=== PATIENT | female | born 1980 | race Caucasian/White ===

== ENCOUNTER 2023-08-05 11:40 | Emergency (ER) | payer OTHER, SELFPAY ==
[2023-08-05 11:42] VITALS: BP 119/87; PULSE 77; TEMP 36.6; O2SAT 97; BMI 35.6
[2023-08-05 11:55] VITALS: O2SAT 97
--- NOTE | 2023-08-05 12:00 | ED_ITS ---
HPI HPI - General Adult General Chief complaint: Headache Stated complaint: HEADACHE Time Seen by Provider: 08/05/23 11:56 Source: patient Mode of arrival: walk-in History of Present Illness HPI narrative: hx of migraine , the patient presented to us with an episode of nausea as well as headache that started this morning. She mentioned that it is similar to her typical migraine episode but she did not have Imitrex as it is The patient denies any other complaints She also mentioned having with the nausea ,photosensitivity Related Data Allergies Allergy/AdvReac Type Severity Reaction Status Date / Time amoxicillin Allergy Severe Verified 08/05/23 11:50 cefuroxime [From Ceftin] Allergy Severe Verified 08/05/23 11:50 clindamycin Allergy Severe Verified 08/05/23 11:50 latex Allergy Severe Verified 08/05/23 11:50 Penicillins Allergy Severe Verified 08/05/23 11:50 Sulfa (Sulfonamide Allergy Severe Verified 08/05/23 11:50 Antibiotics) Opioid HPI Opioid Management Most Recent Opioid Data: Last Pain Scale 10 08/05/23 12:18 Last MAR Pain Assessment 08/05/23 12:18 Review of Systems ROS Status of ROS 10 or more systems reviewed and unremark able except as noted in history and below Exam Narrative Exam Narrative: Nurses notes and vital signs reviewed and patient is not hypoxic. General: Well-appearing and in no apparent distress. Skin: Warm, dry, no pallor noted. No rash. Head: Normocephalic, atraumatic. Neck: Supple, non-tender. Eye: Pupils are equal, round and EOMI. No scleral icterus. Ears, Nose, Mouth, and Throat: TM are clear, no nasal mucosal hypertrophy. Oral mucosa is moist, no posterior oropharynx erythema, uvula is mid-line Cardiovascular: Regular Rate and Rhythm without murmur, gallop or rub. Respiratory: No accessory muscle use or respiratory distress. Lungs are clear to auscultation, no wheezing, rales or rhonchi Chest Wall: no tenderness Back: No midline thoracic or lumbar vertebral tenderness. No CVA tenderness Musculoskeletal: normal ROM, no calf or popliteal tenderness, no lower extremity edema/swelling GI: Abdomen is soft, non-distended. Normal bowel sounds. No masses appreciated. No tenderness to palpation. No rebound, guarding, or rigidity noted. Neurological: A&O x4. No cranial nerve dysfunction observed. No truncal ataxia. Moves all extremities. Sensation intact. Psychiatric: Cooperative and interactive. Normal mood and affect. Constitutional Vital Signs, click to edit/add: Last Vital Signs Temp 97.9 F 08/05/23 11:42 Pulse 77 08/05/23 11:42 Resp 18 08/05/23 11:42 BP 119/87 08/05/23 11:42 Pulse Ox 97 08/05/23 11:55 O2 Del Method Room Air 08/05/23 11:55 Course Vital Signs Vital signs: Vital Signs Temperature 97.9 F 08/05/23 11:42 Pulse Rate 77 08/05/23 11:42 Respiratory Rate 18 08/05/23 11:42 Blood Pressure 119/87 08/05/23 11:42 Pulse Oximetry 97 08/05/23 11:42 Oxygen Delivery Method Room Air 08/05/23 11:42 Temperature 97.9 F 08/05/23 11:42 Pulse Rate 77 08/05/23 11:42 Respiratory Rate 18 08/05/23 11:42 Blood Pressure 119/87 08/05/23 11:42 Pulse Oximetry 97 08/05/23 11:55 Oxygen Delivery Method Room Air 08/05/23 11:55 Medical Decision Making MDM Narrative Medical decision making narrative: The patient provide in the ER with Compazine and triptan After a while she was feeling much better She was discharged to follow-up with her primary care doctor within the week for further evaluation management Discharge Plan Discharge Stand Alone Forms: Portal Instructions Chief Complaint: Headache Clinical Impression: Migraine Patient Disposition: Home, Self-Care Time of Disposition Decision: 13:25 Condition: Good Mode of Transportation: Private Vehicle Print Language: Indonesian Instructions: Migraine Headache (ED) Referrals: Grace Miramontes MD [Primary Care Provider] - 1 week
[2023-08-05] MEDS: SUMATRIPTAN SUCCINATE 6 MG/0.5 ML VIAL SUBQ (12:13)
[2023-08-05] MEDS: KETOROLAC TROMETHAMINE 30 MG/ML VIAL 15 MG IVP (12:18)
[2023-08-05] MEDS: PROCHLORPERAZINE 10 MG/2 ML VIAL 5 MG IV (12:18)
[2023-08-05 13:32] VITALS: BP 113/81; PULSE 76; O2SAT 98
== END 2023-08-05 13:46 | disposition home or self-care (01) ==
PROVIDERS: Emergency Provider Emergency Medicine; PCP Family Medicine
DX: G43.909 Migraine, unspecified, not intractable, without status migrainosus (principal)
CPT/HCPCS: 96372; 96374; 96375; 99284

== ENCOUNTER 2023-09-11 11:07 | Emergency (ER) | payer OTHER, SELFPAY ==
[2023-09-11] VITALS (12 sets, daily range): BP systolic 125–133; BP diastolic 82–84; PULSE 69–81; TEMP 36.5; O2SAT 96–99; BMI 35.8
--- NOTE | 2023-09-11 11:24 | XR_ITS ---
The [address] [address] Patient Name: IRINA GALAN MRN: [id number] date: 1980 Sex: F Assigned Patient Location: ED.MAIN Current Patient Location: ER Accession/Order Number: [id number] Exam Date: 09/11/2023 11:40 Report Date: 09/11/2023 11:57 At the request of: DRE TARIQ Procedure: XR chest 1V EXAMINATION: XR chest 1V HISTORY: palpitations COMPARISON: No relevant comparison available. TECHNIQUE: ap port FINDINGS: LUNGS: No significant pulmonary parenchymal abnormalities. VASCULATURE: No increased pulmonary vasculature. PLEURA: No pneumothorax, effusion, or pleural thickening. CARDIAC: No cardiomegaly or cardiac silhouette abnormality. MEDIASTINUM: No visible mass or adenopathy. BONES: No fracture or visible bone lesion. OTHER: Negative. XR/XR chest 1V IMPRESSION: No acute cardiopulmonary process Electronically authenticated by: MANE SIMS Date: 09/11/2023 11:57
--- NOTE | 2023-09-11 11:24 | ECG_ITS ---
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
[2023-09-11 11:40] LABS: Basophils Percent Auto 0.4 % (0.2-2.0); Eosinophils Absolute Auto 0.1 10^3/uL (0.0-0.7); Eosinophils Percent Auto 1.2 % (0.9-7.0); Hematocrit 42.4 % (36.0-48.0); Hemoglobin 13.5 g/dL (12.0-16.0); Immature Granulocytes Abs Auto 0.01 10^3/uL (0.00-0.03); Immature Granulocytes Pct Auto 0.1 % (0.0-0.5); Lymphocytes Absolute Auto 1.9 10^3/uL (1.2-3.8); Lymphocytes Percent Auto 22.6 % (20.5-60.0); Mean Corpuscular HGB Conc 31.8 g/dL (29.9-35.2); Mean Corpuscular Hemoglobin 29.7 pg (26.7-34.0); Mean Corpuscular Volume 93.4 fL (81.0-99.0); Mean Platelet Volume 9.6 fL (9.5-13.5); Monocytes Absolute Auto 0.5 10^3/uL (0.3-0.8); Monocytes Percent Auto 6.4 % (1.7-12.0); Neutrophils Absolute Auto 5.9 10^3/uL (1.4-6.5); Neutrophils Percent Auto 69.3 % (43.0-75.0); Platelet Count 244 10^3/uL (150-450); Red Blood Count 4.54 10^6/uL (4.20-5.40); Red Cell Distribution Width 12.6 % (11.0-15.0); White Blood Count 8.4 10^3/uL (4.0-11.0)
--- NOTE | 2023-09-11 11:44 | ED.ARRPALP1 ---
HPI - Arrhythmia/Palpitations General Chief Complaint: Arrhythmia/Palpitations Stated Complaint: FAST HEART RATE/ SHORTNESS OF BREATH Time Seen by Provider: 09/11/23 11:11 Source: patient Mode of arrival: walk-in Limitations: no limitations History of Present Illness HPI narrative: Patient presents to ED complaining of arrhythmia and palpitations. She said over the weekend she was just sitting there at a cookout and she started to have Heart palpitations. She said it lasted about 10 or 15 seconds and then subsided. She said during the episode she felt short of breath and then she had diarrhea shortly afterwards. She said this then happened again today while she was working. She was just sitting at her computer and felt the heart palpitations come on. She felt short of breath again and near syncopal. Again it only lasted about 10 or 15 seconds. She denies severe chest pain. She denies calf pain or swelling. She denies alcohol consumption. She denies history of thyroid issues. She has had a Holter monitor in the past but it has been years because she did have heart palpitations in the past and at that time they were unable to find any specific diagnosis or reason. Related Data Home Medications ?Medication ?Instructions ?Recorded ?Confirmed alprazolam 1 mg tablet 1 mg PO BEDTIME 09/11/23 09/11/23 estradiol 1 mg tablet 1 mg PO DAILY 09/11/23 09/11/23 hyoscyamine sulfate 0.125 mg tablet 0.125 mg PO QID PRN dyspepsia 09/11/23 09/11/23 metoclopramide HCl 5 mg tablet 5 mg PO Q6H PRN nausea and vomiting 09/11/23 09/11/23 pantoprazole 40 mg tablet,delayed 40 mg PO DAILY 09/11/23 09/11/23 release Allergies Allergy/AdvReac Type Severity Reaction Status Date / Time amoxicillin Allergy Severe Hives Verified 09/11/23 11:11 cefuroxime [From Ceftin] Allergy Severe Hives Verified 09/11/23 11:11 clindamycin Allergy Severe Hives Verified 09/11/23 11:11 latex Allergy Severe Hives Verified 09/11/23 11:11 Penicillins Allergy Severe Hives Verified 09/11/23 11:11 Sulfa (Sulfonamide Allergy Severe Hives Verified 09/11/23 11:11 Antibiotics) Review of Systems ROS Status of ROS 10 or more systems reviewed and unremarkable except as noted in history and below Exam Narrative Exam Narrative: Time Seen: [] Vital Signs: [Per nurse's notes.] General: [Alert] Skin: [Warm, dry, no rash.] Head: [Normocephalic, atraumatic.] Neck: [Supple, trachea midline.] Eye: [Pupils are equal, round and reactive to light, extraocular movements are intact, normal conjunctiva.] Ears, nose, mouth and throat: oral mucosa moist. Cardiovascular: [Regular rate and rhythm, no murmur.] Respiratory: [Lungs are clear to auscultation, respirations are non-labored, breath sounds are equal.] Chest wall: [No tenderness, no deformity.] Gastrointestinal: [Soft, nontender, non distended, normal bowel sounds.] MSK: 5 out of 5 muscle strength x 4 extremities no calf pain or edema Lymphatics: [No lymphadenopathy.] Psychiatric: [Cooperative, appropriate mood & affect.] Neurological: [Alert and oriented to person, place, time, and situation, no focal neurological deficit observed.] Constitutional Vital Signs, click to edit/add: Last Vital Signs Temp 97.7 F 09/11/23 11:13 Pulse 78 09/11/23 11:13 Resp 18 09/11/23 11:13 BP 133/82 09/11/23 11:13 Pulse Ox 99 09/11/23 11:13 O2 Del Method Room Air 09/11/23 11:13 Course Vital Signs Vital signs: Vital Signs Temperature 97.7 F 09/11/23 11:13 Pulse Rate 78 09/11/23 11:13 Respiratory Rate 18 09/11/23 11:13 Blood Pressure 133/82 09/11/23 11:13 Pulse Oximetry 99 09/11/23 11:13 Oxygen Delivery Method Room Air 09/11/23 11:13 Temperature 97.7 F 09/11/23 11:13 Pulse Rate 78 09/11/23 11:13 Respiratory Rate 18 09/11/23 11:13 Blood Pressure 133/82 09/11/23 11:13 Pulse Oximetry 99 09/11/23 11:13 Oxygen Delivery Method Room Air 09/11/23 11:13 MDM - Arrhythmia/Palpitations MDM Narrative Medical decision making narrative: Patient's labs are negative for acute including electrolytes and thyroid panel. Troponin negative. Unsure exactly why the patient is getting heart palpitations. Please follow-up with cardiology who she has seen in the past and may need another Holter monitor because it has been a few years. Of course return to emergency room if worsening chest pain palpitations shortness of breath or any other concerns. Differential Diagnosis Differential diagnosis: Likely palpitations, anxiety, sinus tachycardia, artial fibrillation, artial flutter and supraventricular tachycardia Medical Records Attestation: I reviewed the patient's medical records. Lab Data Attestation: I reviewed the patient's lab results. Labs: Lab Results 09/11/23 Range/Units 11:33 WBC 8.4 (4.0-11.0) 10^3/uL RBC 4.54 (4.20-5.40) 10^6/uL Hgb 13.5 (12.0-16.0) g/dL Hct 42.4 (36.0-48.0) % MCV 93.4 (81.0-99.0) fL MCH 29.7 (26.7-34.0) pg MCHC 31.8 (29.9-35.2) g/dL RDW 12.6 (11.0-15.0) % Plt Count 244 (150-450) 10^3/uL MPV 9.6 (9.5-13.5) fL Neut % (Auto) 69.3 (43.0-75.0) % Lymph % (Auto) 22.6 (20.5-60.0) % [place] % (Auto) 6.4 (1.7-12.0) % Eos % (Auto) 1.2 (0.9-7.0) % Baso % (Auto) 0.4 (0.2-2.0) % Neut # (Auto) 5.9 (1.4-6.5) 10^3/uL Lymph # (Auto) 1.9 (1.2-3.8) 10^3/uL [place] # (Auto) 0.5 (0.3-0.8) 10^3/uL Eos # (Auto) 0.1 (0.0-0.7) 10^3/uL Baso # (Auto) 0.0 (0.0-0.1) 10^3/uL Abs Immat Gran (auto) 0.01 (0.00-0.03) 10^3/uL Imm/Tot Granulo (auto) 0.1 (0.0-0.5) % Sodium 139 (136-145) mmol/L Potassium 4.0 (3.5-5.1) mmol/L Chloride 106 (98-107) mmol/L Carbon Dioxide 27.7 (21.0-32.0) mmol/L Anion Gap 9.3 BUN 18.0 (7.0-18.0) mg/dL Creatinine 1.01 (0.55-1.02) mg/dL Est GFR ( Amer) >60 (>=60) Est GFR (Non-Af Amer) 60 (>=60) BUN/Creatinine Ratio 17.8 Glucose 89 (74-106) mg/dL Calcium 8.6 (8.5-10.1) mg/dL Total Bilirubin 0.4 (0.2-1.0) mg/dL AST 22 (15-37) U/L ALT 31 (14-59) U/L Alkaline Phosphatase 85 (46-116) U/L Troponin I High Sens <4.0 L (4.0-51.3) pg/mL Total Protein 7.4 (6.4-8.2) g/dL Albumin 3.0 L (3.4-5.0) g/dL Globulin 4.4 g/dL Albumin/Globulin Ratio 0.7 TSH & Free T4 Interp 2.310 (0.358-3.740) uIU/mL Imaging Data Chest x-ray: Radiologist's impression: ITS Impressions Chest X-Ray 09/11/23 11:24 IMPRESSION: No acute cardiopulmonary process Electronically authenticated by: MANE SIMS Date: 09/11/2023 11:57 ECG Data Attestation: I personally reviewed and interpreted this ECG as follows: Interpretation: EKG INTERPRETATION Time: []1114 Rate: []67 Rhythm: _ []Normal sinus rhythm ST segments: _ []No acute ST elevation or depression T waves: _ [] Ectopy: _ [] P wave/FL interval: _ [] QRS interval: _ [] QT interval: _ [] Comparison: _ [] Comparison EKG date: [] Performed by: [self] Core Measures AMI core measures followed: Yes Discharge Plan Discharge Stand Alone Forms: Portal Instructions Chief Complaint: Arrhythmia/Palpitations Clinical Impression: Palpitations Patient Disposition: Home, Self-Care Time of Disposition Decision: 12:33 Mode of Transportation: Private Vehicle Prescriptions / Home Meds: No Action alprazolam 1 mg tablet 1 mg PO BEDTIME estradiol 1 mg tablet 1 mg PO DAILY pantoprazole 40 mg tablet,delayed release (DR/EC) 40 mg PO DAILY hyoscyamine sulfate 0.125 mg tablet 0.125 mg PO QID PRN (Reason: dyspepsia) metoclopramide HCl 5 mg tablet 5 mg PO Q6H PRN (Reason: nausea and vomiting) Print Language: Montserratian Instructions: Heart Palpitations (ED) Referrals: EDIS SAWANT [Physician] - 1 week Grace Miramontes MD [Primary Care Provider] - 1 week
[2023-09-11 12:04] LABS: Alanine Aminotransferase 31 U/L (14-59); Albumin Globulin Ratio 0.7; Alkaline Phosphatase 85 U/L (46-116); Anion Gap 9.3; Aspartate Amino Transferase 22 U/L (15-37); BUN Creatinine Ratio 17.8; Bilirubin Total 0.4 mg/dL (0.2-1.0); Calcium 8.6 mg/dL (8.5-10.1); Carbon Dioxide 27.7 mmol/L (21.0-32.0); Chloride 106 mmol/L (98-107); Estimated GFR (African America >60 (>=60); Estimated GFR (Non-African Ame 60 (>=60); Globulin 4.4 g/dL; Glucose 89 mg/dL (74-106); Sodium 139 mmol/L (136-145); Total Protein 7.4 g/dL (6.4-8.2); Troponin I High Sensitivity <4.0 pg/mL (4.0-51.3)
== END 2023-09-11 12:57 | disposition home or self-care (01) ==
PROVIDERS: Emergency Provider Emergency Medicine; PCP Family Medicine
DX: R00.2 Palpitations (principal)
CPT/HCPCS: 36415; 71045; 80053; 84443; 84484; 85025; 93005; 99285

== ENCOUNTER 2024-01-30 16:57 | Emergency (ER) | payer OTHER, SELFPAY ==
[2024-01-30 17:06] VITALS: BP 117/82; PULSE 78; TEMP 36.6; O2SAT 97; BMI 36.3
--- OUTSIDE RECORDS SUMMARY | 2024-01-30 17:11 | XMS_ITS | CCD ---
Author Organization [facility] Care Team Providers Care Shorts Sifter Name Role Phone PHYSICIAN, DEFAULT Unavailable Unavailable PHYSICIAN, DEFAULT Unavailable Unavailable TIMMY, DILCIA Unavailable Unavailable EDIS SAWANT Unavailable Unavailable TIMMY, DILCIA Unavailable Unavailable Dilcia Warner MD Primary Care Provider [phone] DILCIA WARNER Primary Care Unavailable WHITNEY QUAN Referring Unavailpro e Dilcia Warner Unavailable ARELI Sams, DR ALBINA Everett Consulting Unavaila ashutosh SINGLETON ., DR ALBINA Everett Attending Unavaila ashutosh SINGLETON ., DR ALBINA Everett Admitting Unavaila ble TIMMY, DR DILCIA Everett Primary Care Unavailable ELLIOTT, DR AMINA Hawkins Consulting Unavailable WARNER, DR DILCIA Everett Attending Unavailable WARNER, DR DILCIA Everett Admitting Unavailable WEST, DR MANE Thomas Consulting Unavailable WARNER, DR DILCIA Everett Primary Care Unavailable WARNER, DR DILCIA Everett Consulting Unavailable WARNER, DR DILCIA Everett Attending Unavailable WARNER, DR DILCIA Everett Admitting Unavailable WARNER, DR DILCIA Everett Primary Care Unavailable WEST, DR MANE Thomas Consulting Unavailable WARNER, DR DILCIA Everett Consulting Unavailable WARNER, DR DILCIA Everett Attending Unavailable WARNER, DR DILCIA Everett Admitting Unavailable WARNER, DR DILCIA Everett Primary Care Unavailable ELLIOTT, DR AMINA Hawkins Consulting Unavailable WARNER, DR DILCIA Everett Consulting Unavailable WARNER, DR DILCIA Everett Consulting Unavailable WARNER, DR DILCIA Everett Attending Unavailable WARNER, DR DILCIA Everett Admitting Unavailable WARNER, DR DILCIA Everett Primary Care Unavailable WARNER, DR DILCIA Everett Primary Care Unavailable ZAHEER, DR ELAN Huntley Consulting Unavailabl e ZAHEER, DR ELAN Huntley Attending Unavailabl e ZAHEER, DR ELAN Huntley Admitting Unavailabl e ELLIOTT, DR AMINA Hawkins Consulting Unavailable WARNER, DR DILCIA Everett Primary Care Unavailable NOE GONZALES Consulting Unavailable NOE GONZALES Attending Unavailable NOE GONZALES Admitting Unavailable RENARD ANDRADE Consulting Unavailable WARNER, DR DILCIA E Primary Care Unavailable GARDENIA ., LISBET Attending Unavailable GARDENIA ., LISBET Admitting Unavailable DR AMINA GALLAGHER Consulting Unavailable DR HERNAN LEUNG Consulting Unavailable ARGELIA .DR MORRIS Consulting Unavailable MONICA DIA Consulting Unavailable SISTER, RADHA Consulting Unavailable GARDENIA ., LISBET Consulting Unavailable TREMAINE STEEN Consulting Unavailable WARNER, DILCIA E Referring Unavailable WARNER, DILCIA E Primary Care Unavailable TRABOULJAMARII, MOURHAF Attending Unavailable WARNER, DILCIA E Primary Care Unavailable TRABOULSSI, MOURHAF Referring Unavailable WARNER, DILCIA E Primary Care Unavailable TRABOULSSI, MOURHAF Referring Unavailable WARNER, DILCIA E Primary Care Unavailable Allergies Allergy Classification Reported Allergen(s) Allergy Type Date of Onset Reaction(s) Facility (11 sources) amoxicillin; Translations: [AMOXICILLIN] Drug Allergy 06-05-19 14 Rash [facility] Repository (2 sources) cefuroxime Drug Allergy 10-07-19 13 [facility] Repository (12 sources) Latex; Translations: [LATEX] Drug allergy (disorder) 10-07-19 13 Rash [facility] Repository (13 sources) Penicillins; Translations: [PENICILLINS] Drug allergy (disorder) 10-07-19 13 Rash [facility] Repository (12 sources) Sulfonamides (Antibiotic); Translations: [SULFA (SULFONAMIDE ANTIBIOTICS)] Drug allergy (disorder) 10-07-19 13 Rash [facility] Repository (17 sources) Amoxicillin Drug Allergy 03-20-19 18 rash [facility] (1 source) Cephalosporins (Antibiotic) Propensity to adverse reactions to drug 03-20-19 18 [employer] Work Phone: (1 source) Estrogens Drug Allergy 08-04-19 22 Other (See Comments) [employer] Phone: (17 sources) Latex Propensity to adverse reactions to drug 03-20-19 18 Unknown [employer] Phone: (1 source) Sulfonamides (Antibiotic) Propensity to adverse reactions to drug 03-20-19 18 [employer] Phone: (1 source) Clindamycin/Lin[employer] ycin Propensity to adverse reactions to drug 03-20-19 18 [facility] [employer] Work Phone: (20 sources) Cefuroxime Drug Allergy 04-18-19 24 [facility] (20 sources) Clindamycin; Translations: [CLINDAMYCIN] Drug Allergy 05-21-19 14 [facility] (19 sources) Erythromycin; Translations: [ERYTHROMYCIN] Drug Allergy 06-19-19 21 [facility] Repository (20 sources) penicillAMINE Drug Allergy 04-18-19 24 [facility] (16 sources) Sulfacetamide / Sulfur Drug Allergy [facility] [place] [employer] Other (1 source) Amoxicillin Drug Allergy 10-07-19 13 [facility] Repository (1 source) Azithromycin Drug Allergy 10-26-19 14 [facility] Repository (1 source) Clindamycin Drug Allergy 10-26-19 14 [facility] Repository (8 sources) Erythromycin Drug Allergy 10-26-19 14 [facility] Repository (5 sources) Azithromycin; Translations: [AZITHROMYCIN] Drug Allergy 05-21-19 14 Unknown [facility] Repository (4 sources) Penicillin Drug Allergy 05-21-19 14 Unknown [employer] Other (4 sources) Pseudoephedrine Drug Allergy 06-20-19 18 Unknown [employer] Other (4 sources) Substance with penicillin structure and antibacterial mechanism of action (substance) Drug allergy 06-20-19 18 Unknown [facility] Other (4 sources) Allergies Reconciled Propensity to adverse reactions 11-26-19 Unknown [facility] Other (4 sources) Substance with sulfonamide structure and antibacterial mechanism of action (substance) Drug allergy 06-20-19 18 Unknown [facility] Other (4 sources) patient allergy list reviewed by nurse or physicia Propensity to adverse reactions 11-21-19 18 Comment:Done [facility] Other (4 sources) Skelaxin *MUSCULOSKELETAL THERAPY AGENTS* Propensity to adverse reactions 05-21-19 Unknown [facility] Other (4 sources) Ceftin *CEPHALOSPORINS* Propensity to adverse reactions 06-20-19 Unknown [facility] Other (7 sources) Sulfacetamide Drug Allergy 04-18-19 24 [facility] (7 sources) Sulfur Drug Allergy 04-18-19 [facility] (1 source) Cefuroxime; Translations: [CEFUROXIME AXETIL] Drug Allergy 12-08-19 [facility] Repository Medications Current Medications Medication Drug Class(es) Dates Sig (Normalized) Sig (Original) ALPRAZolam 1 mg oral tablet (20 sources) Benzodiazepine Start: 11-26-2023 take 1 mg by mouth twice daily Alprazolam Active 1 MG PO Twice daily 40 November 26, 2023 9:19am Start: 08-07-2023 End: 11-26-2023 take 1 mg by mouth once daily at bedtime Alprazolam Discontinued 1 MG PO Daily at bedtime November 01, 2023 8:26am November 26, 2023 9:20am Start: 04-18-2023 End: 07-25-2023 take 1 tablet by mouth three times daily as needed Alprazolam Discontinued 1 MG PO Three times daily May 23, 2023 8:34am July 25, 2023 1:06pm [employer]: TAKE 1 TABLET BY MOUTH THREE TIMES A DAY NEEDED; Note: Source Status: Refill; Refills: 0; Qty: 60 Tablet; Provider: Timmy Everett Start: 03-20-2023 take 1 tablet by javier th three times daily as needed ALPRAZolam 1 MG TAKE 1 TABLET BY MOUTH THREE TIMES A DAY NEEDED for Mar, Active Start: 01-17-2023 take 1 tablet by javier th three times daily as needed ALPRAZolam 1 MG TAKE 1 TABLET BY MOUTH THREE TIMES A DAY NEEDED for Jan, Active Start: 11-16-2022 ALPRAZolam 1 M G TAKE 1 TABLET BY MOUTH THREE TIMES A DAY NEEDED FOR 30 DAYS for Nov, Active Start: 05-24-2022 take 1 tablet by javier th three times daily as needed ALPRAZolam 1 MG 1 tablet Orally tid prn for 30 days May, Active Start: 04-10-2022 take 2 tablets by mo uth three times daily as needed ALPRAZolam 0.5 MG TAKE 2 TABLETS BY MOUTH 3 TIMES A DAY NEEDED for 15 days Apr, Active Start: 01-16-2018 take 1 tablet by javier th every eight hours as needed ALPRAZolam (XANAX) 0.5 MG tablet Take 0.5 mg by mouth every 8 hours as needed. 0 01/16/2018 Active doxycycline hyclate 100 mg oral tablet (8 sources) Tetracycline-class Drug Start: 11-26-2023 take 100 mg by mouth twice daily Doxycycline Hyclate Active 100 MG PO Twice daily November 26, 2023 12:00am Start: 04-18-2023 End: 06-21-2023 take 100 mg by mouth every twelve hours Doxycycline Hyclate Discontinued 100 MG PO Every 12 hours 22 12April 18, 2023 1:00am June 21, 2023 3:27pm estradiol 1 mg oral tablet (20 sources) Estrogen Start: 08-01-2023 End: 10-29-2023 take 1 tablet by mouth once daily Estradiol Active 0 .ROUTE .COMPLEX October 29, 2023 3:39pm TAKE 1 TABLET BY MOUTH EVERY DAY Start: 04-18-2023 End: 08-01-2023 take 1 tablet by mouth once daily Estradiol Discontinued 1 TAB PO Daily April 18, 2023 1:00am August 01, 2023 8:44am [employer]: TAKE 1 TABLET BY MOUTH EVERY DAY FOR 90 DAYS; Note: Source Status: Start; Refills: 1; Qty: 90 Tablet; Provider: Timmy Edwards ( ) Estradiol 1 MG T GERONIMO 1 TABLET BY MOUTH EVERY DAY FOR 90 DAYS for 90 Active hyoscyamine sulfate 0.125 mg oral tablet (20 sources) Start: 10-17-2023 take 1 tablet by mouth four times daily as needed Hyoscyamine Sulfate Active 0 .ROUTE .COMPLEX October 17, 2023 10:31am TAKE 1 TABLET BY MOUTH FOUR TIMES A DAY NEEDED Start: 07-04-2023 End: 10-17-2023 take 1 tablet by mouth four times daily as needed Hyoscyamine Sulfate Discontinued 0 .ROUTE .COMPLEX 120 July 04, 2023 10:20am October 17, 2023 10:31am TAKE 1 TABLET BY MOUTH FOUR TIMES A DAY NEEDED Start: 07-04-2023 take 1 tablet by javier th four times daily as needed Hyoscyamine Sulfate Active 0 .ROUTE .COMPLEX 120 July 04, 2023 10:20am TAKE 1 TABLET BY MOUTH FOUR TIMES A DAY NEEDED Start: 06-04-2023 End: 07-04-2023 take 0.125 mg by mouth twice daily Hyoscyamine Sulfate Discontinued 0.125 MG PO Twice daily 180 90 July 02, 2023 12:22pm July 04, 2023 10:20am Start: 04-18-2023 End: 06-04-2023 take 0.125 mg by mouth four times daily Hyoscyamine Sulfate Discontinued 0.125 MG PO Four times daily April 18, 2023 1:00am June 04, 2023 12:29pm Start: 05-17-2022 take 1 tablet by javier th every six hours Levsin 0.125 MG 1 tablet as needed Orally Four times a day for 30 days May, Active Start: 05-17-2022 take 1 tablet by javier th every four hours Levsin 0.125 MG 1 tablet as needed Orally every 4 hrs for 7 days May, Active metoclopramide 5 mg oral tablet (20 sources) Dopamine-2 Receptor Antagonist Start: 07-04-2023 End: 10-17-2023 Metoclopramide Hcl Active 0 .ROUTE .COMPLEX 120 October 17, 2023 10:31am TAKE 1 TABLET FOUR TIMES DAILY, BEFORE MEALS AND IN THE EVENING Start: 04-18-2023 End: 07-04-2023 take 1 tablet by mouth four times daily before mealtime Metoclopramide Hcl Discontinued 5 MG PO Four times daily April 18, 2023 1:00am July 04, 2023 10:20am [employer]: TAKE 1 TABLET FOUR TIMES DAILY, BEFORE MEALS AND IN THE EVENING FOR 30 DAYS; Note: Source Status: Refill; Refills: 2; Qty: 120 Tablet; Provider: Timmy Everett Start: 05-26-2022 Metoclopramide HCl 5 MG 1 tablet before meals and qpm Orally Four times a day for 30 days May, Active Metoclopramide H Cl 5 MG TAKE 1 TABLET FOUR TIMES DAILY, BEFORE MEALS AND IN THE EVENING FOR 30 DAYS for 30 Active NONFORMULARY (1 source) NONFORMULARY Menopause support 0 Active ondansetron 4 mg oral tablet (12 sources) Serotonin-3 Receptor Antagonist Start: 3 take 1 tablet by mouth three times daily as needed Ondansetron HCl 4 MG 1 tablet Orally tid prn for 30 days May, Active pantoprazole 40 mg delayed release oral tablet (20 sources) Proton Pump Inhibitor Start: 4 End: 4 take 40 mg by mouth twice daily Pantoprazole Active 40 MG PO Twice daily 180 November 15, 2023 8:04am Start: 07-29-2021 pantoprazole ( PROTONIX) 40 MG tablet Pantoprazole Sod ium 40 MG TAKE 1 TABLET BY MOUTH TWICE A DAY FOR 90 DAYS for 90 Active Completed/Discontinued Medications Medication Drug Class(es) Dates Sig (Normalized) Sig (Original) Azithromycin (18 sources) Macrolide Antimicrobial Start: 09-20-2023 End: 11-26-2023 Azithromycin Discontinued 0 PO .COMPLEX September 20, 2023 12:00am November 26, 2023 9:17am For 250 mg dose pack: take 500 mg today (day 1), then 250 mg for 4 days (days 2-5) PO Start: 09-20-2023 Azithromycin A ctive 0 PO .COMPLEX September 20, 2023 12:00am For 250 mg dose pack: take 500 mg today (day 1), then 250 mg for 4 days (days 2-5) PO Start: 03-17-2022 Azithromycin 2 50 MG as directed Orally 2 tabs po today, then 1 tab daily x 4 more days for 5 Mar, Not-Taking/PRN Methylprednisolone (7 sources) Corticosteroid Start: 04-18-2023 End: 06-21-2023 Methylprednisolone Discontin ued 0 PO per package directions April 18, 2023 1:00am June 21, 2023 3:27pm PO PER PKG DIR for 6 days Start: 04-18-2023 Methylpredniso lone Active 0 PO per package directions April 18, 2023 12:00am PO PER PKG DIR for 6 days sucralfate 1000 mg oral tablet (20 sources) Aluminum Complex Start: 06-21-2023 End: 09-20-2023 take 1 tablet by mouth twice daily Sucralfate (Carafate) 1 gram tablet Discontinued 1 GM PO Twice daily June 21, 2023 12:00am September 20, 2023 9:21am Start: 03-21-2022 take 1 tablet by javier th three times daily Carafate 1 GM 1 tablet Orally three times daily Jun, Active Start: 03-21-2022 take 1 tablet by javier th three times daily Carafate 1 GM 1 tablet Orally three times daily Jun, Active Start: 03-21-2022 take 1 tablet by javier th every twelve hours Sucralfate 1 GM 1 tablet on an empty stomach Orally Twice a day for 90 day(s) Mar, Active Start: 03-21-2022 take 1 tablet by javier th twice daily Sucralfate 1 GM 1 tablet on an empty stomach Orally Twice a day for 90 day(s) Mar, Active SUMAtriptan 5 mg/actuat nasal spray (3 sources) Serotonin-1b and Serotonin-1d Receptor Agonist Start: 08-07-2023 End: 09-20-2023 Sumatriptan Discontinued 5 MG INTRANASAL EVERY 2-4 HOURS August 07, 2023 12:00am September 20, 2023 9:21am into one nostril; if headache remains, may repeat dose into other nostril once after at least 2 hours traZODone hydrochloride 50 mg oral tablet (14 sources) Serotonin Reuptake Inhibitor Start: 07-25-2023 End: 08-07-2023 take 75 mg by mouth once daily at bedtime Trazodone Discontinued 75 MG PO Daily at bedtime July 25, 2023 1:06pm August 07, 2023 10:43am Start: 06-21-2023 End: 07-25-2023 take 50 mg by mouth once daily at bedtime Trazodone Discontinued 50 MG PO Daily at bedtime July 17, 2023 8:40am July 25, 2023 1:06pm triamcinolone acetonide 40 mg/ml injectable suspension (4 sources) Corticosteroid Start: 07-26-2022 Kenalog-40 July, 60 mg 24 hr venlafaxine 150 mg extended release oral capsule (16 sources) Serotonin and Norepinephrine Reuptake Inhibitor take 1 capsule by mouth every twenty-four hours Effexor XR 150 MG 1 capsule with food Orally Once a day Not-Taking/PRN Problems Active Problems Problem Classification Problem Date Documented Da te Episodic/Chronic Abdominal pain (20 sources) Pain in female pelvis; Translations: [Pelvic and perineal pain] Onset: 8 07-04-2017 Episodic Acute and chronic tonsillitis (4 sources) Acute tonsillitis; Translations: [Acute tonsillitis, unspecified] Episodic Acute bronchitis (8 sources) Acute bronchitis; Translations: [Acute bronchitis due to other specified organisms] Onset: 8 Episodic Anxiety disorders (20 sources) Generalized anxiety disorder; Translations: [Claustrophobia] Onset: 8 05-23-2023 Chronic Asthma (4 sources) Exacerbation of intermittent asthma; Translations: [Mild intermittent asthma with (acute) exacerbation] Chronic Cardiac dysrhythmias (8 sources) Tachycardia; Translations: [Tachycardia, unspecified] Onset: 8 Episodic Chronic obstructive pulmonary disease and bronchiectasis (4 sources) Bronchitis; Translations: [Bronchitis, not specified as acute or chronic] Episodic Complications of surgical procedures or medical care (17 sources) Postprocedural asymptomatic ovarian failure; Translations: [Asymptomatic postprocedural ovarian failure] Chronic Endometriosis (5 sources) Endometriosis (clinical); Translations: [Endometriosis, unspecified] Onset: 8 07-11-2017 Chronic Esophageal disorders (18 sources) Gastroesophageal reflux disease without esophagitis; Translations: [Gastro-esophageal reflux disease without esophagitis] Chronic Essential hypertension (4 sources) Essential hypertension; Translations: [Essential (primary) hypertension] Chronic Gastritis and duodenitis (1 source) Chronic superficial gastritis without bleeding; Translations: [CHRONIC SUP GASTRITIS W/O BLEED] Onset: 3 Chronic Genitourinary symptoms and ill-defined conditions (4 sources) Dysuria; Translations: [Dysuria] Episodic Headache; including migraine (7 sources) Migraine without aura, not refractory ; Translations: [Migraine, unspecified, not intractable, without status migrainosus] 08-09-2023 Chronic Influenza (4 sources) Upper respiratory tract infection due to Influenza; Translations: [Influenza due to unidentified influenza virus with other respiratory manifestations] Episodic Menopausal disorders (1 source) Hormone replacement therapy Episodic Nausea and vomiting (7 sources) Nausea with vomiting, unspecified; Translations: [Nausea] Onset: 2 Episodic Nonmalignant breast conditions (1 source) Diffuse cystic mastopathy of right breast; Translations: [DIFFUSE CYSTIC MASTOPATHY RT BREAST] Onset: 2 Chronic Nonmalignant breast conditions (17 sources) Unspecified lump in the right breast, lower outer quadrant; Translations: [Unspecified lump in the right breast, upper outer quadrant] Onset: 2 Episodic Nonspecific chest pain (14 sources) Chest pain, unspecified; Translations: [Chest pain] Onset: 9 Episodic Other aftercare (1 source) Other fci (current) drug therapy; Translations: [OTH CLERICAL SECRETARY CURRENT DRUG THERAPY] Onset: 3 Episodic Other circulatory disease (4 sources) Elevated blood-pressure reading without diagnosis of hypertension; Translations: [Elevated blood-pressure reading, without diagnosis of hypertension] Episodic Other connective tissue disease (16 sources) Fibromyalgia; Translations: [Fibromyalgia] Episodic Other connective tissue disease (1 source) Pain in left lower leg; Translations: [PAIN IN LEFT LOWER LEG] Onset: 3 Episodic Other connective tissue disease (1 source) Fibromyalgia Episodic Other ear and sense organ disorders (4 sources) Infective otitis externa; Translations: [Unspecified infective otitis externa] Onset: 7 Chronic Other gastrointestinal disorders (1 source) Diarrhea, unspecified; Translations: [DIARRHEA UNSPECIFIED] Onset: 3 Episodic Other lower respiratory disease (4 sources) Pleuritic pain; Translations: [Pleurodynia] Episodic Other nervous system disorders (1 source) Chronic pain syndrome; Translations: [Chronic pain syndrome] Chronic Other nervous system disorders (20 sources) Ulnar neuropathy; Translations: [Lesion of ulnar nerve, left upper limb] Chronic Other nutritional; endocrine; and metabolic disorders (16 sources) Obesity; Translations: [Other obesity due to excess calories] Chronic Other nutritional; endocrine; and metabolic disorders (12 sources) Body mass index 30+ - obesity; Translations: [Body mass index (BMI) 38.0-38.9, adult] Chronic Other nutritional; endocrine; and metabolic disorders (1 source) Other obesity due to excess calories Chronic Other nutritional; endocrine; and metabolic disorders (1 source) Body mass index (BMI) 38.0-38.9, adult Chronic Other nutritional; endocrine; and metabolic disorders (4 sources) Morbid obesity; Translations: [Morbid (severe) obesity due to excess calories] Chronic Other nutritional; endocrine; and metabolic disorders (4 sources) Body mass index 40+ - severely obese; Translations: [Body mass index (BMI) 40.0-44.9, adult] Chronic Other nutritional; endocrine; and metabolic disorders (12 sources) Obese class II; Translations: [Body mass index (BMI) 38.0-38.9, adult] Chronic Other nutritional; endocrine; and metabolic disorders (2 sources) Body mass index (BMI) 37.0-37.9, adult; Translations: [Body mass index (BMI) 37.0-37.9, adult] Onset: 4 Chronic Other nutritional; endocrine; and metabolic disorders (1 source) Weight gain; Translations: [Abnormal weight gain] Episodic Other nutritional; endocrine; and metabolic disorders (4 sources) Abnormal weight gain; Translations: [Abnormal weight gain] Episodic Other screening for suspected conditions (not mental disorders or infectious disease) (17 sources) Other abnormal and inconclusive findings on diagnostic imaging of breast; Translations: [Encounter for screening mammogram for malignant neoplasm of breast] Onset: 9 Episodic Other upper respiratory disease (8 sources) Seasonal allergic rhinitis; Translations: [Other seasonal allergic rhinitis] Onset: 9 Chronic Other upper respiratory disease (4 sources) Allergic rhinitis; Translations: [Allergic rhinitis, unspecified] Onset: 6 Chronic Other upper respiratory infections (4 sources) Chronic sinusitis; Translations: [Chronic sinusitis, unspecified] Chronic Other upper respiratory infections (19 sources) Acute maxillary sinusitis, unspecified; Translations: [Acute maxillary sinusitis] Onset: 5 Episodic Otitis media and related conditions (8 sources) Acute secretory otitis media; Translations: [Other acute nonsuppurative otitis media, right ear] Onset: 7 Episodic Residual codes; unclassified (1 source) Acquired absence of other specified parts of digestive tract; Translations: [ACQ ABSENCE OTH PART DIGESTV TRACT] Onset: 3 Episodic Residual codes; unclassified (1 source) Acquired absence of uterus with remaining cervical stump; Translations: [ACQ ABSENCE UTRUS REM CERV STUMP] Onset: 3 Episodic Residual codes; unclassified (10 sources) Insomnia; Translations: [Insomnia, unspecified] 06-21-2023 Episodic Residual codes; unclassified (4 sources) Localized edema; Translations: [Localized edema] Episodic Residual codes; unclassified (7 sources) Insomnia, unspecified; Translations: [Insomnia, unspecified] 06-21-2023 Episodic Spondylosis; intervertebral disc disorders; other back problems (20 sources) Cervical spondylosis; Translations: [Spondylosis without myelopathy or radiculopathy, cervical region] Chronic Spondylosis; intervertebral disc disorders; other back problems (17 sources) Backache; Translations: [Dorsalgia, unspecified] Onset: 7 03-20-2017 Episodic Syncope (1 source) Syncope Onset: 8 Thyroid disorders (4 sources) Hypothyroidism; Translations: [Hypothyroidism, unspecified] Chronic Unclassified (2 sources) Tachycardia, unspecified / R00.0(ICD-9) Onset: 8 Unclassified (1 source) Dyspnea, unspecified / R06.00(ICD-9) Onset: 8 Unclassified (1 source) Family hx of ischem heart dis and oth dis of the circ sys / Z82.49(ICD-9) Onset: 8 Unclassified (1 source) Palpitations / R00.2(ICD-9) Onset: 8 Unclassified (1 source) Personal history of nicotine dependence / Z87.891(ICD-9) Onset: 8 Unclassified (1 source) Obesity, unspecified / E66.9(ICD-9) Onset: 8 Unclassified (1 source) CONTACT W/AND (SUSP) EXPOS COVID-19; Translations: [CONTACT W/AND (SUSP) EXPOS COVID-19] Onset: 3 Viral infection (4 sources) Disease caused by 2019-nCoV; Translations: [COVID-19] Past or Other Problems Problem Classification Problem Date Documented Da te Episodic/Chronic Fluid and electrolyte disorders (4 sources) Dehydration; Translations: [Dehydration] Onset: 04-09-2017 Episodic Malaise and fatigue (4 sources) Fatigue; Translations: [Other fatigue] Onset: 12-10-2017 Episodic Other circulatory disease (1 source) Elevated blood-pressure reading, without diagnosis of hypertension; Translations: [ELEVATED BP READING W/O DX HTN] Onset: 06-15-2021 Episodic Other connective tissue disease (4 sources) Pain in limb; Translations: [Pain in left hand] Onset: 08-06-2015 Episodic Other disorders of stomach and duodenum (4 sources) Angiodysplasia of duodenum; Translations: [Angiodysplasia of stomach and duodenum without bleeding] Onset: 03-25-2018 Episodic Other gastrointestinal disorders (4 sources) Diarrhea; Translations: [Diarrhea] Onset: 04-09-2017 Episodic Other lower respiratory disease (8 sources) Dyspnea; Translations: [Other forms of dyspnea] Onset: 05-20-2013 Episodic Other non-traumatic joint disorders (4 sources) Joint pain; Translations: [Pain in joint, site unspecified] Onset: 07-17-2018 Episodic Other non-traumatic joint disorders (4 sources) Arthralgia of the pelvic region and thigh; Translations: [Pain in joint, pelvic region and thigh] Onset: 02-19-2017 Episodic Residual codes; unclassified (1 source) Family history of malignant neoplasm of trachea, bronchus and lung; Translations: [FAM HX MALIG NEOPLSM TRACH BRON LNG] Onset: 06-01-2021 Episodic Residual codes; unclassified (1 source) Family history of malignant neoplasm of prostate; Translations: [FAMILY HX MALIG NEOPLASM PROSTATE] Onset: 06-01-2021 Episodic Screening and history of mental health and substance abuse codes (1 source) Personal history of nicotine dependence; Translations: [PERSONAL HISTORY OF NICOTINE DEPEND] Onset: 07-29-2021 Episodic Syncope (4 sources) Syncope and collapse; Translations: [Syncope and collapse] Onset: 12-10-2017 Episodic Unclassified (1 source) Tachycardia, unspecified; Translations: [Tachycardia, unspecified] Onset: 12-27-2017 Viral infection (4 sources) Viral disease; Translations: [Viral infection, unspecified] Onset: 04-08-2015 Episodic Results Test Name Value Interpretation Reference Range Facility CT CARDIAC SCORING WO IV CON TRASTon 11-22-2023 CT CARDIAC SCORING WO IV CONTRAST Interpreted By: Junaid Mayers, STUDY: CT CARDIAC SCORING WO IV CONTRAST; 11/22/2023 5:12 pm INDICATION: Signs/Symptoms:palps. ,R00.2 Palpitations COMPARISON: None. ACCESSION NUMBER(S): [id number] ORDERING CLINICIAN: VEE LU TECHNIQUE: Using prospective ECG gating, CT scan of the coronary arteries was performed without intravenous contrast. Coronary calcium scoring was performed according to the method of Agatston. FINDINGS: The score and distribution of calcium in the coronary arteries is as follows: LM 0, LAD 13.86, LCx 1.3, RCA 2.31, Total 17.47 The visualized mid/lower ascending thoracic aorta, is normal in size, measuring 36 mm in diameter. The heart is normal in size. No pericardial effusion is present.Main pulmonary artery is normal in caliber. There is no evidence of lymphadenopathy or mass within the visualized mediastinum.The visualized esophagus is unremarkable. The visualized segments of the lungsare normally expanded. The visualized subdiaphragmatic structures demonstrate no remarkable findings. IMPRESSION: Coronary artery calcium score of 17.47 *. *Coronary Artery Calcium Gated and Nongated Agatston score Score CHD Risk 0 Very low 1-99 Mildly increased 100-299 Moderately increased >300 Moderate to severely increased Juan Luis et al. JCCT 2016 (http://dx.doi.org/10.1016/j .jcct.2016.11.003) PARKER 10-Year CHD Risk with Coronary Artery Calcification can be calculated using link below [email or web address] Tony bain al. JACC 2015 (http://dx.doi.org/10.1016/j .j acc.2015.08.035) MACRO: None Signed by: Junaid Mayers 11/26/2023 3:51 PM Dictation workstation: [id number] [facility] Basophils Auto (Bld) [#/Vol] on 09-11-2023 Basophils (Bld) [#/Vol] 0.0 10 3/uL 0.0-0.1 [facility] Basophils/100 WBC Auto (Bld) on 09-11-2023 Basophils/100 WBC (Bld) 0.4 % 0.2-2.0 [facility] Eosinophils/100 WBC Auto (Bl d)on 09-11-2023 Eosinophils/100 WBC (Bld) 1.2 % 0.9-7.0 [facility] Erythrocyte distribution wid th Auto (RBC) [Ratio]on 09-11-2023 Erythrocyte distribution width (RBC) [Ratio] 12.6 % 11.0-15.0 [facility] Estimated glomerular filtrat ion rate (GFR) non- Americanon 09-11-2023 GFR/1.73 sq M.predicted among non-blacks MDRD (S/P/Bld) [Vol rate/Area] 60 mL/min/{1.73_m2} >=60 [facility] Globulin Calc (S) [Mass/Vol] on 09-11-2023 Globulin (S) [Mass/Vol] 4.4 g/dL [facility] Hematocrit Auto (Bld) [Volum e fraction]on 09-11-2023 Hematocrit (Bld) [Volume fraction] 42.4 % 36.0-48.0 [facility] Hemoglobin [Mass/volume] in Bloodon 09-11-2023 Hemoglobin (Bld) [Mass/Vol] 13.5 g/dL 12.0-16.0 [facility] Laboratory - Chemistry and C hemistry - challengeon 09-11-2023 Albumin [Mass/Vol] 3.0 g/dL Low 3.4-5.0 [facility] ALP [Catalytic activity/Vol] 85 U/L 46-116 [facility] ALT [Catalytic activity/Vol] 31 U/L 14-59 [facility] AST [Catalytic activity/Vol] 22 U/L 15-37 [facility] Bilirubin [Mass/Vol] 0.4 mg/dL 0.2-1.0 [facility] Calcium [Mass/Vol] 8.6 mg/dL 8.5-10.1 [facility] Chloride [Moles/Vol] 106 mmol/L 98-107 [facility] CO2 [Moles/Vol] 27.7 mmol/L 21.0-32.0 [facility] Creatinine [Mass/Vol] 1.01 mg/dL 0.55-1.02 [facility] GFR/1.73 sq M.predicted MDRD (S/P/Bld) [Vol rate/Area] mL/min/{1.73_m2} >=60 [facility] Glucose [Mass/Vol] 89 mg/dL 74-106 [facility] Potassium [Moles/Vol] 4.0 mmol/L 3.5-5.1 [facility] Protein [Mass/Vol] 7.4 g/dL 6.4-8.2 [facility] Sodium [Moles/Vol] 139 mmol/L 136-145 [facility] TSH Qn 2.310 m[IU]/L 0.358-3.740 [facility] Urea nitrogen [Mass/Vol] 18.0 mg/dL 7.0-18.0 [facility] Urea nitrogen/Creatinin e [Mass ratio] 17.8 mg/mg [facility] Laboratory - Hematology and Cell countson 09-11-2023 Immature granulocytes/100 WBC (Bld) 0.1 % 0.0-0.5 [facility] Leukocytes [#/volume] correc lily for nucleated erythrocytes in Blood by Automated counon 09-11-2023 WBC corrected for nucl RBC Auto (Bld) [#/Vol] 8.4 10 3/uL 4.0-11.0 [facility] Lymphocytes Auto (Bld) [#/Vo l]on 09-11-2023 Lymphocytes (Bld) [#/Vol] 1.9 10 3/uL 1.2-3.8 [facility] Lymphocytes/100 WBC Auto (Bl d)on 09-11-2023 Lymphocytes/100 WBC (Bld) 22.6 % 20.5-60.0 [facility] MCH Auto (RBC) [Entitic mass ]on 09-11-2023 MCH (RBC) [Entitic mass] 29.7 pg 26.7-34.0 [facility] MCHC Auto (RBC) [Mass/Vol]on 09-11-2023 MCHC (RBC) [Mass/Vol] 31.8 g/dL 29.9-35.2 [facility] MCV Auto (RBC) [Entitic vol] on 09-11-2023 MCV (RBC) [Entitic vol] 93.4 fL 81.0-99.0 [facility] Monocytes Auto (Bld) [#/Vol] on 09-11-2023 Monocytes (Bld) [#/Vol] 0.5 10 3/uL 0.3-0.8 [facility] Monocytes/100 WBC Auto (Bld) on 09-11-2023 Monocytes/100 WBC (Bld) 6.4 % 1.7-12.0 [facility] Neutrophils Auto (Bld) [#/Vo l]on 09-11-2023 Neutrophils (Bld) [#/Vol] 5.9 10 3/uL 1.4-6.5 [facility] Neutrophils/100 WBC Auto (Bl d)on 09-11-2023 Neutrophils/100 WBC (Bld) 69.3 % 43.0-75.0 [facility] No Panel Informationon 09-10 Eosinophils # (Auto) 0.1 10 3/uL 0.0-0.7 [facility] Immature Granulocyte # (Auto) 0.01 10 3/uL 0.00-0.03 [facility] Troponin I High Sensitivity <4.0 pg/mL Low 4.0-51.3 [facility] Comment on above: CUT-OFF POINTS HAVE BEEN ESTABLISHED BASED ON THE FOURTHUNIVERSAL DEFINITION OF MYOCARDIAL INFARCTION. THE UPPERREFERENCE LIMIT (URL) OF TROPONIN, DEFINED THE 99THPERCENTILE OF cTnI DISTRIBUTION IN A REFERENCE POPULATION,HAS BEEN CONFIRMED THE DECISION THRESHOLD FOR MIDIAGNOSIS.99TH PERCENTILE = 51.4 PG/MLNOTE: HIGH-SENSITIVITY TROPONIN ASSAY IS NOT INTENDED TO BEUSED IN ISOLATION BUT SHOULD BE INTERPRETED IN CONJUNCTIONWITH OTHER DIAGNOSTIC AND CLINICAL INFORMATION. Platelet mean volume Auto (B ld) [Entitic vol]on 09-11-2023 Platelet mean volume (Bld) [Entitic vol] 9.6 fL 9.5-13.5 [facility] Platelets Auto (Bld) [#/Vol] on 09-11-2023 Platelets (Bld) [#/Vol] 244 10 3/uL 150-450 [facility] RBC Auto (Bld) [#/Vol]on RBC (Bld) [#/Vol] 4.54 10 6/uL 4.20-5.40 [facility] Serum or plasma albumin/glob ulin mass ratioon 09-11-2023 Albumin/Globulin [Mass ratio] 0.7 {ratio} [facility] Serum or plasma anion gap de terminationon 09-11-2023 Anion gap [Moles/Vol] 9.3 mmol/L [facility] MAMM DIAGNOSTIC BILATERAL W CADon 07-03-2023 MAMM DIAGNOSTIC BILATERAL W CAD MAMM DIAGNOSTIC BILATERAL W CAD EXAM: MAMM DIAGNOSTIC BILATERAL W CAD, US BREAST RT LIMITED, 07/03/2023 1:28 PM CLINICAL INDICATIONS: Encounter for screening mammogram for malignant neoplasm of breast; Mass of right breast, unspecified quadrant, COMPARISON: 05/30/2022 TECHNIQUE: Bilateral digital tomosynthesis MLO and CC views of the breasts were obtained, with creation of synthetic 2D views. Computer aided detection was utilized. FINDINGS: There are scattered areas of fibroglandular density. There are no suspicious masses, calcifications, or areas of architectural distortions. Right Breast Ultrasound, Limited TECHNIQUE: Multiple real-time kasper-scale images of the right breast in the 1 o'clock axis were performed. Color Doppler was utilized to assess vascular flow. FINDINGS: There is a 0.4 x 0.3 x 0.4 cm anechoic mass with enhanced posterior through transmission seen in the 1:00 position of the right breast at the site of palpable abnormality. Finding is compatible with small cyst or resolving hematoma. There is no additional focal mass, architectural distortion or abnormal vascularity visualized. COMBINED IMPRESSION: Palpable finding appears to represent small cyst or resolving hematoma. No mammographic evidence of malignancy. BI-RADS: BI-RADS 2 - Benign Recommendation: Routine screening mammogram in 1 year Patient was given the results before leaving the department. Finalized by Desi Lundberg MD on 07/03/2023 2:29 PM 2 b MAMM 1 YR Normal [facility] US BREAST RT LIMITEDon 07-02 US BREAST RT LIMITED US BREAST RT LIMITED EXAM: MAMM DIAGNOSTIC BILATERAL W CAD, US BREAST RT LIMITED, 07/03/2023 1:28 PM CLINICAL INDICATIONS: Encounter for screening mammogram for malignant neoplasm of breast; Mass of right breast, unspecified quadrant, COMPARISON: 05/30/2022 TECHNIQUE: Bilateral digital tomosynthesis MLO and CC views of the breasts were obtained, with creation of synthetic 2D views. Computer aided detection was utilized. FINDINGS: There are scattered areas of fibroglandular density. There are no suspicious masses, calcifications, or areas of architectural distortions. Right Breast Ultrasound, Limited TECHNIQUE: Multiple real-time kasper-scale images of the right breast in the 1 o'clock axis were performed. Color Doppler was utilized to assess vascular flow. FINDINGS: There is a 0.4 x 0.3 x 0.4 cm anechoic mass with enhanced posterior through transmission seen in the 1:00 position of the right breast at the site of palpable abnormality. Finding is compatible with small cyst or resolving hematoma. There is no additional focal mass, architectural distortion or abnormal vascularity visualized. COMBINED IMPRESSION: Palpable finding appears to represent small cyst or resolving hematoma. No mammographic evidence of malignancy. BI-RADS: BI-RADS 2 - Benign Recommendation: Routine screening mammogram in 1 year Patient was given the results before leaving the department. Finalized by Desi Lundberg MD on 07/03/2023 2:29 PM 2 b MAMM 1 YR Normal [facility] STOOL CULTUREon 05-23-2022 Campylobacter Culture Final report Normal [facility] Comment on above: Performed By: #### C XSTOOL #### [facility] [address] [address] [address] Taylor Duncan E coli Shiga Toxin EIA Negative Normal Negative [facility] Comment on above: Performed By: #### C XSTOOL #### [facility] [address] [address] [address] Taylor Duncan Result 1 Comment Normal [facility] Comment on above: Result Comment: No S almonella or Shigella recovered. Performed By: #### C XSTOOL #### [facility] [address] [address] [address] Taylor Duncan Result Comment: No C ampylobacter species isolated. Salmonella/Shigell a Screen Final report Normal [facility] Comment on above: Performed By: #### C XSTOOL #### [facility] [address] [address] [address] Taylor Duncan NM GASTRIC EMPTYon 3 NM GASTRIC EMPTY EXAMINATION: NM EMILIANA ALLISON EMPTY HISTORY: Upper abdominal pain , chronic COMPARISON: No relevant comparison available. TECHNIQUE: The patient ingested 1.0 mCi Tc-99m sulfur colloid mixed with one egg. Patient also ingested 2 pieces of toast and jelly, and approximately 120 mL of water. Anterior and posterior images were obtained at one minute intervals. Data were acquired for plotting and determination of gastric emptying. FINDINGS: STOMACH: Normal appearance. RETENTION: 65%, 41%, 20%, and 2% at 30 minutes, 1 hour, 2 hour, 3 hours respectively. IMPRESSION: Normal gastric emptying, with only 2% retention at 3 hours. Electronically authenticated by: AMINA GALLAGHER Date: 2022-05-22 07:43 Normal [facility] CBC AUTO DIFFon 05-20-2022 BASO # 0.0 103/ul Normal 0.0-0.1 [facility] Comment on above: Performed By: #### L IPA, CMP #### [facility] [address] [address] [address] Taylor Duncan Basophils/100 WBC (Bld) 0.4 % Normal 0.2-2.0 [facility] Comment on above: Performed By: #### L IPA, CMP #### [facility] [address] [place] [address] Dr. Taylor Duncan EO # 0.1 103/ul Normal 0.0-0.7 [facility] Comment on above: Performed By: #### L IPA, CMP #### [facility] [address] [place] [address] Dr. Taylor Duncan Eosinophils/100 WBC (Bld) 1.6 % Normal 0.9-7.0 [facility] Comment on above: Performed By: #### L IPA, CMP #### [facility] [address] [place] [address] Dr. Taylor Duncan Erythrocyte distribution width (RBC) [Ratio] 12.2 % Normal 11.0-15.0 [facility] Comment on above: Performed By: #### L IPA, CMP #### [facility] [address] [place] [address] Dr. Taylor Duncan Hematocrit (Bld) [Volume fraction] 40.1 % Normal 36.0-48.0 [facility] Comment on above: Performed By: #### L IPA, CMP #### [facility] [address] [place] [address] Dr. Taylor Duncan Hemoglobin (Bld) [Mass/Vol] 12.7 g/dL Normal 12.0-16.0 [facility] Comment on above: Performed By: #### L IPA, CMP #### [facility] [address] [place] [address] Dr. Taylor Duncan IG # 0.01 10e3/ul Normal 0.00-0.03 [facility] Comment on above: Performed By: #### L IPA, CMP #### [facility] [address] [place] [address] Dr. Taylor Duncan IG % 0.2 % Normal 0.0-0.5 [facility] Comment on above: Performed By: #### L IPA, CMP #### [facility] [address] [place] [address] Dr. Taylor Duncan LYMPH # 2.0 103/ul Normal 1.2-3.8 [facility] Comment on above: Performed By: #### L IPA, CMP #### [facility] [address] [place] [address] Dr. Taylor Duncan Lymphocytes/100 WBC (Bld) 35.1 % Normal 20.5-60.0 [facility] Comment on above: Performed By: #### L IPA, CMP #### [facility] [address] [place] [address] Dr. Taylor Duncan MANUAL DIFF REQ NO Normal [facility] Comment on above: Performed By: #### L IPA, CMP #### [facility] [address] [place] [address] Dr. Taylor Duncan MCH (RBC) [Entitic mass] 29.1 pg Normal 26.7-34.0 [facility] Comment on above: Performed By: #### L IPA, CMP #### [facility] [address] [place] [address] Dr. Taylor Duncan MCHC (RBC) [Mass/Vol] 31.7 g/dL Normal 29.9-35.2 [facility] Comment on above: Performed By: #### L IPA, CMP #### [facility] [address] [place] [address] Dr. Taylor Duncan MCV (RBC) [Entitic vol] 92.0 fL Normal 81.0-99.0 [facility] Comment on above: Performed By: #### L IPA, CMP #### [facility] [address] [place] [address] Dr. Taylor Duncan MONO # 0.5 103/ul Normal 0.3-0.8 [facility] Comment on above: Performed By: #### L IPA, CMP #### [facility] [address] [place] [address] Dr. Taylor Duncan Monocytes/100 WBC (Bld) 9.1 % Normal 1.7-12.0 [facility] Comment on above: Performed By: #### L IPA, CMP #### [facility] [address] [place] [address] Dr. Taylor Duncan NEUT # 3.0 103/ul Normal 1.4-6.5 [facility] Comment on above: Performed By: #### L IPA, CMP #### [facility] [address] [address] [address] Taylor Duncan Neutrophils/100 WBC (Bld) 53.6 % Normal 43.0-75.0 [facility] Comment on above: Performed By: #### L IPA, CMP #### [facility] [address] [address] [address] Taylor Duncan Platelet mean volume (Bld) [Entitic vol] 9.9 fL Normal 9.5-13.5 [facility] Comment on above: Performed By: #### L IPA, CMP #### [facility] [address] [address] [address] Taylor Duncan PLT 206 103/ul Normal 150-450 [facility] Comment on above: Performed By: #### L IPA, CMP #### [facility] [address] [place] [address] Dr. Taylro Duncan RBC 4.36 106/ul Normal 4.20-5.40 [facility] Comment on above: Performed By: #### L IPA, CMP #### [facility] [address] [place] [address] Dr. Taylor Duncan WBC 5.6 103/ul Normal 4.0-11.0 [facility] Comment on above: Performed By: #### L IPA, CMP #### [facility] [address] [place] [address] Dr. Taylor Duncan PROF 14(COMP METB)on 023 Albumin [Mass/Vol] 2.6 g/dL Critically low 3.4-5.0 [facility] Comment on above: Performed By: #### C XSTOOL #### [facility] [address] [place] [address] Dr. Taylor Duncan Albumin/Globulin [Mass ratio] 0.8 {ratio} Normal [facility] Comment on above: Performed By: #### C XSTOOL #### [facility] [address] [place] [address] Dr. Taylor Duncan ALP [Catalytic activity/Vol] 102 U/L Normal 46-116 [facility] Comment on above: Performed By: #### C XSTOOL #### [facility] [address] [address] [address] Taylor Duncan ALT [Catalytic activity/Vol] 50 U/L Normal 14-59 [facility] Comment on above: Performed By: #### C XSTOOL #### [facility] [address] [address] [address] Taylor Duncan Anion gap [Moles/Vol] 11.1 mmol/L Normal [facility] Comment on above: Performed By: #### C XSTOOL #### [facility] [address] [address] [address] Taylor Duncan AST [Catalytic activity/Vol] 41 U/L Critically high 15-37 [facility] Comment on above: Performed By: #### C XSTOOL #### [facility] [address] [address] [address] Taylor Duncan Bilirubin [Mass/Vol] 0.3 mg/dL Normal 0.2-1.0 [facility] Comment on above: Performed By: #### C XSTOOL #### [facility] [address] [address] [address] Taylor Duncan Calcium [Mass/Vol] 8.1 mg/dL Critically low 8.5-10.1 [facility] Comment on above: Performed By: #### C XSTOOL #### [facility] [address] [address] [address] Taylor Duncan Chloride [Moles/Vol] 109 mmol/L Critically high 98-107 [facility] Comment on above: Performed By: #### C XSTOOL #### [facility] [address] [address] [address] Taylor Duncan CO2 [Moles/Vol] 25.9 mmol/L Normal 21.0-32.0 [facility] Comment on above: Performed By: #### C XSTOOL #### [facility] [address] [address] [address] Taylor Duncan Creatinine [Mass/Vol] 0.89 mg/dL Normal 0.55-1.02 [facility] Comment on above: Performed By: #### C XSTOOL #### [facility] [address] [address] [address] Taylor Duncan EGFR-AF SCOTTISH >60 Normal >=60 [facility] Comment on above: Performed By: #### C XSTOOL #### [facility] [address] [address] [address] Taylor Duncan EGFR-NON AF SCOTTISH >60 Normal >=60 [facility] Comment on above: Performed By: #### C XSTOOL #### [facility] [address] [address] [address] Taylor Duncan Globulin (S) [Mass/Vol] 3.3 g/dL Normal [facility] Comment on above: Performed By: #### C XSTOOL #### [facility] [address] [place] [address] Dr. Taylor Duncan Glucose [Mass/Vol] 85 mg/dL Normal 74-106 [facility] Comment on above: Performed By: #### C XSTOOL #### [facility] [address] [address] [address] Taylor Duncan Potassium [Moles/Vol] 4.0 mmol/L Normal 3.5-5.1 [facility] Comment on above: Performed By: #### C XSTOOL #### [facility] [address] [place] [address] Dr. Taylor Duncan Protein [Mass/Vol] 5.9 g/dL Critically low 6.4-8.2 [facility] Comment on above: Performed By: #### C XSTOOL #### [facility] [address] [place] [address] Dr. Taylor Duncan Sodium [Moles/Vol] 142 mmol/L Normal 136-145 [facility] Comment on above: Performed By: #### C XSTOOL #### [facility] [address] [address] [address] Taylor Duncan Urea nitrogen [Mass/Vol] 10.0 mg/dL Normal 7.0-18.0 [facility] Comment on above: Performed By: #### C XSTOOL #### [facility] [address] [place] [address] Dr. Taylor Duncan Urea nitrogen/Creatinin e [Mass ratio] 11.2 mg/mg Normal [facility] Comment on above: Performed By: #### C XSTOOL #### [facility] [address] [place] [address] Dr. Taylor Duncan CBC AUTO DIFFon 05-19-2022 BASO # 0.0 103/ul Normal 0.0-0.1 [facility] Comment on above: Performed By: #### C XSTOOL #### [facility] [address] [place] [address] Dr. Taylor Duncan Basophils/100 WBC (Bld) 0.4 % Normal 0.2-2.0 [facility] Comment on above: Performed By: #### C XSTOOL #### [facility] [address] [place] [address] Dr. Taylor Duncan EO # 0.1 103/ul Normal 0.0-0.7 [facility] Comment on above: Performed By: #### C XSTOOL #### [facility] [address] [place] [address] Dr. Taylor Duncan Eosinophils/100 WBC (Bld) 0.7 % Critically low 0.9-7.0 [facility] Comment on above: Performed By: #### C XSTOOL #### [facility] Laboratory [address] [place] [address] Dr. Taylor Duncan Erythrocyte distribution width (RBC) [Ratio] 12.3 % Normal 11.0-15.0 [facility] Comment on above: Performed By: #### C XSTOOL #### [facility] [address] [place] [address] Dr. Taylor Duncan Hematocrit (Bld) [Volume fraction] 39.4 % Normal 36.0-48.0 [facility] Comment on above: Performed By: #### C XSTOOL #### [facility] [address] [place] [address] Dr. Taylor Duncan Hemoglobin (Bld) [Mass/Vol] 13.0 g/dL Normal 12.0-16.0 [facility] Comment on above: Performed By: #### C XSTOOL #### [facility] [address] [place] [address] Dr. Taylor Duncan IG # 0.01 10e3/ul Normal 0.00-0.03 [facility] Comment on above: Performed By: #### C XSTOOL #### [facility] [address] [place] [address] Dr. Taylor Duncan IG % 0.1 % Normal 0.0-0.5 [facility] Comment on above: Performed By: #### C XSTOOL #### [facility] [address] [place] [address] Dr. Taylor Duncan LYMPH # 1.5 103/ul Normal 1.2-3.8 [facility] Comment on above: Performed By: #### C XSTOOL #### [facility] [address] [place] [address] Dr. Taylor Duncan Lymphocytes/100 WBC (Bld) 20.3 % Critically low 20.5-60.0 [facility] Comment on above: Performed By: #### C XSTOOL #### [facility] [address] [place] [address] Dr. Taylor Duncan MANUAL DIFF REQ NO Normal [facility] Comment on above: Performed By: #### C XSTOOL #### [facility] [address] [place] [address] Dr. Taylor Duncan MCH (RBC) [Entitic mass] 30.0 pg Normal 26.7-34.0 [facility] Comment on above: Performed By: #### C XSTOOL #### [facility] [address] [place] [address] Dr. Taylor Duncan MCHC (RBC) [Mass/Vol] 33.0 g/dL Normal 29.9-35.2 [facility] Comment on above: Performed By: #### C XSTOOL #### [facility] [address] [place] [address] Dr. Taylor Duncan MCV (RBC) [Entitic vol] 91.0 fL Normal 81.0-99.0 [facility] Comment on above: Performed By: #### C XSTOOL #### [facility] [address] [place] [address] Dr. Taylor Duncan MONO # 0.6 103/ul Normal 0.3-0.8 [facility] Comment on above: Performed By: #### C XSTOOL #### [facility] [address] [place] [address] Dr. Taylor Duncan Monocytes/100 WBC (Bld) 8.4 % Normal 1.7-12.0 [facility] Comment on above: Performed By: #### C XSTOOL #### [facility] [address] [place] [address] Dr. Taylor Duncan NEUT # 5.2 103/ul Normal 1.4-6.5 [facility] Comment on above: Performed By: #### C XSTOOL #### [facility] [address] [place] [address] Dr. Taylor Duncan Neutrophils/100 WBC (Bld) 70.1 % Normal 43.0-75.0 [facility] Comment on above: Performed By: #### C XSTOOL #### [facility] [address] [place] [address] Dr. Taylor Duncan Platelet mean volume (Bld) [Entitic vol] 10.0 fL Normal 9.5-13.5 [facility] Comment on above: Performed By: #### C XSTOOL #### [facility] [address] [place] [address] Dr. Taylor Duncan PLT 220 103/ul Normal 150-450 [facility] Comment on above: Performed By: #### C XSTOOL #### [facility] [address] [place] [address] Dr. Taylor Duncan RBC 4.33 106/ul Normal 4.20-5.40 [facility] Comment on above: Performed By: #### C XSTOOL #### [facility] [address] [place] [address] Dr. Taylor Duncan WBC 7.5 103/ul Normal 4.0-11.0 [facility] Comment on above: Performed By: #### C XSTOOL #### [facility] [address] [place] [address] Dr. Taylor Duncan PROF 14(COMP METB)on 023 Albumin [Mass/Vol] 2.9 g/dL Critically low 3.4-5.0 [facility] e [facility] Comment on above: Performed By: #### L IPA, CMP #### [facility] [address] [place] [address] Dr. Taylor Duncan Albumin/Globulin [Mass ratio] 0.8 {ratio} Normal [facility] Comment on above: Performed By: #### L IPA, CMP #### [facility] [address] [place] [address] Dr. Taylor Duncan ALP [Catalytic activity/Vol] 98 U/L Normal 46-116 [facility] Comment on above: Performed By: #### L IPA, CMP #### [facility] [address] [place] [address] Dr. Taylor Duncan ALT [Catalytic activity/Vol] 44 U/L Normal 14-59 [facility] Comment on above: Performed By: #### L IPA, CMP #### [facility] [address] [place] [address] Dr. Taylor Duncan Anion gap [Moles/Vol] 9.3 mmol/L Normal [facility] Comment on above: Performed By: #### L IPA, CMP #### [facility] [address] [place] [address] Dr. Taylor Duncan AST [Catalytic activity/Vol] 49 U/L Critically high 15-37 [facility] Comment on above: Performed By: #### L IPA, CMP #### [facility] [address] [place] [address] Dr. Taylor Duncan Bilirubin [Mass/Vol] 0.4 mg/dL Normal 0.2-1.0 [facility] Comment on above: Performed By: #### L IPA, CMP #### [facility] [address] [place] [address] Dr. Taylor Duncan Calcium [Mass/Vol] 8.2 mg/dL Critically low 8.5-10.1 [facility] Comment on above: Performed By: #### L IPA, CMP #### [facility] [address] [place] [address] Dr. Taylor Duncan Chloride [Moles/Vol] 108 mmol/L Critically high 98-107 [facility] Comment on above: Performed By: #### L IPA, CMP #### [facility] [address] [place] [address] Dr. Taylor Duncan CO2 [Moles/Vol] 27.5 mmol/L Normal 21.0-32.0 [facility] Comment on above: Performed By: #### L IPA, CMP #### [facility] [address] [place] [address] Dr. Taylor Duncan Creatinine [Mass/Vol] 0.97 mg/dL Normal 0.55-1.02 [facility] Comment on above: Performed By: #### L IPA, CMP #### [facility] [address] [place] [address] Dr. Taylor Duncan EGFR-AF SCOTTISH >60 Normal >=60 [facility] Comment on above: Performed By: #### L IPA, CMP #### [facility] [address] [place] [address] Dr. Taylor Duncan EGFR-NON AF SCOTTISH >60 Normal >=60 [facility] Comment on above: Performed By: #### L IPA, CMP #### [facility] [address] [place] [address] Dr. Taylor Duncan Globulin (S) [Mass/Vol] 3.5 g/dL Normal [facility] Comment on above: Performed By: #### L IPA, CMP #### [facility] [address] [place] [address] Dr. Taylor Duncan Glucose [Mass/Vol] 104 mg/dL Normal 74-106 [facility] Comment on above: Performed By: #### L IPA, CMP #### [facility] [address] [place] [address] Dr. Taylor Duncan Potassium [Moles/Vol] 3.8 mmol/L Normal 3.5-5.1 [facility] Comment on above: Performed By: #### L IPA, CMP #### [facility] [address] [place] [address] Dr. Taylor Duncan Protein [Mass/Vol] 6.4 g/dL Normal 6.4-8.2 [facility] Comment on above: Performed By: #### L IPA, CMP #### [facility] [address] [place] [address] Dr. Taylor Duncan Sodium [Moles/Vol] 141 mmol/L Normal 136-145 [facility] Comment on above: Performed By: #### L IPA, CMP #### [facility] [address] [place] [address] Dr. Taylor Duncan Urea nitrogen [Mass/Vol] 11.0 mg/dL Normal 7.0-18.0 [facility] Comment on above: Performed By: #### L IPA, CMP #### [facility] [address] [place] [address] Dr. Taylor Duncan Urea nitrogen/Creatinin e [Mass ratio] 11.3 mg/mg Normal [facility] Comment on above: Performed By: #### L IPA, CMP #### [facility] [address] [place] [address] Dr. Taylor Duncan AMYLASEon 05-18-2022 Amylase [Catalytic activity/Vol] 60 U/L Normal 25-115 [facility] Comment on above: Performed By: #### C MP, LIPA, ELISHA #### [facility] [address] [place] [address] Dr. Taylor Duncan CBC AUTO DIFFon 05-18-2022 BASO # 0.0 103/ul Normal 0.0-0.1 [facility] Comment on above: Performed By: #### C XSTOOL #### [facility] [address] [place] [address] Dr. Taylor Duncan Basophils/100 WBC (Bld) 0.4 % Normal 0.2-2.0 [facility] Comment on above: Performed By: #### C XSTOOL #### [facility] [address] [place] [address] Dr. Taylor Duncan EO # 0.1 103/ul Normal 0.0-0.7 [facility] Comment on above: Performed By: #### C XSTOOL #### [facility] [address] [place] [address] Dr. Taylor Duncan Eosinophils/100 WBC (Bld) 1.2 % Normal 0.9-7.0 [facility] Comment on above: Performed By: #### C XSTOOL #### [facility] [address] [place] [address] Dr. Taylor Duncan Erythrocyte distribution width (RBC) [Ratio] 12.3 % Normal 11.0-15.0 [facility] Comment on above: Performed By: #### C XSTOOL #### [facility] [address] [place] [address] Dr. Taylor Duncan Hematocrit (Bld) [Volume fraction] 46.3 % Normal 36.0-48.0 [facility] Comment on above: Performed By: #### C XSTOOL #### [facility] [address] [place] [address] Dr. Taylor Duncan Hemoglobin (Bld) [Mass/Vol] 15.3 g/dL Normal 12.0-16.0 [facility] Comment on above: Performed By: #### C XSTOOL #### [facility] [address] [place] [address] Dr. Taylor Duncan IG # 0.02 10e3/ul Normal 0.00-0.03 [facility] Comment on above: Performed By: #### C XSTOOL #### [facility] [address] [place] [address] Dr. Taylor Duncan IG % 0.2 % Normal 0.0-0.5 [facility] Comment on above: Performed By: #### C XSTOOL #### [facility] [address] [place] [address] Dr. Taylor Duncan LYMPH # 2.4 103/ul Normal 1.2-3.8 [facility] Comment on above: Performed By: #### C XSTOOL #### [facility] [address] [place] [address] Dr. Taylor Duncan Lymphocytes/100 WBC (Bld) 28.6 % Normal 20.5-60.0 [facility] Comment on above: Performed By: #### C XSTOOL #### [facility] [address] [place] [address] Dr. Taylor Duncan MANUAL DIFF REQ NO Normal [facility] Comment on above: Performed By: #### C XSTOOL #### [facility] [address] [place] [address] Dr. Taylor Duncan MCH (RBC) [Entitic mass] 29.7 pg Normal 26.7-34.0 [facility] Comment on above: Performed By: #### C XSTOOL #### [facility] [address] [place] [address] Dr. Taylor Duncan MCHC (RBC) [Mass/Vol] 33.0 g/dL Normal 29.9-35.2 [facility] Comment on above: Performed By: #### C XSTOOL #### [facility] [address] [place] [address] Dr. Taylor Duncan MCV (RBC) [Entitic vol] 89.9 fL Normal 81.0-99.0 [facility] Comment on above: Performed By: #### C XSTOOL #### [facility] [address] [place] [address] Dr. Taylor Duncan MONO # 0.6 103/ul Normal 0.3-0.8 [facility] Comment on above: Performed By: #### C XSTOOL #### [facility] [address] [place] [address] Dr. Taylor Duncan Monocytes/100 WBC (Bld) 7.0 % Normal 1.7-12.0 [facility] Comment on above: Performed By: #### C XSTOOL #### [facility] [address] [place] [address] Dr. Taylor Duncan NEUT # 5.2 103/ul Normal 1.4-6.5 [facility] Comment on above: Performed By: #### C XSTOOL #### [facility] [address] [address] [address] Taylor Duncan Neutrophils/100 WBC (Bld) 62.6 % Normal 43.0-75.0 [facility] Comment on above: Performed By: #### C XSTOOL #### [facility] [address] [address] [address] Taylor Duncan Platelet mean volume (Bld) [Entitic vol] 9.7 fL Normal 9.5-13.5 [facility] Comment on above: Performed By: #### C XSTOOL #### [facility] [address] [address] [address] Taylor Duncan PLT 271 103/ul Normal 150-450 [facility] Comment on above: Performed By: #### C XSTOOL #### [facility] [address] [place] [address] Dr. Taylor Duncan RBC 5.15 106/ul Normal 4.20-5.40 [facility] Comment on above: Performed By: #### C XSTOOL #### [facility] [address] [place] [address] Dr. Taylor Duncan WBC 8.4 103/ul Normal 4.0-11.0 [facility] Comment on above: Performed By: #### C XSTOOL #### [facility] [address] [place] [address] ABD/PELVIS WO CONon 05-18 CT ABD/PELVIS WO CON EXAMINATION: CT ABD/PELVIS WO CON, 05/18/2022 8:23 PM EDT HISTORY: Epigastric and left flank pain with vomiting/diarrhea COMPARISON: 11/24/2017 TECHNIQUE: CT scan of the abdomen and pelvis was performed without IV contrast. CT dose reduction technique was used, including Automated Exposure Control. FINDINGS: Limited evaluation of the viscera/organs and vasculature without intravenous contrast. TUBES AND IMPLANTS: None. LOWER CHEST: Unremarkable ABDOMEN and PELVIS ABDOMINAL WALL AND SOFT TISSUES: Unremarkable. BONES: No suspicious lesions. Multilevel degenerative changes of the spine. ARTERIES: Incompletely evaluated. Mild aortoiliac calcification without aneurysm VEINS: Incompletely evaluated. LYMPH NODES: Unremarkable. PERITONEUM/ RETROPERITONEUM: Unremarkable. BOWEL: Unremarkable. APPENDIX: Not identified. No inflammatory changes in its expected location. LIVER: No focal lesions GALLBLADDER: Surgically absent BILE DUCTS: Not dilated SPLEEN: Unremarkable. PANCREAS: Unremarkable. ADRENALS: Unremarkable. KIDNEYS/ URETERS: Unremarkable. REPRODUCTIVE ORGANS: Uterus is surgically absent URINARY BLADDER: Mildly filled IMPRESSION: No evidence of acute intra-abdominal or intrapelvic process. No evidence of obstructive uropathy. Electronically authenticated by: MONICA DIA Date: 2022-05-18 21:37 Normal [facility]03 SARS-CoV-2 (COVID-19) RNA ROX+probe Ql (Unsp spec) Not detected Normal NOT DETECTED [facility] Comment on above: Result Comment: When diagnostic testing is negative, the possibility of a false negative should be considered in the context of a patient's recent exposures and the presence of clinical signs and symptoms consistent with SARS-CoV-2. This test is not yet approved or cleared by the [place] FDA. When there are no FDA-approved or cleared tests available, and other criteria are met, FDA can make tests available under an emergency access mechanism called an Emergency Use Authorization (EUA). The EUA for this test is supported by the [place] of Health and Human Service's declaration that circumstances exist to justify the emergency use of in vitro diagnostics for the detection and/or diagnosis of the virus that causes COVID-19. This EUA will remain in effect for the duration of the COVID-19 declaration justifying emergency of IVDs, unless it is terminated or revoked by the FDA (after which the test may no longer be used). Performed By: #### C XSTOOL #### [facility] [address] [place] [address] [id number] [address] Taylor Duncan ER URINE PROFILEon 3 Bilirubin Ql (U) Negative Normal NEGATIVE [facility] Comment on above: Performed By: #### L IPA, CMP #### [facility] [address] [place], [place] [address] Dr. Taylor Duncan Clarity (U) CLEAR Normal CLEAR [facility] Comment on above: Performed By: #### L IPA, CMP #### [facility] [address] [place] [address] Dr. Taylor Duncan Color (U) YELLOW Normal YELLOW [facility] Comment on above: Performed By: #### L IPA, CMP #### [facility] [address] [place] [address] Dr. Taylor IVORY A micrscopic examina tion will be performed if indicated. Normal [facility] Comment on above: Performed By: #### L IPA, CMP #### [facility] [address] [address] [address] Taylor Duncan Glucose Ql (U) Negative Normal NEGATIVE [facility] Comment on above: Performed By: #### L IPA, CMP #### [facility] [address] [place] [address] Dr. Taylor Duncan Hemoglobin Ql (U) Negative Normal NEGATIVE [facility] Comment on above: Performed By: #### L IPA, CMP #### [facility] [address] [place] [address] Dr. Taylor Duncan Ketones Ql (U) Negative Normal NEGATIVE [facility] Comment on above: Performed By: #### L IPA, CMP #### [facility] [address] [place] [address] Dr. Taylor Duncan LEUKOCYTES Negative Normal NEGATIVE [facility] Comment on above: Performed By: #### L IPA, CMP #### [facility] [address] [place] [address] Dr. Taylor Duncan Nitrite Ql (U) Negative Normal NEGATIVE [facility] Comment on above: Performed By: #### L IPA, CMP #### [facility] [address] [place] [address] Dr. Taylor Duncan pH (U) 6.0 [pH] Normal 5-9 [facility] Comment on above: Performed By: #### L IPA, CMP #### [facility] [address] [place] [address] Dr. Taylor Duncan Protein (U) [Mass/Vol] 30 mg/dL Abnormal NEGATIVE/ TRACE [facility] Comment on above: Performed By: #### L IPA, CMP #### [facility] [address] [place] [address] Dr. Taylor Duncan SPEC GRAVITY >=1.030 Abnormal 1.005-<=1.02 5 [facility] Comment on above: Performed By: #### L IPA, CMP #### [facility] [address] [place] [address] Dr. Taylor Duncan UR MICRO IND INDICATED Normal [facility] Comment on above: Performed By: #### L IPA, CMP #### [facility] [address] [place] [address] Dr. Taylor Duncan Urobilinogen Qn (U) 0.2 {Qian'U}/dL Normal 0.2 - 1.0 [facility] Comment on above: Performed By: #### L IPA, CMP #### [facility] [address] [place] [address] Dr. Taylor Duncan GI PANEL (PCR)on 05-18-2022 Adenovirus F 40/41 Not detected Normal NOT DETECTED [facility] Comment on above: Performed By: #### L IPA, CMP #### [facility] [address] [place] [address] Dr. Taylor Duncan Astrovirus Not detected Normal NOT DETECTED [facility] Comment on above: Performed By: #### L IPA, CMP #### [facility] [address] [place] [address] Dr. Taylor Duncan C. Diff toxin A/B Not detected Normal NOT DETECTED [facility] Comment on above: Performed By: #### L IPA, CMP #### [facility] [address] [place] [address] Dr. Taylor Duncan Campylobacter Not detected Normal NOT DETECTED [facility] Comment on above: Performed By: #### L IPA, CMP #### [facility] [address] [place] [address] Dr. Taylor Duncan Cryptosporidium Not detected Normal NOT DETECTED [facility] Comment on above: Performed By: #### L IPA, CMP #### [facility] [address] [place] [address] Dr. Taylor Duncan Cyclos. Cayetanensis Not detected Normal NOT DETECTED [facility] Comment on above: Performed By: #### L IPA, CMP #### [facility] [address] [place] [address] Dr. Taylor Duncan E. Coli O157 Not Applicable Normal Not Applicable [facility] Comment on above: Performed By: #### L IPA, CMP #### [facility] [address] [place] [address] Dr. Taylor Duncan E. histolytica Not detected Normal NOT DETECTED [facility] Comment on above: Performed By: #### L IPA, CMP #### [facility] [address] [place] [address] Dr. Taylor Duncan EAEC Not detected Normal NOT DETECTED [facility] Comment on above: Performed By: #### L IPA, CMP #### [facility] [address] [place] [address] Dr. Taylor Duncan EIEC Not detected Normal NOT DETECTED [facility] Comment on above: Performed By: #### L IPA, CMP #### [facility] [address] [place] [address] Dr. Taylor Duncan EPEC Not detected Normal NOT DETECTED [facility] Comment on above: Performed By: #### L IPA, CMP #### [facility] [address] [place] [address] Dr. Taylor Duncan ETEC Not detected Normal NOT DETECTED [facility] Comment on above: Performed By: #### L IPA, CMP #### [facility] [address] [place] [address] Dr. Taylor Duncan G. Lamblia Not detected Normal NOT DETECTED [facility] Comment on above: Performed By: #### L IPA, CMP #### [facility] [address] [place] [address] Dr. Taylor STEWARTL CONTROLS PASSED Normal [facility] Comment on above: Performed By: #### L IPA, CMP #### [facility] [address] [place] [address] Dr. Taylor CAMPANL ANGELITA HEADER GI PANEL BACTERIA Normal T [facility] Comment on above: Performed By: #### L IPA, CMP #### [facility] [address] [address] [address] Taylor LAYTON ECOLI GI PANEL DIARRHEAGEN IC E.COLI / SHIGELLA Normal [facility] Comment on above: Performed By: #### L IPA, CMP #### [facility] [address] [place] [address] Dr. Taylor LAYTON INFO SEE BELOW Normal [facility] Comment on above: Result Comment: EAEC - Enteroaggregative E. Coli EPEC- Enteropathogenic E. Coli ETEC- Enterotoxigenic E. Coli lt/st STEC- Shigella-like toxin-producing E. Coli stx1/stx2 EIEC- Shigella/Enteroinvasive E. Coli Performed By: #### L IPA, CMP #### [facility] [address] [place] [address] Dr. Taylor LAYTON PARASITES GI PANEL PARASITES Normal [facility] Comment on above: Performed By: #### L IPA, CMP #### [facility] [address] [place] [address] Dr. Taylor LAYTON VIRUS GI PANEL VIRUSES Normal [facility] Comment on above: Performed By: #### L IPA, CMP #### [facility] [address] [place] [address] Dr. Taylor Duncan Norovirus GI/GII Not detected Normal NOT DETECTED [facility] Comment on above: Performed By: #### L IPA, CMP #### [facility] [address] [place] [address] Dr. Taylor Duncan P. Shigelloides Not detected Normal NOT DETECTED [facility] Comment on above: Performed By: #### L IPA, CMP #### [facility] [address] [place] [address] Dr. Taylor Duncan Rotavirus A Not detected Normal NOT DETECTED [facility] Comment on above: Performed By: #### L IPA, CMP #### [facility] [address] [place] [address] Dr. Taylor Duncan Salmonella Not detected Normal NOT DETECTED [facility] Comment on above: Performed By: #### L IPA, CMP #### [facility] [address] [place] [address] Dr. Taylor Duncan Sapovirus Not detected Normal NOT DETECTED [facility] Comment on above: Performed By: #### L IPA, CMP #### [facility] [address] [place] [address] Dr. Taylor Duncan STEC Not detected Normal NOT DETECTED [facility] Comment on above: Performed By: #### L IPA, CMP #### [facility] [address] [place] [address] Dr. Taylor Duncan Vibrio Not detected Normal NOT DETECTED [facility] Comment on above: Performed By: #### L IPA, CMP #### [facility] [address] [place] [address] Dr. Taylor Duncan Vibrio Cholera Not detected Normal NOT DETECTED [facility] Comment on above: Performed By: #### L IPA, CMP #### [facility] [address] [place] [address] Dr. Taylor Duncan Y. Enterocolitica Not detected Normal NOT DETECTED [facility] Comment on above: Performed By: #### L IPA, CMP #### [facility] [address] [place] [address] Dr. Taylor Duncan LIPASEon 05-18-2022 Lipase [Catalytic activity/Vol] 71.0 U/L Critically low 73.0-393.0 [facility] Comment on above: Performed By: #### C MP, LIPA, ELISHA #### [facility] [address] [place] [address] Dr. Taylor Duncan PROF 14(COMP METB)on 023 Albumin [Mass/Vol] 3.5 g/dL Normal 3.4-5.0 [facility] Comment on above: Performed By: #### C MP, LIPA, ELISHA #### [facility] [address] [place] [address] Dr. Taylor Duncan Albumin/Globulin [Mass ratio] 0.8 {ratio} Normal [facility] Comment on above: Performed By: #### C MP, LIPA, ELISHA #### [facility] [address] [place] [address] Dr. Taylor Duncan ALP [Catalytic activity/Vol] 108 U/L Normal 46-116 [facility] Comment on above: Performed By: #### C MP LIPA, ELISHA #### [facility] [address] [place] [address] Dr. Taylor Duncan ALT [Catalytic activity/Vol] 38 U/L Normal 14-59 [facility] Comment on above: Performed By: #### C MP LIPA, ELISHA #### [facility] [address] [place] [address] Dr. Taylor Duncan Anion gap [Moles/Vol] 12.3 mmol/L Normal [facility] Comment on above: Performed By: #### C MP LIPA, ELISHA #### [facility] [address] [place] [address] Dr. Taylor Duncan AST [Catalytic activity/Vol] 29 U/L Normal 15-37 [facility] Comment on above: Performed By: #### C MP LIPA, ELISHA #### [facility] [address] [place] [address] Dr. Taylor Duncan Bilirubin [Mass/Vol] 0.3 mg/dL Normal 0.2-1.0 [facility] Comment on above: Performed By: #### C JACQUELINE LIPA, ELISHA #### [facility] [address] [place] [address] Dr. Taylor Duncan Calcium [Mass/Vol] 8.8 mg/dL Normal 8.5-10.1 [facility] Comment on above: Performed By: #### C MP LIPA, ELISHA #### [facility] [address] [place] [address] Dr. Taylor Duncan Chloride [Moles/Vol] 106 mmol/L Normal 98-107 [facility] Comment on above: Performed By: #### C MP LIPA, ELISHA #### [facility] [address] [place] [address] Dr. Taylor Duncan CO2 [Moles/Vol] 29.4 mmol/L Normal 21.0-32.0 [facility] Comment on above: Performed By: #### C MP LIPA, ELISHA #### [facility] [address] [address] [address] Taylor Duncan Creatinine [Mass/Vol] 1.09 mg/dL Critically high 0.55-1.02 [facility] Comment on above: Performed By: #### C BRYANNA PHILLIPS, ELISHA #### [facility] [address] [place] [address] Dr. Taylor Duncan EGFR-AF SCOTTISH >60 Normal >=60 [facility] Comment on above: Performed By: #### C JACQUELINE LIPA, ELISHA #### [facility] [address] [place] [address] Dr. Taylor Duncan EGFR-NON AF SCOTTISH 55 mL/min/1.73m2 Critically low >=60 [facility] Comment on above: Performed By: #### C KAL PHILLIPSA, ELISHA #### [facility] [address] [place] [address] Dr. Taylor Duncan Globulin (S) [Mass/Vol] 4.2 g/dL Normal [facility] Comment on above: Performed By: #### C JACQUELINE LIPA, ELISHA #### [facility] [address] [place] [address] Dr. Taylor Duncan Glucose [Mass/Vol] 91 mg/dL Normal 74-106 [facility] Comment on above: Performed By: #### C KAL PHILLIPSA, ELISHA #### [facility] [address] [place] [address] Dr. Taylor Duncan Potassium [Moles/Vol] 3.7 mmol/L Normal 3.5-5.1 [facility] Comment on above: Performed By: #### C JACQUELINE LIPA, ELISHA #### [facility] [address] [place] [address] Dr. Taylor Duncan Protein [Mass/Vol] 7.7 g/dL Normal 6.4-8.2 [facility] Comment on above: Performed By: #### C JACQUELINE LIPA, ELISHA #### [facility] [address] [place] [address] Dr. Taylor Duncan Sodium [Moles/Vol] 144 mmol/L Normal 136-145 [facility] Comment on above: Performed By: #### C MP, LIPA, ELISHA #### [facility] [address] [place] [address] Dr. Taylor Duncan Urea nitrogen [Mass/Vol] 12.0 mg/dL Normal 7.0-18.0 [facility] Comment on above: Performed By: #### C JACQUELINE LIPA, ELISHA #### [facility] [address] [place] [address] Dr. Taylor Duncan Urea nitrogen/Creatinin e [Mass ratio] 11.0 mg/mg Normal [facility] Comment on above: Performed By: #### C JACQUELINE LIPA, ELISHA #### [facility] [address] [place] [address] Dr. Taylor Duncan TROPONIN, HIGH SENSITIVITYon 05-18-2022 HSTROP 4.0 pg/mL Normal 4.0-51.3 [facility] Comment on above: Result Comment: CUT- OFF POINTS HAVE BEEN ESTABLISHED BASED ON THE FOURTH UNIVERSAL DEFINITIONS OF MYOCARDIAL INFARCTION. THE UPPER REFERENCE LIMIT (URL) OF TROPONIN, DEFINED THE 99TH PERCENTILE OF cTnI DISTRIBUTION IN A REFERENCE POPULATION, HAS BEEN CONFIRMED THE DECISION THRESHOLD FOR VT DIAGNOSIS. Performed By: #### C XSTOOL #### [facility] [address] [place] [address] Dr. Taylor Duncan URINE MICROSCOPIC ONLYon BACTERIA TRACE Abnormal NONE SEEN [facility] Comment on above: Performed By: #### L IPA, CMP #### [facility] [address] [place] [address] Dr. Taylor Duncan Bacteria identified Cx Nom (U) NOT INDICATED Normal [facility] Comment on above: Performed By: #### L IPA, CMP #### [facility] [address] [place] [address] Dr. Taylor Duncan CAST NONE SEEN Normal NONE SEEN [facility] Comment on above: Performed By: #### L IPA, CMP #### [facility] [address] [place] [address] Dr. Taylor Duncan Crystals LM Nom (Urine sed) NONE SEEN Normal NONE SEEN [facility] Comment on above: Performed By: #### L IPA, CMP #### [facility] [address] [place] [address] Dr. Taylor Duncan Epithelial cells LM Ql (Urine sed) RARE Normal NONE SEEN /RARE [facility] Comment on above: Performed By: #### L IPA, CMP #### [facility] [address] [place] [address] Dr. Taylor Duncan MUCOUS SMALL Abnormal NONE SEEN [facility] Comment on above: Performed By: #### L IPA, CMP #### [facility] [address] [place] [address] Dr. Tayolr Duncan RBC NONE SEEN Abnormal 0-2 [facility] Comment on above: Performed By: #### L IPA, CMP #### [facility] [address] [place] [address] Dr. Taylor Duncan WBC NONE SEEN Normal NONE SEEN [facility] Comment on above: Performed By: #### L IPA, CMP #### [facility] [address] [place] [address] Dr. Taylor Duncna CBC AUTO DIFFon 05-16-2022 BASO # 0.0 103/ul Normal 0.0-0.1 [facility] Comment on above: Performed By: #### L IPA, CMP #### [facility] [address] [place] [address] Dr. Taylor Duncan Basophils/100 WBC (Bld) 0.3 % Normal 0.2-2.0 [facility] Comment on above: Performed By: #### L IPA, CMP #### [facility] [address] [place] [address] Dr. Taylor Duncan EO # 0.1 103/ul Normal 0.0-0.7 [facility] Comment on above: Performed By: #### L IPA, CMP #### [facility] [address] [place] [address] Dr. Taylor Duncan Eosinophils/100 WBC (Bld) 1.9 % Normal 0.9-7.0 [facility] Comment on above: Performed By: #### L IPA, CMP #### [facility] [address] [place] [address] Dr. Taylor Duncan Erythrocyte distribution width (RBC) [Ratio] 12.4 % Normal 11.0-15.0 [facility] Comment on above: Performed By: #### L IPA, CMP #### [facility] [address] [place] [address] Dr. Taylor Duncan Hematocrit (Bld) [Volume fraction] 45.5 % Normal 36.0-48.0 [facility] Comment on above: Performed By: #### L IPA, CMP #### [facility] [address] [place] [address] Dr. Taylor Duncan Hemoglobin (Bld) [Mass/Vol] 14.7 g/dL Normal 12.0-16.0 [facility] Comment on above: Performed By: #### L IPA, CMP #### [facility] [address] [place] [address] Dr. Taylor Duncan IG # 0.01 10e3/ul Normal 0.00-0.03 [facility] Comment on above: Performed By: #### L IPA, CMP #### [facility] [address] [place] [address] Dr. Taylor Duncan IG % 0.2 % Normal 0.0-0.5 [facility] Comment on above: Performed By: #### L IPA, CMP #### [facility] [address] [place] [address] Dr. Taylor Duncan LYMPH # 2.1 103/ul Normal 1.2-3.8 [facility] Comment on above: Performed By: #### L IPA, CMP #### [facility] [address] [place] [address] Dr. Taylor Duncan Lymphocytes/100 WBC (Bld) 33.9 % Normal 20.5-60.0 [facility] Comment on above: Performed By: #### L IPA, CMP #### [facility] [address] [place] [address] Dr. Taylor Duncan MANUAL DIFF REQ NO Normal [facility] Comment on above: Performed By: #### L IPA, CMP #### [facility] [address] [place] [address] Dr. Taylor Duncan MCH (RBC) [Entitic mass] 29.2 pg Normal 26.7-34.0 [facility] Comment on above: Performed By: #### L IPA, CMP #### [facility] [address] [place] [address] Dr. Taylor Duncan MCHC (RBC) [Mass/Vol] 32.3 g/dL Normal 29.9-35.2 [facility] Comment on above: Performed By: #### L IPA, CMP #### [facility] [address] [place] [address] Dr. Taylor Duncan MCV (RBC) [Entitic vol] 90.5 fL Normal 81.0-99.0 [facility] Comment on above: Performed By: #### L IPA, CMP #### [facility] [address] [place] [address] Dr. Taylor Duncan MONO # 0.5 103/ul Normal 0.3-0.8 [facility] Comment on above: Performed By: #### L IPA, CMP #### [facility] [address] [place] [address] Dr. Taylor Duncan Monocytes/100 WBC (Bld) 7.7 % Normal 1.7-12.0 [facility] Comment on above: Performed By: #### L IPA, CMP #### [facility] [address] [place] [address] Dr. Taylor Duncan NEUT # 3.5 103/ul Normal 1.4-6.5 [facility] Comment on above: Performed By: #### L IPA, CMP #### [facility] [address] [place] [address] Dr. Taylor Duncan Neutrophils/100 WBC (Bld) 56.0 % Normal 43.0-75.0 [facility] Comment on above: Performed By: #### L IPA, CMP #### [facility] [address] [place] [address] Dr. Taylor Duncan Platelet mean volume (Bld) [Entitic vol] 9.9 fL Normal 9.5-13.5 [facility] Comment on above: Performed By: #### L IPA, CMP #### [facility] [address] [place] [address] Dr. Taylor Duncan PLT 276 103/ul Normal 150-450 [facility] Comment on above: Performed By: #### L IPA, CMP #### [facility] [address] [place] [address] Dr. Taylor Duncan RBC 5.03 106/ul Normal 4.20-5.40 [facility] Comment on above: Performed By: #### L IPA, CMP #### [facility] [address] [place] [address] Dr. Taylor Duncan WBC 6.2 103/ul Normal 4.0-11.0 [facility] Comment on above: Performed By: #### L IPA, CMP #### [facility] [address] [place] [address] Dr. Taylor Duncan LIPASEon 05-16-2022 Lipase [Catalytic activity/Vol] 87.0 U/L Normal 73.0-393.0 [facility] Comment on above: Performed By: #### L IPA, CMP #### [facility] [address] [place] [address] Dr. Taylor Duncan PROF 14(COMP METB)on 023 Albumin [Mass/Vol] 3.4 g/dL Normal 3.4-5.0 [facility] Comment on above: Performed By: #### L IPA, CMP #### [facility] [address] [place] [address] Dr. Taylor Duncan Albumin/Globulin [Mass ratio] 0.8 {ratio} Normal [facility] Comment on above: Performed By: #### L IPA, CMP #### [facility] [address] [place] [address] Dr. Taylor Duncan ALP [Catalytic activity/Vol] 110 U/L Normal 46-116 [facility] Comment on above: Performed By: #### L IPA, CMP #### [facility] [address] [place] [address] Dr. Taylor Duncan ALT [Catalytic activity/Vol] 31 U/L Normal 14-59 [facility] Comment on above: Performed By: #### L IPA, CMP #### [facility] [address] [address] [address] Taylor Duncan Anion gap [Moles/Vol] 10.1 mmol/L Normal [facility] Comment on above: Performed By: #### L IPA, CMP #### [facility] [address] [address] [address] Taylor Duncan AST [Catalytic activity/Vol] 21 U/L Normal 15-37 [facility] Comment on above: Performed By: #### L IPA, CMP #### [facility] [address] [address] [address] Taylor Duncan Bilirubin [Mass/Vol] 0.2 mg/dL Normal 0.2-1.0 [facility] Comment on above: Performed By: #### L IPA, CMP #### [facility] [address] [address] [address] Taylor Duncan Calcium [Mass/Vol] 8.9 mg/dL Normal 8.5-10.1 [facility] Comment on above: Performed By: #### L IPA, CMP #### [facility] [address] [address] [address] Taylor Duncan Chloride [Moles/Vol] 104 mmol/L Normal 98-107 [facility] Comment on above: Performed By: #### L IPA, CMP #### [facility] [address] [address] [address] Taylor Duncan CO2 [Moles/Vol] 27.8 mmol/L Normal 21.0-32.0 [facility] Comment on above: Performed By: #### L IPA, CMP #### [facility] [address] [address] [address] Taylor Duncan Creatinine [Mass/Vol] 0.94 mg/dL Normal 0.55-1.02 [facility] Comment on above: Performed By: #### L IPA, CMP #### [facility] [address] [address] [address] Taylor Duncan EGFR-AF SCOTTISH >60 Normal >=60 [facility] Comment on above: Performed By: #### L IPA, CMP #### [facility] [address] [address] [address] Taylor Duncan EGFR-NON AF SCOTTISH >60 Normal >=60 [facility] Comment on above: Performed By: #### L IPA, CMP #### [facility] [address] [address] [address] Taylor Duncan Globulin (S) [Mass/Vol] 4.2 g/dL Normal [facility] Comment on above: Performed By: #### L IPA, CMP #### [facility] [address] [address] [address] Taylor Duncan Glucose [Mass/Vol] 87 mg/dL Normal 74-106 [facility] Comment on above: Performed By: #### L IPA, CMP #### [facility] [address] [address] [address] Taylor Duncan Potassium [Moles/Vol] 3.9 mmol/L Normal 3.5-5.1 [facility] Comment on above: Performed By: #### L IPA, CMP #### [facility] [address] [place] [address] Dr. Taylor Duncan Protein [Mass/Vol] 7.6 g/dL Normal 6.4-8.2 [facility] Comment on above: Performed By: #### L IPA, CMP #### [facility] [address] [place] [address] Dr. Taylor Duncan Sodium [Moles/Vol] 138 mmol/L Normal 136-145 [facility] Comment on above: Performed By: #### L IPA, CMP #### [facility] [address] [place] [address] Dr. Taylor Duncan Urea nitrogen [Mass/Vol] 12.0 mg/dL Normal 7.0-18.0 [facility] Comment on above: Performed By: #### L IPA, CMP #### [facility] [address] [place] [address] Dr. Taylor Duncan Urea nitrogen/Creatinin e [Mass ratio] 12.8 mg/mg Normal [facility] Comment on above: Performed By: #### L IPA, CMP #### [facility] [address] [address] [address] Taylor Duncan XR KUB 1 VIEWon 05-16-2022 XR KUB 1 VIEW EXAMINATION: XR KUB 1 VIEW HISTORY: Left upper quadrant pain for 3 days COMPARISON: No relevant comparison available. FINDINGS: BOWEL GAS PATTERN: No abnormal dilation or deviation. CALCIFICATIONS: None significant. OTHER: Negative. No abnormal gaseous collections. IMPRESSION: 1. Normal bowel gas pattern. No significant stool burden or suspicious findings. Electronically authenticated by: AMINA GALLAGHER Date: 2022-05-16 17:42 Normal [facility] CBC AUTO DIFFon 04-05-2022 BASO # 0.0 103/ul Normal 0.0-0.1 [facility] Comment on above: Performed By: #### C XSTOOL #### [facility] [address] [place] [address] Dr. Talyor Duncan Basophils/100 WBC (Bld) 0.2 % Normal 0.2-2.0 [facility] Comment on above: Performed By: #### C XSTOOL #### [facility] [address] [place] [address] Dr. Taylor Duncan EO # 0.1 103/ul Normal 0.0-0.7 [facility] Comment on above: Performed By: #### C XSTOOL #### [facility] [address] [place] [address] Dr. Taylor Duncan Eosinophils/100 WBC (Bld) 1.0 % Normal 0.9-7.0 [facility] Comment on above: Performed By: #### C XSTOOL #### [facility] [address] [place] [address] Dr. Taylor Duncan Erythrocyte distribution width (RBC) [Ratio] 12.5 % Normal 11.0-15.0 [facility] Comment on above: Performed By: #### C XSTOOL #### [facility] [address] [place] [address] Dr. Taylor Duncan Hematocrit (Bld) [Volume fraction] 46.0 % Normal 36.0-48.0 [facility] Comment on above: Performed By: #### C XSTOOL #### [facility] [address] [address] [address] Taylor Duncan Hemoglobin (Bld) [Mass/Vol] 15.0 g/dL Normal 12.0-16.0 [facility] Comment on above: Performed By: #### C XSTOOL #### [facility] [address] [place] [address] Dr. Taylor Duncan IG # 0.01 10e3/ul Normal 0.00-0.03 [facility] Comment on above: Performed By: #### C XSTOOL #### [facility] [address] [place] [address] Dr. Taylor Duncan IG % 0.1 % Normal 0.0-0.5 [facility] Comment on above: Performed By: #### C XSTOOL #### [facility] [address] [place] [address] Dr. Taylor Duncan LYMPH # 2.2 103/ul Normal 1.2-3.8 [facility] Comment on above: Performed By: #### C XSTOOL #### [facility] [address] [place] [address] Dr. Taylor Duncan Lymphocytes/100 WBC (Bld) 27.5 % Normal 20.5-60.0 [facility] Comment on above: Performed By: #### C XSTOOL #### [facility] [address] [place] [address] Dr. Taylor Duncan MANUAL DIFF REQ NO Normal [facility] Comment on above: Performed By: #### C XSTOOL #### [facility] Laboratory [address] [place] [address] Dr. Taylor Duncan MCH (RBC) [Entitic mass] 30.4 pg Normal 26.7-34.0 [facility] Comment on above: Performed By: #### C XSTOOL #### [facility] [address] [place] [address] Dr. Taylor Duncan MCHC (RBC) [Mass/Vol] 32.6 g/dL Normal 29.9-35.2 [facility] Comment on above: Performed By: #### C XSTOOL #### [facility] [address] [place] [address] Dr. Taylor Duncan MCV (RBC) [Entitic vol] 93.1 fL Normal 81.0-99.0 [facility] Comment on above: Performed By: #### C XSTOOL #### [facility] [address] [place] [address] Dr. Taylor Duncan MONO # 0.6 103/ul Normal 0.3-0.8 [facility] Comment on above: Performed By: #### C XSTOOL #### [facility] [address] [place] [address] Dr. Taylor Duncan Monocytes/100 WBC (Bld) 7.2 % Normal 1.7-12.0 [facility] Comment on above: Performed By: #### C XSTOOL #### [facility] [address] [place] [address] Dr. Taylor Duncan NEUT # 5.1 103/ul Normal 1.4-6.5 [facility] Comment on above: Performed By: #### C XSTOOL #### [facility] [address] [place] [address] Dr. Taylor Duncan Neutrophils/100 WBC (Bld) 64.0 % Normal 43.0-75.0 [facility] Comment on above: Performed By: #### C XSTOOL #### [facility] [address] [place] [address] Dr. Taylor Duncan Platelet mean volume (Bld) [Entitic vol] 10.2 fL Normal 9.5-13.5 [facility] Comment on above: Performed By: #### C XSTOOL #### [facility] [address] [place] [address] Dr. Taylor Duncan PLT 244 103/ul Normal 150-450 [facility] Comment on above: Performed By: #### C XSTOOL #### [facility] [address] [place] [address] Dr. Taylor Duncan RBC 4.94 106/ul Normal 4.20-5.40 [facility] Comment on above: Performed By: #### C XSTOOL #### [facility] [address] [place] [address] Dr. Taylor Duncan WBC 8.0 103/ul Normal 4.0-11.0 [facility] Comment on above: Performed By: #### C XSTOOL #### [facility] [address] [place] [address] Dr. Taylor Duncan D-DIMERon 04-05-2022 D-DIMER 0.27 mg/L FEU Normal <=0.59 [facility] Comment on above: Performed By: #### D DIM #### [facility] [address] [place] [address] Dr. Taylor Duncan D-DIMER COMMENTS SEE BELOW Normal [facility] Comment on above: Result Comment: Incr eases in D-Dimer concentration observed with thromboembolic events can be variable due to localization, size, and age of the thrombus. Therefore, a thromboembolic event cannot be diagnosed with certainty on the basis of the reference range. D-Dimers may also be elevated for a variety of disorders including: advanced age, , coronary disease, cancer, liver disease, infection, inflammation, hematoma, DIC, trauma, post-surgery, diabetes, thrombolytic or anticoagulant therapy, stress, and generalized hospitalization. Performed By: #### D DIM #### [facility] [address] [place] [address] Dr. Taylor Duncan PROF 14(COMP METB)on 023 Albumin [Mass/Vol] 3.2 g/dL Critically low 3.4-5.0 [facility] Comment on above: Performed By: #### L IPA, CMP #### [facility] [address] [place] [address] Dr. Taylor Duncan Albumin/Globulin [Mass ratio] 0.8 {ratio} Normal [facility] Comment on above: Performed By: #### L IPA, CMP #### [facility] [address] [place] [address] Dr. Taylor Duncan ALP [Catalytic activity/Vol] 102 U/L Normal 46-116 [facility] Comment on above: Performed By: #### L IPA, CMP #### [facility] [address] [place] [address] Dr. Taylor Duncan ALT [Catalytic activity/Vol] 31 U/L Normal 14-59 [facility] Comment on above: Performed By: #### L IPA, CMP #### [facility] [address] [address] [address] Taylor Duncan Anion gap [Moles/Vol] 14.4 mmol/L Normal [facility] Comment on above: Performed By: #### L IPA, CMP #### [facility] [address] [address] [address] Taylor Duncan AST [Catalytic activity/Vol] 30 U/L Normal 15-37 [facility] Comment on above: Performed By: #### L IPA, CMP #### [facility] [address] [place] [address] Dr. Taylor Duncan Bilirubin [Mass/Vol] 0.2 mg/dL Normal 0.2-1.0 [facility] Comment on above: Performed By: #### L IPA, CMP #### [facility] [address] [place] [address] Dr. Taylor Duncan Calcium [Mass/Vol] 9.1 mg/dL Normal 8.5-10.1 [facility] Comment on above: Performed By: #### L IPA, CMP #### [facility] [address] [place] [address] Dr. Taylor Duncan Chloride [Moles/Vol] 112 mmol/L Critically high 98-107 [facility] Comment on above: Performed By: #### L IPA, CMP #### [facility] [address] [place] [address] Dr. Taylor Duncan CO2 [Moles/Vol] 30.0 mmol/L Normal 21.0-32.0 [facility] Comment on above: Performed By: #### L IPA, CMP #### [facility] [address] [place] [address] Dr. Taylor Duncan Creatinine [Mass/Vol] 0.96 mg/dL Normal 0.55-1.02 [facility] Comment on above: Performed By: #### L IPA, CMP #### [facility] [address] [place] [address] Dr. Taylor Duncan EGFR-AF SCOTTISH >60 Normal >=60 [facility] Comment on above: Performed By: #### L IPA, CMP #### [facility] [address] [place] [address] Dr. Taylor Duncan EGFR-NON AF SCOTTISH >60 Normal >=60 [facility] Comment on above: Performed By: #### L IPA, CMP #### [facility] [address] [place] [address] Dr. Taylor Duncan Globulin (S) [Mass/Vol] 4.2 g/dL Normal [facility] Comment on above: Performed By: #### L IPA, CMP #### [facility] [address] [place] [address] Dr. Taylor Duncan Glucose [Mass/Vol] 88 mg/dL Normal 74-106 [facility] Comment on above: Performed By: #### L IPA, CMP #### [facility] [address] [place] [address] Dr. Taylor Duncan Potassium [Moles/Vol] 4.4 mmol/L Normal 3.5-5.1 [facility] Comment on above: Performed By: #### L IPA, CMP #### [facility] [address] [place] [address] Dr. Taylor Duncan Protein [Mass/Vol] 7.4 g/dL Normal 6.4-8.2 [facility] Comment on above: Performed By: #### L IPA, CMP #### [facility] [address] [place] [address] Dr. Taylor Duncan Sodium [Moles/Vol] 152 mmol/L Critically high 136-145 [facility] Comment on above: Performed By: #### L IPA, CMP #### [facility] [address] [place] [address] Dr. Taylor Duncan Urea nitrogen [Mass/Vol] 11.0 mg/dL Normal 7.0-18.0 [facility] Comment on above: Performed By: #### L IPA, CMP #### [facility] [address] [place] [address] Dr. Taylor Duncan Urea nitrogen/Creatinin e [Mass ratio] 11.5 mg/mg Normal [facility] Comment on above: Performed By: #### L IPA, CMP #### [facility] [address] [address] [address] Taylor Duncan TROPONIN, HIGH SENSITIVITYon 04-05-2022 HSTROP 4.3 pg/mL Normal 4.0-51.3 [facility] Comment on above: Result Comment: CUT- OFF POINTS HAVE BEEN ESTABLISHED BASED ON THE FOURTH UNIVERSAL DEFINITIONS OF MYOCARDIAL INFARCTION. THE UPPER REFERENCE LIMIT (URL) OF TROPONIN, DEFINED THE 99TH PERCENTILE OF cTnI DISTRIBUTION IN A REFERENCE POPULATION, HAS BEEN CONFIRMED THE DECISION THRESHOLD FOR [place] DIAGNOSIS. Performed By: #### H STROPN #### [facility] [address] [place] [address] Dr. Taylor Duncan HSTROP <4.0 Normal 4.0-51.3 [facility] Comment on above: Result Comment: CUT- OFF POINTS HAVE BEEN ESTABLISHED BASED ON THE FOURTH UNIVERSAL DEFINITIONS OF MYOCARDIAL INFARCTION. THE UPPER REFERENCE LIMIT (URL) OF TROPONIN, DEFINED THE 99TH PERCENTILE OF cTnI DISTRIBUTION IN A REFERENCE POPULATION, HAS BEEN CONFIRMED THE DECISION THRESHOLD FOR VT DIAGNOSIS. Performed By: #### L IPA, CMP #### [facility] [address] [address] [address] Taylor Duncan US BRIANA DOP LEG LTon 04-05-19 23 US BRIANA DOP LEG LT EXAMINATION: US BRIANA DOP LEG LT HISTORY: CHEST PAIN, UNSPECIFIED , chronic left leg pain COMPARISON: No relevant comparison available. FINDINGS: REGION: Left lower extremity THROMBI: None. COMPRESSIBILITY: Normal compressibility. FLOW: Normal waveform and antegrade flow between 5 and 20 cm/s. OTHER: None. IMPRESSION: 1. No deep vein thrombus within the left lower extremity. Electronically authenticated by: AMINA GALLAGHER Date: 2022-04-05 13:05 Normal [facility] XR CHEST 1 Von 04-05-2022 XR CHEST 1 V EXAMINATION: XR CHES T 1 V HISTORY: CHEST PAIN, UNSPECIFIED COMPARISON: XR chest 07/27/2021 FINDINGS: LUNGS: No significant pulmonary parenchymal abnormalities. VASCULATURE: No increased pulmonary vasculature. PLEURA: No pneumothorax, effusion, or pleural thickening. CARDIAC: No cardiomegaly or cardiac silhouette abnormality. MEDIASTINUM: No visible mass or adenopathy. BONES: No fracture or visible bone lesion. OTHER: Negative. IMPRESSION: 1. Normal examination. Electronically authenticated by: AMINA GALLAGHER Date: 2022-04-05 12:21 Normal [facility] Josh Felder Panelon 022 EBV (VCA) Ab, IgG 1332 U/mL High <100 [facility] Comment on above: Performed By: #### E BVPRO #### [facility] [place] [address] Traffic Inspector: Terry Nguyen MD EBV (VCA) Ab, IgM 155 U/mL High <100 [facility] Comment on above: Performed By: #### E BVPRO #### [facility] [place] [address] Traffic Inspector: Terry Nguyen MD EBV Early Ab, IgG 111 U/mL High <100 [facility] Comment on above: Performed By: #### E BVPRO #### [facility] [place] [address] Traffic Inspector: Terry Nguyen MD EBV Interpretation (NOTE) Normal [facility] Comment on above: Result Comment: Reference Range: Negative <100 U/mL Positive >120 U/mL Equivocal 100-120 U/mL Guidelines for the Interpretation of Josh-Felder Viral Serologies Antibodies Clinical Situation IgG-VCA EBNA EA IgM-VCA No past infection - - - - Acute infection + - + + Convalescent phase + + +/- +/- Past infection + + - - Chronic or reactivated + + + - infection + = Antibody present - = Antibody absent Reference: Clinical Diagnosis and Management by Laboratory Methods; 17th Edition, Charlie Naqvi M.D. Performed By: #### E BVPRO #### [address] [id number] Traffic Inspector: Terry Nguyen MD EBV Nuclear Ab, IgG 414 U/mL High <100 [facility] Comment on above: Performed By: #### E BVPRO #### [address] [id number] Traffic Inspector: Terry Nguyen MD Anti-Thy Peroxidaseon 2021 Anti-Thy Peroxidase 7.3 IU/mL Normal 0.0-25.0 [facility] Comment on above: Result Comment: Reference Range: <25.0 Negative 25.0-35.0 Equivocal >35.0 Positive When results are Equivocal, it is recommended to retest after 8-12 weeks. Performed By: #### A MSOM #### [address] [id number] Traffic Inspector: Terry Nguyen MD #### CDP #### [address] [place] [id number] Traffic Inspector: Mane Lay MD Thyroxine, Freeon 1666 Thyroxine, Free 1.13 ng/dL Normal 0.93-1.70 [facility] Comment on above: Performed By: #### T SH #### [address] [place] [id number] Traffic Inspector: Mane Lay MD #### FT4 #### [address] [id number] Traffic Inspector: Terry Nguyen MD CBC with Auto Differentialon 08-03-2021 Absolute Eos # 0.15 [facility] Absolute Immature Granulocyte <0.03 [facility] Absolute Lymph # 2.55 [facility] Absolute Alcorn # 0.69 [facility] Basophils (Bld) [#/Vol] 0.03 10*3/uL [facility] Basophils/100 WBC (Bld) 0 % 0 - 2 % [facility] Eosinophils/100 WBC (Bld) 2 % 1 - 4 % [facility] Hematocrit (Bld) [Volume fraction] 45.8 % 36.3 - 47.1 % [facility] Hemoglobin.gastroi ntestinal spec 1 Ql (Stl) 14.4 g/dL 11.9 - 15.1 g/dL [facility] Immature granulocytes/100 WBC (Bld) 0 % 0 [facility] Lymphocytes/100 WBC (Bld) 26 % 24 - 43 % [facility] MCH (RBC) [Entitic mass] 30.1 pg 25.2 - 33.5 pg [facility] MCHC (RBC) [Mass/Vol] 31.4 g/dL 28.4 - 34.8 g/dL [facility] MCV (RBC) [Entitic vol] 95.6 fL 82.6 - 102.9 fL [facility] Monocytes/100 WBC (Bld) 7 % 3 - 12 % [facility] NRBC Automated 0.0 0.0 per 100 WBC [facility] Platelet distribution width (Bld) [Ratio] 12.3 % 11.8 - 14.4 % [facility] Platelet mean volume (Bld) [Entitic vol] 9.7 fL 8.1 - 13.5 fL [facility] Platelets (Bld) [#/Vol] 277 10*3/uL [facility] RBC (Bld) [#/Vol] 4.79 10*6/uL 3.95 - 5.1 1 m/uL [facility] Segmented neutrophils/100 WBC (Bld) 65 % 36 - 65 % [facility] Segs Absolute 6.57 [facility] WBC (Bld) [#/Vol] 10.0 10*3/uL [facility] CBC with Diffon 08-03-2021 Abs. Basophil 0.03 k/uL Normal 0.00-0.20 [facility] Comment on above: Performed By: #### A MSOM #### [facility] [place] [address] Traffic Inspector: Terry Nguyen MD #### CDP #### [facility] [address] [place] [address] Dr[address] [id number] Traffic Inspector: Mane Lay MD Abs.Imm.Granulocyt e <0.03 Normal 0.00-0.30 [facility] Comment on above: Performed By: #### A MSOM #### [address] [address] Traffic Inspector: Terry Nguyen MD #### CDP #### [address] [place] [id number] Traffic Inspector: Mane Lay MD Abs.Neutrophil (Seg) 6.57 k/uL Normal 1.50-8.10 [facility] Comment on above: Performed By: #### A MSOM #### [place] [address] Traffic Inspector: Terry Nguyen MD #### CDP #### [address] [place] [id number] Traffic Inspector: Mane Lay MD Basophils/100 WBC (Bld) 0 % Normal 0-2 [facility] Comment on above: Performed By: #### A MSOM #### [address] [address] Traffic Inspector: Terry Nguyen MD #### CDP #### [address] [place] [id number] Traffic Inspector: Mane Lay MD Eosinophils (Bld) [#/Vol] 0.15 10*3/uL Normal 0.00-0.44 [facility] Comment on above: Performed By: #### A MSOM #### [address] [address] Traffic Inspector: Terry Nguyen MD #### CDP #### [address] [place], [place] [id number] Traffic Inspector: Mane Lay MD Eosinophils/100 WBC (Bld) 2 % Normal 1-4 [facility] Comment on above: Performed By: #### A MSOM #### [address] [address] Traffic Inspector: Terry Nguyen MD #### CDP #### [address] [place], [place] [id number] Traffic Inspector: Mane Lay MD Erythrocyte distribution width (RBC) [Ratio] 12.3 % Normal 11.8-14.4 [facility] Comment on above: Performed By: #### A MSOM #### [address] [address] Traffic Inspector: Terry Nguyen MD #### CDP #### [address] [place], [place] [id number] Traffic Inspector: Mane Lay MD Hematocrit (Bld) [Volume fraction] 45.8 % Normal 36.3-47.1 [facility] Comment on above: Performed By: #### A MSOM #### [address] [address] Traffic Inspector: Terry Nguyen MD #### CDP #### [address] [place], [place] [id number] Traffic Inspector: Mane Lay MD Hemoglobin (Bld) [Mass/Vol] 14.4 g/dL Normal 11.9-15.1 [facility] Comment on above: Performed By: #### A MSOM #### [address] [address] Traffic Inspector: Terry Nguyen MD #### CDP #### [address] [place], [place] [id number] Traffic Inspector: Mane Lay MD Immature granulocytes/100 WBC (Bld) 0 % Normal 0 [facility] Comment on above: Performed By: #### A MSOM #### [address] [place] [address] Traffic Inspector: Terry Nguyen MD #### CDP #### [facility] [address] [place], [place] [id number] Traffic Inspector: Mane Lay MD Lymphocytes (Bld) [#/Vol] 2.55 10*3/uL Normal 1.10-3.70 [facility] Comment on above: Performed By: #### A MSOM #### [address] [address] Traffic Inspector: Terry Nguyen MD #### CDP #### [facility] [address] [place] [address] Dr[address] [phone] Traffic Inspector: Mane Lay MD Lymphocytes/100 WBC (Bld) 26 % Normal 24-43 [facility] Comment on above: Performed By: #### A MSOM #### [address] [address] Traffic Inspector: Terry Nguyen MD #### CDP #### [facility] [address] [place] [address] Dr[address] [phone] Traffic Inspector: Mane Lay MD MCH (RBC) [Entitic mass] 30.1 pg Normal 25.2-33.5 [facility] Comment on above: Performed By: #### A MSOM #### [address] [address] Traffic Inspector: Terry Nguyen MD #### CDP #### [facility] [address] [address] Traffic Inspector: Mane Lay MD MCHC (RBC) [Mass/Vol] 31.4 g/dL Normal 28.4-34.8 [facility] Comment on above: Performed By: #### A MSOM #### [address] [address] Traffic Inspector: Terry Nguyen MD #### CDP #### [facility] [address] [place], [place] [id number] Traffic Inspector: Mane Lay MD MCV (RBC) [Entitic vol] 95.6 fL Normal 82.6-102.9 [facility] Comment on above: Performed By: #### A MSOM #### [address] [address] Traffic Inspector: Terry Nguyen MD #### CDP #### [address] [place], [place] 7784083 Traffic Inspector: Mane Lay MD Monocytes (Bld) [#/Vol] 0.69 10*3/uL Normal 0.10-1.20 [facility] Comment on above: Performed By: #### A MSOM #### [address] [address] Traffic Inspector: Terry Nguyen MD #### CDP #### [address] [place], [place] [id number] Traffic Inspector: Mane Lay MD Monocytes/100 WBC (Bld) 7 % Normal 3-12 [facility] Comment on above: Performed By: #### A MSOM #### [address] [address] Traffic Inspector: Terry Nguyen MD #### CDP #### [address] [place], [place] [phone] Traffic Inspector: Mane Lay MD Neutrophil (Seg) 65 % Normal 36-65 [facility] Comment on above: Performed By: #### A MSOM #### [address] [address] Traffic Inspector: Terry Nguyen MD #### CDP #### [facility] [address] [place], [place] [id number] Traffic Inspector: Mane Lay MD NRBC Automated 0.0 per 100 WBC Normal 0.0 [facility] Comment on above: Performed By: #### A MSOM #### [address] [address] Traffic Inspector: Terry Nguyen MD #### CDP #### [facility] [address] [place] [address] Dr. [place], [place] [phone] Traffic Inspector: Mane Lay MD Platelet mean volume (Bld) [Entitic vol] 9.7 fL Normal 8.1-13.5 [facility] Comment on above: Performed By: #### A MSOM #### [address] [address] Traffic Inspector: Terry Nguyen MD #### CDP #### [address] [place], [place] [id number] Traffic Inspector: Mane Lay MD Platelets (Bld) [#/Vol] 277 10*3/uL Normal 138-453 [facility] Comment on above: Performed By: #### A MSOM #### [address] [address] Traffic Inspector: Terry Nguyen MD #### CDP #### [facility] [address] [place] [address] [place], [place] [phone] Traffic Inspector: Mane Lay MD RBC (Bld) [#/Vol] 4.79 10*6/uL Normal 3.95-5.11 [facility] Comment on above: Performed By: #### A MSOM #### [address] [address] Traffic Inspector: Terry Nguyen MD #### CDP #### [facility] [address] [place], [place] [id number] Traffic Inspector: Mane Lay MD WBC (Bld) [#/Vol] 10.0 10*3/uL Normal 3.5-11.3 [facility] Comment on above: Performed By: #### A MSOM #### [facility] [address] [place], [place] [phone] Traffic Inspector: Terry Nguyen MD #### CDP #### [facility] [address] [address] Traffic Inspector: Mane Lay MD T4, Freeon 08-03-2021 Thyroxine, Free 1.13 ng/dL 0.93 - 1.70 ng/dL [facility] TSHon 08-03-2021 TSH Qn 3.90 m[IU]/L [facility] Thyroid Stim. Horm.on 2021 Thyroid Stim. Horm. 3.90 uIU/mL Normal 0.30-5.00 [facility] Comment on above: Performed By: #### T SH #### [address] [place] [address] Traffic Inspector: Mane Lay MD #### FT4 #### [address] [place], [place] [id number] Traffic Inspector: Terry Nguyen MD CARDIAC ANGELITO 3-6on 2 CK [Catalytic activity/Vol] 48 U/L Normal 26-192 [facility] Comment on above: Performed By: #### C MREP #### [facility] [address] [place] [address] [address] [address] Taylor Duncan CK.MB [Mass/Vol] 0.35 ng/mL Normal <=3.60 [facility] Comment on above: Performed By: #### C MREP #### [facility] [address] [place], [place] [address] Dr. Taylor Duncan HSTROP 3.6 pg/mL Critically low 4.0-51.3 [facility] Comment on above: Result Comment: CUT- OFF POINTS HAVE BEEN ESTABLISHED BASED ON THE FOURTH UNIVERSAL DEFINITIONS OF MYOCARDIAL INFARCTION. THE UPPER REFERENCE LIMIT (URL) OF TROPONIN, DEFINED THE 99TH PERCENTILE OF cTnI DISTRIBUTION IN A REFERENCE POPULATION, HAS BEEN CONFIRMED THE DECISION THRESHOLD FOR VT DIAGNOSIS. Performed By: #### C MREP #### [facility] [address] [place] [address] Dr. Taylor Duncan CARDIAC ANGELITO ADMITon 022 CK [Catalytic activity/Vol] 69 U/L Normal 26-192 [facility] Comment on above: Performed By: #### C XSTOOL #### [facility] [address] [place] [address] Dr. Taylor Duncan CK.MB [Mass/Vol] 0.28 ng/mL Normal <=3.60 [facility] Comment on above: Performed By: #### C XSTOOL #### [facility] [address] [place] [address] Dr. Taylor Duncan HSTROP 4.1 pg/mL Normal 4.0-51.3 [facility] Comment on above: Result Comment: CUT- OFF POINTS HAVE BEEN ESTABLISHED BASED ON THE FOURTH UNIVERSAL DEFINITIONS OF MYOCARDIAL INFARCTION. THE UPPER REFERENCE LIMIT (URL) OF TROPONIN, DEFINED THE 99TH PERCENTILE OF cTnI DISTRIBUTION IN A REFERENCE POPULATION, HAS BEEN CONFIRMED THE DECISION THRESHOLD FOR VT DIAGNOSIS. Performed By: #### C XSTOOL #### [facility] [address] [place] [address] Dr. Taylor Duncan DONI 39 ng/mL Normal 9-82 [facility] Comment on above: Performed By: #### C XSTOOL #### [facility] [address] [place] [address] Dr. Taylor Duncan CBC AUTO DIFFon 07-27-2021 BASO # 0.0 103/ul Normal 0.0-0.1 [facility] Comment on above: Performed By: #### C BC #### [facility] [address] [place] [address] Dr. Taylor Duncan Basophils/100 WBC (Bld) 0.4 % Normal 0.2-2.0 [facility] Comment on above: Performed By: #### C BC #### [facility] [address] [place] [address] Dr. Taylor Duncan EO # 0.1 103/ul Normal 0.0-0.7 [facility] Comment on above: Performed By: #### C BC #### [facility] [address] [place] [address] Dr. Taylor Duncan Eosinophils/100 WBC (Bld) 1.1 % Normal 0.9-7.0 [facility] Comment on above: Performed By: #### C BC #### [facility] [address] [place] [address] Dr. Taylor Duncan Erythrocyte distribution width (RBC) [Ratio] 12.4 % Normal 11.0-15.0 [facility] Comment on above: Performed By: #### C BC #### [facility] [address] [place] [address] Dr. Taylor Duncan Hematocrit (Bld) [Volume fraction] 46.4 % Normal 36.0-48.0 [facility] Comment on above: Performed By: #### C BC #### [facility] [address] [place] [address] Dr. Taylor Duncan Hemoglobin (Bld) [Mass/Vol] 14.9 g/dL Normal 12.0-16.0 [facility] Comment on above: Performed By: #### C BC #### [facility] [address] [place] [address] Dr. Taylor Duncan IG # 0.02 10e3/ul Normal 0.00-0.03 [facility] Comment on above: Performed By: #### C BC #### [facility] [address] [place] [address] Dr. Taylor Duncan IG % 0.2 % Normal 0.0-0.5 [facility] Comment on above: Performed By: #### C BC #### [facility] [address] [place] [address] Dr. Taylor Duncan LYMPH # 3.0 103/ul Normal 1.2-3.8 [facility] Comment on above: Performed By: #### C BC #### [facility] [address] [place] [address] Dr. Taylor Duncan Lymphocytes/100 WBC (Bld) 30.3 % Normal 20.5-60.0 [facility] Comment on above: Performed By: #### C BC #### [facility] [address] [place] [address] Dr. Taylor Duncan MANUAL DIFF REQ NO Normal [facility] Comment on above: Performed By: #### C BC #### [facility] [address] [place] [address] Dr. Taylor Duncan MCH (RBC) [Entitic mass] 29.9 pg Normal 26.7-34.0 [facility] Comment on above: Performed By: #### C BC #### [facility] [address] [place] [address] Dr. Taylor Duncan MCHC (RBC) [Mass/Vol] 32.1 g/dL Normal 29.9-35.2 [facility] Comment on above: Performed By: #### C BC #### [facility] [address] [place] [address] Dr. Taylor Duncan MCV (RBC) [Entitic vol] 93.0 fL Normal 81.0-99.0 [facility] Comment on above: Performed By: #### C BC #### [facility] [address] [place] [address] Dr. Taylor Duncan MONO # 0.8 103/ul Normal 0.3-0.8 [facility] Comment on above: Performed By: #### C BC #### [facility] [address] [place] [address] Dr. Taylor Duncan Monocytes/100 WBC (Bld) 8.0 % Normal 1.7-12.0 [facility] Comment on above: Performed By: #### C BC #### [facility] [address] [place] [address] Dr. Taylor Duncan NEUT # 5.9 103/ul Normal 1.4-6.5 [facility] Comment on above: Performed By: #### C BC #### [facility] [address] [address] [address] Taylor Duncan Neutrophils/100 WBC (Bld) 60.0 % Normal 43.0-75.0 [facility] Comment on above: Performed By: #### C BC #### [facility] [address] [address] [address] Taylor Duncan Platelet mean volume (Bld) [Entitic vol] 9.4 fL Critically low 9.5-13.5 [facility] Comment on above: Performed By: #### C BC #### [facility] [address] [place] [address] Dr. Taylor Duncan PLT 279 103/ul Normal 150-450 [facility] Comment on above: Performed By: #### C BC #### [facility] [address] [place] [address] Dr. Taylor Duncan RBC 4.99 106/ul Normal 4.20-5.40 [facility] Comment on above: Performed By: #### C BC #### [facility] [address] [address] [address] Taylor Duncan WBC 9.8 103/ul Normal 4.0-11.0 [facility] Comment on above: Performed By: #### C BC #### [facility] [address] [place] [address] Dr. Taylor Duncan D-DIMERon 07-27-2021 D-DIMER <0.19 Normal <=0.59 [facility] Comment on above: Performed By: #### C XSTOOL #### [facility] [address] [place] [address] Dr. Taylor Duncan D-DIMER COMMENTS SEE BELOW Normal [facility] Comment on above: Result Comment: Incr eases in D-Dimer concentration observed with thromboembolic events can be variable due to localization, size, and age of the thrombus. Therefore, a thromboembolic event cannot be diagnosed with certainty on the basis of the reference range. D-Dimers may also be elevated for a variety of disorders including: advanced age, , coronary disease, cancer, liver disease, infection, inflammation, hematoma, DIC, trauma, post-surgery, diabetes, thrombolytic or anticoagulant therapy, stress, and generalized hospitalization. Performed By: #### C XSTOOL #### [facility] [address] [place] [address] Dr. Taylor Duncan PROF CHEM 8 (BAS METB)on Anion gap [Moles/Vol] 13.0 mmol/L Normal [facility] Comment on above: Performed By: #### C XSTOOL #### [facility] [address] [place] [address] Dr. Taylor Duncan Calcium [Mass/Vol] 9.0 mg/dL Normal 8.5-10.1 [facility] Comment on above: Performed By: #### C XSTOOL #### [facility] [address] [place] [address] Dr. Taylor Duncan Chloride [Moles/Vol] 102 mmol/L Normal 98-107 [facility] Comment on above: Performed By: #### C XSTOOL #### [facility] [address] [place] [address] Dr. Taylor Duncan CO2 [Moles/Vol] 28.2 mmol/L Normal 21.0-32.0 [facility] Comment on above: Performed By: #### C XSTOOL #### [facility] [address] [place] [address] Dr. Taylor Duncan Creatinine [Mass/Vol] 0.96 mg/dL Normal 0.55-1.02 [facility] Comment on above: Performed By: #### C XSTOOL #### [facility] [address] [place] [address] Dr. Taylor Duncan EGFR-AF SCOTTISH >60 Normal >=60 [facility] Comment on above: Performed By: #### C XSTOOL #### [facility] [address] [place] [address] Dr. Taylor Duncan EGFR-NON AF SCOTTISH >60 Normal >=60 [facility] Comment on above: Performed By: #### C XSTOOL #### [facility] [address] [place] [address] Dr. Taylor Duncan Glucose [Mass/Vol] 93 mg/dL Normal 74-106 [facility] Comment on above: Performed By: #### C XSTOOL #### [facility] [address] [address] [address] Taylor Duncan Potassium [Moles/Vol] 4.2 mmol/L Normal 3.5-5.1 [facility] Comment on above: Performed By: #### C XSTOOL #### [facility] [address] [address] [address] Taylor Duncan Sodium [Moles/Vol] 139 mmol/L Normal 136-145 [facility] Comment on above: Performed By: #### C XSTOOL #### [facility] [address] [place] [address] Dr. Taylor Duncan Urea nitrogen [Mass/Vol] 15.0 mg/dL Normal 7.0-18.0 [facility] Comment on above: Performed By: #### C XSTOOL #### [facility] [address] [place] [address] Dr. Taylor Duncan Urea nitrogen/Creatinin e [Mass ratio] 15.6 mg/mg Normal [facility] Comment on above: Performed By: #### C XSTOOL #### [facility] [address] [place] [address] Dr. Taylor Duncan XR CHEST 1 Von 07-27-2021 XR CHEST 1 V EXAMINATION: XR CHES T 1 V, 07/27/2021 7:45 PM EDT HISTORY: CHEST PAIN, UNSPECIFIED COMPARISON: June 30, 2019 TECHNIQUE: AP portable view of the chest performed. FINDINGS: Medical devices: None. Cardiomediastinal silhouette is within normal limits. The lungs are clear. No large pleural effusion, or pneumothorax. IMPRESSION: 1. No acute cardiopulmonary abnormality. Electronically authenticated by: RENARD ANDRADE Date: 2021-07-27 20:42 Normal [facility] MAMMO POST BIOPSY RIGHTon MAMMO POST BIOPSY RIGHT Patient: COURTNEY MARTINEZ Exam Date: 06/17/2021 : 1980 Gender:F Ordering : DR ALBINA SINGLETON . Admission #: [id number] Family : Order #: [id number] CLICK HERE TO VIEW EXAM This report includes an Addendum and supersedes previous reports for this exam. CORRECTION Corrected on: 06/17/2021; RADIOLOGY REPORT PROCEDURE: MAMMOGRAM POST BIOPSY IMAGES COMPARISON: MAMMO RIP DIAG W CAD DIG, 05/16/2012. MG MAMM SCREEN 3D RIP CAD, 05/27/2021. , mammogram right diagnostic June 03, 2021, ultrasound breast right June 03, 2021 INDICATIONS: Lump in right breast BREAST COMPOSITION: Heterogeneously dense,which may obscure small masses. FINDINGS: DIAGNOSTIC CATEGORY 0--INCOMPLETE: NEED ADDITIONAL IMAGING EVALUATION. BIOPSY MARKER: A metallic marker has been placed following biopsy of an 8 o'clock lesion within the lower-outer quadrant of the right breast. BREAST FINDINGS: The area of concern originally seen on the mammogram is slightly more posterior. Ultrasound evaluation of this area and 1 month (allowing time for both biopsy edema and inflammation to resolve) is recommended. RECOMMENDATIONS: SHORT TERM FOLLOW-UP ULTRASOUND RIGHT BREAST IN 1 MONTHS. Dictated by: Amina Gallagher M.D. on 06/17/2021 at 09:10 Approved by: Amina Gallagher M.D. on 06/17/2021 at 10:07 Dictated by: Amina Gallagher M.D. on 06/17/2021 at 10:12 Approved by: Amina Gallagher M.D. on 06/17/2021 at 10:12 ADDENDUM: COMPARISON: MG MAMM RT DIAG FU, 06/03/2021. FINDINGS: DIAGNOSTIC CATEGORY 3--PROBABLY BENIGN FINDING. THE FOLLOWING FINDING(S) HAS A HIGH PROBABILITY OF A BENIGN ETIOLOGY: RECOMMENDATIONS: SHORT TERM FOLLOW-UP DIAGNOSTIC MAMMOGRAM RIGHT BREAST IN 6 MONTHS. Dictated by: Amina Gallagher M.D. on 06/21/2021 at 15:14 Approved by: Amina Gallagher M.D. on 06/21/2021 at 15:15 Normal [facility] US VAC ASST BX BRST RT W CLI All 06-17-2021 US VAC ASST BX BRST RT W CLIP Patient: COURTNEY MARTINEZ Exam Date: 06/17/2021 : 1980 Gender:F Ordering : DR ALBINA SINGLETON . Admission #: [id number] Family : Order #: [id number] CLICK HERE TO VIEW EXAM This report includes an Addendum and supersedes previous reports for this exam. RADIOLOGY REPORT PROCEDURE: ULTRASOUND BIOPSY VACCUUM ASSISTED RIGHT WITH CLIP COMPARISON: Ultrasound breast June 03, 2021, mammography right June 03, 2021 INDICATIONS: Lump in right breast DESCRIPTION: After obtaining informed consent, a vacuum assisted ultrasound-guided biopsy was performed in the usual sterile manner. The location of the biopsy was then marked as indicated below. FINDINGS: RECOMMENDATIONS: SPECIMEN #, LOCATION: 3 core samples right breast 8 o'clock heterogeneous hypoechoic mass versus complex cyst. BIOPSY NEEDLE: 13 gauge Elite (r) vacuum core biopsy needle. MARKERS(S) PLACED: A single metallic marker was placed in the appropriate targeted location. MEDICATION: Buffered 1% lidocaine with epinephrine administered locally. COMPLICATIONS: None. PATHOLOGY LAB: Pending. CONCLUSION: 1. Uneventful ultrasound-guided breast biopsy. 2. Pathology results are pending. An addendum to this report will be provided after pathology results are available. Dictated by: Amina Gallagher M.D. on 06/17/2021 at 10:07 Approved by: Amina Gallagher M.D. on 06/17/2021 at 10:09 ADDENDUM: Final pathologic diagnosis: Benign breast parenchyma with fibrocystic changes, columnar cell change, usual ductal hyperplasia, apocrine metaplasia, and chronic inflammation. This report was transmitted to the referring physician on June 12, 2021 and the office called to confirm receipt. Dictated by: Amina Gallagher M.D. on 06/21/2021 at 15:12 Approved by: Amina Gallagher M.D. on 06/21/2021 at 15:13 Normal [facility] ECHOCARDIO M/2D COMPLETEon 0 06-13-2021 ECHOCARDIO M/2D COMPLETE Patient: COURTNEY MARTINEZ Exam Date: 06/13/2021 : 1980 Gender:F Ordering : DR DILCIA WARNER M.D. Admission #: [id number] Family : Order #: [id number] CLICK HERE TO VIEW EXAM ECHOCARDIOGRAM REPORT PROCEDURE: CARDIO PULMONARY ECHOCARDIO M/2D COMP INDICATIONS: CHest pain COMPARISON: None. DESCRIPTION: COMPLETE ECHOCARDIOGRAM Real-time transthoracic echocardiography with 2D, M-mode, spectral and color flow Doppler performed. QUALITY: Technical quality was good. LEFT VENTRICLE: Normal chamber size. Normal left ventricular wall thickness. Global left ventricular systolic function is normal. LV EF: Normal left ventricular ejection fraction, (>55%). DIASTOLIC: Normal diastolic function. ATRIAL SEPTUM: LEFT ATRIUM: Normal chamber size. RIGHT ATRIUM: Normal chamber size. RIGHT VENTRICLE: Normal chamber size. Normal right ventricular systolic function. TRICUSPID VALVE: Normal mobility and thickness. No stenosis with trivial regurgitation. No evidence of pulmonary hypertension. RVSP 23 mmHg MITRAL VALVE: Normal mobility and thickness. No evidence of mitral valve stenosis. There is no mitral annular calcification. No mitral regurgitation. AORTIC VALVE: Normal trileaflet appearance. No visible sclerosis. Normal leaflet mobility. No evidence of aortic valve stenosis. No aortic regurgitation. AORTIC ROOT: Normal diameter and appearance. Ascending aorta is normal in size. PULMONIC VALVE: Normal thickness and mobility. No stenosis. No regurgitation. PERICARDIUM: No evidence of pericardial effusion. IVC: Collapses with inspirations. PLEURA: CONCLUSION: 1. Normal ventricular function. LVEF is 65%. 2. No significant valvular dysfunction. 3. Normal right-sided pressures. 4. No pericardial effusion. Adult Echocardiography Procedure Report Left Ventricle LVEDD (3.7 - 5.6 cm): 4.36 cm LVESD (2.2 - 4.0 cm): 3.03 cm LVIVS thickness (0.6 - 1.2 cm): 9.49 mm LVPW thickness (0.5 - 1.0 cm): 8.55 mm e': 17.70 cm/s E - e': 5.60 LVOT Area (cm2): 4.52 cm2 LVOT Diameter 2.40 cm Left Ventricular Ejection Fraction: 65 % Left Atrium LA Volume Index (2D A2C): 16.10 ml/m2 Left Atrium Systolic Dimension: 3.90 cm Left Atrium Systolic Area(A2C): 14.40 cm2 Left Atrium Systolic Area(A4C): 15.20 cm2 Left Atrium Systolic Volume(A2C): 63294 mm3 Left Atrium Systolic Volume(A4C): 25929 mm3 Mitral Valve MV E to A Ratio: 1.20 Mitral Valve A-Wave Peak Velocity: 84.90 cm/s Mitral Valve E-Wave Peak Velocity: 99.20 cm/s Deceleration Time: 180 ms Right Ventricle Aorta AO Root Diam: 3.20 cm Aortic Valve AoV Area (Peak Gregorio): 2.71 cm2 Peak Velocity(Antegrade Flow): 126.00 cm/s Peak Gradient(Antegrade Flow): 6 mm[Hg] Tricuspid Valve Pulmonic Valve Peak Velocity: 89.60 cm/s Peak Gradient: 3 mm[Hg] Right Atrium Dictated by: Lamont Vallejo M.D. on 06/13/2021 at 14:40 Approved by: Lamont Vallejo M.D. on 06/13/2021 at 14:42 Normal [facility] MG MAMM RT DIAG FUon 022 MG MAMM RT DIAG Patient: PIETRO MARTINEZ Exam Date: 06/03/2021 : 1980 Gender:F Ordering : DR DILCIA WARNER M.D. Admission #: [id number] Family : Order #: [id number] CLICK HERE TO VIEW EXAM RADIOLOGY REPORT PROCEDURE: MAMMOGRAM RIGHT DIAGNOSTIC DIGITAL FOLLOW UP, 06/03/2021, 13:59 ULTRASOUND BREAST RIGHT LIMITED, 06/03/2021, 14:25 COMPARISON: MG MAMM SCREEN 3D RIP CAD, 05/27/2021. INDICATIONS: Abnormal findings on diagnostic imaging of breast Calculator Name NCI Breast Cancer Risk Assessment Tool 5 Year Breast Cancer Risk 0.80% Lifetime Breast Cancer Risk 11.90% Personal Breast Cancer No Personal Ovarian Cancer No Treatments None Family Cancers Grandfather-paternal with lung cancer at age 50; Uncle-paternal with prostate cancer at age 50. LOCATION: [facility] BREAST COMPOSITION: Heterogeneously dense,which may obscure small masses. FINDINGS: DIAGNOSTIC CATEGORY 4--SUSPICIOUS FOR MALIGNANCY. FINDING DOES NOT EXHIBIT CLASSIC FINDINGS OF BREAST CANCER: Spot images demonstrate an 8 mm round partially circumscribed nodule upper outer quadrant of the right breast, 8-9 o'clock position. Ultrasound demonstrates a mixed solid and cystic lesion at the 8 o'clock position measuring 0.8 x 0.3 x 0.7 cm in size. I am not sure that the ultrasound lesion corresponds to the mammographic lesion. These findings were discussed with the patient. Ultrasound core biopsy with clip placement is recommended followed by mammogram. Biopsy of the mammographic lesion is recommended if this does not correspond to the ultrasound lesion. RECOMMENDATIONS: ULTRASOUND-GUIDED CORE BIOPSY: RIGHT BREAST PLEASE NOTE: A NORMAL MAMMOGRAM DOES NOT EXCLUDE THE POSSIBILITY OF BREAST CANCER. A CLINICALLY SUSPICIOUS PALPABLE LUMP SHOULD BE BIOPSIED. Dictated by: Mane Hamilton MD on 06/03/2021 at 14:43 Approved by: Mane Hamilton MD on 06/03/2021 at 14:46 Normal [facility] US BREAST RIGHT LIMITEDon US BREAST RIGHT LIMITED Patient: COURTNEY MARTINEZ Exam Date: 06/03/2021 : 1980 Gender:F Ordering : DR DILCIA WARNER M.D. Admission #: [id number] Family : Order #: [id number] CLICK HERE TO VIEW EXAM RADIOLOGY REPORT PROCEDURE: MAMMOGRAM RIGHT DIAGNOSTIC DIGITAL FOLLOW UP, 06/03/2021, 13:59 ULTRASOUND BREAST RIGHT LIMITED, 06/03/2021, 14:25 COMPARISON: MG MAMM SCREEN 3D RIP CAD, 05/27/2021. INDICATIONS: Abnormal findings on diagnostic imaging of breast Calculator Name NCI Breast Cancer Risk Assessment Tool 5 Year Breast Cancer Risk 0.80% Lifetime Breast Cancer Risk 11.90% Personal Breast Cancer No Personal Ovarian Cancer No Treatments None Family Cancers Grandfather-paternal with lung cancer at age 50; Uncle-paternal with prostate cancer at age 50. LOCATION: [facility] BREAST COMPOSITION: Heterogeneously dense,which may obscure small masses. FINDINGS: DIAGNOSTIC CATEGORY 4--SUSPICIOUS FOR MALIGNANCY. FINDING DOES NOT EXHIBIT CLASSIC FINDINGS OF BREAST CANCER: Spot images demonstrate an 8 mm round partially circumscribed nodule upper outer quadrant of the right breast, 8-9 o'clock position. Ultrasound demonstrates a mixed solid and cystic lesion at the 8 o'clock position measuring 0.8 x 0.3 x 0.7 cm in size. I am not sure that the ultrasound lesion corresponds to the mammographic lesion. These findings were discussed with the patient. Ultrasound core biopsy with clip placement is recommended followed by mammogram. Biopsy of the mammographic lesion is recommended if this does not correspond to the ultrasound lesion. RECOMMENDATIONS: ULTRASOUND-GUIDED CORE BIOPSY: RIGHT BREAST PLEASE NOTE: A NORMAL MAMMOGRAM DOES NOT EXCLUDE THE POSSIBILITY OF BREAST CANCER. A CLINICALLY SUSPICIOUS PALPABLE LUMP SHOULD BE BIOPSIED. Dictated by: Mane Hamilton MD on 06/03/2021 at 14:43 Approved by: Mane Hamilton MD on 06/03/2021 at 14:46 Normal [facility] MG MAMM SCREEN 3D RIP CADon 05-27-2021 MG MAMM SCREEN 3D RIP CAD Patient: COURTNEY MARTINEZ Exam Date: 05/27/2021 : 1980 Gender:F Ordering : DR DILCIA WARNER M.D. Admission #: [id number] Family : Order #: [id number] CLICK HERE TO VIEW EXAM RADIOLOGY REPORT PROCEDURE: MAMMOGRAM SCREENING 3D BILATERAL CAD COMPARISON: MAMMO RIP DIAG W CAD DIG, 05/16/2012. INDICATIONS: Screening mammography Calculator Name NCI Breast Cancer Risk Assessment Tool 5 Year Breast Cancer Risk 0.80% Lifetime Breast Cancer Risk 11.90% Personal Breast Cancer No Personal Ovarian Cancer No Treatments None Family Cancers Grandfather-paternal with lung cancer at age 50; Uncle-paternal with prostate cancer at age 50. LOCATION: [facility] BREAST COMPOSITION: Heterogeneously dense,which may obscure small masses. FINDINGS: DIAGNOSTIC CATEGORY 0--INCOMPLETE: NEED ADDITIONAL IMAGING EVALUATION. The breasts are increase in overall size with significant decrease in fibroglandular density, age appropriate.Scattered benign-appearing calcifications are present. Scattered benign-appearing lymph nodes are present. RIGHT BREAST: New well-circumscribed 8.5 mm nodule 9 o'clock , right mid breast. Spot imaging and ultrasound follow-up recommended. LEFT BREAST: No significant suspicious finding. RECOMMENDATIONS: ADDITIONAL MAMMOGRAPHIC VIEWS REQUIRED: RIGHT BREAST - spot compression ULTRASOUND: RIGHT BREAST PLEASE NOTE: A NORMAL MAMMOGRAM DOES NOT EXCLUDE THE POSSIBILITY OF BREAST CANCER. A CLINICALLY SUSPICIOUS PALPABLE LUMP SHOULD BE BIOPSIED. Dictated by: Mane Hamilton MD on 05/27/2021 at 07:58 Approved by: Mane Hamilton MD on 05/27/2021 at 08:06 Normal [facility] Postoperative Documentson Postoperative Documents [id number]#[id number]:127 Normal [facility] Physician Referralon 021 Physician Referral [id number]#1.00CD:127 Normal [facility] IntraOperative Documentson 0 04-07-2020 IntraOperative Documents [id number]#1.00CD:127 Normal [facility] Progress Note-Physicianon Progress Note-Physician Patient: COURTNEY MARTINEZ Age: 39 years Sex: Female : 1980 Associated Diagnoses: None Author: Ha Mitchell Jr., DO Preoperative Information Anesthesia history: Patient History: No prior problems.. Re-eval prior to induction: Inital eval reviewed: No significant interval change. Anesthesia results Review of Systems Constitutional: Negative except as documented in history of present illness. Cardiovascular: Negative except as documented in history of present illness. Respiratory: Negative. Health Status Allergies: Allergic Reactions (Selected) Severity Not Documented Amoxicillin- Ceftin and clindamycin. Ceftin- No reactions were documented. Clindamycin- No reactions were documented. Erythromycin- No reactions were documented. Latex- No reactions were documented. Penicillins- Sulfamethoxazole. Zithromax- No reactions were documented., Allergies (7) Active Reaction amoxicillin Ceftin Ceftin None Documented clindamycin None Documented erythromycin None Documented Latex None Documented penicillins sulfamethoxazole Zithromax None Documented Current medications: (Selected) Prescriptions Prescribed BMX Solution: 5 mL, Oral-Swish&Swallow, q4hr for mouth sores, 100 mL, Refill(s) 1 Carafate 1 gram Tab: 1 gram = 1 tab(s), Oral, QID, # 120 tab(s), Refills(s) 0, Pharmacy: [facility] [place] [address], 167, cm, 03/23/20 14:04:00 EST, Height/Length Dosing, 112.2, kg, 03/23/20 14:04:00 EST, Weight Dosing Pepcid 40 mg Tab: 40 mg = 1 tab(s), Oral, Once a day (at bedtime), # 90 tab(s), Refills(s) 1, Pharmacy: [facility] [place] [address], 167, cm, 03/23/20 14:04:00 EST, Height/Length Dosing, 112.2, kg, 03/23/20 14:04:00 EST, Weight Dosing Zofran 4 mg Tab: 4 mg = 1 tab(s), Oral, q8hr, # 20 tab(s), Refills(s) 1, Pharmacy: [id number] [facility], 167, cm, 03/23/20 14:04:00 EST, Height/Length Dosing, 112.2, kg, 03/23/20 14:04:00 EST, Weight Dosing Documented Medications Documented Ambien: 12.5 mg, Oral, Once a day (at bedtime), Refills(s) 0, Sleep Effexor XR 150 mg Cap-ER: mg cap(s), Oral, Daily, Refills(s) 0, Depression Premarin 0.45 mg Tab: 0.45 mg = 1 tab(s), Oral, Daily, # 30 tab(s), Refills(s) 0 alprazolam: 0.5 mg, Oral, TID, PRN as needed for anxiety, Refills(s) 0 estradiol 0.025 mg/24 hours twice weekly Transderm ER Film: 1 patch(es), Topical, As Directed, Refill(s) 0, 2 x week, Menopause pantoprazole: 40 mg, Oral, Daily, Refills(s) 0, Control of stomach acid Histories Past Medical History: No active or resolved past medical history items have been selected or recorded. Family History: Procedure history: EGD - Esophagogastroduodenoscopy ([id number]) on 03/30/2020 at 39 Years. Social History Social & Psychosocial Habits Tobacco 03/23/2020 Tobacco Use: Never (less than 100 in l . Physical Examination Respiratory: Lungs are clear to auscultation. Cardiovascular: Regular rhythm. Plan [place] [employer] (ASA) physical status classification: Class II. Anesthetic Preoperative Plan Anesthesia: General. . Anesthetic plan, risks, benefits, and alternatives discussed with the patient and/or family. Patient verbalized understanding. Normal [facility] Comment on above: Result Comment: Elec tronically Signed By: Ha Mitchell Jr., DO\.br\Date and Time Signed: 04/07/20 09:16 EST Progress Note-Physician Patient: COURTNEY MARTINEZ Age: 39 years Sex: Female : 1980 Associated Diagnoses: None Author: Ha Mitchell Jr., DO Preoperative Information Anesthesia history: Patient History: No prior problems.. Re-eval prior to induction: Inital eval reviewed: No significant interval change. Anesthesia results Review of Systems Constitutional: Negative except as documented in history of present illness. Cardiovascular: Negative except as documented in history of present illness. Respiratory: Negative. Health Status Allergies: Allergic Reactions (Selected) Severity Not Documented Amoxicillin- Ceftin and clindamycin. Ceftin- No reactions were documented. Clindamycin- No reactions were documented. Erythromycin- No reactions were documented. Latex- No reactions were documented. Penicillins- Sulfamethoxazole. Zithromax- No reactions were documented., Allergies (7) Active Reaction amoxicillin Ceftin Ceftin None Documented clindamycin None Documented erythromycin None Documented Latex None Documented penicillins sulfamethoxazole Zithromax None Documented Current medications: (Selected) Prescriptions Prescribed Carafate 1 gram Tab: 1 gram = 1 tab(s), Oral, QID, # 120 tab(s), Refills(s) 0, Pharmacy: [facility], 167, cm, 03/23/20 14:04:00 EST, Height/Length Dosing, 112.2, kg, 03/23/20 14:04:00 EST, Weight Dosing Pepcid 40 mg Tab: 40 mg = 1 tab(s), Oral, Once a day (at bedtime), # 90 tab(s), Refills(s) 1, Pharmacy: [facility], 167, cm, 03/23/20 14:04:00 EST, Height/Length Dosing, 112.2, kg, 03/23/20 14:04:00 EST, Weight Dosing Zofran 4 mg Tab: 4 mg = 1 tab(s), Oral, q8hr, # 20 tab(s), Refills(s) 1, Pharmacy: [facility] [place] [address], 167, cm, 03/23/20 14:04:00 EST, Height/Length Dosing, 112.2, kg, 03/23/20 14:04:00 EST, Weight Dosing Documented Medications Documented Ambien: Oral, Once a day (at bedtime), Refills(s) 0 Effexor XR 150 mg Cap-ER: mg cap(s), Oral, Daily, Refills(s) 0 alprazolam: Oral, Refills(s) 0 estradiol 0.025 mg/24 hours twice weekly Transderm ER Film: patch(es), Topical, Refill(s) 0 pantoprazole: Daily, Refills(s) 0 Histories Past Medical History: No active or resolved past medical history items have been selected or recorded. Family History: Procedure history: No active procedure history items have been selected or recorded. Social History Social & Psychosocial Habits Tobacco 03/23/2020 Tobacco Use: Never (less than 100 in l . Physical Examination Respiratory: Lungs are clear to auscultation. Cardiovascular: Regular rhythm. Plan [place] [employer]ologists (ASA) physical status classification: Class II. Anesthetic Preoperative Plan Anesthesia: General. . Anesthetic plan, risks, benefits, and alternatives discussed with the patient and/or family. Patient verbalized understanding. [facility] Comment on above: Result Comment: Elec tronically Signed By: Ha Mitchell Jr., DO\.br\Date and Time Signed: 03/29/20 10:30 EST Coding Summary.on 04-02-2020 Coding Summary. CODING DATE: 021 FINAL [facility] STATUS: Home (Routine DC) PAYOR: Commercial Insurance APC DESCRIPTION 5301 Level 1 Upper GI Procedures ADMIT DX: REASON FOR VISIT DX: R13.10 Dysphagia, unspecified FINAL DX: PRINCIPAL: R13.10 Dysphagia, unspecified SECONDARY: R14.2 Eructation R12 Heartburn M94.0 Chondrocostal junction syndrome [Tietze] PYMT PROC APC STAT DESCRIPTION DOCTOR NAME DATE 72831 5301 T Paty GALLARDO MD 03/30/2020 phagogastroduodenoscopy, flexible, transoral; diagnostic, including collection of specimen(s) by brushing or washing, when performed (separate procedure) 72180 7195 T Dilation of esophagusEJ MD, Maher 03/30/2020 by unguided sound or bougie, single or multiple passes 86696 Anesthesia for upper Ha Mitchell Jr., DO 03/30/2020 gastrointestinal endoscopic procedures, endoscope introduced proximal to duodenum; not otherwise specified NOTE: The code number assigned matches the documented diagnosis and / or procedure in the patient's chart. However, the narrative phrase printed from the coding software may appear abbreviated, or result in slightly different terminology. Revised Coded By: Kelsi Ramey Revised Date Saved: 04/02/2020 03:29 pm Normal [facility] Main OR Intraoperative Recor don 04-02-2020 Main OR Intraoperative Record IntraOp Document Type FT Summary Primary Physician: Paty GALLARDO MD Finalized Date/Time: 04/02/20 11:41:12 Pt. Name: COURTNEY MARTINEZ Karlos Gallagher./Sex: 1980 Female Med Rec #: [id number] Physician: Paty GALLARDO MD Financial #: [id number] Pt. Type: O Room/Bed: / Admit/Disch: 03/30/20 06:50:47 - 03/30/20 23:59:59 Institution: Case Times FT Entry 1 Patient Times In Room 03/30/20 08:08:00 Out Room 03/30/20 08:19:00 Procedure Times Start 03/30/20 08:14:00 Stop 03/30/20 08:16:00 Anesthesia Times Start 03/30/20 08:08:00 Stop 03/30/20 08:19:00 Last Modified By: Jesus FLOREZ, Shira 03/30/20 08:19:09 General Comments: 04/02/20 chart opened for charge review per Idania Murray RN. [place] Case Attendance FT Entry 1 Entry 2 Entry 3 Case Attendee Ileana Sandhu MD, Shira Yeager RN Role Performed Anesthesiologist Surgeon - Primary Front Load Trash Truck Driver - Primary Residue Furnace Operator Time In 03/30/20 08:08:00 03/30/20 08:08:00 03/30/20 08:08:00 Time Out 03/30/20 08:19:00 03/30/20 08:19:00 03/30/20 08:19:00 Procedure EGD(.) EGD(.) EGD(.) Comments Dr. Mitchell supervising Last Modified By: Jesus FLOREZ, Shira Lee RN, Shira Holloway RN 03/30/20 08:19:11 03/30/20 08:19:11 03/30/20 08:19:11 Entry 4 Case Attendee Aylin Lew CST Role Performed Scrub - Primary Time In 03/30/20 08:08:00 Time Out 03/30/20 08:19:00 Procedure EGD(.) Comments Last Modified By: Shira Lee RN 03/30/20 08:19:11 Perioperative Protocols FT Pre-Care Text: Implements protective measures prior to operative or invasive procedure, confirms identity before the operative or invasive procedure, verifies operative procedure, surgical site, and laterality Entry 1 Procedure(s) EGD(.) Patient Identity Birthday, ID Band Verified (select at Check, Patient least 2): Participation Consents / H and P Anesthesia Consent, Operative Site N/A Verified HandP, Surgery/Procedure Marking Verified Consent Surgical Site No Laterality Verified n/a Verified Procedure Verified Yes Correct Patient Yes Position Verified Availability Equipment, Medication Prep Dry n/a Verified (If Applicable) PreOp Antibiotic No Time Out Ileana Sandhu C, Given Participants Paty GALLARDO MD, Workman RN, Angela, Rice CST, Aylin Time Out Complete 03/30/20 08:12:00 Outcomes Met? Yes Last Modified By: Shira Lee RN 03/30/20 08:15:30 Post-Care Text: The patient is free from signs and symptoms of injury caused by extraneous objects Allergy Information FT Pre-Care Text: Verifies allergies Entry 1 Allergies Reviewed? Yes Allergies Reviewed Self/Patient With Outcomes Met? Yes Last Modified By: Shira Lee RN 03/30/20 07:04:25 Post-Care Text: The patient received appropriate medication(s) safely administered during the perioperative period Surgical Procedures FT Entry 1 Procedure Description Procedure EGD Modifiers . Surgeon Description EGD with empiric esophageal dilatation using #54F, #56F dilators. Primary Procedure Yes Primary Surgeon Paty GALLARDO MD Start 03/30/20 08:14:00 Stop 03/30/20 08:16:00 Anesthesia Type General Surgical Service Gastroenterology Wound Class 2 - Clean-Contaminated Last Modified By: Shira Lee RN 03/30/20 08:18:54 General Case Data FT Pre-Care Text: Classifies surgical wound, implements aseptic technique, initiates traffic control Entry 1 Case Information OR OR 4 FT Case Level Level 2 Wound Class 2 - Clean-Contaminated Specialty Gastroenterology ASA Class 2 Preop Diagnosis DYSPHAGIA and HEART BURN Postop Same As Preop No Postop Diagnosis Normal EGD Outcomes Met? Yes Last Modified By: Shira Lee RN 03/30/20 08:19:00 Post-Care Text: The patient is free from signs and symptoms of infection Skin Assessment (Pre Procedure) FT Pre-Care Text: Implements protective measures to prevent skin/ tissue injury due to thermal or mechanical sources Evaluates for signs and symptoms of physical injury to skin and tissue Entry 1 Skin Integrity Intact, Antimony, Warm, and Skin Abnormality No Dry Outcomes Met? Yes Last Modified By: Shira Lee RN 03/30/20 07:04:52 Post-Care Text: The patient is free from signs and symptoms of injury caused by extraneous objects Patient Positioning FT Pre-Care Text: Identifies physical alterations that require additional precautions for procedure-specific positioning, verifies presence of prosthetics or corrective devices, positions the patient, evaluates the patient for signs and symptoms of injury as a result of positioning Entry 1 Procedure EGD(.) Body Position Lateral, right side up Feet Uncrossed? Yes Left Arm Position Resting at Side Right Arm Position Resting at Side Left Leg Position Extended Right Leg Position Extended Positioning Device Safety Strap, Pillow Under Head Large Press Points Checked Yes By Shira Lee RN Outcomes Met? Yes Last Modified By: (more content not included)... Normal [facility] Coding Summary.on 04-01-2020 Coding Summary. CODING DATE: [facility] STATUS: Home (Routine DC) PAYOR: Commercial Insurance ADMIT DX: REASON FOR VISIT DX: Z01.812 Encounter for preprocedural laboratory examination FINAL DX: PRINCIPAL: Z01.812 Encounter for preprocedural laboratory examination SECONDARY: Z20.828 Contact with and (suspected) exposure to other viral communicable diseases R12 Heartburn R13.10 Dysphagia, unspecified R14.2 Eructation PYMT PROC APC STAT DESCRIPTION DOCTOR NAME DATE NOTE: The code number assigned matches the documented diagnosis and / or procedure in the patient's chart. However, the narrative phrase printed from the coding software may appear abbreviated, or result in slightly different terminology. Coded By: Aurelia Poon CphT Date Saved: 04/01/2020 12:58 pm [facility] Consenton 03-31-2020 Consent [id number]#[id number]:127 Normal [facility] Discharge Instructionson Discharge Instructions [id number]#[id number]:127 Normal [facility] IntraOperative Documentson 0 03-31-2020 IntraOperative Documents [id number]#[id number]:127 Normal [facility] IntraOperative Documents [id number]#[id number]:127 Normal [facility] Consent for Treatmenton 03-06 Consent for Treatment [id number]#1.00CD:127 [facility] Endoscopic Procedure Report - Otheron 03-30-2020 Endoscopic Procedure Report - Other Patient: COURTNEY MARTINZE Age: 39 years Sex: Female : 1980 Associated Diagnoses: None Author: Paty GALLARDO MD Pre-Procedure Procedure Date 03/30/2020 08:17:00 . Procedure Type: Esophagogastroduodenoscopy. Procedure provider Performed by Paty Gallardo MD. Current history and physical Documented on chart. Informed Consent After discussing the rationale, risks and benefits, and alternatives to this procedure, the patient provided signed consent for the procedure. Pre-procedure diagnosis: Dysphagia/ odynophagia. Medications Anticoagulant/antiplatelet None. Antibiotic prophylaxis None. ASA Classification: Class II. . Monitoring: See anesthesia record. . Procedure The procedure was performed in the hospital. See anesthesia record for sedation given during procedure. The patient was positioned starting in the left lateral decubitus position and with safety measures. Endoscope type used was an adult-size, introduced orally, advanced to the 2nd portion of the duodenum. No difficulty was encountered during the procedure. Views were excellent. The patient tolerated the procedure well. Findings 1. Normal esophagus, empiric esophageal dilation performed using 54 then 56 Prydeinig Fried dilator 2. Normal gastric mucosa 3. Normal duodenal mucosa Images Procedure images: Vocal cords Antrum Duodenum Fundus . Post-Procedure Complications: none. Estimated blood loss: none. Specimens: None. Devices/ implants: none left in place. Impression and Plan Normal esophagus, empiric esophageal dilation performed using 54 then 56 Prydeinig Fried dilator Recommendations: Follow-up in GI clinic in 2 weeks [facility] Comment on above: Result Comment: Elec tronically Signed By: Paty GALLARDO MD\.br\Date and Time Signed: 03/30/20 08:19 EST Other Comment: Dulce hanna Attachment - attachment storage system not supported [id number] Can be viewed in source systemMissing Attachment - attachment storage system not supported [id number] Can be viewed in source systemMissing Attachment - attachment storage system not supported [id number] Can be viewed in source systemMissChesapeake PERL Attachment - attachment storage system not supported [id number] Can be viewed in source system Inpatient Patient Summaryon 03-30-2020 Inpatient Patient Summary [address] [address] [facility] Clinical Discharge Instructions PERSON INFORMATION Name: COURTNEY MARTINEZ PHYSICIANS Admitting Physician: Paty GALLARDO MD Attending Physician: Paty GALLARDO MD PCP: DILCIA WARNER MD Discharge Diagnosis: Dysphagia Comment: PATIENT EDUCATION INFORMATION Instructions: Medication Leaflets: Follow up: With: Address: When: [facility] [address] [place] [address] Within 2 weeks Type Location Start [facility] Follow Up [facility] 04/07/2020 10:45 AM 04/07/2020 11:00 AM Confirmed MEDICATION LIST Medications to Continue with No Changes Other Medications alprazolam 0.5 Milligram By Mouth 3 times a day as needed as needed for anxiety. conjugated estrogens (Premarin 0.45 mg Tab) 1 Tablets By Mouth every day. estradiol (estradiol 0.025 mg/24 hours twice weekly Transderm ER Film) 1 Patches Topical As Directed. 2 x week. famotidine (Pepcid 40 mg Tab) 1 Tablets By Mouth once a day (at bedtime). Refills: 1. ondansetron (Zofran 4 mg Tab) 1 Tablets By Mouth every 8 hours. Refills: 1. pantoprazole 40 Milligram By Mouth every day. sucralfate (Carafate 1 gram Tab) 1 Tablets By Mouth 4 times a day. Refills: 0. venlafaxine (Effexor XR 150 mg Cap-ER) By Mouth every day. zolpidem (Ambien) 12.5 Milligram By Mouth once a day (at bedtime). Comment: Normal [facility] Main OR PACU I Recordon 03-06 Main OR PACU I Record PACU Phase I Document Type FT Summary Primary Physician: Paty GALLARDO MD Finalized Date/Time: 03/30/20 08:24:45 Pt. Name: ANGELIACOURTNEY/Sex: 1980 Female Med Rec #: [id number] Physician: Paty GALLARDO MD Financial #: [id number] Pt. Type: O Room/Bed: / Admit/Disch: 03/30/20 06:50:47 - Institution: Case Times PACU I FT Pre-Care Text: Identifies barriers to communication and implements measures to provide psychological support Develops individualized plan of care, and ensures continuity of care Maintains patient's dignity and privacy, and maintains patient confidentiality Identifies and reports philosophical, cultural, and spiritual beliefs and values Identifies individual values and wishes concerning care Implements aseptic technique, and administers prescribed antibiotic therapy and immunizing agents as ordered Evaluates postoperative tissue perfusion Implements thermoregulation measures, and monitors body temperature Evaluates postoperative respiratory status Evaluates postoperative cardiac status Evaluates postoperative neurological status Assesses pain control, collaborated in initiating patient-controlled analgesia and implements alternative methods of pain control Verifies allergies, administers prescribed medications and solutions, evaluates response to medications Entry 1 In PACU I 03/30/20 08:18:00 Discharge from PACU 03/30/20 08:58:00 I Outcomes Met? Yes Last Modified By: Kenyatta Rizzo RN 03/30/20 08:24:32 Post-Care Text: The patient demonstrates knowledge of the expected response to the operative or invasive procedure The patient's care is consistent with the individualized perioperative plan of care The patient's right to privacy is maintained The patient's value system, lifestyle, ethnicity, and culture are considered, respected, and incorporated into the perioperative plan of care The patient participates in decisions affecting his or her perioperative plan of care The patient is free from signs and symptoms of infection The patient has wound/tissue perfusion consistent with or improved from baseline levels established preoperatively The patient is at or returning to normothermia at the conclusion of the immediate postoperative period The patient's respiratory function is consistent with or improved from baseline levels established preoperatively The patient's cardiovascular status is consistent with or improved from baseline levels established preoperatively The patient's cardiovascular status is consistent with or improved from baseline levels established preoperatively The patient demonstrates and/or reports adequate pain control throughout the perioperative period The patient received appropriate medication(s), safely administered during the perioperative period Acuity Level PACU I FT Entry 1 Start Time 03/30/20 08:18:00 Stop Time 03/30/20 08:58:00 Acuity Level Acuity Level I Last Modified By: Kenyatta Rizzo RN 03/30/20 08:24:43 Finalized By: Kenyatta Rizzo RN Document Signatures Signed By: Kenyatta Rizzo RN 03/30/20 08:24 Normal [facility] Main OR Preoperative Recordo n 03-30-2020 Main OR Preoperative Record Holding Area Document Type FT Summary Primary Physician: Paty GALLARDO MD Finalized Date/Time: 03/30/20 07:09:37 Pt. Name: ANGELIACOURTNEY/Sex: 1980 Female Med Rec #: [id number] Physician: Paty GALLARDO MD Financial #: [id number] Pt. Type: O Room/Bed: / Admit/Disch: 03/30/20 06:50:47 - Institution: Case Times Holding FT Pre-Care Text: Verifies consent for planned procedure, identifies individual values and wishes concerning care, includes family members in perioperative teaching Secures patient's records' belongings, and valuables, maintains patient's dignity and privacy, and maintains patient confidentiality Entry 1 In Holding 03/30/20 07:00:00 Outcomes Met? Yes Last Modified By: Mary Ann Barrientos RN 03/30/20 07:06:17 Post-Care Text: The patient participates in decisions affecting his or her perioperative plan of care The patient's right to privacy is maintained Surgery Checklist FT Entry 1 Patient Birthday, ID Band Procedure History and Physical, Identification: Check, Patient Verification: Surgical Consent, With Participation Patient NPO after Midnight: Yes Date/Time: 03/29/20 22:00:00 Personal Items: Dentures Personal Items clothing, 2 earrings in Comment: right ear only, nose ring Limitations: up ad wilbert Complaints of Pain: Yes Pain Comment: epigastric Operative Site n/a Marking: Availability Equipment Verified: Does Patient Smoke No Patient states Yes Comment - Adult mom Boy postop adult Supervision supervision available Case Cancelled in No Holding Area see comments below for reason Last Modified By: Mary Ann Barrientos RN 03/30/20 07:09:33 Finalized By: Mary Ann Barrientos RN Document Signatures Signed By: Mary Ann Barrientos RN 03/30/20 07:09 Normal [facility] Monitor Recordon 03-30-2020 Monitor Record [id number]:127 Normal [facility] Outpatient Surgery Discharge Instructionon 03-30-2020 Outpatient Surgery Discharge Instruction [place] [id number] Patient Discharge Instructions PERSON INFORMATION Name: COURTNEY MARTINEZ Date of : 1980 Current Date: 03/30/2020 08:18:56 PHYSICIANS Admitting Physician: EJ HAYES Newman Discharge Diagnosis: Dysphagia COURTNEY MARTINEZ has been given the following list of follow-up instructions, prescriptions, and patient education materials: PATIENT FOLLOW-UP INFORMATION Diet: Regular Discharge Activity: Resume normal activities in 24 hours Discharge Restrictions: No driving for 24 hrs, Do not operate machinery or tools, Do not make important decisions for 24 hours IF UNABLE TO CONTACT YOUR PHYSICIAN AND YOU FEEL IT IS AN EMERGENCY, GO TO THE NEAREST EMERGENCY ROOM OR CALL 911 ANGELIA Gallegos DOROTHY E, have received the attached patient education materials/instructions and have verbalized understanding: May we do a follow up call? Yes No I was present when discharge instructions were given __ Patient Signature Date Clinican/Nurse Signature Date Follow up: With: Address: When: [facility] [address] [place] [address] Within 2 weeks Type Location [facility] Follow [facility] 04/07/2020 10:45 AM 04/07/2020 11:00 AM Confirmed Pharmacy Information: Other: [email or web address] [place] You may receive a survey from [employer] asking you to rate your care experience. Your feedback is important and will help us understand what we do well and how we can improve the quality of care we provide to you, your loved ones and our community. It?s an honor to serve you. Thank you for choosing [facility] HERE ARE THE MEDICATION CHANGES THAT OCCURRED DURING YOUR HOSPITAL STAY Medications to Continue with No Changes Other Medications alprazolam 0.5 Milligram By Mouth 3 times a day as needed as needed for anxiety. conjugated estrogens (Premarin 0.45 mg Tab) 1 Tablets By Mouth every day. estradiol (estradiol 0.025 mg/24 hours twice weekly Transderm ER Film) 1 Patches Topical As Directed. 2 x week. famotidine (Pepcid 40 mg Tab) 1 Tablets By Mouth once a day (at bedtime). Refills: 1. ondansetron (Zofran 4 mg Tab) 1 Tablets By Mouth every 8 hours. Refills: 1. pantoprazole 40 Milligram By Mouth every day. sucralfate (Carafate 1 gram Tab) 1 Tablets By Mouth 4 times a day. Refills: 0. venlafaxine (Effexor XR 150 mg Cap-ER) By Mouth every day. zolpidem (Ambien) 12.5 Milligram By Mouth once a day (at bedtime). PATIENT EDUCATION INFORMATION Instructions: [facility] Patient Education - Texton 0 03-30-2020 Patient Education - Text [facility] Progress Note-Nurseon 2020 Progress Note-Nurse 1020: Call received from pt, stating her pharmacy will not fill prescription as they need additional information. Spoke with pharmacist who requests ingredients and dosing of BMX solution. Provided phone number to return call. 1022: Spoke to Dr. Gallardo regarding pharmacy request to clarify BMX solution ingredients. Dr. Gallardo states BMX solution is equal parts Benadryl, Lidocaine, and Maalox (1:1:1 ratio). He states volume and dosing is already printed on prescription. 1025: Call made to pt's pharmacy (Taylor Cortez). Informed [place] that Dr. Gallardo states BMX solution is equal parts Benadryl, Lidocaine, and Maalox (1:1:1 ratio). He states volume and dosing is printed on prescription. She confirms that information is on prescription. Denies need for further information. [facility] Progress Note-Physicianon Progress Note-Physician Patient: COURTNEY MARTINEZ Age: 39 years Sex: Female : 1980 Associated Diagnoses: None Author: Ha Mitchell Jr., DO Postoperative Information Post Operative Note: Post Anesthesia Care Unit. Anesthetic utilized: General. Health Status Allergies: Allergic Reactions (Selected) Severity Not Documented Amoxicillin- Ceftin and clindamycin. Ceftin- No reactions were documented. Clindamycin- No reactions were documented. Erythromycin- No reactions were documented. Latex- No reactions were documented. Penicillins- Sulfamethoxazole. Zithromax- No reactions were documented. Problem list: No problem items selected or recorded. Physical Examination Vital Signs 03/30/2020 8:55 EST Heart Rate Monitored 75 bpm Respiratory Rate Monitored 25 br/min Systolic Blood Pressure 119 mmHg Diastolic Blood Pressure 72 mmHg SpO2 99 % SpO2 100 % 03/30/2020 8:43 EST Heart Rate Monitored 66 bpm Respiratory Rate Monitored 15 br/min Systolic Blood Pressure 119 mmHg Diastolic Blood Pressure 68 mmHg SpO2 99 % 03/30/2020 8:30 EST Heart Rate Monitored 75 bpm Respiratory Rate Monitored 15 br/min Systolic Blood Pressure 114 mmHg Diastolic Blood Pressure 72 mmHg SpO2 98 % 03/30/2020 8:25 EST Heart Rate Monitored 78 bpm Respiratory Rate Monitored 14 br/min Systolic Blood Pressure 116 mmHg Diastolic Blood Pressure 69 mmHg SpO2 95 % 03/30/2020 8:20 EST Heart Rate Monitored 92 bpm Respiratory Rate Monitored 20 br/min Systolic Blood Pressure 110 mmHg Diastolic Blood Pressure 76 mmHg SpO2 93 % 03/30/2020 8:18 EST Temperature Temporal Artery 37.0 DegC Heart Rate Monitored 92 bpm Respiratory Rate Monitored 20 br/min Systolic Blood Pressure 110 mmHg Diastolic Blood Pressure 76 mmHg Blood Pressure Location Right arm SpO2 93 % Pain assessment: Controlled. General: Alert and oriented, No acute distress, No nausea. Adequate hydration.. Respiratory: Adequate air exchange.. Cardiovascular: stable. Neurologic: Normal sensory. Review / Management Condition: Stable. Assessment Anesthetic outcome No anesthetic complications noted. Plan Transfer/ Discharge: Condition stable. Normal [facility] Comment on above: Result Comment: Elec tronically Signed By: Ha Mitchell Jr., DO\.br\Date and Time Signed: 03/30/20 12:31 EST Priority Order-Octavia 2020 Priority Order-STAT Comment Invalid Interpretation Code [facility] Comment on above: Result Comment: Rece ived Performed at: [facility] [id number] [facility], [place] [id number] MD Vladimir Espinoza Performed By: #### 2 [id number], SARS-CoV-2, ROX ####[facility] [address] [place] [address] SARS-CoV-2, NAAon 03-25-2020 SARS-CoV-2 (COVID-19) RNA ROX+probe Ql (Resp) Not detected Invalid Interpretation Code Not Detected [facility] Comment on above: Result Comment: This nucleic acid amplification test was developed and its performance characteristics determined by [employer]. Nucleic acid amplification tests include RT-PCR and TMA. This test has not been FDA cleared or approved. This test has been authorized by FDA under an Emergency Use Authorization (EUA). This test is only authorized for the duration of time the declaration that circumstances exist justifying the authorization of the emergency use of in vitro diagnostic tests for detection of SARS-CoV-2 virus and/or diagnosis of COVID-19 infection under section 564(b)(1) of the Act, 21 U.S.C. 360bbb-3(b) (1), unless the authorization is terminated or revoked sooner. When diagnostic testing is negative, the possibility of a false negative result should be considered in the context of a patient's recent exposures and the presence of clinical signs and symptoms consistent with COVID-19. An individual without symptoms of COVID-19 and who is not shedding SARS-CoV-2 virus would expect to have a negative (not detected) result in this assay. Performed at: [facility] [address] [facility] [place] [id number] MD Vladimir Espinoza Performed By: #### 2 [id number], SARS-CoV-2, ROX ####[facility] [address] [place] [address] Consent for Procedure/Surger yon 03-24-2020 Consent for Procedure/Surgery [id number]:127 Normal [facility] Physician Orderon 03-24-2020 Physician Order [id number]:127 Normal [facility] Ambulatory Clinical Summaryo n 03-23-2020 Ambulatory Clinical Summary {[id number] Normal [facility] Gastroenterology Office/Clin ic Noteon 03-23-2020 Gastroenterology Office/Clinic Note Chief Complaint abdominal pain HPI Staff This is a 39 year old female who presents today for a self referral for abdominal pain. History of Present Illness 39 years old white female, referred to me to be evaluated for nausea, heartburn, reflux symptoms and epigastric discomfort, she had a negative cardiac work-up recently including a stress test, she reports severe heartburn and reflux symptoms associated with epigastric and sternal discomfort. She is already on PPI daily, no melena, occasional rectal bleeding, she is on diclofenac for arthritis pain Review of Systems PHQ Score Initial Depression Screen Score: 0 Constitutional: no fever, no chills, no sweats, no weakness Skin: no Jaundice, no rash, no lesions, no petechiae ENMT: no ear pain, no sore throat, no congestion, no hoarseness Respiratory: no shortness of breath, no cough, no orthopnea, no wheezing Cardiovascular: mild chest pain, no palpitations, no edema Gastrointestinal: no nausea, no vomiting, no diarrhea, no Constipation noGI bleeding no abd pain no dysphagia yes bloating no heartburn Genitourinary: no dysuria, no hematuria, no discharge, no pain Musculoskeletal: no back pain, no trauma Neurologic: no numbness, no sleeping problems Additional ROS info: Except as noted in the above Review of Systems and in the History of Present Illness all other systems have been reviewed and are negative or noncontributory. Physical Exam Vitals & Measurements T: 36.3 ?C (Temporal Artery) HR: 81(Peripheral) RR: 16 BP: 136/73 HT: 167.0 cm HT: 167 cm WT: 112.2 kg WT: 112.2 kg BMI: 40.23 Constitutional: Appearance: well developed Skin: Inspection: no rashes, ulcers, icterus , or telangiectasias. Eyes: Conjunctivae/lids: normal conjunctivae and lids. ENMT: Hearing: within normal limits. Lips/Teeth/Gums: normal oral mucosa Neck: Neck: normal motion, central trachea. Respiratory: Percussion: thorax normoresonant. Auscultation: normal breath sounds; no rubs, wheezes, rale or ronchi. Cardiovascular: Auscultation: normal rhythm, S1 and S2; no rubs, murmurs or gallop. Peripheral: no edema Gastrointestinal/Abdomen: Abdomen: normal consistency and bowel sounds; no tenderness or masses. Liver/Spleen: normal size and consistency, not palpable. Rectal: deferred Musculoskeletal: Gait/station: normal gait Assessment/Plan 1. Belching (R14.2: Eructation) Ordered: famotidine, 40 mg = 1 tab(s), Oral, Once a day (at bedtime), # 90 tab(s), Refills(s) 1, [facility]acy: [facility] 167, cm, 03/23/20 14:04:00 EST, Height/Length Dosing, 112.2, kg, 03/23/20 14:04:00 EST, Weight Dosing sucralfate, 1 gram = 1 tab(s), Oral, QID, # 120 tab(s), Refills(s) 0, Pharmacy: [facility] [facility] 167, cm, 03/23/20 14:04:00 EST, Height/Length Dosing, 112.2, kg, 03/23/20 14:04:00 EST, Weight Dosing EGD Endoscopy (Hospital Procedure) [place] 4 [place] [address] 2. Heartburn (R12: Heartburn) Ordered: famotidine, 40 mg = 1 tab(s), Oral, Once a day (at bedtime), # 90 tab(s), Refills(s) 1, [facility]acy: [facility] 167, cm, 03/23/20 14:04:00 EST, Height/Length Dosing, 112.2, kg, 03/23/20 14:04:00 EST, Weight Dosing sucralfate, 1 gram = 1 tab(s), Oral, QID, # 120 tab(s), Refills(s) 0, Pharmacy: [facility] 167, cm, 03/23/20 14:04:00 EST, Height/Length Dosing, 112.2, kg, 03/23/20 14:04:00 EST, Weight Dosing EGD Endoscopy (Hospital Procedure) [place] 4 [place] [address] 3. Dysphagia (R13.10: Dysphagia, unspecified) Ordered: famotidine, 40 mg = 1 tab(s), Oral, Once a day (at bedtime), # 90 tab(s), Refills(s) 1, [facility]: [facility], 167, cm, 03/23/20 14:04:00 EST, Height/Length Dosing, 112.2, kg, 03/23/20 14:04:00 EST, Weight Dosing sucralfate, 1 gram = 1 tab(s), Oral, QID, # 120 tab(s), Refills(s) 0, Pharmacy: [facility], 167, cm, 03/23/20 14:04:00 EST, Height/Length Dosing, 112.2, kg, 03/23/20 14:04:00 EST, Weight Dosing EGD Endoscopy (Hospital Procedure) Office Visit Level 4 New 10091 4. Acute costochondritis (M94.0: Chondrocostal junction syndrome [Tietze]) Physical exam revealed significant tenderness at the sternal area suggestive of costochondritis, advised to take diclofenac while taking PPI and Pepcid Orders: ondansetron, 4 mg = 1 tab(s), Oral, q8hr, # 20 tab(s), Refills(s) 1, Pharmacy: [facility], 167, cm, 03/23/20 14:04:00 EST, Height/Length Dosing, 112.2, kg, 03/23/20 14:04:00 EST, Weight Dosing Follow-up No qualifying data available Problem List/Past Medical History Ongoing No qualifying data Historical No qualifying data Medications alprazolam, Oral Ambien, Oral, Once a day (at bedtime) Carafate 1 gram Tab, 1 gm= 1 tab(s), Oral, QID Effexor XR 150 mg Cap-ER, Oral, Daily estradiol 0.025 mg/24 hours twice weekly Transderm ER Film, Topical pantoprazole, Daily Pepcid 40 mg Tab, 40 mg= 1 tab(s), Oral, Once a day (at bedtime), 1 refills Zofran 4 mg Tab, 4 mg= 1 (more content not included)... Normal [facility] Comment on above: Result Comment: Elec tronically Signed By: EJ HAYES, Paty\.br\Date and Time Signed: 03/23/20 15:09 EST Physician Orderon 03-23-2020 Physician Order [id number]:127 [facility] Historical Records Officeon 03-22-2020 Historical Records Office [id number]:127 [facility] Vital Signs Date Time Vital Sign Value Performing Clinician Facility 11-26-2023 09:41-0400 Body height 167.64 cm [facility] 09-20-2023 09:16-0400 Body height 167.64 cm [facility] 09-20-2023 09:16-0400 Body mass index (BMI) [Ratio] 36.9 kg/m2 [facility] 09-20-2023 09:16-0400 Body temperature 98.6 [degF] [facility] 09-20-2023 09:16-0400 Body weight 103.87 kg [facility] 09-20-2023 09:16-0400 Diastolic blood pressure 73 mm[Hg] [facility] 09-20-2023 09:16-0400 Heart rate 103 /min [facility] 09-20-2023 09:16-0400 Systolic blood pressure 108 mm[Hg] [facility] 06-26-2023 15:01-0400 Body height 15.24 cm [facility] 06-26-2023 15:01-0400 Body mass index (BMI) [Ratio] 4510.9 kg/m2 [facility] 06-26-2023 15:01-0400 Body weight 104.77 kg [facility] 06-26-2023 15:01-0400 Diastolic blood pressure 74 mm[Hg] [facility] 06-26-2023 15:01-0400 Heart rate 75 /min [facility] 06-26-2023 15:01-0400 Systolic blood pressure 112 mm[Hg] [facility] 06-21-2023 15:23-0400 Body height 167.64 cm [facility] 06-21-2023 15:23-0400 Body mass index (BMI) [Ratio] 36.9 kg/m2 [facility] 06-21-2023 15:23-0400 Body weight 103.92 kg [facility] 06-21-2023 15:23-0400 Diastolic blood pressure 70 mm[Hg] [facility] 06-21-2023 15:23-0400 Heart rate 80 /min [facility] 06-21-2023 15:23-0400 Systolic blood pressure 104 mm[Hg] [facility] 05-17-2022 12:45-0400 Body height 165.1 cm Dilcia Warner Other [facility] Other 05-16-2022 14:45-0400 Body height 165.1 cm Dilcia Warner Other [facility] Other 05-16-2022 14:45-0400 Body mass index (BMI) [Ratio] 38.44 kg/m2 Dilcia Warner Other [facility] Other 05-16-2022 14:45-0400 Body weight 104.78 kg Dilcia Warner Other [facility] Other 05-16-2022 14:45-0400 Diastolic blood pressure 62 mm[Hg] Dilcia Warner Other [facility] Other 05-16-2022 14:45-0400 SaO2% (BldA) [Mass fraction] 97 % Dilcia Warner Other [facility] Other 05-16-2022 14:45-0400 Systolic blood pressure 108 mm[Hg] Dilcia Warner Other [facility] Other Encounters Encounter Date Encounter Type Care Provider Facility Start: 11-26-2023 End: 11-26-2023 ambulatory [facility] Work Phone: Start: 11-26-2023 End: 11-26-2023 Patient encounter procedure [facility] Work Phone: Start: 11-22-2023 End: 11-22-2023 ambulatory [facility] Start: 10-24-2023 End: 10-24-2023 ambulatory [facility] Start: 10-24-2023 End: 10-24-2023 ambulatory [facility] Start: 09-20-2023 End: 09-20-2023 ambulatory [facility] Work Phone: Start: 09-20-2023 End: 09-20-2023 Patient encounter procedure [facility] Work Phone: Start: 09-11-2023 Non-patient / Non-visit [facility] Work Phone: Start: 09-11-2023 Non-patient / Non-visit [facility] Work Phone: Start: 08-07-2023 End: 08-07-2023 ambulatory [facility] Work Phone: Start: 08-07-2023 End: 08-07-2023 Patient encounter procedure [facility] Work Phone: Start: 07-25-2023 End: 07-25-2023 ambulatory [facility] Work Phone: Start: 07-25-2023 End: 07-25-2023 Patient encounter procedure [facility] Work Phone: Start: 07-03-2023 End: 07-04-2023 ambulatory [facility] Start: 06-26-2023 End: 06-26-2023 ambulatory [facility] Work Phone: Start: 06-26-2023 End: 06-26-2023 Patient encounter procedure [facility] Work Phone: Start: 06-21-2023 End: 06-21-2023 ambulatory [facility] Work Phone: Start: 06-21-2023 End: 06-21-2023 Patient encounter procedure [facility] Work Phone: Start: 04-18-2023 End: 04-18-2023 ambulatory [facility] Work Phone: Start: 04-18-2023 End: 04-18-2023 Patient encounter procedure [facility] Work Phone: Start: 04-05-2023 End: 04-05-2023 ambulatory Dilcia Warner Other [facility] Other Start: 04-05-2023 Telephone encounter Dilcia Timmy [facility] Start: 03-20-2023 End: 03-20-2023 ambulatory Dilcia Warner Other [facility] Other Start: 03-20-2023 Telephone encounter Dilcia Timmy [facility] Start: 01-17-2023 End: 01-17-2023 ambulatory Dilcia Warner Other [facility] Other Start: 01-17-2023 Telephone encounter Dilcia Timmy [facility] Start: 11-16-2022 End: 11-16-2022 ambulatory Dilcia Warner Other [facility] Other Start: 11-16-2022 Telephone encounter Dilcia Warner [facility] Start: 07-14-2022 End: 07-14-2022 ambulatory Dilcia Timmy Other [facility] Other Start: 07-14-2022 Telephone encounter Dilcia Warner [facility] Start: 07-13-2022 End: 07-13-2022 ambulatory Dilcia Timmy Other [facility] Other Start: 07-13-2022 Telephone encounter Dilcia Warner [facility] Start: 06-15-2022 End: 06-15-2022 ambulatory Dilcia Warner Other [facility] Other Start: 06-15-2022 Telephone encounter Dilcia Warner [facility] Start: 05-26-2022 (Televisit) Televisit Dilcia Warner [facility] Start: 05-26-2022 End: 05-26-2022 ambulatory Dilcia Warner Other [facility] Other Start: 05-18-2022 End: 05-20-[address] DILCIA WARNER Facility:[facility] Start: 05-18-2022 Telephone encounter Dilcia Warner [facility] Start: 05-17-2022 (Televisit) Televisit Dilcia Warner [facility] Start: 05-17-2022 End: 05-17-2022 ambulatory Dilcia Warner Other [facility] Other Start: 05-16-2022 End: 05-17-[address] DILCIA WARNER Facility:[facility] Start: 05-16-2022 Office outpatient visit [address] [facility] Start: 05-11-2022 End: 05-11-2022 ambulatory Dilcia Warner Other [facility] Other Start: 05-11-2022 Telephone encounter Dilcia Warner [facility] Start: 04-10-2022 End: 04-10-2022 ambulatory Dilcia Warner Other [facility] Other Start: 04-10-2022 Telephone encounter Dilcia Warner [facility] Start: 04-05-2022 End: 04-05-[address] DILCIA WARNER Facility:[facility]1 Start: 03-21-2022 End: 03-21-2022 ambulatory Dilcia Warner Other [facility] Other Start: 03-21-2022 Telephone encounter Dilcia Warner [facility] Start: 03-17-2022 (Televisit) Televisit Dilcia Warner [facility] Start: 03-17-2022 End: 03-17-2022 ambulatory Dilcia Warner Other [facility] [employer] Other Start: 03-17-2022 Telephone encounter Dilcia Warner [facility] Start: 08-03-2021 End: 08-04-2021 [facility] Start: 08-03-2021 End: 08-03-2021 Subsequent hospital visit by physician Dilcia Warner MD Work Phone: [facility] Comment on above: Pain syndrome, chron ic; Weight gain Start: 07-27-2021 End: 07-28-[address] DILCIA WARNER Facility:[facility]1 Start: 06-17-2021 End: 06-17-[address] ALBINA SINGLETON . Facility:[facility] Start: 06-13-2021 End: 06-14-[address] DILCIA WARNER Facility:[facility] Start: 06-03-2021 End: 06-04-[address] DILCIA WARNER Facility:[facility] Start: 05-27-2021 End: 05-28-[address] DILCIA WARNER Facility:[facility] Start: 12-27-2017 Patient encounter procedure EDIS SAWANT Facility:[id number] Start: 12-27-2017 Patient encounter Facil [id number] Start: 12-29-2016 End: 12-30-2016 Ambulatory DEFAULT PHYSICIAN Facility:[facility] Procedures Date Procedure Procedure Detail Performing Clinician Start: 08-03-2021 End: 08-03-2021 Assay of free thyroxine Whitney Orourke [facility] [employer] [employer] - CNM Work Phone: Screening for malign ant neoplasm of breast Dilcia Warner Other Plan of Treatment Date Care Activity Detail Author Start: 11-03-2021 Influenza vaccination Flu vacc ine (Season Ended) [facility] Start: 08-16-2021 End: 08-16-2021 Patient encounter procedure 08/16/2021 Office Visit Obstetrics and Gynecology Whitney Quan, [employer] - CNM [address] [place] [address] [place] [address] [facility] Start: 2018 Lipid panel Lipids [facility] Start: 2013 Diabetes screen Diabetes screen [facility] Start: 1997 DTaP/Tdap/Td vaccine (1 - Tdap) DTaP/Tdap/Td vaccine (1 - Tdap) [facility] Start: 1996 Hepatitis C screening Hepatitis C sc reen [facility] Start: 1993 HIV screening HIV screen [facility] Start: 1990 Depression Screen Depression Screen [facility] Start: 10-08-1983 COVID-19 Vaccine (1) COVID-19 Vaccin e (1) [facility] End: 08-03-2021 Josh Felder Virus (EBV) Antibody Panel I Josh Felder Virus (EBV) Antibody Panel I Lab Routine Pain syndrome, chronic 1 Occurrences starting 08/03/2021 until 08/03/2021 [facility] [employer] Work Phone: Comment on above: 1 Occurrences starti ng 08/03/2021 until 08/03/2021 MG Breast - bilatera l Diagnostic [facility] End: 08-03-2021 Thyroid Peroxidase Antibody [facility] [employer] Phone: Comment on above: 1 Occurrences starti ng 08/03/2021 until 08/03/2021 US Breast - right limited [facility] Payers Date Payer Category Payer Unknown [id number] 1980 Unknown [id number] [id number] 1980 Unknown [id number] 2..840.1.153507.3.579.2.355 1980 Unknown [id number] 2..840.1.257731.3.579.2.173 1980 Unknown [id number] 2.16.840.1.326940.3.579.2.593 1980 Unknown [id number] 2.16.840.1.070788.3.579.2.593 1978 Unknown [id number] 2.16.840.1.773600.3.579.2.593 1978 Unknown [id number] 2.16.840.1.855562.3.579.2.593 1978 Unknown [id number] 2.16.840.1.761285.3.579.2.593 1978 Unknown [id number] 2.16.840.1.899189.3.579.2.593 1978 Unknown [id number] 2.16.840.1.918657.3.579.2.593 1978 Unknown [id number] 2.16.840.1.479533.3.579.2.593 1978 Unknown [id number] 2.16.840.1.038559.3.579.2.128 6 1980 Unknown [id number] 2.16.840.1.526358.3.579.2.128 6 1980 Unknown [id number] 2.16.840.1.133792.3.579.2.124 4 1980 Unknown [id number] 2.16.840.1.955730.3.579.2.124 4 1980 Unknown [id number] 2.16.840.1.481291.3.579.2.124 3 1961 [facility] [id number] [id number] 1961 Private Health Insurance [id number] [id number] Self-pay Self Pay [id number] Unknown Unknown [id number] Unknown HCAP/HFA/FAP Active [id number] Social History Date Type Detail Facility Start: 03-20-2017 End: 06-21-2023 Tobacco smoking status NHIS Ex-smoker [employer] Phone: Start: 03-20-2017 Tobacco use and exposure Smokeless tobacco non-user [employer] Phone: Start: 08-03-2021 Alcohol intake Ex-drinker (finding) [employer] Phone: Start: 1980 Sex Assigned At Not on file B ON [employer] in [place] Phone: Sex Assigned At Sex Assigned At Bir th [facility] Other Start: 1980 Sex Assigned At Female F [facility] Clinical Notes 03-31-2020 to 06-15-2022 Note Date & Type Note Facility 06-15-2022 Evaluation note Encounter Date Diagnosis Assessment Notes Jun, Gastro-esophage al reflux disease without esophagitis (ICD-10 - K21.9) [facility] Other 03-24-2023 Evaluation note* Encounter Date Diagnosis Assessment Notes Treatment Notes Treatment Clinical Notes May, Left upper quadrant abdominal pain (ICD-10 - R10.12) Ongoing issue - [place] [facility] [place] [facility] [place] [facility] Requests a new opinion. Had recent scopes last fall in [place]. Pain was increased last week which prompted hospitalization. Will place referral as requested. [facility] Other 03-15-2023 Evaluation note* Encounter Date Diagnosis Assessment Notes Treatment Notes Treatment Clinical Notes May, LUQ pain (ICD-10 - R10.12) CT and [facility] appts pending. will help symptoms with meds below. May, Nausea (ICD-10 - R11.0) [facility] Other 03-14-2023 Evaluation note* Encounter Date Diagnosis Assessment Notes Treatment Notes Treatment Clinical Notes May, Acute LUQ pain (ICD-10 - R10.12) Pt has an ongoing history of GI complaints. Previously seen at several local offices and in [place]. Will refer to [facility]. Courtney requests tests today to focus on the LUQ pain. Will rule out bowel obstruction and conspation. May, Fibromyalgia (ICD-10 - M79.7) Notes generalized muscle pain and discomfort. 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 Advised she followup with her surgeon. 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 Ayala in [place] May, Hormone replacement therapy (ICD-10 - Z79.890) Continues on estradiol May, Other obesity due to excess calories (ICD-10 - E66.09) May, Body mass index [BMI ] 38.0-38.9, adult (ICD-10 - Z68.38) States her weight is stable despite very limited diet. [facility] Other 01-13-2023 Evaluation note* Encounter Date Diagnosis Assessment Notes Treatment Notes Treatment Clinical Notes Mar, Acute non-recurrent maxillary sinusitis (ICD-10 - J01.00) Discussed diagnosis with patient. Instructed to take ATB as directed and complete entire course even if asymptomatic. OTC Tylenol or ibuprofen for discomfort. Saline nasal spray prn congestion. Flonase nasal spray prn congestion. OTC cough medication prn cough. Push fluids and rest. Cool mist humidier. Immediate evaluation if worsening symptoms. Patient to notify office should symptoms persist or not improve. Pt verbalizes understanding and agrees with tx plan. [facility] Other 10-18-2021 NoteHNO ID: [id number] Author: Mane Rosa PA-C Service: ? Author Type: Physician Residue Furnace Operator Type: Progress Notes Filed: 12/20/2020 3:54 PM Note Text: Pt can be seen first available with me. 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 [facility] PT [facility] NoteHNO ID: [id number] Author: Eulalia Weiss Service: ? Author Type: ? Type: Progress Notes Filed: 12/20/2020 3:54 PM Note Text: Patient name: Courtney Amaral Are you being referred by a [facility] Provider or [facility] Management Provider at [facility]? No If answer is YES please schedule directly with surgeon, triage does not need to be completed. Is this a self-referral Yes If not, who is the Referring Provider MRI/CT/myelogram within 12 months? Yes If NO , please refer to medical spine or PCP to complete above imaging, triage does not need to be completed If YES,? please ask for the name/address of the facility where the MRI/CT/myelogram was completed: [facility] [place] [address] [id number] MRI/CT/myelogram viewable in Epic: No If not, please provide [phone] to fax in imaging reports for review. Also, please inform patient to hand carry imaging disc to appointment. XR (spine) within 12 months: No If YES,? please ask for the name/address of the facility where the XR was completed: Requested provider (First and Last name): Dr. Chavez Are you interested in a virtual visit if offered? No 1. Where are you having symptoms related to this visit? Neck, headache, L shoulder, L arm (Limited ROM) 2. Are you having any of the following symptoms: Difficulty walking Yes Numbness Yes pinky AND outside of L arm Weakness Yes Trouble using your hands? Yes 3. Have you had any injections or physical therapy in the last 12 months? No If YES then please ask for the name/address of the facility where the injections and/or physical therapy was completed Have you tried any other kinds of non-surgical treatments in the last 12 months? (For example: NSAIDS, muscle relaxants, analgesics, oral steroids, Chiropractor, Acupuncture): oral steroids, muscle relaxants 4. Are you currently taking daily prescribed narcotic medications for your current symptoms (For example Oxycodone, Hydrocodone, Tramadol, Morphine, Other)? Yes 5. Have you had previous spinal surgery for this same symptoms? Yes If YES? please ask for the name of facility/address of where the surgery was completed: ~ 2015 Lumbar surgery [facility] [address] [place] [address] Additional Comments [phone] [address]-27-2021 Note [id number]:127[facility] Evaluation note* Diagnosis Pain syndrome, chronic Chronic pain syndrome Weight gain Abnormal weight gain documented in this encounter [facility] Work Phone: evaluation noteNo InformationNortTem[facility] [employer] [facility] Other Evaluation note* Diagnosis Onset Date Resolution Status Sinusitis, acute maxillary a cute [facility] Work Phone: Evaluation note* Diagnosis Onset Date Resolution Status Anxiety acute Esophageal reflux acute Insomnia acute [facility] Work Phone: Evaluation note* Diagnosis Onset Date Resolution Status Anxiety acute Esophageal reflux acute Insomnia acute Breast mass, right acute [facility] Work Phone: Evaluation note* Diagnosis Onset Date Resolution Status Anxiety acute Esophageal reflux acute Insomnia acute Breast mass, right acute Insomnia acute [facility] Work Phone: Evaluation note* Diagnosis Onset Date Resolution Status Breast mass, right acute Anxiety acute Insomnia acute Migraine acute [facility] Work Phone: Evaluation note* Diagnosis Onset Date Resolution Status Sinusitis, acute maxillary a cute Anxiety acute Insomnia acute Sinusitis, acute maxillary a cute [facility] Work Phone: History general Narrative - Reported* Type Description Date Medical History fibromyalgia Medical History chronic depression Medical History Anxiety disorder Medical History Esophageal reflux Surgical History hysterectomy Surgical History right and left knee scope Surgical History 8 scopes on ovaries Surgical History appendectomy Surgical History cholecystectomy Surgical History tonsillectomy and adenoidectomy Hospitalization History see above [place] [employer] Other Summary Purpose Family History No Family History Records Found Relationship Condition Age at Onset Recorded Date/T bernardino father Aneurysm Unknown Unknown Advance Directives No Advanced Directives Records FoundDocuments on File Type Date Recorded 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 Recent hospitalization. Pt insurance told her this office would take her J[place]. Thanks. Diagnosis 1 Left upper quadrant abdominal pain (R10.12) Referral Organization [facility] Referring Provider First Name Dilcia Referring Provider Last Name Timmy Referring Provider Specialty [facility] [employer] Referred Organization Unknown Facility Referred Provider Specialty Gastroentero logy Referral Priority Routine General Notes Kelsey Rice 09:59:29 AM >RECEIVED TODAY, ATTACHMENTS MADE, NOTES LOCKED, REFERRAL FAXED Clinical Notes p: [phone] f: [id number] Reason *06/[address] Gallardo in [place]. Continues to have abd pain and frequent diarrhea. Thanks Diagnosis 1 Acute LUQ pain (R10. 12) Referral Organization [facility] Referring Provider First Name Dilcia Referring Provider Last Name Timmy Referring Provider Specialty [facility] [employer] Referred Organization [facility] Referred Address [address] [place] [phone] Referred Provider Specialty Gastroentero logy Referral Priority Routine General Notes Kelsey Rice 01:55:32 PM > RECEIVED TODAY, FORM FILLED OUT, ATTACHMENTS MADE, REFERRAL FAXED Kelsey Rice 05/25/2022 10:49:13 AM >faxed first attempt letter Chief Complaint and Reason for Visit Chief Complaint congestion, cough, N o COVID Test Reason for Visit Sinusitis, acute max illary Chief Complaint congestion, cough, N o COVID Test medication review Reason for Visit Anxiety Esophageal reflux Insomnia Chief Complaint congestion, cough, N o COVID Test medication review lump in breast Reason for Visit Anxiety Esophageal reflux Insomnia Breast mass, right Chief Complaint medication review lump in breast ALLERGY SHOT Reason for Visit Anxiety Esophageal reflux Insomnia Breast mass, right Chief Complaint medication review lump in breast ALLERGY SHOT med concerns Reason for Visit Anxiety Esophageal reflux Insomnia Breast mass, right Insomnia Chief Complaint lump in breast ALLERGY SHOT med concerns sore throat, ear pain Reason for Visit Breast mass, right Anxiety Insomnia Migraine Chief Complaint sore throat, ear ney n sinus pressure Reason for Visit Sinusitis, acute max illary Anxiety Insomnia Sinusitis, acute maxillary Additional Source Comments INFORMATION SOURCE (unrecogn ized section and content) DATE CREATED AUTHOR 08/28/2017 [facility] DATE CREATED AUTHOR AUTHOR'S ORGANIZ ATION 01/31/2018 [facility] DATE CREATED AUTHOR AUTHOR'S ORGANIZ ATION 02/01/2018 [facility] DATE CREATED AUTHOR AUTHOR'S ORGANIZ ATION 06/24/2020 [facility] DATE CREATED AUTHOR AUTHOR'S ORGANIZ ATION 04/14/2021 [facility] DATE CREATED AUTHOR AUTHOR'S ORGANIZ ATION 08/08/2021 [facility] DATE CREATED AUTHOR AUTHOR'S ORGANIZ ATION 05/24/2022 [facility] DATE CREATED AUTHOR AUTHOR'S ORGANIZ ATION 07/04/2023 [facility] DATE CREATED AUTHOR AUTHOR'S ORGANIZ ATION 11/29/2023 [facility] DATE CREATED AUTHOR AUTHOR'S ORGANIZ ATION 11/30/2023 [facility] Care Teams (unrecognized sec tion and content) Team Status: Active Member Role Status Dates Dilcia Warner MD Primary Care Provider Active Team Status: Active Member Role Status Dates Dilcia Warner MD Primary Care Provider Active Start: September 11, 2023 Natividad Lew DO Attending Provider Active Sta rt: September 11, 2023 Team Status: Active Member Role Status Dates Dilcia Warner MD Primary Care Provider Active Start: September 11, 2023 Afshin Pablo DO Attending Provider Active Sta rt: September 11, 2023 Team Status: Inactive Member Role Status Dates Dilcia Warner MD Primary Care Provide r, Attending Provider Active Start: September 20, 2023 End: September 20, 2023 Team Status: Inactive Member Role Status Dates Dilcia Warner MD Primary Care Provide r, Attending Provider Active Start: November 26, 2023 End: November 26, 2023 Shorts Sifter Relationship Specialty Start Date End Date Dilcia Warner MD PCP - General Family Medicine 07/04/17 Team Status: Inactive Member Role Status Dates Dilcia Warner MD Primary Care Provide r, Attending Provider Active Start: April 18, 2023 End: April 18, 2023 Team Status: Inactive Member Role Status Dates Dilcia Warner MD Primary Care Provide r, Attending Provider Active Start: June 21, 2023 End: June 21, 2023 Team Status: Inactive Member Role Status Dates Dilcia Warner MD Primary Care Provide r, Attending Provider Active Start: June 26, 2023 End: June 26, 2023 Team Status: Inactive Member Role Status Dates Dilcia Warner MD Primary Care Provider Active Start: July 25, 2023 End: July 25, 2023 Catalina Valencia APRN RESIDENTIAL CONCIERGE-C Attending Provider Act uriel Start: July 25, 2023 End: July 25, 2023 Team Status: Inactive Member Role Status Dates Dilcia Warner MD Primary Care Provide r, Attending Provider Active Start: August 07, 2023 End: August 07, 2023 REASON FOR VISIT (unrecogniz ed section and content) Sinuses [phone] Informationprescription refillRefillpain in stomachSICK, WANTS TO KNOW WHAT TO DO NEXTREFILLSH Follow [phone]RefillRefillRefill Goals (unrecognized section and content) Goals may be documented in a n alternate section FOR RECORDS PERTAINING TO PATIENTS WHO ARE OR HAVE BEEN ENROLLED IN A CHEMICAL DEPENDENCY/SUBSTANCEABUSE PROGRAM, SOME INFORMATION MAY BE OMITTED. This clinical summary was aggregated from multiple sources. Caution should be exercised in using it in the provision of clinical care. This summary normalizes information from multiple sources, and as a consequence, information in this document may materially change the coding, format and clinical context of patient data. In addition, data may be omitted in some cases. CLINICAL DECISIONS SHOULD BE BASED ON THE PRIMARY CLINICAL RECORDS. [employer] provides no warranty or guarantee of the accuracy or completeness of information in this document.
--- NOTE | 2024-01-30 17:14 | XR_ITS ---
The [address] [address] Patient Name: IRINA GALAN MRN: [id number] date: 1980 Sex: F Assigned Patient Location: ER Current Patient Location: Accession/Order Number: [id number] Exam Date: 01/30/2024 17:20 Report Date: 01/30/2024 18:49 At the request of: YESSENIA STARK Procedure: XR elbow LT 2V EXAM: XR elbow LT 2V HISTORY: The patient is a 43-year-old female, Injury COMPARISON: None. FINDINGS: The left elbow is radiographically negative with no evidence of fracture, dislocation, fat pad elevation, or other osseous or articular abnormalities. XR/XR elbow LT 2V IMPRESSION: Negative. Electronically authenticated by: JORGE TOMAS Date: 01/30/2024 18:49
--- NOTE | 2024-01-30 17:14 | ED.GENADUL1 ---
HPI HPI - General Adult General Chief complaint: Extremity Injury, Upper Stated complaint: Upper Extremity Pain Time Seen by Provider: 01/30/24 16:59 Source: patient Mode of arrival: walk-in History of Present Illness HPI narrative: Patient is a 43-year-old female referred to the emergency department from urgent care for evaluation of a possible elbow dislocation. Patient states she dropped her purse on her arm yesterday and is having trouble extending her arm at the left elbow joint. She is able to fully flex at the left elbow with no difficulty or pain. No concern for . No pain in the forearm. Patient states all of her pain is over the medial and lateral epicondyle of the left elbow. Related Data Home Medications ?Medication ?Instructions ?Recorded ?Confirmed alprazolam 1 mg tablet 1 mg PO BEDTIME 09/11/23 09/11/23 estradiol 1 mg tablet 1 mg PO DAILY 09/11/23 09/11/23 hyoscyamine sulfate 0.125 mg tablet 0.125 mg PO QID PRN dyspepsia 09/11/23 09/11/23 metoclopramide HCl 5 mg tablet 5 mg PO Q6H PRN nausea and vomiting 09/11/23 09/11/23 pantoprazole 40 mg tablet,delayed 40 mg PO DAILY 09/11/23 09/11/23 release Previous Rx's ?Medication ?Instructions ?Recorded ketorolac 10 mg tablet 10 mg PO TID PRN pain #10 tabs 01/30/24 methocarbamol 750 mg tablet 750 mg PO TID PRN pain #20 tabs 01/30/24 Allergies Allergy/AdvReac Type Severity Reaction Status Date / Time amoxicillin Allergy Severe Hives Verified 09/11/23 11:11 cefuroxime (From Ceftin) Allergy Severe Hives Verified 09/11/23 11:11 clindamycin Allergy Severe Hives Verified 09/11/23 11:11 latex Allergy Severe Hives Verified 09/11/23 11:11 Penicillins Allergy Severe Hives Verified 09/11/23 11:11 Sulfa (Sulfonamide Allergy Severe Hives Verified 09/11/23 11:11 Antibiotics) Opioid HPI Opioid Management Most Recent Opioid Data: Last Pain Scale 8 01/30/24 17:34 01/30/24 Last MAR Pain Assessment 01/30/24 17:34 Review of Systems ROS Constitutional Denies: fever or chills Ears, nose, mouth, and throat Denies: throat pain or neck pain Respiratory Denies: shortness of breath Gastrointestinal Denies: nausea or vomiting Musculoskeletal Reports: extremity pain; Denies: back pain or neck pain Integumentary/Breast Denies: rash Neurological Denies: numbness in extremities or weakness in extremities Hematologic/Lymphatic Denies: easy bruising or easy bleeding PFSH PFSH Social History Little interest or pleasure in doing things: not at all Feeling down, depressed, or hopeless: not at all Exam Narrative Exam Narrative: Gen.: Awake, alert, in no distress Head: Normocephalic, atraumatic ENT: Moist mucous membranes Respiratory: No respiratory distress Extremities: Patient is able to extend her arm at the left elbow to 90 degrees, she is able to fully flex at the left elbow without pain or difficulty. Olecranon is palpated without deformity. Diffuse tenderness of the medial and lateral epicondyles of the left elbow. No bulging or shortening of the left bicep. No bony tenderness of the left distal forearm. 2+ left radial pulse. Psych: Normal mood and affect Neuro: No focal neuro deficit Skin: Warm, dry, intact Constitutional Vital Signs, click to edit/add: Last Vital Signs Temp 97.9 F 01/30/24 17:06 Pulse 78 01/30/24 17:06 Resp 16 01/30/24 17:06 BP 117/82 01/30/24 17:06 Pulse Ox 97 01/30/24 17:06 O2 Del Method Room Air 01/30/24 17:06 Course Vital Signs Vital signs: Vital Signs Temperature 97.9 F 01/30/24 17:06 Pulse Rate 78 01/30/24 17:06 Respiratory Rate 16 01/30/24 17:06 Blood Pressure 117/82 01/30/24 17:06 Pulse Oximetry 97 01/30/24 17:06 Oxygen Delivery Method Room Air 01/30/24 17:06 Temperature 97.9 F 01/30/24 17:06 Pulse Rate 78 01/30/24 17:06 Respiratory Rate 16 01/30/24 17:06 Blood Pressure 117/82 01/30/24 17:06 Pulse Oximetry 97 01/30/24 17:06 Oxygen Delivery Method Room Air 01/30/24 17:06 Medical Decision Making MDM Narrative Medical decision making narrative: X-rays reviewed by myself and attending physician, patient was given intramuscular Toradol but declined Solu-Medrol. No evidence of fracture or dislocation at this time, we are experiencing significant delay in obtaining x-ray reports from the radiologist so x-rays were interpreted by myself and attending physician and we will contact the patient with any discrepancies. patient placed in a sling and remains neurovascularly intact. Diagnosed with elbow sprain causing difficulty with full extension. Muscle relaxant and NSAIDs given for home. Follow-up with PCP, sling 3 to 5 days only. Return to the ER if symptoms change or worsen SHARED APC VISIT, PHYSICIAN ATTESTATION: [id number] I performed a substantive part of the MDM during the patient?s E/M visit. I personally evaluated and examined the patient. I personally made or approved the documented management plan and acknowledge its risk of complications. Medical Records Medical records reviewed: Yes I reviewed the patient's medical records Imaging Data XR elbow: Attestation: I personally reviewed and interpreted this imaging study as follows: My impression: NAD Discharge Plan Discharge Chief Complaint: Extremity Injury, Upper Clinical Impression: Sprain of left elbow Patient Disposition: Home, Self-Care Time of Disposition Decision: 18:28 Condition: Good Prescriptions / Home Meds: New ketorolac 10 mg tablet 10 mg PO TID PRN (Reason: pain) Qty: 10 0RF methocarbamol 750 mg tablet 750 mg PO TID PRN (Reason: pain) Qty: 20 0RF No Action alprazolam 1 mg tablet 1 mg PO BEDTIME estradiol 1 mg tablet 1 mg PO DAILY pantoprazole 40 mg tablet,delayed release (DR/EC) 40 mg PO DAILY hyoscyamine sulfate 0.125 mg tablet 0.125 mg PO QID PRN (Reason: dyspepsia) metoclopramide HCl 5 mg tablet 5 mg PO Q6H PRN (Reason: nausea and vomiting) Print Language: Upper Sorbian Instructions: Elbow Sprain (ED) Referrals: Grace Miramontes MD [Primary Care Provider] - 1 week
--- NOTE | 2024-01-30 17:24 | PC.NURSE ---
radial pulse present
[2024-01-30] MEDS: KETOROLAC TROMETHAMINE 60 MG/2 ML VIAL IM (17:34)
[2024-01-30 18:40] VITALS: BP 132/89; PULSE 70; O2SAT 98
== END 2024-01-30 18:40 | disposition home or self-care (01) ==
PROVIDERS: Emergency Provider Emergency Medicine; PCP Family Medicine
DX: S53.402A Unspecified sprain of left elbow, initial encounter (principal); W22.8XXA Striking against or struck by other objects, initial encounter
CPT/HCPCS: 73070; 96372; 99284; J1885

== ENCOUNTER 2024-11-19 17:01 | Outpatient (OUT) | payer BC, SELFPAY ==
--- NOTE | 2024-11-19 | XR_ITS ---
The [address] [address] Patient Name: IRINA GALAN MRN: [id number] date: 1980 Sex: F Assigned Patient Location: [facility] Current Patient Location: [facility] Accession/Order Number: [id number] Exam Date: 11/19/2024 17:18 Report Date: 11/19/2024 23:59 At the request of: DILCIA WARNER MD Procedure: XR cervical spine 5V XR cervical spine 5V 11/19/2024 5:27 PM SIGNS AND SYMPTOMS: Acute left sided cervical pain radiating down left arm PROTOCOLS: 5 views of the cervical spine COMPARISON: 12/08/2020 FINDINGS: The bones are in anatomic alignment. There is preservation of the vertebral body heights. Moderate disc height loss at C4-C5 and C5-C6 with anterior osteophyte formation and uncovertebral joint spurring. There is neural foraminal stenosis bilaterally at these levels. Lacks joint is preserved. There is no fracture or destructive lesion. XR/XR cervical spine 5V IMPRESSION: Moderate disc height loss at C4-C5 and C5-C6 with anterior osteophyte formation and uncovertebral joint spurring. There is neural foraminal stenosis bilaterally at these levels. No acute bony injury. Impression dictated by: Mike Clinton M.D. 11/19/2024 11:59 PM Dictation Location: [place] [address] Electronically authenticated by: [id number] Y Date: 11/19/2024 23:59
--- OUTSIDE RECORDS SUMMARY | 2024-11-19 17:09 | XMS_ITS | Clinical Summary ---
Author Organization [facility] Address [address] [place] [address] Care Team Providers Care Natural Resources Manager Name Role Phone Mary Lujan PLANT ETIOLOGIST Unavailable [phone] Grace Miramontes MD Primary Care Provider [phone] Grace Miramontes MD Unavailable [phone] Medications venlafaxine ER (EFFEXOR XR) 150 mg 24 hr capsule Take 150 mg by mouth once daily. Active gabapentin (NEURONTIN) 300 mg capsuleIndicati ons:Paresthesia of skin Take 1 capsule by mouth once daily for 90 days. 30 capsule 2 11/29/2018 Active Active Problems No known active problems Social History Tobacco Use Types Packs/Day Years Used Date Smoking Tobacco: Never Assessed Area Deprivation Index Answer Date Jorge rded National Score (1-100), lower number is lower ri sk Not on file 02/12/2020 State Score (1-10), lower number is lower risk N ot on file 02/12/2020 Data from: https://www.neighborhoodatlas.medicine.[facility].edu/. Last address used for calculation Not on file 02/12/2020 Comments Unknown Sex and Gender Information Value Date Recorded Sex Assigned at Not on file Legal Sex Female 9:57 AM EDT Gender Identity Not on file Sexual Orientation Not on file Last Filed Vital Signs Vital Sign Reading Time Taken Comments Blood Pressure 123/77 11/29/2018 8:49 AM EDT Pulse 86 11/29/2018 8:49 AM EDT Temperature - - Respiratory Rate - - Oxygen Saturation - - Inhaled Oxygen Concentration - - Weight - - Height - - Body Mass Index - - Plan of Treatment Health Maintenance Due Date Last Done Comments Anxiety Screening 1996 Depression Screening 1996 HIV Screening 1996 Hepatitis C Screening 1996 DTaP,Tdap,Td Vaccine (1 - Tdap) 1997 Hepatitis B Vaccine (1 of 3 - 19+ 3-dose series) 1997 Cervical Cancer Screening 10/08/[address] Colonography 10/08/2023 Cologuard (FIT-DNA) 10/08/2023 Colonoscopy 10/08/2023 03/11/2018, 03/11/2018 Colorectal Cancer Screening 10/08/2023 Fecal Occult Blood 10/08/2023 Sigmoidoscopy 10/08/2023 Influenza Vaccine (#1) 2024 Diabetes Screening 12/04/2024 12/04/2021, 0 12/02/2021, 11/21/2021, Additional history exists Lipid Screening 07/07/2025 07/07/2020 Insurance [employer] 10sec PPO Care Teams Natural Resources Manager Relationship Specialty Start Date End Date Grace Miramontes MD [address] [place] [address] PCP - General Family Medicine 02/10/22 Mary Lujan, PLANT ETIOLOGIST [address] [place] [address] Referring 02/09/22 Grace Miramontes MD [address] [place] [address] Referring Family Medicine 05/18/22
--- OUTSIDE RECORDS SUMMARY | 2024-11-19 17:09 | XMS_ITS | Encounter Summary ---
Author Organization [facility] Address [facility] [place] [address] Care Team Providers Care Machine Inker Name Role Phone Mary Lujan CNP Unavailable [phone] Grace Miramontes MD Primary Care Provider [phone] Grace Miramontes MD Unavailable [phone] Source Comments In the event this information is protected by the Federal Confidentiality of Alcohol and Drug AbusePatient Records regulations: The Federal rules restrict any use of the information to criminally investigate or prosecute any alcohol or drug abuse patient.[facility] Encounter Details Date Type Department Care Team (Late st Contact Info) Description 02/14/2022 Abstract Gastroenterology [address] [id number] Johnny Blanca MD [address] [place] [address] Social History Tobacco Use Types Packs/Day Years Used Date Smoking Tobacco: Never Assessed Area Deprivation Index Answer Date Jorge rded National Score (1-100), lower number is lower ri sk Not on file 02/12/2020 State Score (1-10), lower number is lower risk N ot on file 02/12/2020 Data from: https://www.neighborhoodatlas.medicine.[employer].edu/. Last address used for calculation Not on file 02/12/2020 Comments Unknown Sex and Gender Information Value Date Recorded Sex Assigned at Not on file Legal Sex Female 9:57 AM EDT Gender Identity Not on file Sexual Orientation Not on file documented as of this encounter Plan of Treatment Not on file documented as of this encounter Visit Diagnoses Not on filedocumented in this encounter Care Teams Machine Inker Relationship Specialty Start Date End Date Grace Miramontes MD [address] [place] [address] PCP - General Family Medicine 02/10/22 Mary Lujan, COIL TAPER [address] [place] [address] Referring 02/09/22 Grace Miramontes MD [address] [place] [address] Referring Family Medicine 05/18/22 documented as of this encounter
--- OUTSIDE RECORDS SUMMARY | 2024-11-19 17:09 | XMS_ITS | Clinical Summary ---
Author Organization [facility] Address [address] [place] [address] Phone Care Team Providers Care Elevated Work Platform Operator Name Role Phone Grace Miramontes MD Primary Care Provider [phone] Allergies Active Allergy Reactions Criticality Noted Date Comments Amoxicillin Swelling 10/24/2023 Clindamycin Swelling 12/07/2017 Erythromycin Swelling 06/18/2020 Latex Hives 03/20/2017 Penicillins Swelling 03/20/2017 Sulfa (Sulfonamide Antibiotics) Swelling 03/05 Medications hyoscyamine (Anaspaz, Levsin) 0.125 mg tablet Take 1 tablet (0.125 mg) by mouth every 4 hours if needed. Active estradiol (Estrace) 1 mg tablet Take 1 tablet (1 mg) by mouth once daily. Active pantoprazole (ProtoNix) 40 mg EC tablet Take 1 tablet (40 mg) by mouth 2 times a day. Active ALPRAZolam (Xanax) 1 mg tablet take 1 tablet by mouth every day at bedtime for 30 days Active metoclopramide (Reglan) 5 mg tablet TAKE 1 TABLET FOUR TIMES DAILY, BEFORE MEALS AND IN THE EVENING Active Active Problems Problem Noted Date Diagnosed Date Palpitations 10/24/2023 BMI 37.0-37.9, adult 10/24/2023 Abdominal pain 10/24/2023 Anxiety disorder 10/24/2023 Resolved Problems Problem Noted Date Diagnosed Date Resolved Date Atypical chest pain 06/23/2020 10/24/19 24 Family History Medical History Relation Name Comments Heart disease Brother Aortic aneurysm Father Blood clot Father Heart disease Mother Relation Name Status Comments Brother Father Mother Social History Tobacco Use Types Packs/Day Years Used Date Smoking Tobacco: Former Cigarettes Smokeless Tobacco: Never Tobacco Cessation:Counseling Given: Not Answered Alcohol Use Standard Drinks/Week Comments Never 0 (1 standard drink = 0.6 oz pur e alcohol) Comments Unknown Sex and Gender Information Value Date Recorded Sex Assigned at Not on file Legal Sex Female 2:38 PM EST Gender Identity Not on file Sexual Orientation Not on file Last Filed Vital Signs Vital Sign Reading Time Taken Comments Blood Pressure 110/82 10/24/2023 11:12 AM EDT Pulse 88 10/24/2023 11:12 AM EDT Temperature - - Respiratory Rate - - Oxygen Saturation - - Inhaled Oxygen Concentration - - Weight 105 kg (232 lb) 10/24/2023 11:11 AM EDT Height 167.6 cm (5' 6 ) 10/24/2023 11:11 AM EDT Body Mass Index 37.45 10/24/2023 11:11 AM EDT Plan of Treatment Health Maintenance Due Date Last Done Comments CT Colonography 1978 Colonoscopy 1978 Colorectal Cancer Screening 1978 FIT-DNA (Cologuard) 1978 FIT 1978 HIV Screening 1978 Lipid Panel 1978 Sigmoidoscopy 1978 Yearly Adult Physical 1978 MMR Vaccines (1 of 1 - Standard series) 10/08/1979 Diabetes Screening 1996 Hepatitis C Screening 1996 Hepatitis B Vaccines (1 of 3 - 19+ 3-dose series) 1997 Pneumococcal Vaccine: Pediatrics and At-Risk Adult Patients (1 of 2 - PCV) 1997 Cervical Cancer Screening 10/08/1999 HPV/Cotest 10/08/1999 Pap Smear 10/08/1999 DTaP/Tdap/Td Vaccines (1 - Tdap) 2000 Mammogram 07/02/2024 07/03/2023, 05/30/2022 COVID-19 Vaccine (1 - 2023-2 5 season) 2024 Influenza Vaccine (#1) 2024 Zoster Vaccines (1 of 2) 2028 HIB Vaccines Aged Out No longer eligi ble based on patient's age to complete this topic HPV Vaccines Aged Out No longer eligi ble based on patient's age to complete this topic Hepatitis A Vaccines Aged Out No long er eligible based on patient's age to complete this topic IPV Vaccines Aged Out No longer eligi ble based on patient's age to complete this topic Meningococcal Vaccine Aged Out No pablito britney eligible based on patient's age to complete this topic Rotavirus Vaccines Aged Out No longer eligible based on patient's age to complete this topic Insurance [employer] [place] [employer] Member Subscriber Plan / Payer (Ef fective 2023-Present) Name:Courtney Martinez Relation to Subscriber:Self Name:Courtney Martinez Payer ID:Not on file Type:Not on file Address: [address] [id number] [facility] Care Teams Elevated Work Platform Operator Relationship Specialty Start Date End Date Grace Miramontes MD [facility] [facility] [place] [address] [place] [address] PCP - General Family Medicine 10/24/23
--- OUTSIDE RECORDS SUMMARY | 2024-11-19 17:09 | XMS_ITS | Clinical Summary ---
Author Organization [facility] Address [address] [address] Care Team Providers Care Livestock Speculator Name Role Phone Unavailable Primary Care Provider Unavailabl e Social History Tobacco Use Types Packs/Day Years Used Date Smoking Tobacco: Never Assessed [place] Safety & Environment Answer Date Rec orded Fear of Current or Ex-Partner Not on file Emotionally Abused Not on file 04/26/2023 Physically Abused Not on file 04/26/2023 Sexually Abused Not on file 04/26/2023 Physically or Sexually Abused Not on file Comments Unknown Sex and Gender Information Value Date Recorded Sex Assigned at Not on file Legal Sex Female 11:14 PM EDT Gender Identity Not on file Sexual Orientation Not on file Last Filed Vital Signs Vital Sign Reading Time Taken Comments Blood Pressure 136/84 07/02/2020 10:39 AM EDT Pulse 96 07/02/2020 10:39 AM EDT Temperature - - Respiratory Rate - - Oxygen Saturation - - Inhaled Oxygen Concentration - - Weight 114 kg (251 lb) 07/02/2020 10:39 AM EDT Height 167.6 cm (5' 6 ) 07/02/2020 10:40 AM EDT Body Mass Index 40.51 07/02/2020 10:39 AM EDT Plan of Treatment Not on file
--- OUTSIDE RECORDS SUMMARY | 2024-11-19 17:09 | XMS_ITS | Encounter Summary ---
Author Organization [email or web address] Address [id number] [address] [place] [address] Care Team Providers Care Public Health Outreach Worker Name Role Phone Grace Miramontes MD Primary Care Provider [phone] Encounter Details Date Type Department Care Team (Late st Contact Info) Description 02/09/2022 [facility] [address] [address] Shanell Hickey CMA Social History Tobacco Use Types Packs/Day Years Used Date Smoking Tobacco: Former Cigarettes 0.5 17 1 - 12/07/2017 Smokeless Tobacco: Former Snuff Alcohol Use Standard Drinks/Week Comments Not Currently 0 (1 standard drink = 0.6 oz pur e alcohol) Childcare Answer Date Recorded Childcare Unknown 08/12/2018 Employment Answer Date Recorded Employment Unknown 08/12/2018 Purpose - Life Answer Date Recorded Purpose and direction in life Unknown Comments No Sex and Gender Information Value Date Recorded Sex Assigned at Not on file Legal Sex Female 12:00 PM EDT Gender Identity Not on file Sexual Orientation Not on file COVID-19 Exposure Response Date Recorded In the last month, have you been in contact with someone who was confirmed or suspected to have Coronavirus / COVID-19? No / Unsure 02/09/2022 10:25 AM EST documented as of this encounter Miscellaneous Notes * Telephone Encounter - Shanell Hickey CMA - 02/09/2022 5:28 PM EST Spoke with Yeni at [facility], scheduled patient for an Urgent GI appt. Scheduled for 02/20/2022 at 2:30PM And arrival time 2:[address] Blanca for generalized abdominal pain on main campus [address] [id number] 3rd floor desk A Medical records faxed to [phone] and faxed referral to [phone] Patient will also need imaging on a disc when she arrives for physician to review Patient was updated and informed of appt and verbalized understanding. documented in this encounter Plan of Treatment Not on file documented as of this encounter Visit Diagnoses Not on filedocumented in this encounter Care Teams Public Health Outreach Worker Relationship Specialty Start Date End Date Grace Miramontes MD [facility] [place] [address] PCP - General 12/07/17 documented as of this encounter
--- OUTSIDE RECORDS SUMMARY | 2024-11-19 17:09 | XMS_ITS | Clinical Summary ---
Author Organization [employer] Address [id number] [address] [place] [address] Care Team Providers Care Finishing Wire Sawyer Name Role Phone Grace Miramontes MD Primary Care Provider [phone] Allergies Active Allergy Reactions Criticality Noted Date Comments Amoxicillin Swelling 07/28/2021 Azithromycin 06/18/2020 Cefuroxime Axetil 12/07/2017 Clindamycin 12/07/2017 Erythromycin Swelling 06/18/2020 Latex Hives 12/07/2017 Penicillins Swelling 12/07/2017 Sulfa (Sulfonamide Antibiotics) 07/2017 Medications ALPRAZolam (XANAX) 0.5 mg tablet Take 1 mg by mouth every 8 (eight) hours as needed. 0 8 Active sucralfate (CARAFATE) 1 gram tablet Take 1 g by mouth in the morning and 1 g at noon and 1 g in the evening and 1 g before bedtime. 2 Active pantoprazole (PROTONIX) 40 mg EC tablet Take 40 mg by mouth in the morning and 40 mg before bedtime. Active soy isofla/blk cohosh/mag bark (ESTROVEN ORAL) Take 1 capsule by mouth daily. Active topiramate (TOPAMAX) 25 mg tablet Take 25 mg by mouth in the morning. Active estradioL (ESTRACE) 1 mg tablet Take 1 mg by mouth in the morning. Active maalox-lidocaine (GI COCKTAIL) 3:1 suspensionIndicatio ns:Epigastric pain Take 40 mL by mouth every 8 (eight) hours as needed (abd pain, heartburn). 60 Bottle 3 2 Active metoclopramide (REGLAN) 10 mg tablet Take 1 tablet (10 mg total) by mouth every 6 (six) hours. 30 tablet 2 Active ondansetron ODT (ZOFRAN ODT) 4 mg disintegrating tablet Dissolve 1 tablet (4 mg total) on tongue every 8 (eight) hours as needed for nausea for up to 10 doses. 10 tablet 2 Active ibuprofen (MOTRIN) 600 mg tablet Take 1 tablet (600 mg total) by mouth every 6 (six) hours as needed for pain. 30 tablet 2 Active Active Problems Problem Noted Date Diagnosed Date Generalized abdominal pain 11/24/2021 Class 2 obesity in adult 06/23/2020 Esophageal stenosis 06/23/2020 Atypical chest pain 06/23/2020 Encounters Date Type Department Care Team Description 09/18/2024 3:14 PM EDT - 09/18/2024 11:59 PM EDT Hospital Encounter [facility] Ultrasound [address] [place] [id number] Breast pain; Breast lump in female Discharge Disposition: Home 09/18/2024 2:34 PM EDT - 09/18/2024 3:13 PM EDT Hospital Encounter [facility] Mammography [address] [place] [address] Mass of breast, unspecified laterality Discharge Disposition: Home from Last 3 Months Family History Medical History Relation Name Comments Aneurysm Father Cancer Mother lip Heart disease Mother Relation Name Status Comments Father Mother Alive Social History Tobacco Use Types Packs/Day Years [...] Sign Reading Time Taken Comments Blood Pressure 115/69 12/04/2021 11:29 PM EDT Pulse 70 12/04/2021 11:29 PM EDT Temperature 36.2 C (97.1 F) 12/04/2021 7:52 PM EDT Respiratory Rate 18 12/04/2021 11:29 PM EDT Oxygen Saturation 98% 12/04/2021 7:52 PM EDT Inhaled Oxygen Concentration - - Weight 101.2 kg (223 lb) 09/18/2024 2:38 PM EDT Height 167.6 cm (5' 6 ) 09/18/2024 2:38 PM EDT Body Mass Index 35.99 09/18/2024 2:38 PM EDT Plan of Treatment Health Maintenance Due Date Last Done Comments Depression Screening 1990 Tobacco Screening 1990 Adult BMI Follow Up Plan 1996 DTaP,Tdap and Td Vaccines (1 - Tdap) 1997 Influenza Vaccine 11/03/2024 Adult BMI Screening 09/18/2025 09/18/2024 Colonoscopy 03/11/2028 03/11/2018, 03/11/2018 Medical Devices Not on file Procedures Procedure Name Priority Date/Time Associated Diagnosis Comments US BREAST BILAT - LIMITED Routine 09/18/2024 3:27 PM EDT Breast pain Breast lump in female MAMM DIAGNOSTIC BILATERAL W CAD Routine 09/18/2024 3:02 PM EDT Mass of breast, unspecified laterality PROVATION COLONOSCOPY Routine 03/11/2018 7:27 AM EST from Last 3 Months or Most Recently Relevant to Health Maintenance Results * Ultrasound breast limited bilateral (09/18/2024 3:27 PM EDT) Anatomical Region Laterality Modality Breast Bilateral Ultrasound 09/18/2024 3:15 PM EDT Narrative 09/18/2024 3:51 PM EDT IRINA AISLINNALAN MARTINEZ 1980 [id number], [id number] EXAM: MAMM DIAGNOSTIC BILATERAL W CAD, US BREAST BILAT - LIMITED, 09/18/2024 2:37 PM CLINICAL INDICATIONS: Mass of breast, unspecified laterality, Patient presents for palpable lump of the right breast and focal pain of the left breast. COMPARISON: 07/03/2023 and priors TECHNIQUE: Bilateral digital tomosynthesis MLO and CC views of the breasts were obtained, with creation of synthetic 2D views. Computer aided detection was utilized. FINDINGS: There are scattered areas of fibroglandular density. A radiopaque marker is placed over the area of palpable concern in the right breast. There is no underlying mammographic abnormality. Targeted ultrasound will be performed at this location. There are multiple ovoid circumscribed masses elsewhere similar to prior. There is no mammographic abnormality to correspond with focal pain in the left breast. Targeted ultrasound will also performed at this location. There are no suspicious masses, calcifications, or areas of architectural distortion. Bilateral Breast Ultrasound, Limited TECHNIQUE: Multiple real-time kasper-scale images of the bilateral breasts in the 4-5 o'clock axis of the right breast and 1:00 axis of the left breast were performed. Color Doppler was utilized to assess vascular flow. FINDINGS: There is no focal mass, architectural distortion or abnormal vascularity visualized. COMBINED IMPRESSION: No mammographic evidence of malignancy or any focal abnormalities to correspond with the patient's palpable lump and focal pain. BI-RADS: BI-RADS 2 - Benign RECOMMENDATION: Routine screening mammogram in 1 year. Clinical management recommended for breast pain. RISK ASSESSMENT: TC Lifetime risk: 6.99%. The patient's reported personal and family medical history was used calculate their Tyrer-Cuzick lifetime risk of malignancy. Scores less than 20% are not considered high risk per ACR guidelines and patient should continue with the above recommendation. Patient was given the results before leaving the department. Approved by Mj Randolph DO on 09/18/2024 3:15 PM Perry Gallegos MD have personally reviewed the image(s) and agree with and/or edited the report Finalized by Perry Kenyon MD on 09/18/2024 3:51 PM 2 b MAMM 1 YR Procedure Note Perry Kenyon MD - 09/18/2024 IRINA MARTINEZ 1980 [id number], [id number] EXAM: MAMM DIAGNOSTIC BILATERAL W CAD, US BREAST BILAT - LIMITED,09/18/2024 2:37 PM CLINICAL INDICATIONS: Mass of breast, unspecified laterality, Patientpresents for palpable lump of the right breast and focal pain of the leftbreast. COMPARISON: 07/03/2023 and priors TECHNIQUE: Bilateral digital tomosynthesis MLO and CC views of the breastswere obtained, with creation of synthetic 2D views. Computer aideddetection was utilized. FINDINGS: There are scattered areas of fibroglandular density. A radiopaque marker is placed over the area of palpable concern in theright breast. There is no underlying mammographic abnormality. Targetedultrasound will be performed at this location. There are multiple ovoidcircumscribed masses elsewhere similar to prior. There is no mammographic abnormality to correspond with focal pain in theleft breast. Targeted ultrasound will also performed at this location. There are no suspicious masses, calcifications, or areas of architecturaldistortion. Bilateral Breast Ultrasound, Limited TECHNIQUE: Multiple real-time kasper-scale images of the bilateral breastsin the 4-5 o'clock axis of the right breast and 1:00 axis of the leftbreast were performed. Color Doppler was utilized to assess vascularflow. FINDINGS: There is no focal mass, architectural distortion or abnormal vascularityvisualized. COMBINED IMPRESSION: No mammographic evidence of malignancy or any focal abnormalities tocorrespond with the patient's palpable lump and focal pain. BI-RADS: BI-RADS 2 - Benign RECOMMENDATION: Routine screening mammogram in 1 year. Clinicalmanagement recommended for breast pain. RISK ASSESSMENT: TC Lifetime risk: 6.99%. The patient's reported personal and family medical history was usedcalculate their Tyrer-Cuzick lifetime risk of malignancy. Scores less than20% are not considered high risk per ACR guidelines and patient shouldcontinue with the above recommendation. Patient was given the results before leaving the department. Approved by Mj Randolph DO on 09/18/2024 3:15 PM IPerry MD have personally reviewed the image(s) and agree withand/or edited the report Finalized by Perry Kenyon MD on 09/18/2024 3:51 PM 2 b MAMM 1 YR us Grace Miramontes MD IMG US ORDERABLES Final Result * Mammography diagnostic bilateral with CAD (09/18/2024 3:02 PM EDT) Anatomical Region Laterality Modality Breast Bilateral Mammography 09/18/2024 3:15 PM EDT Narrative 09/18/2024 3:51 PM EDT IRINA MARTINEZ 1980 [id number], [id number] EXAM: MAMM DIAGNOSTIC BILATERAL W CAD, US BREAST BILAT - LIMITED, 09/18/2024 2:37 PM CLINICAL INDICATIONS: Mass of breast, unspecified laterality, Patient presents for palpable lump of the right breast and focal pain of the left breast. COMPARISON: 07/03/2023 and priors TECHNIQUE: Bilateral digital tomosynthesis MLO and CC views of the breasts were obtained, with creation of synthetic 2D views. Computer aided detection was utilized. FINDINGS: There are scattered areas of fibroglandular density. A radiopaque marker is placed over the area of palpable concern in the right breast. There is no underlying mammographic abnormality. Targeted ultrasound will be performed at this location. There are multiple ovoid circumscribed masses elsewhere similar to prior. There is no mammographic abnormality to correspond with focal pain in the left breast. Targeted ultrasound will also performed at this location. There are no suspicious masses, calcifications, or areas of architectural distortion. Bilateral Breast Ultrasound, Limited TECHNIQUE: Multiple real-time kasper-scale images of the bilateral breasts in the 4-5 o'clock axis of the right breast and 1:00 axis of the left breast were performed. Color Doppler was utilized to assess vascular flow. FINDINGS: There is no focal mass, architectural distortion or abnormal vascularity visualized. COMBINED IMPRESSION: No mammographic evidence of malignancy or any focal abnormalities to correspond with the patient's palpable lump and focal pain. BI-RADS: BI-RADS 2 - Benign RECOMMENDATION: Routine screening mammogram in 1 year. Clinical management recommended for breast pain. RISK ASSESSMENT: TC Lifetime risk: 6.99%. The patient's reported personal and family medical history was used calculate their Tyrer-Cuzick lifetime risk of malignancy. Scores less than 20% are not considered high risk per ACR guidelines and patient should continue with the above recommendation. Patient was given the results before leaving the department. Approved by Mj Randolph DO on 09/18/2024 3:15 PM IPerry MD have personally reviewed the image(s) and agree with and/or edited the report Finalized by Perry Kenyon MD on 09/18/2024 3:51 PM 2 b MAMM 1 YR FDA Accredited Performing Facility: [facility] - Mammography [address] [facility] [address] Procedure Note Perry Kenyon MD - 09/18/2024 IRINA AISLINNALAN MARTINEZ 1980 [id number], [id number] EXAM: MAMM DIAGNOSTIC BILATERAL W CAD, US BREAST BILAT - LIMITED,09/18/2024 2:37 PM CLINICAL INDICATIONS: Mass of breast, unspecified laterality, Patientpresents for palpable lump of the right breast and focal pain of the leftbreast. COMPARISON: 07/03/2023 and priors TECHNIQUE: Bilateral digital tomosynthesis MLO and CC views of the breastswere obtained, with creation of synthetic 2D views. Computer aideddetection was utilized. FINDINGS: There are scattered areas of fibroglandular density. A radiopaque marker is placed over the area of palpable concern in theright breast. There is no underlying mammographic abnormality. Targetedultrasound will be performed at this location. There are multiple ovoidcircumscribed masses elsewhere similar to prior. There is no mammographic abnormality to correspond with focal pain in theleft breast. Targeted ultrasound will also performed at this location. There are no suspicious masses, calcifications, or areas of architecturaldistortion. Bilateral Breast Ultrasound, Limited TECHNIQUE: Multiple real-time kasper-scale images of the bilateral breastsin the 4-5 o'clock axis of the right breast and 1:00 axis of the leftbreast were performed. Color Doppler was utilized to assess vascularflow. FINDINGS: There is no focal mass, architectural distortion or abnormal vascularityvisualized. COMBINED IMPRESSION: No mammographic evidence of malignancy or any focal abnormalities tocorrespond with the patient's palpable lump and focal pain. BI-RADS: BI-RADS 2 - Benign RECOMMENDATION: Routine screening mammogram in 1 year. Clinicalmanagement recommended for breast pain. RISK ASSESSMENT: TC Lifetime risk: 6.99%. The patient's reported personal and family medical history was usedcalculate their Tyrer-Cuzick lifetime risk of malignancy. Scores less than20% are not considered high risk per ACR guidelines and patient shouldcontinue with the above recommendation. Patient was given the results before leaving the department. Approved by Mj Randolph DO on 09/18/2024 3:15 PM Perry Gallegos MD have personally reviewed the image(s) and agree withand/or edited the report Finalized by Perry Kenyon MD on 09/18/2024 3:51 PM 2 b MAMM 1 YR FDA Accredited Performing Facility: [facility] - Mammography [address], [facility] [id number] us Grace Miramontes MD IMG MAMMOGRAPHY ORDERABLES Fin al Result * ES colonoscopy imaging (03/11/2018 7:27 AM EST) Narrative SYSTEMGENERATED, DOCUMENTATION - 03/11/2018 7:27 AM EST This order has been auto-finalized for image and report archival. *See procedures tab in Epic or report included with PACS images for full interpretation.* us Scottie Peña DO IMG OR IMG ORDERABLES Final Result from Last 3 Months or Most Recently Relevant to Health Maintenance Insurance [employer] Care Teams Finishing Wire Sawyer Relationship Specialty Start Date End Date Grace Miramontes MD [address] [place], [place] [id number] PCP - General 12/07/17
--- OUTSIDE RECORDS SUMMARY | 2024-11-19 17:09 | XMS_ITS | Encounter Summary ---
Author Organization [employer] Sys tem Address [facility] [place]-[id number] [address] [place] [address] Care Team Providers Care Industrial Maintenance Electrician Name Role Phone rGace Miramontes MD Primary Care Provider [phone] Encounter Details Date Type Department Care Team (Late st Contact Info) Description 02/09/[address] [address] [facility] [address] [place] [address] Scottie Baker MD [address] [employer] [facility] [address] [place], [place] [id number] Social History Tobacco Use Types Packs/Day Years [...] encounter Miscellaneous Notes * Telephone Encounter - Mavis Gilman - 02/09/2022 3:05 PM EST Per message from SAMRA Suarez with [employer] [facility], ASA 2, MAC/Mod Sed at [facility] * Telephone Encounter - Karin Enriquez - 02/09/2022 3:05 PM EST Note has been sent out to Dr. Baker. documented in this encounter Plan of Treatment Not on file documented as of this encounter Visit Diagnoses Not on filedocumented in this encounter Care Teams Industrial Maintenance Electrician Relationship Specialty Start Date End Date Grace Miramontes MD [facility] [place] [address] PCP - General 12/07/17 documented as of this encounter
--- OUTSIDE RECORDS SUMMARY | 2024-11-19 17:09 | XMS_ITS | Encounter Summary ---
Author Organization [employer] Sys [employer] Address [facility] [place]-[id number] [address] [place] [address] Care Team Providers Care Escort Service Attendant Name Role Phone Grace Miramontes MD Primary Care Provider [phone] Encounter Details Date Type Department Care Team (Late st Contact Info) Description 11/[facility]/[address] [facility] [address] [phone] Dot Machado CMA Social History Tobacco Use Types Packs/Day [...] have Coronavirus / COVID-19? No / Unsure 11/23/2021 9:40 AM EDT documented as of this encounter Miscellaneous Notes * Telephone Encounter - Dot Machado CMA - 11/21/2021 8:27 AM EDT Patient called to also following up on the following test. Show images for Vas mesenteric artery duplex complete Please Advise Thank You * Telephone Encounter - JUANA Sanchez - 11/21/2021 8:27 AM EDT Has not been read by radiologist yet so will await their reading. * Telephone Encounter - Shanell Hickey CMA - 11/21/2021 8:27 AM EDT Patient notified and verbalized understanding. documented in this encounter Plan of Treatment Not on file documented as of this encounter Visit Diagnoses Not on filedocumented in this encounter Care Teams Escort Service Attendant Relationship Specialty Start Date End Date Grace Miramontes MD [address] [place] [address] PCP - General 12/07/17 documented as of this encounter
--- OUTSIDE RECORDS SUMMARY | 2024-11-19 17:09 | XMS_ITS | Clinical Summary ---
Author Organization [facility] Healthcare Address [address] [place] [address] Care Team Providers Care Floor Coverings Installer Name Role Phone Unavailable Primary Care Provider Unavailabl e Social History Tobacco Use Types Packs/Day Years Used Date Smoking Tobacco: Never Assessed Comments Unknown Sex and Gender Information Value Date Recorded Sex Assigned at Not on file Legal Sex Female 6:51 PM EDT Gender Identity Not on file Sexual Orientation Not on file Last Filed Vital Signs Vital Sign Reading Time Taken Comments Blood Pressure 127/80 04/11/2019 12:00 PM EST Pulse - - Temperature - - Respiratory Rate - - Oxygen Saturation - - Inhaled Oxygen Concentration - - Weight 111 kg (244 lb) 12/02/2019 12:00 PM EDT Height 167.6 cm (5' 6 ) 12/02/2019 12:00 PM EDT Body Mass Index 39.38 12/02/2019 12:00 PM EDT Plan of Treatment Not on file
--- OUTSIDE RECORDS SUMMARY | 2024-11-19 17:09 | XMS_ITS | Encounter Summary ---
Author Organization [employer] Sys [employer] Address [facility]-[id number] [address] [place] [address] Care Team Providers Care Supervisor Lime Name Role Phone Grace Miramontes MD Primary Care Provider [phone] Encounter Details Date Type Department Care Team (Late st Contact Info) Description 06/08/2021 Orders Only [facility] [address] [place] [phone] Scottie Peña, DO [address] [place] [address] Abnormal mammogram of right breast (Primary Dx); Mass of right breast Social History Tobacco Use Types Packs/Day Years Used Date Smoking Tobacco: Former Cigarettes Q uit: 12/07/2017 Smokeless Tobacco: Never Alcohol Use Standard Drinks/Week Comments Yes 0 (1 standard drink = 0.6 oz pur e alcohol) socially Childcare Answer Date Recorded Childcare Unknown 08/12/2018 [...] as of this encounter Plan of Treatment Scheduled Orders Name Type Priority Associated Diagnoses Orde r Schedule Ultrasound biopsy breast initial right Imaging Routine Abnormal mammogram of right breast Mass of right breast Expected: 06/08/2021, Expires: 06/08/2022 documented as of this encounter Visit Diagnoses Diagnosis Abnormal mammogram of right breast- Primary Mass of right breast Lump or mass in breast documented in this encounter Additional Health Concerns Infection Onset Date Last Indicated Resolved Time COVID-19 Rule-Out 10/17/2021 10/17/2021 10/17/2021 5:21 PM EDT documented as of this encounter Care Teams Supervisor Lime Relationship Specialty Start Date End Date Grace Miramontes MD [address] [place] [id number] PCP - General 12/07/17 documented as of this encounter
--- OUTSIDE RECORDS SUMMARY | 2024-11-19 17:09 | XMS_ITS | Encounter Summary ---
Author Organization [employer] Sys tem Address [facility]-[id number] [address] [place] [address] Care Team Providers Care Production Technologist Name Role Phone Grace Miramontes MD Primary Care Provider [phone] Encounter Details Date Type Department Care Team (Late st Contact Info) Description 10/12/2020 Telephone [facility] [address] [place] [phone] Shruthi Wooten Social History Tobacco Use Types Packs/Day Years [...] have Coronavirus / COVID-19? No / Unsure 09/16/2020 8:36 AM EDT documented as of this encounter Plan of Treatment Not on file documented as of this encounter Visit Diagnoses Not on filedocumented in this encounter Additional Health Concerns Infection Onset Date Last Indicated Resolved Time COVID-19 Rule-Out 10/17/2021 10/17/2021 10/17/2021 5:21 PM EDT documented as of this encounter Care Teams Production Technologist Relationship Specialty Start Date End Date Grace Miramontes MD [address] [place] [address] PCP - General 12/07/17 documented as of this encounter
--- OUTSIDE RECORDS SUMMARY | 2024-11-19 17:09 | XMS_ITS | Encounter Summary ---
Author Organization [employer] Sys [employer] Address [facility][id number] [address] [place] [address] Care Team Providers Care Movement Therapist Name Role Phone Grace Miramontes MD Primary Care Provider Encounter Details Date Type Department Care Team (Late st Contact Info) Description 06/24/2020 Orders Only [facility] [address] [place] [phone] External, Scanning Provider Social History Tobacco Use Types Packs/Day Years [...] have Coronavirus / COVID-19? No / Unsure 06/23/2020 3:10 PM EDT documented as of this encounter Plan of Treatment Not on file documented as of this encounter Procedures Procedure Name Priority Date/Time Associated Diagnosis Comments MULTIPLE LABS Routine 02/29/2020 ECG 12-LEAD Routine 02/29/2020 ECG 12-LEAD Routine 12/07/2019 ECHO DOPPLER Routine 12/27/2017 ECG 12-LEAD Routine 12/18/2017 documented in this encounter Results * Multiple labs (02/29/2020) us Scanning Provider External IL IMAGING Final Result Performing Organization Address [facility] Co de Phone Number MANUALLY TRANSCRIBED RESULTS * ECG 12 lead (02/29/2020) us Scanning Provider External ECG ORDERABLES Final Result Performing Organization Address [facility] de Phone Number MANUALLY TRANSCRIBED RESULTS * ECG 12 lead (12/07/2019) us Scanning Provider External ECG ORDERABLES Final Result Performing Organization Address [facility] de Phone Number MANUALLY TRANSCRIBED RESULTS * Echo Doppler (12/27/2017) Anatomical Region Laterality Modality Chest N/A Ultrasound us Scanning Provider External CV ECHO ORDERABLES Fi nal Result * ECG 12 lead (12/18/2017) us Scanning Provider External ECG ORDERABLES Final Result Performing Organization Address [facility] de Phone Number MANUALLY TRANSCRIBED RESULTS documented in this encounter Visit Diagnoses Not on filedocumented in this encounter Additional Health Concerns Infection Onset Date Last Indicated Resolved Time COVID-19 Rule-Out 10/17/2021 10/17/2021 10/17/2021 5:21 PM EDT documented as of this encounter Care Teams Movement Therapist Relationship Specialty Start Date End Date Grace Miramontes MD [address] [place] [address] PCP - General 12/07/17 documented as of this encounter
--- OUTSIDE RECORDS SUMMARY | 2024-11-19 17:09 | XMS_ITS | Clinical Summary ---
Author Organization [facility] Address [address] [facility], [address] [place] [address] Care Team Providers Care Hazardous Waste Management Specialist Name Role Phone Grace Miramontes MD Primary Care Provider [phone] Allergies Active Allergy Reactions Criticality Noted Date Comments Amoxicillin 03/20/2017 Cephalosporins 03/20/2017 Clindamycin/Lincomycin 03/20/2017 Erythromycin Swelling 06/18/2020 Estrogens Other (See Comments) High 08/03/2021 Recommendation against use by breast surgeon Latex Hives 03/20/2017 Penicillins Swelling 03/20/2017 Sulfa Antibiotics 03/20/2017 Medications ALPRAZolam (XANAX) 0.5 MG tablet Take 0.5 mg by mouth every 8 hours as needed. 8 Active pantoprazole (PROTONIX) 40 MG tablet 2 Active NONFORMULARY Menopause support Active spironolactone (ALDACTONE) 25 MG tablet TAKE 1 TABLET BY MOUTH DAILY 2 Active ALPRAZolam (XANAX) 1 MG tablet TAKE 1 TABLET BY MOUTH THREE TIMES A DAY NEEDED FOR 30 DAYS 3 Active amitriptyline (ELAVIL) 25 MG tablet Take 2 tablets by mouth nightly 60 tablet 11 2 Active estradiol (ESTRACE) 1 MG tablet TAKE 1 TABLET BY MOUTH EVERY DAY FOR 90 DAYS 3 Active hyoscyamine (ANASPAZ;LEVSIN ) 125 MCG tablet 3 Active ibuprofen (ADVIL;MOTRIN) 600 MG tablet Take 1 tablet by mouth every 6 hours as needed 2 Active metoclopramide (REGLAN) 10 MG tablet Take 1 tablet by mouth in the morning and 1 tablet at noon and 1 tablet in the evening and 1 tablet before bedtime. 2 Active metoclopramide (REGLAN) 5 MG tablet TAKE 1 TABLET FOUR TIMES DAILY, BEFORE MEALS AND IN THE EVENING FOR 30 DAYS 3 Active sucralfate (CARAFATE) 1 GM tablet TAKE 1 TABLET BY MOUTH THREE TIMES A DAY ON AN EMPTY STOMACH 3 Active topiramate (TOPAMAX) 25 MG tablet Take 1 tablet by mouth daily Active famotidine (PEPCID) 20 MG tablet Take 1 tablet by mouth 2 times daily Active simethicone (MYLICON) 80 MG chewable tabletIndicatio ns:Gas bloat syndrome Take 1 tablet by mouth every 6 hours as needed for Flatulence 180 tablet 3 Active Active Problems Problem Noted Date Diagnosed Date Generalized abdominal pain 11/24/2021 Atypical chest pain 06/23/2020 Esophageal stenosis 06/23/2020 Class 2 obesity in adult 07/11/2017 Pelvic pain in female 07/04/2017 Back pain 03/20/2017 Family History Relation Name Status Comments Father Maternal Grandfather Maternal Grandmother Mother Alive Paternal Grandfather Paternal Grandmother Social History Tobacco Use Types Packs/Day Years Used Date Smoking Tobacco: Former Smokeless Tobacco: Never Tobacco Cessation:Counseling Given: Not Answered Alcohol Use Standard Drinks/Week Comments Not Currently 0 (1 standard drink = 0.6 oz pur e alcohol) Comments No Sex and Gender Information Value Date Recorded Sex Assigned at Not on file Legal Sex Female 1:15 PM EST Gender Identity Not on file Sexual Orientation Not on file Last Filed Vital Signs Vital Sign Reading Time Taken Comments Blood Pressure 112/76 09/11/2022 3:23 PM EDT Pulse 83 09/11/2022 3:23 PM EDT Temperature 36.7 C (98.1 F) 03/27/2017 9:04 AM EST Respiratory Rate 18 09/11/2022 3:23 PM EDT Oxygen Saturation 97% 09/11/2022 3:23 PM EDT Inhaled Oxygen Concentration - - Weight 107 kg (235 lb 14.4 oz) 09/11/2022 3:23 P M EDT Height 167.6 cm (5' 6 ) 09/11/2022 3:23 PM EDT Body Mass Index 38.08 09/11/2022 3:23 PM EDT Plan of Treatment Health Maintenance Due Date Last Done Comments Depression Screen 1990 HIV screen 1993 Hepatitis C screen 1996 DTaP/Tdap/Td vaccine (1 - Tdap) 1997 Hepatitis B vaccine (1 of 3 - 19+ 3-dose series) 1997 Breast cancer screen 2018 Lipids 2018 Colonoscopy 10/08/2023 Colorectal Cancer Screen 10/08/2023 FIT/FOBT: Average risk 10/08/2023 Fecal-DNA (Cologuard): Average risk 10/08/2023 Sigmoidoscopy/CT colonography 10/08/2023 Flu vaccine (#1) 10/03/2024 COVID-19 Vaccine ( - 2023-2 5 season) 2024 HPV vaccine (No Doses Required) Completed Hepatitis A vaccine Aged Out No longe r eligible based on patient's age to complete this topic Hib vaccine Aged Out No longer eligi ble based on patient's age to complete this topic Meningococcal (ACWY) vaccine Aged Out No longer eligible based on patient's age to complete this topic Meningococcal B vaccine Aged Out No l onger eligible based on patient's age to complete this topic Pneumococcal 0-49 years Vaccine Aged Out No longer eligible based on patient's age to complete this topic Polio vaccine Aged Out No longer elig ible based on patient's age to complete this topic Insurance [employer] [facility] Care Teams Hazardous Waste Management Specialist Relationship Specialty Start Date End Date Grace Miramontes MD PCP - General Family Medicine 07/04/17
--- OUTSIDE RECORDS SUMMARY | 2024-11-19 17:09 | XMS_ITS | Encounter Summary ---
Author Organization [employer] Address [facility] [id number] [address] [place] [address] Care Team Providers Care Heart Doctor Name Role Phone Grace Miramontes MD Primary Care Provider Encounter Details Date Type Department Care Team (Late st Contact Info) Description 11/17/2021 Telephone [facility] [address] [facility] [address] [place] [phone] Dot Machado CMA Social History Tobacco Use [...] have Coronavirus / COVID-19? No / Unsure 11/17/2021 1:00 PM EDT documented as of this encounter Miscellaneous Notes * Telephone Encounter - Dot Machado CMA - 11/17/2021 4:10 PM EDT GI Cocktail Fill Update per patient Patient called because she was unable to find a local Pharmacy to fill her GI Cocktail script. - [facility] and [facility] location Per patient states a Pharmacy located above mentioned is 30 minutes away, and they will not have ituntil 3-5 days later. Saw Tailer asked Co Workers They suggested either [facility] or [facility] Updated patient, but she states it's still 30 or more minutes away from where she lives. Patient states she has had vomit spells while heading back home. FYI Patient sound very tearful. Please Advise Thank You documented in this encounter Plan of Treatment Not on file documented as of this encounter Visit Diagnoses Not on filedocumented in this encounter Care Teams Heart Doctor Relationship Specialty Start Date End Date Grace Miramontes MD [facility] [place] [address] PCP - General 12/07/17 documented as of this encounter
--- OUTSIDE RECORDS SUMMARY | 2024-11-19 17:09 | XMS_ITS | Encounter Summary ---
Author Organization [facility] Address [address] [place] [address] Phone Care Team Providers Care Molded Goods Embossing Press Operator Name Role Phone Grace Miramontes MD Primary Care Provider Encounter Details Date Type Department Care Team (Late st Contact Info) Description 09/11/2023 Scanned Document [facility] [address] [place] [phone] Scanning, Generic Provider Social History Tobacco Use Types Packs/Day [...] Procedure Name Priority Date/Time Associated Diagnosis Comments OUTSIDE IMAGING SCAN 09/11/2023 documented in this encounter Results * OUTSIDE IMAGING SCAN (09/11/2023) Anatomical Region Laterality Modality Other Narrative 09/11/2023 Ordered by an unspecified provider. us Generic Provider Scanning OUTSIDE SCAN Final Result documented in this encounter Visit Diagnoses Not on filedocumented in this encounter Care Teams Molded Goods Embossing Press Operator Relationship Specialty Start Date End Date Grace Miramontes MD [address] [place] [address] [address] [place] [address] PCP - General Family Medicine 10/24/23 documented as of this encounter
--- OUTSIDE RECORDS SUMMARY | 2024-11-19 17:34 | XMS_ITS | CCD ---
Author Organization [facility] CliniSynv Care Team Providers Care Accounts Payable Specialist Name Role Phone PHYSICIAN, DEFAULT Unavailable Unavailable PHYSICIAN, DEFAULT Unavailable Unavailable TIMMY, DILCIA Unavailable Unavailable EDIS SAWNAT Unavailable Unavailable TIMMY, DILCIA Unavailable Unavailable Dilcia Warner MD Primary Care Provider DILCIA WARNER Primary Care Unavailable WHITNEY QUAN Referring Unavailpro e Dilcia Warnre Unavailable ARELI Sams, DR ALBINA Everett Consulting [...] Primary Care Unavailable NOE GONZALES Consulting Unavailable CRHISTIAN, NOE Attending Unavailable NOE GONZALES Admitting Unavailable RENARD ANDRADE Consulting Unavailable WARNER, DR DILCIA Everett Primary Care Unavailable GARDENIA ., LISBET Attending Unavailable GARDENIA ., LISBET Admitting Unavailable ELLIOTT, DR AMINA Hawkins Consulting Unavailable XOCHITL, DR HERNAN Rutledge Consulting Unavailable HAY ., DR MORRIS Consulting Unavailable MONICA DIA Consulting Unavailable SISTER, RADHA Consulting Unavailable GARDENIA ., LISBET Consulting Unavailable EVONN ., TREMAINE Consulting Unavailable VEE LU Attending Unavailable DILCIA WARNER Primary Care Unavailable TABITHA MOELENA Referring Unavailable DILCIA WARNER E Primary Care Unavailable VEE LU Referring Unavailable DILCIA WARNER Primary Care Unavailable Dilcia Warner MD Primary Care Provider DILCIA WARNER Referring Unavailable DILCIA WANRER Primary Care Unavailable DILCIA WARNER Referring Unavailable DILCIA WARNER Primary Care Unavailable Dilcia Warner MD Primary Care Provider Dilcia Warner MD Attending Provider Dilcia Warner MD Primary Care Provider Dilcia Warner MD Attending Provider Catalina Valencia APRN Attending Provider Allergies Allergy Classification Reported Allergen(s) Allergy Type Date of Onset Reaction(s) Facility (16 sources) amoxicillin; Translations: [AMOXICILLIN] Drug Allergy 06-05-19 14 Rash [facility] Repository (2 sources) cefuroxime Drug Allergy 10-07-19 13 [facility] Repository (17 sources) Latex; Translations: [LATEX] Drug allergy (disorder) 10-07-19 13 Rash [facility] Repository (18 sources) Penicillins; Translations: [PENICILLINS] Drug allergy (disorder) 10-07-19 13 Rash [facility] Repository (17 sources) Sulfonamides (Antibiotic); Translations: [SULFA (SULFONAMIDE ANTIBIOTICS)] Drug allergy (disorder) 10-07-19 13 Rash [facility] Repository (19 sources) Amoxicillin Drug Allergy 03-20-19 18 rash, Swelling [facility] ([facility] Cephalosporins (Antibiotic) Propensity to adverse reactions to drug 03-20-19 18 [facility] [employer] Phone: (1 source) Estrogens Drug Allergy 08-04-19 22 Other (See Comments) [employer] Phone: (19 sources) Latex Propensity to adverse reactions to drug 03-20-19 18 Hives [employer] Phone: (1 source) Sulfonamides (Antibiotic) Propensity to adverse reactions to drug 03-20-19 18 [employer] Phone: (1 source) Clindamycin/Lincom ycin Propensity to adverse reactions to drug 03-20-19 18 [employer] Work Phone: (20 sources) Cefuroxime Drug Allergy 04-18-19 24 [facility] (20 sources) Clindamycin; Translations: [CLINDAMYCIN] Drug Allergy 05-21-19 14 [facility] (20 sources) Erythromycin; Translations: [ERYTHROMYCIN] Drug Allergy 06-19-19 21 [place] [id number] Repository (20 sources) penicillAMINE Drug Allergy 04-18-19 24 [facility] (16 sources) Sulfacetamide / Sulfur Drug Allergy [facility] [employer] Other (1 source) Amoxicillin Drug Allergy 10-07-19 13 [facility] Repository (1 source) Azithromycin Drug Allergy 10-26-19 14 [facility] Repository (1 source) Clindamycin Drug Allergy 10-26-19 14 [facility] Repository (13 sources) Erythromycin Drug Allergy 10-26-19 14 [facility] Repository (5 sources) Azithromycin; Translations: [AZITHROMYCIN] Drug Allergy 05-21-19 14 Unknown [facility] Repository (4 sources) Penicillin Drug Allergy 05-21-19 14 Unknown [employer] Other (4 sources) Pseudoephedrine Drug Allergy 06-20-19 18 Unknown [employer] Other (4 sources) Substance with penicillin structure and antibacterial mechanism of action (substance) Drug allergy 06-20-19 18 Unknown [employer] Other (4 sources) Allergies Reconciled Propensity to adverse reactions 11-26-19 21 Unknown [employer] Other (6 sources) Substance with sulfonamide structure and antibacterial mechanism of action (substance) Drug allergy 03-20-19 18 Swelling [employer] Other (4 sources) patient allergy list reviewed by nurse or physicia Propensity to adverse reactions 11-21-19 Comment:Done [employer] Other (4 sources) Skelaxin *MUSCULOSKELETAL THERAPY AGENTS* Propensity to adverse reactions 05-21-19 14 Unknown [employer] Other (4 sources) Ceftin *CEPHALOSPORINS* Propensity to adverse reactions 06-20-19 18 Unknown [employer] Other (12 sources) Sulfacetamide Drug Allergy 04-18-19 24 [facility] (12 sources) Sulfur Drug Allergy 04-18-19 [facility] (2 sources) Penicillins Drug Intolerance 03-20-19 18 [facility] Work Phone: (1 source) Cefuroxime; Translations: [CEFUROXIME AXETIL] Drug Allergy 12-08-19 [facility] Repository Medications Current Medications Medication Drug Class(es) Dates Sig (Normalized) Sig (Original) ALPRAZolam 1 mg oral tablet (20 sources) Benzodiazepine Start: 05-30-2024 End: 10-27-2024 take 1 tablet by mouth once daily as needed for anxiety Alprazolam 1 mg tablet Active 1 MG PO Daily as needed for anxiety October 27, 2024 8:38am Complies with drug therapy Start: 11-26-2023 End: 05-30-2024 take 1 tablet by mouth twice daily as needed for anxiety Alprazolam 1 mg tablet Discontinued 1 MG PO Twice daily as needed for anxiety April 21, 2024 4:22pm May 30, 2024 9:41am Start: 08-07-2023 End: 11-26-2023 take 1 tablet by mouth once daily at bedtime Alprazolam 1 mg tablet Discontinued 1 MG PO Daily at bedtime November 01, 2023 8:26am November 26, 2023 9:20am Start: 04-18-2023 End: 07-25-2023 take 1 tablet by mouth three times daily as needed Alprazolam 1 mg tablet Discontinued 1 MG PO Three times daily [...] Start: 04-10-2022 take 2 tablets by mo [facility] three times daily as needed ALPRAZolam 0.5 MG TAKE 2 TABLETS BY MOUTH 3 TIMES A DAY NEEDED for 15 days Apr, Active Start: 01-16-2018 take 1 tablet by javier th every eight hours as needed ALPRAZolam (XANAX) 0.5 MG tablet Take 0.5 mg by mouth every 8 hours as needed. 0 01/16/2018 Active azithromycin 250 mg oral tablet (20 sources) Macrolide Antimicrobial Start: 11-12-2024 Azithromycin 250 mg tablet Active 0 PO daily 08 07November 12, 2024 12:00am Take 2 on day 1 and then take 1 for the next 4 days (days 2-5) Complies with drug therapy Start: 05-01-2024 End: 09-25-2024 Azithromycin 250 mg tablet D iscontinued 0 PO .COMPLEX May 01, 2024 1:00am September 25, 2024 3:50pm For 250 mg dose pack: take 500 mg today (day 1), then 250 mg for 4 days (days 2-5) PO Start: 09-20-2023 End: 11-26-2023 Azithromycin 250 mg tablet D iscontinued 0 PO .COMPLEX September 20, 2023 12:00am November 26, 2023 9:17am For 250 mg dose pack: take 500 mg today (day 1), then 250 mg for 4 days (days 2-5) PO Start: 09-20-2023 End: 11-26-2023 Azithromycin Discontinued 0 [...] 4 more days for 5 Mar, Not-Taking/PRN estradiol 1 mg oral tablet (20 sources) Estrogen Start: 08-01-2023 End: 11-04-2024 take 1 tablet by mouth once daily Estradiol 1 mg tablet Active 0 .ROUTE .COMPLEX November 04, 2024 10:07am TAKE 1 TABLET BY MOUTH EVERY DAY Complies with drug therapy Start: 04-18-2023 End: 08-01-2023 take 1 tablet by mouth once daily Estradiol 1 mg tablet Discontinued 1 TAB PO Daily April 18, 2023 1:00am August 01, 2023 8:44am [employer]: TAKE 1 TABLET BY MOUTH EVERY DAY FOR 90 DAYS; Note: Source Status: Start; Refills: 1; Qty: 90 Tablet; Provider: Timmy Edwards ( ) hyoscyamine sulfate 0.125 mg oral tablet (20 sources) Start: 07-04-2023 End: 10-08-2024 take 1 tablet by mouth four times daily as needed Hyoscyamine Sulfate 0.125 mg tablet Active 0 .ROUTE .COMPLEX October 08, 2024 1:37pm TAKE 1 TABLET BY MOUTH FOUR TIMES A DAY NEEDED Complies with drug therapy Start: 07-04-2023 End: 10-17-2023 take 1 tablet [...] DAY NEEDED Start: 06-04-2023 End: 07-04-2023 take 1 tablet by mouth twice daily Hyoscyamine Sulfate 0.125 mg tablet, sublingual Discontinued 0.125 MG PO Twice daily 180 90 July 02, 2023 12:22pm July 04, 2023 10:20am Start: 04-18-2023 End: 06-04-2023 take 1 tablet by mouth four times daily Hyoscyamine Sulfate 0.125 mg tablet, sublingual Discontinued 0.125 MG PO Four times daily April 18, 2023 1:00am June 04, 2023 12:29pm Start: 05-17-2022 take 1 tablet by javier th every four hours Levsin 0.125 MG 1 tablet as needed Orally every 4 hrs for 7 days May, Active Start: 05-17-2022 take 1 tablet by javier th every six hours Levsin 0.125 MG 1 tablet as needed Orally Four times a day for 30 days May, Active metoclopramide 5 mg oral tablet (20 sources) Dopamine-2 Receptor Antagonist Start: 07-04-2023 End: 10-06-2024 Metoclopramide Hcl 5 mg tablet Active 0 .ROUTE .COMPLEX 120 October 06, 2024 11:35am TAKE 1 TABLET FOUR TIMES DAILY, BEFORE MEALS AND IN THE EVENING Complies with drug therapy Start: 04-18-2023 End: 07-04-2023 take 1 tablet by mouth four times daily before mealtime Metoclopramide Hcl 5 mg tablet Discontinued 5 MG PO Four times daily [...] a day for 30 days May, Active NONFORMULARY (1 source) NONFORMULARY Menopause support 0 Active ondansetron 4 mg oral tablet (12 sources) Serotonin-3 Receptor Antagonist Start: 3 take 1 tablet by mouth three times daily as needed Ondansetron HCl 4 MG 1 tablet Orally tid prn for 30 days May, Active pantoprazole 40 mg delayed release oral tablet (20 sources) Proton Pump Inhibitor Start: End: 5 take 1 tablet by mouth twice daily Pantoprazole 40 mg tablet,delayed release (DR/EC) Active 40 MG PO Twice daily 180 October 06, 2024 2:02pm Complies with drug therapy Start: 07-29-2021 pantoprazole ( PROTONIX) 40 MG tablet Completed/Discontinued Medications Medication Drug Class(es) Dates Sig (Normalized) Sig (Original) [id number] 200 actuat albuterol 0.09 mg/actuat metered dose inhaler (9 sources) beta2-Adrenergic Agonist Start: 05-01-2024 End: 11-12-2024 take 1 puff(s) by inhalation every four to six hours as needed for wheezing Albuterol Sulfate 90 mcg/actuation HFA aerosol inhaler Discontinued 2 PUFF INHALATION EVERY 4-6 HOURS as needed for shortness of breath or wheezing 8.5 May 01, 2024 1:00am November 12, 2024 1:29pm Start: 04-28-2024 End: 11-12-2024 take 2.5 mg by inhalation every four to six hours as needed Albuterol Sulfate 2.5 mg /3 mL (0.083 %) solution for nebulization Discontinued 2.5 MG INHALATION EVERY 4-6 HOURS as needed for bronchospasm 90 April 28, 2024 1:00am November 12, 2024 1:29pm benzonatate 200 mg oral capsule (5 sources) Non-narcotic Antitussive Start: 04-28-2024 End: 09-25-2024 take 1 capsule by mouth three times daily as needed for cough Benzonatate 200 mg capsule Discontinued 200 MG PO Three times daily as needed for cough 30 April 28, 2024 1:00am September 25, 2024 3:50pm doxepin hydrochloride 10 mg oral capsule (10 sources) Tricyclic Antidepressant Start: 02-11-2024 End: 11-12-2024 take 1 capsule by mouth once daily at bedtime Doxepin 10 mg capsule Discontinued 10 MG PO Daily at bedtime March 12, 2024 12:53pm November 12, 2024 1:28pm doxycycline hyclate 100 mg oral tablet (20 sources) Tetracycline-class Drug Start: 09-25-2024 End: 11-12-2024 take 1 tablet by mouth twice daily Doxycycline Hyclate 100 mg tablet Discontinued 100 MG PO Twice daily 2024 9:47am November 12, 2024 1:28pm Start: 11-26-2023 End: 02-11-2024 take 1 tablet by mouth twice daily Doxycycline Hyclate 100 mg tablet Discontinued 100 MG PO Twice daily November 26, 2023 12:00am February 11, 2024 5:08pm Start: 04-18-2023 End: 06-21-2023 take 1 capsule by mouth every twelve hours Doxycycline Hyclate 100 mg capsule Discontinued 100 MG PO Every 12 hours 22 12April 18, 2023 1:00am June 21, 2023 3:27pm methylPREDNISolone 4 mg oral tablet (12 sources) Corticosteroid Start: 04-18-2023 End: 06-21-2023 Methylprednisolone 4 mg tablets,dose pack Discontinued 0 PO per package directions April 18, 2023 1:00am June 21, 2023 3:27pm PO PER PKG DIR for 6 days Start: 04-18-2023 End: 06-21-2023 Methylprednisolone Discontin ued 0 PO per package directions April 18, 2023 1:00am June 21, 2023 3:27pm PO PER PKG DIR for 6 days Start: 04-18-2023 Methylpredniso lone Active 0 PO per package directions April 18, 2023 12:00am PO PER PKG DIR for 6 days mupirocin 0.02 mg/mg topical ointment (2 sources) RNA Synthetase Inhibitor Antibacterial Start: 09-25-2024 End: 11-12-2024 Mupirocin 2 % ointment Discontinued 1 APPLIC TOPICAL Twice daily September 25, 2024 12:00am November 12, 2024 1:29pm sucralfate 1000 mg oral tablet (20 sources) [...] Mar, Active SUMAtriptan 5 mg/actuat nasal spray (8 sources) Serotonin-1b and Serotonin-1d Receptor Agonist Start: 08-07-2023 End: 09-20-2023 Sumatriptan 5 mg/actuation spray,non-aerosol Discontinued 5 MG INTRANASAL EVERY 2-4 HOURS as needed for migraine headache August 07, 2023 12:00am September 20, 2023 9:21am into one nostril; if headache remains, may repeat dose into other nostril once after at least 2 hours traZODone hydrochloride 50 mg oral tablet (20 sources) Serotonin Reuptake Inhibitor Start: 07-25-2023 End: 08-07-2023 Trazodone 50 mg tablet Discontinued 75 MG PO Daily at bedtime July 25, 2023 1:06pm August 07, 2023 10:43am Start: 07-25-2023 End: 08-07-2023 take 75 mg by mouth once daily at bedtime Trazodone Discontinued 75 MG PO Daily at bedtime July 25, 2023 1:06pm August 07, 2023 10:43am Start: 06-21-2023 End: 07-25-2023 take 1 tablet by mouth once daily at bedtime Trazodone 50 mg tablet Discontinued 50 MG PO Daily at bedtime [...] Classification Problem Date Documented Da te Episodic/Chronic Acute and chronic tonsillitis (4 sources) Acute tonsillitis; Translations: [Acute tonsillitis, unspecified] Episodic Acute bronchitis (8 sources) Acute bronchitis; Translations: [Acute bronchitis due to other specified organisms] Onset: 8 Episodic Anxiety disorders (20 sources) Generalized anxiety disorder; Translations: [Claustrophobia] Onset: 8 05-23-2023 Chronic Asthma (4 sources) Exacerbation of intermittent asthma; Translations: [Mild intermittent asthma with (acute) exacerbation] Chronic Cardiac dysrhythmias (12 sources) Tachycardia; Translations: [Tachycardia, unspecified] Onset: 8 Episodic Chronic obstructive pulmonary disease and bronchiectasis (4 sources) Bronchitis; Translations: [Bronchitis, not specified as acute or chronic] Episodic Complications of surgical procedures or medical care (17 sources) Postprocedural asymptomatic ovarian failure; Translations: [Asymptomatic postprocedural ovarian failure] Chronic Endometriosis (5 sources) Endometriosis (clinical); Translations: [Endometriosis, unspecified] Onset: 8 07-11-2017 Chronic Esophageal disorders (20 sources) Gastroesophageal reflux disease without esophagitis; Translations: [Gastro-esophageal reflux disease without esophagitis] Chronic Essential hypertension (4 sources) Essential hypertension; Translations: [Essential (primary) hypertension] Chronic Gastritis and duodenitis (1 source) Chronic superficial gastritis without bleeding; Translations: [CHRONIC SUP GASTRITIS W/O BLEED] Onset: Chronic Genitourinary symptoms and ill-defined conditions (4 sources) Dysuria; Translations: [Dysuria] Episodic Headache; including migraine (12 sources) Migraine without aura, not refractory ; Translations: [Migraine, unspecified, not intractable, without status migrainosus] 08-09-2023 Chronic Influenza (12 sources) Upper respiratory tract infection due to Influenza; Translations: [Influenza due to unidentified influenza virus with other respiratory manifestations] 04-28-2024 Episodic Menopausal disorders (1 source) Hormone replacement therapy Episodic Nausea and vomiting (7 sources) Nausea with vomiting, unspecified; Translations: [Nausea] Onset: 2 Episodic Nonmalignant breast conditions (1 source) Diffuse cystic mastopathy of right breast; Translations: [DIFFUSE CYSTIC MASTOPATHY RT BREAST] Onset: 2 Chronic Nonmalignant breast conditions (20 sources) Unspecified lump in the right breast, lower outer quadrant; Translations: [Unspecified lump in the right breast, upper outer quadrant] Onset: 2 Episodic Nonspecific chest pain (17 sources) Chest pain, unspecified; Translations: [Chest pain] Onset: 9 Resolved: 4 Episodic Other aftercare (1 source) Other long line teamster (current) drug therapy; Translations: [OTH DETENTION CURRENT DRUG THERAPY] Onset: 3 Episodic Other [...] externa] Onset: 7 Chronic Other gastrointestinal disorders (5 sources) Irritable bowel syndrome; Translations: [Irritable bowel syndrome without diarrhea] 02-17-2024 Chronic Other gastrointestinal disorders (1 source) Irritable bowel syndrome without diarrhea; Translations: [Irritable bowel syndrome] 02-11-2024 Chronic Other gastrointestinal disorders (1 source) Diarrhea, [...] Chronic Other nutritional; endocrine; and metabolic disorders (15 sources) Body mass index 30+ - obesity; Translations: [Body mass index (BMI) 38.0-38.9, adult] Onset: 4 10-24-2023 Chronic Other nutritional; endocrine; and metabolic disorders [...] conditions (not mental disorders or infectious disease) (16 sources) Other abnormal and inconclusive findings on diagnostic imaging of breast; Translations: [Encounter for screening mammogram for malignant neoplasm of breast] Onset: 9 Episodic Other upper respiratory disease (12 sources) Seasonal allergic rhinitis; Translations: [Other seasonal allergic rhinitis] Onset: 9 07-10-2024 Chronic Other upper respiratory disease (4 sources) Allergic rhinitis; Translations: [Allergic rhinitis, unspecified] Onset: 6 Chronic Other upper respiratory infections (4 sources) Chronic sinusitis; Translations: [Chronic sinusitis, unspecified] Chronic Other upper respiratory infections (20 sources) Acute maxillary sinusitis, unspecified; Translations: [Acute maxillary sinusitis] Onset: 5 Episodic Otitis media and related conditions (10 sources) Acute secretory otitis media; Translations: [Other acute nonsuppurative otitis media, right ear] Onset: 7 11-12-2024 Episodic Residual codes; unclassified (1 source) Acquired absence of other specified parts of digestive tract; Translations: [ACQ ABSENCE OTH PART DIGESTV TRACT] Onset: 3 Episodic Residual codes; unclassified (1 source) Acquired absence of uterus with remaining cervical stump; Translations: [ACQ ABSENCE UTRUS REM CERV STUMP] Onset: 3 Episodic Residual codes; unclassified (16 sources) Insomnia; Translations: [Insomnia, unspecified] 06-21-2023 Episodic Residual codes; unclassified (4 sources) Localized edema; Translations: [Localized edema] Episodic Residual codes; unclassified (8 sources) Insomnia, unspecified; Translations: [Insomnia, unspecified] 06-21-2023 Episodic Skin and subcutaneous tissue infections (2 sources) Cellulitis of foot excluding toe; Translations: [Cellulitis of left lower limb] 09-30-2024 Episodic Spondylosis; intervertebral disc disorders; other back [...] pelvis; Translations: [Pelvic and perineal pain] Onset: 07-04-2017 07-04-2017 Episodic Fluid and electrolyte disorders (4 sources) Dehydration; [...] Test Name Value Interpretation Reference Range Facility [facility]AMM DIAGNOSTIC BILATERAL W CADon 09-18-2024 MAMM DIAGNOSTIC BILATERAL W CAD MAMM DIAGNOSTIC BILATERAL W CAD COURTNEY MARTINEZ 1980 [id number], [id number] EXAM: MAMM DIAGNOSTIC BILATERAL W CAD, US [...] 3:51 PM 2 b MAMM 1 YR Normal [facility] BREAST BILAT - LIMITEDon 09-18-2024 US BREAST BILAT - LIMITED US BREAST BILAT - LIMITED COURTNEY MARTINEZ 1980 [id number], [id number] EXAM: MAMM DIAGNOSTIC BILATERAL W CAD, US [...] Mj Randolph DO on 09/18/2024 3:15 PM I, Perry Kenyon MD have personally reviewed the image(s) and agree with and/or edited the report Finalized by Perry Kenyon MD on 09/18/2024 3:51 PM 2 b MAMM 1 YR Normal [facility] Influenza virus B Ag [Presen ce] in Upper respiratory specimen by Rapid immunoassayon 04-28-2024 FLUBV Ag IA.rapid Ql (Nph) Influenza virus B Ag [Presence] in Upper respiratory specimen by Rapid immunoassay [facility] No Panel Informationon 04-28 Influenza Type A (Rapid) Positive [facility] POC SARS CoV-2 Antigen Negative [facility] CT CARDIAC SCORING WO IV CON TRASTon 11-22-2023 CT CARDIAC SCORING WO IV CONTRAST Interpreted By: Junaid Mayers, STUDY: CT CARDIAC SCORING WO IV CONTRAST; 11/22/2023 5:12 pm INDICATION: Signs/Symptoms:palps. ,R00.2 Palpitations COMPARISON: None. ACCESSION NUMBER(S): [id number] ORDERING CLINICIAN: VEE LU TECHNIQUE: Using prospective [...] can be calculated using link below [email or web address] Meenu. JACC 2015 (http://dx.doi.org/10.1016/j .j acc.2015.08.035) MACRO: None Signed by: Juanid Mayers 11/26/2023 3:51 PM Dictation workstation: [id number] [facility] ECG 12 Leadon 10-24-2023 [facility] Work Phone: Basophils Auto (Bld) [#/Vol] on 09-11-2023 Basophils (Bld) [#/Vol] 0.0 10 3/uL 0.0-0.1 [facility] Basophils/100 WBC Auto (Bld) on 09-11-2023 Basophils/100 WBC (Bld) 0.4 % 0.2-2.0 [facility] Eosinophils/100 WBC Auto (Bl d)on 09-11-2023 Eosinophils/100 WBC (Bld) 1.2 % 0.9-7.0 [facility] Erythrocyte distribution wid th Auto (RBC) [Ratio]on 09-11-2023 Erythrocyte distribution width (RBC) [Ratio] 12.6 % 11.0-15.0 [facility] Estimated glomerular filtrat ion rate (GFR) non- Americanon 09-11-2023 GFR/1.73 sq M.predicted among non-blacks MDRD (S/P/Bld) [Vol rate/Area] 60 mL/min/{1.73_m2} >=60 [facility] Globulin Calc (S) [Mass/Vol] on 09-11-2023 Globulin (S) [Mass/Vol] 4.4 g/dL [facility] Hematocrit Auto (Bld) [Volum e fraction]on 09-11-2023 Hematocrit (Bld) [Volume fraction] 42.4 % 36.0-48.0 [facility] Hemoglobin [Mass/volume] in Bloodon 09-11-2023 Hemoglobin (Bld) [Mass/Vol] 13.5 g/dL 12.0-16.0 [facility] Laboratory - Chemistry and C hemistry - challengeon 09-11-2023 Albumin [Mass/Vol] 3.0 g/dL Low 3.4-5.0 [facility] ALP [Catalytic activity/Vol] 85 U/L 46-116 [facility] ALT [Catalytic activity/Vol] 31 U/L 14-59 [facility] AST [Catalytic activity/Vol] 22 U/L 15-37 [facility] Bilirubin [Mass/Vol] 0.4 mg/dL 0.2-1.0 [facility] Calcium [Mass/Vol] 8.6 mg/dL 8.5-10.1 [facility] Chloride [Moles/Vol] 106 mmol/L 98-107 [facility] CO2 [Moles/Vol] 27.7 mmol/L 21.0-32.0 [facility] Creatinine [Mass/Vol] 1.01 mg/dL 0.55-1.02 [facility] GFR/1.73 sq M.predicted MDRD (S/P/Bld) [Vol rate/Area] mL/min/{1.73_m2} >=60 [facility] Glucose [Mass/Vol] 89 mg/dL 74-106 [facility] Potassium [Moles/Vol] 4.0 mmol/L 3.5-5.1 [facility] Protein [Mass/Vol] 7.4 g/dL 6.4-8.2 [facility] Sodium [Moles/Vol] 139 mmol/L 136-145 [facility] TSH Qn 2.310 m[IU]/L 0.358-3.740 [facility] Urea nitrogen [Mass/Vol] 18.0 mg/dL 7.0-18.0 [facility] Urea nitrogen/Creatinin e [Mass ratio] 17.8 mg/mg [facility] Laboratory - Hematology and Cell countson 09-11-2023 Immature granulocytes/100 WBC (Bld) 0.1 % 0.0-0.5 [facility] Leukocytes [#/volume] correc lily for nucleated erythrocytes in Blood by Automated counon 09-11-2023 WBC corrected for nucl RBC Auto (Bld) [#/Vol] 8.4 10 3/uL 4.0-11.0 [facility] Lymphocytes Auto (Bld) [#/Vo l]on 09-11-2023 Lymphocytes (Bld) [#/Vol] 1.9 10 3/uL 1.2-3.8 [facility] Lymphocytes/100 WBC Auto (Bl d)on 09-11-2023 Lymphocytes/100 WBC (Bld) 22.6 % 20.5-60.0 [facility] MCH Auto (RBC) [Entitic mass ]on 09-11-2023 MCH (RBC) [Entitic mass] 29.7 pg 26.7-34.0 [facility] MCHC Auto (RBC) [Mass/Vol]on 09-11-2023 MCHC (RBC) [Mass/Vol] 31.8 g/dL 29.9-35.2 [facility] MCV Auto (RBC) [Entitic vol] on 09-11-2023 MCV (RBC) [Entitic vol] 93.4 fL 81.0-99.0 [facility] Monocytes Auto (Bld) [#/Vol] on 09-11-2023 Monocytes (Bld) [#/Vol] 0.5 10 3/uL 0.3-0.8 [facility] Monocytes/100 WBC Auto (Bld) on 09-11-2023 Monocytes/100 WBC (Bld) 6.4 % 1.7-12.0 [facility] Neutrophils Auto (Bld) [#/Vo l]on 09-11-2023 Neutrophils (Bld) [#/Vol] 5.9 10 3/uL 1.4-6.5 [facility] Neutrophils/100 WBC Auto (Bl d)on 09-11-2023 Neutrophils/100 WBC (Bld) 69.3 % 43.0-75.0 [facility] No Panel Informationon 09-10 Eosinophils # (Auto) 0.1 10 3/uL 0.0-0.7 [facility] Immature Granulocyte # (Auto) 0.01 10 3/uL 0.00-0.03 [facility] Troponin I High Sensitivity <4.0 pg/mL Low 4.0-51.3 [facility] Comment on above: CUT-OFF POINTS HAVE BEEN [...] volume (Bld) [Entitic vol] 9.6 fL 9.5-13.5 [facility] Platelets Auto (Bld) [#/Vol] on 09-11-2023 Platelets (Bld) [#/Vol] 244 10 3/uL 150-450 [facility] RBC Auto (Bld) [#/Vol]on RBC (Bld) [#/Vol] 4.54 10 6/uL 4.20-5.40 [facility] Serum or plasma albumin/glob ulin mass ratioon 09-11-2023 Albumin/Globulin [Mass ratio] 0.7 {ratio} [facility] Serum or plasma anion gap de terminationon 09-11-2023 Anion gap [Moles/Vol] 9.3 mmol/L [facility] STOOL CULTUREon 05-23-2022 Campylobacter Culture Final report Normal [facility] Comment on above: Performed By: #### C XSTOOL #### [facility] [address] [address] [address] Taylor Duncan E coli Shiga Toxin EIA Negative Normal Negative [facility] Comment on above: Performed By: #### C XSTOOL #### [facility] [address] [place] [address] Dr. Taylor Duncan Result 1 Comment Normal [facility] Comment on above: Result Comment: No S almonella or Shigella recovered. Performed By: #### C XSTOOL #### [facility] [address] [address] [address] Taylor Duncan Result Comment: No C ampylobacter species isolated. Salmonella/Shigell a Screen Final report Normal [facility] Comment on above: Performed By: #### C XSTOOL #### [facility] [address] [place] [address] Dr. Taylor Duncan NM GASTRIC EMPTYon 3 [...] AMINA GALLAGHER Date: 2022-05-22 07:43 Normal [facility] CBC AUTO DIFFon 05-20-2022 BASO # 0.0 103/ul Normal 0.0-0.1 [facility] Comment on above: Performed By: #### L IPA, CMP #### [facility] [address] [place] [address] Dr. Taylor Duncan Basophils/100 WBC (Bld) 0.4 % Normal 0.2-2.0 [facility] Comment on above: Performed By: #### L IPA, CMP #### [facility] [address] [place] [address] Dr. Taylor Duncan EO # 0.1 103/ul Normal 0.0-0.7 [facility] Comment on above: Performed By: #### L IPA, CMP #### [facility] [address] [place] [address] Dr. Taylor Duncan Eosinophils/100 WBC (Bld) 1.6 % Normal 0.9-7.0 [facility] Comment on above: Performed By: #### L IPA, CMP #### [facility] [address] [place] [address] Dr. Taylor Duncan Erythrocyte distribution width (RBC) [Ratio] 12.2 % Normal 11.0-15.0 [facility] Comment on above: Performed By: #### L IPA, CMP #### [facility] [address] [place] [address] Dr. Taylor Duncan Hematocrit (Bld) [Volume fraction] 40.1 % Normal 36.0-48.0 [facility] Comment on above: Performed By: #### L IPA, CMP #### [facility] [address] [place] [address] Dr. Taylor Duncan Hemoglobin (Bld) [Mass/Vol] 12.7 g/dL Normal 12.0-16.0 [facility] Comment on above: Performed By: #### L IPA, CMP #### [facility] [address] [place] [address] Dr. Taylor Duncan IG # 0.01 10e3/ul Normal 0.00-0.03 [facility] Comment on above: Performed By: #### L IPA, CMP #### [facility] [address] [place] [address] Dr. Taylor Duncan IG % 0.2 % Normal 0.0-0.5 [facility] Comment on above: Performed By: #### L IPA, CMP #### [facility] [address] [place] [address] Dr. Taylor Duncan LYMPH # 2.0 103/ul Normal 1.2-3.8 [facility] Comment on above: Performed By: #### L IPA, CMP #### [facility] [address] [place] [address] Dr. Taylor Duncan Lymphocytes/100 WBC (Bld) 35.1 % Normal 20.5-60.0 [facility] Comment on above: Performed By: #### L IPA, CMP #### [facility] [address] [place] [address] Dr. Taylor Duncan MANUAL DIFF REQ NO Normal [facility] Comment on above: Performed By: #### L IPA, CMP #### [facility] [address] [place] [address] Dr. Taylor Duncan MCH (RBC) [Entitic mass] 29.1 pg Normal 26.7-34.0 [facility] Comment on above: Performed By: #### L IPA, CMP #### [facility] [address] [place] [address] Dr. Taylor Duncna MCHC (RBC) [Mass/Vol] 31.7 g/dL Normal 29.9-35.2 [facility] Comment on above: Performed By: #### L IPA, CMP #### [facility] [address] [place] [address] Dr. Taylor Duncan MCV (RBC) [Entitic vol] 92.0 fL Normal 81.0-99.0 [facility] Comment on above: Performed By: #### L IPA, CMP #### [facility] [address] [address] [address] Taylor Duncan MONO # 0.5 103/ul Normal 0.3-0.8 [facility] Comment on above: Performed By: #### L IPA, CMP #### [facility] [address] [place] [address] Dr. Taylor Duncan Monocytes/100 WBC (Bld) 9.1 % Normal 1.7-12.0 [facility] Comment on above: Performed By: #### L IPA, CMP #### [facility] [address] [place] [address] Dr. Taylor Duncan NEUT # 3.0 103/ul Normal 1.4-6.5 [facility] Comment on above: Performed By: #### L IPA, CMP #### [facility] [address] [place] [address] Dr. Taylor Duncan Neutrophils/100 WBC (Bld) 53.6 % Normal 43.0-75.0 [facility] Comment on above: Performed By: #### L IPA, CMP #### [facility] [address] [place] [address] Dr. Taylor Duncan Platelet mean volume (Bld) [Entitic vol] 9.9 fL Normal 9.5-13.5 [facility] Comment on above: Performed By: #### L IPA, CMP #### [facility] [address] [place] [address] Dr. Taylor Duncan PLT 206 103/ul Normal 150-450 [facility] Comment on above: Performed By: #### L IPA, CMP #### [facility] [address] [place] [address] Dr. Taylor Duncan RBC 4.36 106/ul Normal 4.20-5.40 [facility] Comment on above: Performed By: #### L IPA, CMP #### [facility] [address] [address] [address] Taylor Duncan WBC 5.6 103/ul Normal 4.0-11.0 [facility] Comment on above: Performed By: #### L IPA, CMP #### [facility] [address] [address] [address] Taylor Duncan PROF 14(COMP METB)on 023 Albumin [Mass/Vol] 2.6 g/dL Critically low 3.4-5.0 [facility] Comment on above: Performed By: #### C XSTOOL #### [facility] [address] [place] [address] Dr. Taylor Duncan Albumin/Globulin [Mass ratio] 0.8 {ratio} Normal [facility] Comment on above: Performed By: #### C XSTOOL #### [facility] [address] [place] [address] Dr. Taylor Duncan ALP [Catalytic activity/Vol] 102 U/L Normal 46-116 [facility] Comment on above: Performed By: #### C XSTOOL #### [facility] [address] [place] [address] Dr. Taylor Duncan ALT [Catalytic activity/Vol] 50 U/L Normal 14-59 [facility] Comment on above: Performed By: #### C XSTOOL #### [facility] [address] [place] [address] Dr. Taylor Duncan Anion gap [Moles/Vol] 11.1 mmol/L Normal [facility] Comment on above: Performed By: #### C XSTOOL #### [facility] [address] [place] [address] Dr. Taylor Duncan AST [Catalytic activity/Vol] 41 U/L Critically high 15-37 [facility] Comment on above: Performed By: #### C XSTOOL #### [facility] [address] [address] [address] Taylor Duncan Bilirubin [Mass/Vol] 0.3 mg/dL Normal 0.2-1.0 [facility] Comment on above: Performed By: #### C XSTOOL #### [facility] [address] [address] [address] Taylor Duncan Calcium [Mass/Vol] 8.1 mg/dL Critically low 8.5-10.1 [facility] Comment on above: Performed By: #### C XSTOOL #### [facility] [address] [address] [address] Taylor Duncan Chloride [Moles/Vol] 109 mmol/L Critically high 98-107 [facility] Comment on above: Performed By: #### C XSTOOL #### [facility] [address] [address] [address] Taylor Duncan CO2 [Moles/Vol] 25.9 mmol/L Normal 21.0-32.0 [facility] Comment on above: Performed By: #### C XSTOOL #### [facility] [address] [place] [address] Dr. Taylor Duncan Creatinine [Mass/Vol] 0.89 mg/dL Normal 0.55-1.02 [facility] Comment on above: Performed By: #### C XSTOOL #### [facility] [address] [address] [address] Taylor Duncan EGFR-AF BURUNDIAN >60 Normal >=60 [facility] Comment on above: Performed By: #### C XSTOOL #### [facility] [address] [place] [address] Dr. Taylor Duncan EGFR-NON AF BURUNDIAN >60 Normal >=60 [facility] Comment on above: Performed By: #### C XSTOOL #### [facility] [address] [address] [address] Taylor Duncan Globulin (S) [Mass/Vol] 3.3 g/dL Normal [facility] Comment on above: Performed By: #### C XSTOOL #### [facility] [address] [address] [address] Taylor Duncan Glucose [Mass/Vol] 85 mg/dL Normal 74-106 [facility] Comment on above: Performed By: #### C XSTOOL #### [facility] [address] [place] [address] Dr. Taylor Duncan Potassium [Moles/Vol] 4.0 mmol/L Normal 3.5-5.1 [facility] Comment on above: Performed By: #### C XSTOOL #### [facility] [address] [place] [address] Dr. Taylor Duncan Protein [Mass/Vol] 5.9 g/dL Critically low 6.4-8.2 [facility] Comment on above: Performed By: #### C XSTOOL #### [facility] [address] [place] [address] Dr. Taylor Duncan Sodium [Moles/Vol] 142 mmol/L Normal 136-145 [facility] Comment on above: Performed By: #### C XSTOOL #### [facility] [address] [place] [address] Dr. Taylor Duncan Urea nitrogen [Mass/Vol] 10.0 mg/dL Normal 7.0-18.0 [facility] Comment on above: Performed By: #### C XSTOOL #### [facility] [address] [place] [address] Dr. Taylor Duncan Urea nitrogen/Creatinin e [Mass ratio] 11.2 mg/mg Normal [facility] Comment on above: Performed By: #### C XSTOOL #### [facility] [address] [place] [address] Dr. Taylor Duncan CBC AUTO DIFFon 05-19-2022 BASO # 0.0 103/ul Normal 0.0-0.1 [facility] Comment on above: Performed By: #### C XSTOOL #### [facility] [address] [place] [address] Dr. Taylor Duncan Basophils/100 WBC (Bld) 0.4 % Normal 0.2-2.0 [facility] Comment on above: Performed By: #### C XSTOOL #### [facility] [address] [place] [address] Dr. Taylor Duncan EO # 0.1 103/ul Normal 0.0-0.7 [facility] Comment on above: Performed By: #### C XSTOOL #### [facility] [address] [place] [address] Dr. Taylor Duncan Eosinophils/100 WBC (Bld) 0.7 % Critically low 0.9-7.0 [facility] Comment on above: Performed By: #### C XSTOOL #### [facility] [address] [place] [address] Dr. Taylor Duncan Erythrocyte distribution width (RBC) [Ratio] 12.3 % Normal 11.0-15.0 [facility] Comment on above: Performed By: #### C XSTOOL #### [facility] [address] [place] [address] Dr. Taylor Duncan Hematocrit (Bld) [Volume fraction] 39.4 % Normal 36.0-48.0 [facility] Comment on above: Performed By: #### C XSTOOL #### [facility] [address] [place] [address] Dr. Taylor Duncan Hemoglobin (Bld) [Mass/Vol] 13.0 g/dL Normal 12.0-16.0 [facility] Comment on above: Performed By: #### C XSTOOL #### [facility] [address] [place] [address] Dr. Taylor Duncan IG # 0.01 10e3/ul Normal 0.00-0.03 [facility] Comment on above: Performed By: #### C XSTOOL #### [facility] [address] [place] [address] Dr. Taylor Duncan IG % 0.1 % Normal 0.0-0.5 [facility] Comment on above: Performed By: #### C XSTOOL #### [facility] [address] [place] [address] Dr. Taylor Duncan LYMPH # 1.5 103/ul Normal 1.2-3.8 [facility] Comment on above: Performed By: #### C XSTOOL #### [facility] [address] [place] [address] Dr. Taylor Duncan Lymphocytes/100 WBC (Bld) 20.3 % Critically low 20.5-60.0 [facility] Comment on above: Performed By: #### C XSTOOL #### [facility] [address] [place] [address] Dr. Taylor Duncan MANUAL DIFF REQ NO Normal [facility] Comment on above: Performed By: #### C XSTOOL #### [facility] [address] [place] [address] Dr. Taylor Duncan MCH (RBC) [Entitic mass] 30.0 pg Normal 26.7-34.0 [facility] Comment on above: Performed By: #### C XSTOOL #### [facility] [address] [place] [address] Dr. Taylor Duncan MCHC (RBC) [Mass/Vol] 33.0 g/dL Normal 29.9-35.2 [facility] Comment on above: Performed By: #### C XSTOOL #### [facility] [address] [place] [address] Dr. Taylor Duncan MCV (RBC) [Entitic vol] 91.0 fL Normal 81.0-99.0 [facility] Comment on above: Performed By: #### C XSTOOL #### [facility] [address] [place] [address] Dr. Taylor Duncan MONO # 0.6 103/ul Normal 0.3-0.8 [facility] Comment on above: Performed By: #### C XSTOOL #### [facility] [address] [place] [address] Dr. Taylor Duncan Monocytes/100 WBC (Bld) 8.4 % Normal 1.7-12.0 [facility] Comment on above: Performed By: #### C XSTOOL #### [facility] [address] [place] [address] Dr. Taylor Duncan NEUT # 5.2 103/ul Normal 1.4-6.5 [facility] Comment on above: Performed By: #### C XSTOOL #### [facility] [address] [place] [address] Dr. Taylor Duncan Neutrophils/100 WBC (Bld) 70.1 % Normal 43.0-75.0 [facility] Comment on above: Performed By: #### C XSTOOL #### [facility] [address] [place] [address] Dr. Taylor Duncan Platelet mean volume (Bld) [Entitic vol] 10.0 fL Normal 9.5-13.5 [facility] Comment on above: Performed By: #### C XSTOOL #### [facility] [address] [place] [address] Dr. Taylor Duncan PLT 220 103/ul Normal 150-450 [facility] Comment on above: Performed By: #### C XSTOOL #### [facility] [address] [place] [address] Dr. Taylor Duncan RBC 4.33 106/ul Normal 4.20-5.40 [facility] Comment on above: Performed By: #### C XSTOOL #### [facility] [address] [place] [address] Dr. Tyalor Duncan WBC 7.5 103/ul Normal 4.0-11.0 [facility] Comment on above: Performed By: #### C XSTOOL #### [facility] [address] [place] [address] Dr. Taylor Duncan PROF 14(COMP METB)on 023 Albumin [Mass/Vol] 2.9 g/dL Critically low 3.4-5.0 [facility] Comment on above: Performed By: #### L IPA, CMP #### [facility] [address] [place] [address] Dr. Taylor Duncan Albumin/Globulin [Mass ratio] 0.8 {ratio} Normal [facility] Comment on above: Performed By: #### L IPA, CMP #### [facility] [address] [place] [address] Dr. Taylor Duncan ALP [Catalytic activity/Vol] 98 U/L Normal 46-116 [facility] Comment on above: Performed By: #### L IPA, CMP #### [facility] [address] [place] [address] Dr. Taylor Duncan ALT [Catalytic activity/Vol] 44 U/L Normal 14-59 [facility] Comment on above: Performed By: #### L IPA, CMP #### [facility] [address] [place] [address] Dr. Taylor Duncan Anion gap [Moles/Vol] 9.3 mmol/L Normal [facility] Comment on above: Performed By: #### L IPA, CMP #### [facility] [address] [place] [address] Dr. Taylor Duncan AST [Catalytic activity/Vol] 49 U/L Critically high 15-37 [facility] Comment on above: Performed By: #### L IPA, CMP #### [facility] [address] [place] [address] Dr. Taylor Duncan Bilirubin [Mass/Vol] 0.4 mg/dL Normal 0.2-1.0 [facility] Comment on above: Performed By: #### L IPA, CMP #### [facility] [address] [place] [address] Dr. Taylor Duncan Calcium [Mass/Vol] 8.2 mg/dL Critically low 8.5-10.1 [facility] Comment on above: Performed By: #### L IPA, CMP #### [facility] [address] [place] [address] Dr. Taylor Duncan Chloride [Moles/Vol] 108 mmol/L Critically high 98-107 [facility] Comment on above: Performed By: #### L IPA, CMP #### [facility] [address] [place] [address] Dr. Taylor Duncan CO2 [Moles/Vol] 27.5 mmol/L Normal 21.0-32.0 [facility] Comment on above: Performed By: #### L IPA, CMP #### [facility] [address] [place] [address] Dr. Taylor Duncan Creatinine [Mass/Vol] 0.97 mg/dL Normal 0.55-1.02 [facility] Comment on above: Performed By: #### L IPA, CMP #### [facility] [address] [place] [address] Dr. Taylor Duncan EGFR-AF BURUNDIAN >60 Normal >=60 [facility] Comment on above: Performed By: #### L IPA, CMP #### [facility] [address] [place] [address] Dr. Taylor Duncan EGFR-NON AF [place] >60 Normal >=60 [facility] Comment on above: Performed By: #### L IPA, CMP #### [facility] [address] [place] [address] Dr. Taylor Duncan Globulin (S) [Mass/Vol] 3.5 g/dL Normal [facility] Comment on above: Performed By: #### L IPA, CMP #### [facility] [address] [place] [address] Dr. Taylor Duncan Glucose [Mass/Vol] 104 mg/dL Normal 74-106 [facility] Comment on above: Performed By: #### L IPA, CMP #### [facility] [address] [place] [address] Dr. Taylor Duncan Potassium [Moles/Vol] 3.8 mmol/L Normal 3.5-5.1 [facility] Comment on above: Performed By: #### L IPA, CMP #### [facility] [address] [place] [address] Dr. Taylor Duncan Protein [Mass/Vol] 6.4 g/dL Normal 6.4-8.2 [facility] Comment on above: Performed By: #### L IPA, CMP #### [facility] [address] [place] [address] Dr. Taylor Duncan Sodium [Moles/Vol] 141 mmol/L Normal 136-145 [facility] Comment on above: Performed By: #### L IPA, CMP #### [facility] [address] [place] [address] Dr. Taylor Duncan Urea nitrogen [Mass/Vol] 11.0 mg/dL Normal 7.0-18.0 [facility] Comment on above: Performed By: #### L IPA, CMP #### [facility] [address] [place] [address] Dr. Taylor Duncan Urea nitrogen/Creatinin e [Mass ratio] 11.3 mg/mg Normal [facility] Comment on above: Performed By: #### L IPA, CMP #### [facility] [address] [place] [address] Dr. Taylor Duncan AMYLASEon 05-18-2022 Amylase [Catalytic activity/Vol] 60 U/L Normal 25-115 [facility] Comment on above: Performed By: #### C MP, LIPA, SHRUTHI #### [facility] [address] [place] [address] Dr. Taylor Duncan CBC AUTO DIFFon 05-18-2022 BASO # 0.0 103/ul Normal 0.0-0.1 [facility] Comment on above: Performed By: #### C XSTOOL #### [facility] [address] [place] [address] Dr. Taylor Duncan Basophils/100 WBC (Bld) 0.4 % Normal 0.2-2.0 [facility] Comment on above: Performed By: #### C XSTOOL #### [facility] [address] [place] [address] Dr. Taylor Duncan EO # 0.1 103/ul Normal 0.0-0.7 [facility] Comment on above: Performed By: #### C XSTOOL #### [facility] [address] [place] [address] Dr. Taylor Duncan Eosinophils/100 WBC (Bld) 1.2 % Normal 0.9-7.0 [facility] Comment on above: Performed By: #### C XSTOOL #### [facility] [address] [place] [address] Dr. Taylor Duncan Erythrocyte distribution width (RBC) [Ratio] 12.3 % Normal 11.0-15.0 [facility] [place] Comment on above: Performed By: #### C XSTOOL #### [facility] [address] [place] [address] Dr. Taylor Duncan Hematocrit (Bld) [Volume fraction] 46.3 % Normal 36.0-48.0 [facility] [place] Comment on above: Performed By: #### C XSTOOL #### [facility] [address] [place] [address] Dr. Taylor Duncan Hemoglobin (Bld) [Mass/Vol] 15.3 g/dL Normal 12.0-16.0 [facility] [place] Comment on above: Performed By: #### C XSTOOL #### [facility] [address] [place] [address] Dr. Taylor Duncan IG # 0.02 10e3/ul Normal 0.00-0.03 [facility] Comment on above: Performed By: #### C XSTOOL #### [facility] [address] [place] [address] Dr. Taylor Duncan IG % 0.2 % Normal 0.0-0.5 [facility] Comment on above: Performed By: #### C XSTOOL #### [facility] [address] [place] [address] Dr. Taylor Duncan LYMPH # 2.4 103/ul Normal 1.2-3.8 [facility] Comment on above: Performed By: #### C XSTOOL #### [facility] [address] [place] [address] Dr. Taylor Duncan Lymphocytes/100 WBC (Bld) 28.6 % Normal 20.5-60.0 [facility] [place] Comment on above: Performed By: #### C XSTOOL #### [facility] [address] [place] [address] Dr. Taylor Duncan MANUAL DIFF REQ NO Normal [facility] Comment on above: Performed By: #### C XSTOOL #### [facility] [address] [place] [address] Dr. Taylor Duncan MCH (RBC) [Entitic mass] 29.7 pg Normal 26.7-34.0 [facility] Comment on above: Performed By: #### C XSTOOL #### [facility] [address] [place] [address] Dr. Taylor Duncan MCHC (RBC) [Mass/Vol] 33.0 g/dL Normal 29.9-35.2 [facility] Comment on above: Performed By: #### C XSTOOL #### [facility] [address] [place] [address] Dr. Taylor Duncan MCV (RBC) [Entitic vol] 89.9 fL Normal 81.0-99.0 [facility] [place] Comment on above: Performed By: #### C XSTOOL #### [facility] [address] [place] [address] Dr. Taylor Duncan MONO # 0.6 103/ul Normal 0.3-0.8 [facility] Comment on above: Performed By: #### C XSTOOL #### [facility] [address] [place] [address] Dr. Taylor Duncan Monocytes/100 WBC (Bld) 7.0 % Normal 1.7-12.0 [facility] [place] Comment on above: Performed By: #### C XSTOOL #### [facility] [address] [place] [address] Dr. Taylor Duncan NEUT # 5.2 103/ul Normal 1.4-6.5 [facility] [place] Comment on above: Performed By: #### C XSTOOL #### [facility] [address] [place] [address] Dr. Taylor Duncan Neutrophils/100 WBC (Bld) 62.6 % Normal 43.0-75.0 [facility] [place] Comment on above: Performed By: #### C XSTOOL #### [facility] [address] [place] [address] Dr. Taylor Duncan Platelet mean volume (Bld) [Entitic vol] 9.7 fL Normal 9.5-13.5 [facility] Comment on above: Performed By: #### C XSTOOL #### [facility] [address] [place] [address] Dr. Taylor Duncan PLT 271 103/ul Normal 150-450 [facility] Comment on above: Performed By: #### C XSTOOL #### [facility] [address] [place] [address] Dr. Taylor Duncan RBC 5.15 106/ul Normal 4.20-5.40 [facility] Comment on above: Performed By: #### C XSTOOL #### [facility] [address] [place], [place] [address] Dr. Taylor Duncan WBC 8.4 103/ul Normal 4.0-11.0 [facility] Comment on above: Performed By: #### C XSTOOL #### [facility] [address] [place], [place] [address] ABD/PELVIS WO CONon [...] MONICA DIA Date: 2022-05-18 21:37 Normal [facility] Covid-19 PCR (CVDTB)on 05-03 SARS-CoV-2 (COVID-19) RNA ROX+probe Ql (Unsp spec) Not detected Normal NOT DETECTED [facility] Comment on above: Result Comment: When [...] for this test is supported by the Geological Engineer of Health and Human Service's declaration that [...] used). Performed By: #### C XSTOOL #### [facility] [address] [place] [address] Dr. Taylor Duncan ER URINE PROFILEon 3 Bilirubin Ql (U) Negative Normal NEGATIVE [facility] Comment on above: Performed By: #### L IPA, CMP #### [facility] [address] [place] [address] Dr. Taylor Duncan Clarity (U) CLEAR Normal CLEAR [facility] Comment on above: Performed By: #### L IPA, CMP #### [facility] [address] [place] [address] Dr. Taylor Duncan Color (U) YELLOW Normal YELLOW [facility] [place] Comment on above: Performed By: #### L IPA, CMP #### [facility] [address] [place] [address] Dr. Taylor IVORY A micrscopic examina tion will be performed if indicated. Normal [facility] Comment on above: Performed By: #### L IPA, CMP #### [facility] [address] [place] [address] Dr. Taylor Duncan Glucose Ql (U) Negative Normal NEGATIVE [facility] Comment on above: Performed By: #### L IPA, CMP #### [facility] [address] [place] [address] Dr. Taylor Duncan Hemoglobin Ql (U) Negative Normal NEGATIVE [facility] Comment on above: Performed By: #### L IPA, CMP #### [facility] [address] [place] [address] Dr. Taylor Duncan Ketones Ql (U) Negative Normal NEGATIVE [facility] [place] Comment on above: Performed By: #### L IPA, CMP #### [facility] [address] [place] [address] Dr. Taylor Duncan LEUKOCYTES Negative Normal NEGATIVE [facility] [place] Comment on above: Performed By: #### L IPA, CMP #### [facility] [address] [place] [address] Dr. Taylor Duncan Nitrite Ql (U) Negative Normal NEGATIVE [facility] [place] Comment on above: Performed By: #### L IPA, CMP #### [facility] [address] [place] [address] Dr. Taylor Duncan pH (U) 6.0 [pH] Normal 5-9 [facility] [place] Comment on above: Performed By: #### L IPA, CMP #### [facility] [address] [place] [address] Dr. Taylor Duncan Protein (U) [Mass/Vol] 30 mg/dL Abnormal NEGATIVE/ TRACE [facility] [place] Comment on above: Performed By: #### L IPA, CMP #### [facility] [address] [place] [address] Dr. Taylor Duncan SPEC GRAVITY >=1.030 Abnormal 1.005-<=1.02 5 [facility] [place] Comment on above: Performed By: #### L IPA, CMP #### [facility] [address] [place] [address] Dr. Taylor Duncan UR MICRO IND INDICATED Normal [facility] [place] Comment on above: Performed By: #### L IPA, CMP #### [facility] [address] [place] [address] Dr. Taylor Duncan Urobilinogen Qn (U) 0.2 {Qian'U}/dL Normal 0.2 - 1.0 [facility] [place] Comment on above: Performed By: #### L IPA, CMP #### [facility] [address] [place] [address] Dr. Taylor Duncan GI PANEL (PCR)on 05-18-2022 Adenovirus F 40/41 Not detected Normal NOT DETECTED [facility] Comment on above: Performed By: #### L IPA, CMP #### [facility] [address] [place], [place] [id number] Dr. Taylor Duncan Astrovirus Not detected Normal NOT DETECTED [facility] Comment on above: Performed By: #### L IPA, CMP #### [facility] [address] [place] [address] Dr. Taylor Duncan C. Diff toxin A/B Not detected Normal NOT DETECTED [facility] Comment on above: Performed By: #### L IPA, CMP #### [facility] [address] [place] [address] Dr. Taylor Duncan Campylobacter Not detected Normal NOT DETECTED [facility] Comment on above: Performed By: #### L IPA, CMP #### [facility] [address] [place] [address] Dr. Taylor Duncan Cryptosporidium Not detected Normal NOT DETECTED [facility] Comment on above: Performed By: #### L IPA, CMP #### [facility] [address] [place] [address] Dr. Taylor Duncan Cyclos. Cayetanensis Not detected Normal NOT DETECTED [facility] Comment on above: Performed By: #### L IPA, CMP #### [facility] [address] [place] [address] Dr. Taylor Duncan E. Coli O157 Not Applicable Normal Not Applicable [facility] Comment on above: Performed By: #### L IPA, CMP #### [facility] [address] [place] [address] Dr. Taylor Duncan E. histolytica Not detected Normal NOT DETECTED [facility] Comment on above: Performed By: #### L IPA, CMP #### [facility] [address] [place] [address] Dr. Taylor Duncan EAEC Not detected Normal NOT DETECTED [facility] Comment on above: Performed By: #### L IPA, CMP #### [facility] [address] [place] [address] Dr. Taylor Duncan EIEC Not detected Normal NOT DETECTED [facility] Comment on above: Performed By: #### L IPA, CMP #### [facility] [address] [place] [address] Dr. Taylor Duncan EPEC Not detected Normal NOT DETECTED [facility] Comment on above: Performed By: #### L IPA, CMP #### [facility] [address] [place] [address] [address] Taylor Duncan ETEC Not detected Normal NOT DETECTED [facility] [place] Comment on above: Performed By: #### L IPA, CMP #### [facility] [address] [place] [address] [address] Taylor Dunaway Lamblia Not detected Normal NOT DETECTED [facility] Comment on above: Performed By: #### L IPA, CMP #### [facility] [address] [place] [address] [address] Taylor JC CONTROLS PASSED Normal [facility] Comment on above: Performed By: #### L IPA, CMP #### [facility] [address] [place] [address] [address] Taylor GOLDSTEIN HEADER GI PANEL BACTERIA Normal T [facility] Comment on above: Performed By: #### L IPA, CMP #### [facility] [address] [place] [address] [address] Taylor LAYTON ECOLI GI PANEL DIARRHEAGEN IC E.COLI / SHIGELLA Normal [facility] [place] Comment on above: Performed By: #### L IPA, CMP #### [facility] [address] [place] [address] Dr. Taylor LAYTON INFO SEE BELOW [facility] Comment on above: Result Comment: EAEC - Enteroaggregative E. Coli EPEC- Enteropathogenic E. Coli ETEC- Enterotoxigenic E. Coli lt/st STEC- Shigella-like toxin-producing E. Coli stx1/stx2 EIEC- Shigella/Enteroinvasive E. Coli Performed By: #### L IPA, CMP #### [facility] [address] [place] [address] [address] Taylor LAYTON PARASITES GI PANEL PARASITES Normal [facility] Comment on above: Performed By: #### L IPA, CMP #### [facility] [address] [place] [address] [address] Taylor LAYTON VIRUS GI PANEL VIRUSES Normal [facility] Comment on above: Performed By: #### L IPA, CMP #### [facility] [address] [place] [address] Dr. Taylor Duncan Norovirus GI/GII Not detected Normal NOT DETECTED [facility] Comment on above: Performed By: #### L IPA, CMP #### [facility] [address] [place] [address] Dr. Taylor Duncan P. Shigelloides Not detected Normal NOT DETECTED [facility] Comment on above: Performed By: #### L IPA, CMP #### [facility] [address] [place] [address] Dr. Taylor Duncan Rotavirus A Not detected Normal NOT DETECTED [facility] Comment on above: Performed By: #### L IPA, CMP #### [facility] [address] [place] [address] Dr. Taylor Duncan Salmonella Not detected Normal NOT DETECTED [facility] Comment on above: Performed By: #### L IPA, CMP #### [facility] [address] [place] [address] Dr. Taylor Duncan Sapovirus Not detected Normal NOT DETECTED [facility] Comment on above: Performed By: #### L IPA, CMP #### [facility] [address] [place] [address] Dr. Taylor Duncan STEC Not detected Normal NOT DETECTED [facility] Comment on above: Performed By: #### L IPA, CMP #### [facility] [address] [place] [address] Dr. Taylor Duncan Vibrio Not detected Normal NOT DETECTED [facility] Comment on above: Performed By: #### L IPA, CMP #### [facility] [address] [place] [address] Dr. Taylor Duncan Vibrio Cholera Not detected Normal NOT DETECTED [facility] Comment on above: Performed By: #### L IPA, CMP #### [facility] [address] [place] [address] Dr. Taylor Duncan Y. Enterocolitica Not detected Normal NOT DETECTED [facility] Comment on above: Performed By: #### L IPA, CMP #### [facility] [address] [place] [address] Dr. Taylor Duncan LIPASEon 05-18-2022 Lipase [Catalytic activity/Vol] 71.0 U/L Critically low 73.0-393.0 [facility] [place] Comment on above: Performed By: #### C MP, LIPA, SHRUTHI #### [facility] [address] [place] [address] Dr. Taylor Duncan PROF 14(COMP METB)on 023 Albumin [Mass/Vol] 3.5 g/dL Normal 3.4-5.0 [facility] [place] Comment on above: Performed By: #### C MP, LIPA, SHRUTHI #### [facility] [address] [place] [address] Dr. Taylor Duncan Albumin/Globulin [Mass ratio] 0.8 {ratio} Normal [facility] [place] Comment on above: Performed By: #### C MP, LIPA, SHRUTHI #### [facility] [address] [place] [address] Dr. Taylor Duncan ALP [Catalytic activity/Vol] 108 U/L Normal 46-116 [facility] [place] Comment on above: Performed By: #### C MP, LIPA, SHRUTHI #### [facility] [address] [place] [address] Dr. Taylor Duncan ALT [Catalytic activity/Vol] 38 U/L Normal 14-59 [facility] [place] Comment on above: Performed By: #### C MP, LIPA, SHRUTHI #### [facility] [address] [place] [address] Dr. Taylor Duncan Anion gap [Moles/Vol] 12.3 mmol/L Normal [facility] [place] Comment on above: Performed By: #### C MP, LIPA, SHRUTHI #### [facility] [address] [place] [address] Dr. Taylor Duncan AST [Catalytic activity/Vol] 29 U/L Normal 15-37 [facility] [place] Comment on above: Performed By: #### C MP, LIPA, SHRUTHI #### [facility] [address] [place] [address] Dr. Taylor Duncan Bilirubin [Mass/Vol] 0.3 mg/dL Normal 0.2-1.0 [facility] [place] Comment on above: Performed By: #### C KAL PHILLIPSA, SHRUTHI #### [facility] [address] [place] [address] Dr. Taylor Duncan Calcium [Mass/Vol] 8.8 mg/dL Normal 8.5-10.1 [facility] [place] Comment on above: Performed By: #### C JACQUELINE LIPA, SHRUTHI #### [facility] [address] [place] [address] Dr. Taylor Duncan Chloride [Moles/Vol] 106 mmol/L Normal 98-107 [facility] Comment on above: Performed By: #### C JACQUELINE LIPA, SHRUTHI #### [facility] [address] [place] [address] Dr. Taylor Duncan CO2 [Moles/Vol] 29.4 mmol/L Normal 21.0-32.0 [facility] [place] Comment on above: Performed By: #### C JACQUELINE LIPA, SHRUTHI #### [facility] [address] [place] [address] Dr. Taylor Duncan Creatinine [Mass/Vol] 1.09 mg/dL Critically high 0.55-1.02 [facility] [place] Comment on above: Performed By: #### C KAL PHILLIPSA, SHRUTHI #### [facility] [address] [place] [address] Dr. Taylor Duncan EGFR-AF BURUNDIAN >60 Normal >=60 [facility] Comment on above: Performed By: #### C JACQUELINE LIPA, SHRUTHI #### [facility] [address] [place] [address] Dr. Taylor Duncan EGFR-NON AF BURUNDIAN 55 mL/min/1.73m2 Critically low >=60 [facility] Comment on above: Performed By: #### C JACQUELINE LIPA, SHRUTHI #### [facility] [address] [place] [address] Dr. Taylor Duncan Globulin (S) [Mass/Vol] 4.2 g/dL Normal [facility] Comment on above: Performed By: #### C JACQUELINE LIPA, SHRUTHI #### [facility] [address] [place] [address] Dr. Taylor Duncan Glucose [Mass/Vol] 91 mg/dL Normal 74-106 [facility] Comment on above: Performed By: #### C KAL PHILLIPSA, SHRUTHI #### [facility] [address] [place] [address] Dr. Taylor Duncan Potassium [Moles/Vol] 3.7 mmol/L Normal 3.5-5.1 [facility] Comment on above: Performed By: #### C JACQUELINE LIPA, SHRUTHI #### [facility] [address] [place] [address] Dr. Taylor Duncan Protein [Mass/Vol] 7.7 g/dL Normal 6.4-8.2 [facility] Comment on above: Performed By: #### C JACQUELINE LIPA, SHRUTHI #### [facility] [address] [place] [address] Dr. Taylor Duncan Sodium [Moles/Vol] 144 mmol/L Normal 136-145 [facility] Comment on above: Performed By: #### C JACQUELINE LIPA, SHRUTHI #### [facility] [address] [place] [address] Dr. Taylor Duncan Urea nitrogen [Mass/Vol] 12.0 mg/dL Normal 7.0-18.0 [facility] Comment on above: Performed By: #### C JACQUELINE LIPA, SHRUTHI #### [facility] [address] [place] [address] Dr. Taylor Duncan Urea nitrogen/Creatinin e [Mass ratio] 11.0 mg/mg Normal [facility] Comment on above: Performed By: #### C MP LIPA, SHRUTHI #### [facility] [address] [place] [address] Dr. Taylor Duncan TROPONIN, HIGH SENSITIVITYon 05-18-2022 HSTROP 4.0 pg/mL Normal 4.0-51.3 [facility] Comment on above: Result Comment: CUT- OFF POINTS HAVE BEEN ESTABLISHED BASED ON THE FOURTH UNIVERSAL DEFINITIONS OF MYOCARDIAL INFARCTION. THE UPPER REFERENCE LIMIT (URL) OF TROPONIN, DEFINED THE 99TH PERCENTILE OF cTnI DISTRIBUTION IN A REFERENCE POPULATION, HAS BEEN CONFIRMED THE DECISION THRESHOLD FOR LA DIAGNOSIS. Performed By: #### C XSTOOL #### [facility] [address] [place] [address] Dr. Taylor Duncan URINE MICROSCOPIC ONLYon BACTERIA TRACE Abnormal NONE SEEN [facility] Comment on above: Performed By: #### L IPA, CMP #### [facility] [address] [place] [address] Dr. Taylor Duncan Bacteria identified Cx Nom (U) NOT INDICATED Normal [facility] Comment on above: Performed By: #### L IPA, CMP #### [facility] [address] [place] [address] Dr. Taylor Duncan CAST NONE SEEN Normal NONE SEEN [facility] Comment on above: Performed By: #### L IPA, CMP #### [facility] [address] [place] [address] Dr. Taylor Duncan Crystals LM Nom (Urine sed) NONE SEEN Normal NONE SEEN [facility] Comment on above: Performed By: #### L IPA, CMP #### [facility] [address] [place] [address] Dr. Taylor Duncan Epithelial cells LM Ql (Urine sed) RARE Normal NONE SEEN /RARE [facility] Comment on above: Performed By: #### L IPA, CMP #### [facility] [address] [place] [address] Dr. Taylor Duncan MUCOUS SMALL Abnormal NONE SEEN [facility] Comment on above: Performed By: #### L IPA, CMP #### [facility] [address] [place] [address] Dr. Taylor Duncan RBC NONE SEEN Abnormal 0-2 [facility] Comment on above: Performed By: #### L IPA, CMP #### [facility] [address] [place] [address] Dr. Taylor Duncan WBC NONE SEEN Normal NONE SEEN [facility] Comment on above: Performed By: #### L IPA, CMP #### [facility] [address] [place] [address] Dr. Taylor Duncan CBC AUTO DIFFon 05-16-2022 BASO # 0.0 103/ul Normal 0.0-0.1 [facility] Comment on above: Performed By: #### L IPA, CMP #### [facility] [address] [place] [address] Dr. Taylor Duncan Basophils/100 WBC (Bld) 0.3 % Normal 0.2-2.0 [facility] [place] Comment on above: Performed By: #### L IPA, CMP #### [facility] [address] [place] [address] Dr. Taylor Duncan EO # 0.1 103/ul Normal 0.0-0.7 [facility] [place] Comment on above: Performed By: #### L IPA, CMP #### [facility] [address] [place] [address] Dr. Taylor Duncan Eosinophils/100 WBC (Bld) 1.9 % Normal 0.9-7.0 [facility] [place] Comment on above: Performed By: #### L IPA, CMP #### [facility] [address] [place] [address] Dr. Taylor Duncan Erythrocyte distribution width (RBC) [Ratio] 12.4 % Normal 11.0-15.0 [facility] [place] Comment on above: Performed By: #### L IPA, CMP #### [facility] [address] [place] [address] Dr. Taylor Duncan Hematocrit (Bld) [Volume fraction] 45.5 % Normal 36.0-48.0 [facility] [place] Comment on above: Performed By: #### L IPA, CMP #### [facility] [address] [place] [address] Dr. Taylor Duncan Hemoglobin (Bld) [Mass/Vol] 14.7 g/dL Normal 12.0-16.0 [facility] [place] Comment on above: Performed By: #### L IPA, CMP #### [facility] [address] [place] [address] Dr. Taylor Duncan IG # 0.01 10e3/ul Normal 0.00-0.03 [facility] [place] Comment on above: Performed By: #### L IPA, CMP #### [facility] [address] [place] [address] Dr. Taylor Duncan IG % 0.2 % Normal 0.0-0.5 [facility] [place] Comment on above: Performed By: #### L IPA, CMP #### [facility] [address] [place] [address] Dr. Taylor Duncan LYMPH # 2.1 103/ul Normal 1.2-3.8 [facility] [place] Comment on above: Performed By: #### L IPA, CMP #### [facility] [address] [place] [address] Dr. Taylor Duncan Lymphocytes/100 WBC (Bld) 33.9 % Normal 20.5-60.0 [facility] [place] Comment on above: Performed By: #### L IPA, CMP #### [facility] [address] [place] [address] Dr. Taylor Duncan MANUAL DIFF REQ NO Normal [facility] [place] Comment on above: Performed By: #### L IPA, CMP #### [facility] [address] [place] [address] Dr. Taylor Duncan MCH (RBC) [Entitic mass] 29.2 pg Normal 26.7-34.0 [facility] [place] Comment on above: Performed By: #### L IPA, CMP #### [facility] [address] [place] [address] Dr. Taylor Duncan MCHC (RBC) [Mass/Vol] 32.3 g/dL Normal 29.9-35.2 [facility] [place] Comment on above: Performed By: #### L IPA, CMP #### [facility] [address] [place] [address] Dr. Taylor Duncan MCV (RBC) [Entitic vol] 90.5 fL Normal 81.0-99.0 [facility] [place] Comment on above: Performed By: #### L IPA, CMP #### [facility] [address] [place] [address] Dr. Taylor Duncan MONO # 0.5 103/ul Normal 0.3-0.8 [facility] [place] Comment on above: Performed By: #### L IPA, CMP #### [facility] [address] [place] [address] Dr. Taylor Duncan Monocytes/100 WBC (Bld) 7.7 % Normal 1.7-12.0 [facility] [place] Comment on above: Performed By: #### L IPA, CMP #### [facility] [address] [place] [address] Dr. Taylor Duncan NEUT # 3.5 103/ul Normal 1.4-6.5 [facility] [place] Comment on above: Performed By: #### L IPA, CMP #### [facility] [address] [place] [address] Dr. Taylor Duncan Neutrophils/100 WBC (Bld) 56.0 % Normal 43.0-75.0 [facility] Comment on above: Performed By: #### L IPA, CMP #### [facility] [address] [place] [address] Dr. Taylor Duncan Platelet mean volume (Bld) [Entitic vol] 9.9 fL Normal 9.5-13.5 [facility] [place] Comment on above: Performed By: #### L IPA, CMP #### [facility] [address] [place] [address] Dr. Taylor Duncan PLT 276 103/ul Normal 150-450 [facility] Comment on above: Performed By: #### L IPA, CMP #### [facility] [address] [place] [address] Dr. Taylor Duncan RBC 5.03 106/ul Normal 4.20-5.40 [facility] Comment on above: Performed By: #### L IPA, CMP #### [facility] [address] [place] [address] Dr. Taylor Duncan WBC 6.2 103/ul Normal 4.0-11.0 [facility] Comment on above: Performed By: #### L IPA, CMP #### [facility] [address] [place] [address] Dr. Taylor Duncan LIPASEon 05-16-2022 Lipase [Catalytic activity/Vol] 87.0 U/L Normal 73.0-393.0 [facility] [place] Comment on above: Performed By: #### L IPA, CMP #### [facility] [address] [place] [address] Dr. Taylor Duncan PROF 14(COMP METB)on 023 Albumin [Mass/Vol] 3.4 g/dL Normal 3.4-5.0 [facility] [place] Comment on above: Performed By: #### L IPA, CMP #### [facility] [address] [address] [address] Taylor Duncan Albumin/Globulin [Mass ratio] 0.8 {ratio} Normal [facility] [place] Comment on above: Performed By: #### L IPA, CMP #### [facility] [address] [address] [address] Taylor Duncan ALP [Catalytic activity/Vol] 110 U/L Normal 46-116 [facility] Comment on above: Performed By: #### L IPA, CMP #### [facility] [address] [place] [address] Dr. Taylor Duncan ALT [Catalytic activity/Vol] 31 U/L Normal 14-59 [facility] Comment on above: Performed By: #### L IPA, CMP #### [facility] [address] [place] [address] Dr. Taylor Duncan Anion gap [Moles/Vol] 10.1 mmol/L Normal [facility] [place] Comment on above: Performed By: #### L IPA, CMP #### [facility] [address] [place] [address] Dr. Taylor Duncan AST [Catalytic activity/Vol] 21 U/L Normal 15-37 [facility] Comment on above: Performed By: #### L IPA, CMP #### [facility] [address] [address] [address] Taylor Duncan Bilirubin [Mass/Vol] 0.2 mg/dL Normal 0.2-1.0 [facility] Comment on above: Performed By: #### L IPA, CMP #### [facility] [address] [address] [address] Taylor Duncan Calcium [Mass/Vol] 8.9 mg/dL Normal 8.5-10.1 [facility] Comment on above: Performed By: #### L IPA, CMP #### [facility] [address] [address] [address] Taylor Duncan Chloride [Moles/Vol] 104 mmol/L Normal 98-107 [facility] Comment on above: Performed By: #### L IPA, CMP #### [facility] [address] [place] [address] Dr. Taylor Duncan CO2 [Moles/Vol] 27.8 mmol/L Normal 21.0-32.0 [facility] Comment on above: Performed By: #### L IPA, CMP #### [facility] [address] [place] [address] Dr. Taylor Duncan Creatinine [Mass/Vol] 0.94 mg/dL Normal 0.55-1.02 [facility] Comment on above: Performed By: #### L IPA, CMP #### [facility] [address] [place] [address] Dr. Taylor Duncan EGFR-AF BURUNDIAN >60 Normal >=60 [facility] Comment on above: Performed By: #### L IPA, CMP #### [facility] [address] [place] [address] Dr. Taylor Duncan EGFR-NON AF BURUNDIAN >60 Normal >=60 [facility] Comment on above: Performed By: #### L IPA, CMP #### [facility] [address] [place] [address] Dr. Taylor Duncan Globulin (S) [Mass/Vol] 4.2 g/dL Normal [facility] [place] Comment on above: Performed By: #### L IPA, CMP #### [facility] [address] [place] [address] Dr. Taylor Duncan Glucose [Mass/Vol] 87 mg/dL Normal 74-106 [facility] Comment on above: Performed By: #### L IPA, CMP #### [facility] [address] [place] [address] Dr. Taylor Duncan Potassium [Moles/Vol] 3.9 mmol/L Normal 3.5-5.1 [facility] Comment on above: Performed By: #### L IPA, CMP #### [facility] [address] [place] [address] Dr. Taylor Duncan Protein [Mass/Vol] 7.6 g/dL Normal 6.4-8.2 [facility] [place] Comment on above: Performed By: #### L IPA, CMP #### [facility] [address] [place] [address] Dr. Taylor Duncan Sodium [Moles/Vol] 138 mmol/L Normal 136-145 [facility] [place] Comment on above: Performed By: #### L IPA, CMP #### [facility] [address] [place] [address] Dr. Taylor Duncan Urea nitrogen [Mass/Vol] 12.0 mg/dL Normal 7.0-18.0 [facility] [place] Comment on above: Performed By: #### L IPA, CMP #### [facility] [address] [place] [address] Dr. Taylor Duncan Urea nitrogen/Creatinin e [Mass ratio] 12.8 mg/mg Normal [facility] [place] Comment on above: Performed By: #### L IPA, CMP #### [facility] [address] [place] [address] Dr. Taylor Duncan XR KUB 1 VIEWon [...] AMINA GALLAGHER Date: 2022-05-16 17:42 Normal [facility] CBC AUTO DIFFon 04-05-2022 BASO # 0.0 103/ul Normal 0.0-0.1 [facility] [place] Comment on above: Performed By: #### C XSTOOL #### [facility] [address] [place] [address] Dr. Taylor Duncan Basophils/100 WBC (Bld) 0.2 % Normal 0.2-2.0 [facility] [place] Comment on above: Performed By: #### C XSTOOL #### [facility] [address] [place] [address] Dr. Taylor Duncan EO # 0.1 103/ul Normal 0.0-0.7 [facility] Comment on above: Performed By: #### C XSTOOL #### [facility] [address] [place] [address] Dr. Taylor uDncan Eosinophils/100 WBC (Bld) 1.0 % Normal 0.9-7.0 [facility] Comment on above: Performed By: #### C XSTOOL #### [facility] [address] [place] [address] Dr. Taylor Duncan Erythrocyte distribution width (RBC) [Ratio] 12.5 % Normal 11.0-15.0 [facility] [place] Comment on above: Performed By: #### C XSTOOL #### [facility] [address] [place] [address] Dr. Taylor Duncan Hematocrit (Bld) [Volume fraction] 46.0 % Normal 36.0-48.0 [facility] [place] Comment on above: Performed By: #### C XSTOOL #### [facility] [address] [place] [address] Dr. Taylor Duncan Hemoglobin (Bld) [Mass/Vol] 15.0 g/dL Normal 12.0-16.0 [facility] [place] Comment on above: Performed By: #### C XSTOOL #### [facility] [address] [place] [address] Dr. Taylor Duncan IG # 0.01 10e3/ul Normal 0.00-0.03 [facility] Comment on above: Performed By: #### C XSTOOL #### [facility] [address] [place] [address] Dr. Taylor Duncan IG % 0.1 % Normal 0.0-0.5 [facility] Comment on above: Performed By: #### C XSTOOL #### [facility] [address] [place] [address] Dr. Taylor Duncan LYMPH # 2.2 103/ul Normal 1.2-3.8 [facility] Comment on above: Performed By: #### C XSTOOL #### [facility] [address] [place] [address] Dr. Taylor Duncan Lymphocytes/100 WBC (Bld) 27.5 % Normal 20.5-60.0 [facility] Comment on above: Performed By: #### C XSTOOL #### [facility] [address] [place] [address] Dr. Taylor Duncan MANUAL DIFF REQ NO Normal [facility] Comment on above: Performed By: #### C XSTOOL #### [facility] [address] [place] [address] Dr. Taylor Duncan MCH (RBC) [Entitic mass] 30.4 pg Normal 26.7-34.0 [facility] [place] Comment on above: Performed By: #### C XSTOOL #### [facility] [address] [place] [address] Dr. Taylor Duncan MCHC (RBC) [Mass/Vol] 32.6 g/dL Normal 29.9-35.2 [facility] Comment on above: Performed By: #### C XSTOOL #### [facility] [address] [place] [address] Dr. Taylor Duncan MCV (RBC) [Entitic vol] 93.1 fL Normal 81.0-99.0 [facility] [place] Comment on above: Performed By: #### C XSTOOL #### [facility] [address] [place] [address] Dr. Taylor Duncan MONO # 0.6 103/ul Normal 0.3-0.8 [facility] Comment on above: Performed By: #### C XSTOOL #### [facility] [address] [place] [address] Dr. Taylor Duncan Monocytes/100 WBC (Bld) 7.2 % Normal 1.7-12.0 [facility] Comment on above: Performed By: #### C XSTOOL #### [facility] [address] [place] [address] Dr. Taylor Duncan NEUT # 5.1 103/ul Normal 1.4-6.5 [facility] Comment on above: Performed By: #### C XSTOOL #### [facility] [address] [address] [address] Taylor Duncan Neutrophils/100 WBC (Bld) 64.0 % Normal 43.0-75.0 [facility] Comment on above: Performed By: #### C XSTOOL #### [facility] [address] [address] [address] Taylor Duncan Platelet mean volume (Bld) [Entitic vol] 10.2 fL Normal 9.5-13.5 [facility] Comment on above: Performed By: #### C XSTOOL #### [facility] [address] [place] [address] Dr. Taylor Duncan PLT 244 103/ul Normal 150-450 [facility] Comment on above: Performed By: #### C XSTOOL #### [facility] [address] [place] [address] Dr. Taylor Duncan RBC 4.94 106/ul Normal 4.20-5.40 [facility] Comment on above: Performed By: #### C XSTOOL #### [facility] [address] [place] [address] Dr. Taylor Duncan WBC 8.0 103/ul Normal 4.0-11.0 [facility] Comment on above: Performed By: #### C XSTOOL #### [facility] [address] [place] [address] Dr. Taylor Duncan D-DIMERon 04-05-2022 D-DIMER 0.27 mg/L FEU Normal <=0.59 [facility] Comment on above: Performed By: #### D DIM #### [facility] [address] [place] [address] Dr. Taylor Duncan D-DIMER COMMENTS SEE BELOW Normal [facility] Comment on above: Result Comment: Incr [...] hospitalization. Performed By: #### D DIM #### [facility] [address] [place] [address] Dr. Taylor Duncan PROF 14(COMP METB)on 023 Albumin [Mass/Vol] 3.2 g/dL Critically low 3.4-5.0 [facility] Comment on above: Performed By: #### L IPA, CMP #### [facility] [address] [place] [address] Dr. Taylor Duncan Albumin/Globulin [Mass ratio] 0.8 {ratio} Normal [facility] [place] Comment on above: Performed By: #### L IPA, CMP #### [facility] [address] [place] [address] Dr. Taylor Duncan ALP [Catalytic activity/Vol] 102 U/L Normal 46-116 [facility] Comment on above: Performed By: #### L IPA, CMP #### [facility] [address] [place] [address] Dr. Taylor Duncan ALT [Catalytic activity/Vol] 31 U/L Normal 14-59 [facility] Comment on above: Performed By: #### L IPA, CMP #### [facility] [address] [place] [address] Dr. Taylor Duncan Anion gap [Moles/Vol] 14.4 mmol/L Normal [facility] [place] Comment on above: Performed By: #### L IPA, CMP #### [facility] [address] [place] [address] Dr. Taylor Duncan AST [Catalytic activity/Vol] 30 U/L Normal 15-37 [facility] Comment on above: Performed By: #### L IPA, CMP #### [facility] [address] [place] [address] Dr. Taylor Duncan Bilirubin [Mass/Vol] 0.2 mg/dL Normal 0.2-1.0 [facility] Comment on above: Performed By: #### L IPA, CMP #### [facility] [address] [place] [address] Dr. Taylor Duncan Calcium [Mass/Vol] 9.1 mg/dL Normal 8.5-10.1 [facility] Comment on above: Performed By: #### L IPA, CMP #### [facility] [address] [place] [address] Dr. Taylor Duncan Chloride [Moles/Vol] 112 mmol/L Critically high 98-107 [facility] Comment on above: Performed By: #### L IPA, CMP #### [facility] [address] [place] [address] Dr. Taylor Duncan CO2 [Moles/Vol] 30.0 mmol/L Normal 21.0-32.0 [facility] Comment on above: Performed By: #### L IPA, CMP #### [facility] [address] [place] [address] Dr. Taylor Duncan Creatinine [Mass/Vol] 0.96 mg/dL Normal 0.55-1.02 [facility] Comment on above: Performed By: #### L IPA, CMP #### [facility] [address] [place] [address] Dr. Taylor Duncan EGFR-AF BURUNDIAN >60 Normal >=60 [facility] Comment on above: Performed By: #### L IPA, CMP #### [facility] [address] [place] [address] Dr. Taylor Duncan EGFR-NON AF BURUNDIAN >60 Normal >=60 [facility] Comment on above: Performed By: #### L IPA, CMP #### [facility] [address] [place] [address] Dr. Taylor Duncan Globulin (S) [Mass/Vol] 4.2 g/dL Normal [facility] Comment on above: Performed By: #### L IPA, CMP #### [facility] [address] [place] [address] Dr. Taylor Duncan Glucose [Mass/Vol] 88 mg/dL Normal 74-106 [facility] Comment on above: Performed By: #### L IPA, CMP #### [facility] [address] [place] [address] Dr. Taylor Duncan Potassium [Moles/Vol] 4.4 mmol/L Normal 3.5-5.1 [facility] Comment on above: Performed By: #### L IPA, CMP #### [facility] [address] [place] [address] Dr. Taylor Duncan Protein [Mass/Vol] 7.4 g/dL Normal 6.4-8.2 [facility] Comment on above: Performed By: #### L IPA, CMP #### [facility] [address] [place] [address] Dr. Taylor Duncan Sodium [Moles/Vol] 152 mmol/L Critically high 136-145 [facility] Comment on above: Performed By: #### L IPA, CMP #### [facility] [address] [place] [address] Dr. Taylor Duncan Urea nitrogen [Mass/Vol] 11.0 mg/dL Normal 7.0-18.0 [facility] Comment on above: Performed By: #### L IPA, CMP #### [facility] [address] [place] [address] Dr. Taylor Duncan Urea nitrogen/Creatinin e [Mass ratio] 11.5 mg/mg Normal [facility] Comment on above: Performed By: #### L IPA, CMP #### [facility] [address] [place] [address] Dr. Taylor Duncan TROPONIN, HIGH SENSITIVITYon 04-05-2022 HSTROP 4.3 pg/mL Normal 4.0-51.3 [facility] Comment on above: Result Comment: CUT- OFF POINTS HAVE BEEN ESTABLISHED BASED ON THE FOURTH UNIVERSAL DEFINITIONS OF MYOCARDIAL INFARCTION. THE UPPER REFERENCE LIMIT (URL) OF TROPONIN, DEFINED THE 99TH PERCENTILE OF cTnI DISTRIBUTION IN A REFERENCE POPULATION, HAS BEEN CONFIRMED THE DECISION THRESHOLD FOR LA DIAGNOSIS. Performed By: #### H STROPN #### [facility] [address] [place] [address] Dr. Taylor Duncan HSTROP <4.0 Normal 4.0-51.3 [facility] Comment on above: Result Comment: CUT- OFF POINTS HAVE BEEN ESTABLISHED BASED ON THE FOURTH UNIVERSAL DEFINITIONS OF MYOCARDIAL INFARCTION. THE UPPER REFERENCE LIMIT (URL) OF TROPONIN, DEFINED THE 99TH PERCENTILE OF cTnI DISTRIBUTION IN A REFERENCE POPULATION, HAS BEEN CONFIRMED THE DECISION THRESHOLD FOR LA DIAGNOSIS. Performed By: #### L IPA, CMP #### [facility] [id number] Taylor Duncan US BRIANA DOP LEG [...] by: AMINA GALLAGHER Date: 2022-04-05 13:05 Normal [facility] XR CHEST 1 Von 04-05-2022 XR CHEST [...] by: AMINA GALLAGHER Date: 2022-04-05 12:21 Normal [facility] Josh Felder Panelon 022 EBV (VCA) Ab, IgG 1332 U/mL High <100 [facility] Comment on above: Performed By: #### E BVPRO #### [employer] [facility] [place], [place] [id number] [employer] Operator: Terry Nguyen MD EBV (VCA) Ab, IgM 155 U/mL High <100 [facility] Comment on above: Performed By: #### E BVPRO #### [employer] [address] [place], [place] [id number] [employer] Operator: Terry Nguyen MD EBV Early Ab, IgG 111 U/mL High <100 [facility] Comment on above: Performed By: #### E BVPRO #### [address] [id number] [employer] Operator: Terry Nguyen MD EBV Interpretation (NOTE) Normal [facility] Comment on above: Result Comment: Reference [...] M.D. Performed By: #### E BVPRO #### [address] [id number] [employer]: Terry Nguyen MD EBV Nuclear Ab, IgG 414 U/mL High <100 [facility] Comment on above: Performed By: #### E BVPRO #### [address] [id number] [employer] Operator: Terry Nguyen MD Anti-Thy Peroxidaseon 2021 Anti-Thy Peroxidase 7.3 IU/mL Normal 0.0-25.0 [facility] Comment on above: Result Comment: Reference Range: <25.0 Negative 25.0-35.0 Equivocal >35.0 Positive When results are Equivocal, it is recommended to retest after 8-12 weeks. Performed By: #### A MSOM #### [address] [address] [employer] Operator: Terry Nguyen MD #### CDP #### [facility] [address] [place] [address] [place] [address] [employer] Operator: Mane Lay MD Thyroxine, Freeon 08-04-2021 Thyroxine, Free 1.13 ng/dL Normal 0.93-1.70 [facility] Comment on above: Performed By: #### T SH #### [facility] [address] [place] [address] [employer] Operator: Mane Lay MD #### FT4 #### [facility] [address] [place] [address] [employer] Operator: Terry Nguyen MD CBC with Auto Differentialon 08-03-2021 Absolute Eos # 0.15 [facility] Absolute Immature Granulocyte <0.03 [facility] Absolute Lymph # 2.55 [facility] Absolute Beaver # 0.69 [facility] Basophils (Bld) [#/Vol] 0.03 10*3/uL [facility] Basophils/100 WBC (Bld) 0 % 0 - 2 % [facility] Eosinophils/100 WBC (Bld) 2 % 1 - 4 % [facility] Hematocrit (Bld) [Volume fraction] 45.8 % 36.3 - 47.1 % [facility] Hemoglobin.gastroi ntestinal spec 1 Ql (Stl) 14.4 g/dL 11.9 - 15.1 g/dL [facility] Immature granulocytes/100 WBC (Bld) 0 % 0 [facility] Lymphocytes/100 WBC (Bld) 26 % 24 - 43 % [facility] MCH (RBC) [Entitic mass] 30.1 pg 25.2 - 33.5 pg [facility] MCHC (RBC) [Mass/Vol] 31.4 g/dL 28.4 - 34.8 g/dL [facility] MCV (RBC) [Entitic vol] 95.6 fL 82.6 - 102.9 fL [facility] Monocytes/100 WBC (Bld) 7 % 3 - 12 % [facility] NRBC Automated 0.0 0.0 per 100 WBC [facility] Platelet distribution width (Bld) [Ratio] 12.3 % 11.8 - 14.4 % [facility] Platelet mean volume (Bld) [Entitic vol] 9.7 fL 8.1 - 13.5 fL [facility] Platelets (Bld) [#/Vol] 277 10*3/uL [facility] RBC (Bld) [#/Vol] 4.79 10*6/uL 3.95 - 5.1 1 m/uL [facility] Segmented neutrophils/100 WBC (Bld) 65 % 36 - 65 % [facility] Segs Absolute 6.57 [facility] WBC (Bld) [#/Vol] 10.0 10*3/uL [facility] CBC with Diffon 08-03-2021 Abs. Basophil 0.03 k/uL Normal 0.00-0.20 [facility] Comment on above: Performed By: #### A MSOM #### [place] [address] [employer] Operator: Terry Nguyen MD #### CDP #### [facility] [address] [place] [address] [place] [id number] [employer] Operator: Mane Lay MD Abs.Imm.Granulocyt e <0.03 Normal 0.00-0.30 [facility] Comment on above: Performed By: #### A MSOM #### [place] [address] [employer] Operator: Terry Nguyen MD #### CDP #### [facility] [address] [place] [address] Dr. [place] [id number] [employer] Operator: Mane Lay MD Abs.Neutrophil (Seg) 6.57 k/uL Normal 1.50-8.10 [facility] Comment on above: Performed By: #### A MSOM #### [address] [address] War[employer] Kn[employer] Operator: Terry Nguyen MD #### CDP #### [facility] [address] [place], [place] [id number] [employer] Kn[employer] Operator: Mane Lya MD Basophils/100 WBC (Bld) 0 % Normal 0-2 [facility] Comment on above: Performed By: #### A MSOM #### [address] [place] [address] [employer] Kn[employer] Operator: Terry Nguyen MD #### CDP #### [address] [place] [phone] [employer] Kn[employer] Operator: Mane Lay MD Eosinophils (Bld) [#/Vol] 0.15 10*3/uL Normal 0.00-0.44 [facility] Comment on above: Performed By: #### A MSOM #### [address] [id number] [employer] Operator: Terry Nguyen MD #### CDP #### [address] [place] [phone] [employer] Kn[employer] Operator: Mane Lay MD Eosinophils/100 WBC (Bld) 2 % Normal 1-4 [facility] Comment on above: Performed By: #### A MSOM #### [address] [address] War[employer] Kn[employer] Operator: Terry Nguyen MD #### CDP #### [address] [place] [phone] [employer] Operator: Mane Lay MD Erythrocyte distribution width (RBC) [Ratio] 12.3 % Normal 11.8-14.4 [facility] Comment on above: Performed By: #### A MSOM #### [address] [address] [employer] Operator: Terry Nguyen MD #### CDP #### [address] [place] [address] [employer] Kn[employer] Operator: Mane Lay MD Hematocrit (Bld) [Volume fraction] 45.8 % Normal 36.3-47.1 [facility] Comment on above: Performed By: #### A MSOM #### [address] [address] War[employer] Kn[employer] Operator: Terry Nguyen MD #### CDP #### [facility] [address] [place] [phone] [employer] Operator: Mane Lay MD Hemoglobin (Bld) [Mass/Vol] 14.4 g/dL Normal 11.9-15.1 [facility] Comment on above: Performed By: #### A MSOM #### [address] [address] War[employer] Kn[employer] Operator: Terry Nguyen MD #### CDP #### [facility] [address] [place] [address] Dr. [place] [phone] War[employer] Kn[employer] Operator: Mane Lay MD Immature granulocytes/100 WBC (Bld) 0 % Normal 0 [facility] Comment on above: Performed By: #### A MSOM #### [address] [address] War[employer] Knit Operator: Terry Nguyen MD #### CDP #### [facility] [address] [place] [address] Dr. [place] [phone] [employer] Kn[employer] Operator: Mane Lay MD Lymphocytes (Bld) [#/Vol] 2.55 10*3/uL Normal 1.10-3.70 [facility] Comment on above: Performed By: #### A MSOM #### [address] [address] War[employer] Knit Operator: Terry Nguyen MD #### CDP #### [facility] [address] [place] [phone] [employer] Operator: Mane Lay MD Lymphocytes/100 WBC (Bld) 26 % Normal 24-43 [facility] Comment on above: Performed By: #### A MSOM #### [address] [address] War[employer] Kn[employer] Operator: Terry Nguyen MD #### CDP #### [address] [place], [place] [phone] [employer] Kn[employer] Operator: Mane Lay MD MCH (RBC) [Entitic mass] 30.1 pg Normal 25.2-33.5 [facility] Comment on above: Performed By: #### A MSOM #### [address] [address] War[employer] Knit Operator: Terry Nguyen MD #### CDP #### [address] [place] [address] War[employer] Kn[employer] Operator: Mane Lay MD MCHC (RBC) [Mass/Vol] 31.4 g/dL Normal 28.4-34.8 [facility] Comment on above: Performed By: #### A MSOM #### [address] [address] War[employer] Knit Operator: Terry Nguyen MD #### CDP #### [address] [place] [address] War[employer] Kn[employer] Operator: Mane Lay MD MCV (RBC) [Entitic vol] 95.6 fL Normal 82.6-102.9 [facility] Comment on above: Performed By: #### A MSOM #### [address] [address] War[employer] Knit Operator: Terry Nguyen MD #### CDP #### [address] [place] [address] War[employer] Kn[employer] Operator: Mane Lay MD Monocytes (Bld) [#/Vol] 0.69 10*3/uL Normal 0.10-1.20 [facility] Comment on above: Performed By: #### A MSOM #### [address] [address] War[employer] Knit Operator: Terry Nguyen MD #### CDP #### [facility] [address] [place], [place] [phone] [employer] Kn[employer] Operator: Mane Lay MD Monocytes/100 WBC (Bld) 7 % Normal 3-12 [facility] Comment on above: Performed By: #### A MSOM #### [address] [address] War[employer] Knit Operator: Terry Nguyen MD #### CDP #### [address] [place] [address] War[employer] Knit Operator: Mane Lay MD Neutrophil (Seg) 65 % Normal 36-65 [facility] Comment on above: Performed By: #### A MSOM #### [address] [address] Warp Knit Operator: Terry Nguyen MD #### CDP #### [address] [place] [phone] War[employer] Knit Operator: Mane Lay MD NRBC Automated 0.0 per 100 WBC Normal 0.0 [facility] Comment on above: Performed By: #### A MSOM #### [address] [address] War[employer] Knit Operator: Terry Nguyen MD #### CDP #### [facility] [address] [place] [address] Dr. [place] [phone] [employer] Operator: Mane Lay MD Platelet mean volume (Bld) [Entitic vol] 9.7 fL Normal 8.1-13.5 [facility] Comment on above: Performed By: #### A MSOM #### [address] [address] Warp Knit Operator: Terry Nguyen MD #### CDP #### [facility] [address] [place] [address] Dr. [place], [place] [phone] War[employer] Knit Operator: Mane Lay MD Platelets (Bld) [#/Vol] 277 10*3/uL Normal 138-453 [facility] Comment on above: Performed By: #### A MSOM #### [address] [id number] War[employer] Kn[employer] Operator: Terry Nguyen MD #### CDP #### [facility] [address] [place] [address] Dr. [place], [place] [phone] [employer] Knit Operator: Mane Lay MD RBC (Bld) [#/Vol] 4.79 10*6/uL Normal 3.95-5.11 [facility] Comment on above: Performed By: #### A MSOM #### [address] [id number] War[employer] Operator: Terry Nguyen MD #### CDP #### [facility] [address] [place] [address] [place] [address] War[employer] Knit Operator: Mane Lay MD WBC (Bld) [#/Vol] 10.0 10*3/uL Normal 3.5-11.3 [facility] Comment on above: Performed By: #### A MSOM #### [address] [phone] War[employer] Kn[employer] Operator: Terry Nguyen MD #### CDP #### [address] [place] [address] Warp Knit Operator: Mane Lay MD T4, Freeon 08-03-2021 Thyroxine, Free 1.13 ng/dL 0.93 - 1.70 ng/dL [facility] TSHon 08-03-2021 TSH Qn 3.90 m[IU]/L [facility] Thyroid Stim. Horm.on 2021 Thyroid Stim. Horm. 3.90 uIU/mL Normal 0.30-5.00 [facility] Comment on above: Performed By: #### T SH #### [facility] [address] [place] [address] [employer] Knit Operator: Mane Lay MD #### FT4 #### [facility] [address] [place] [address] Warp Knit Operator: Terry Nguyen MD CARDIAC ANGELITO 3-6on 2 CK [Catalytic activity/Vol] 48 U/L Normal 26-192 [facility] [place] Comment on above: Performed By: #### C MREP #### [facility] [address] [place] [address] Dr. Taylor Duncan CK.MB [Mass/Vol] 0.35 ng/mL Normal <=3.60 [facility] [place] Comment on above: Performed By: #### C MREP #### [facility] [address] [place] [address] Dr. Taylor Duncan HSTROP 3.6 pg/mL Critically low 4.0-51.3 [facility] Comment on above: Result Comment: CUT- OFF POINTS HAVE BEEN ESTABLISHED BASED ON THE FOURTH UNIVERSAL DEFINITIONS OF MYOCARDIAL INFARCTION. THE UPPER REFERENCE LIMIT (URL) OF TROPONIN, DEFINED THE 99TH PERCENTILE OF cTnI DISTRIBUTION IN A REFERENCE POPULATION, HAS BEEN CONFIRMED THE DECISION THRESHOLD FOR LA DIAGNOSIS. Performed By: #### C MREP #### [facility] [address] [place] [address] Dr. Taylor Duncan CARDIAC ANGELITO ADMITon 022 CK [Catalytic activity/Vol] 69 U/L Normal -192 [facility] [place] Comment on above: Performed By: #### C XSTOOL #### [facility] [address] [place] [address] Dr. Taylor Duncan CK.MB [Mass/Vol] 0.28 ng/mL Normal <=3.60 [facility] [place] Comment on above: Performed By: #### C XSTOOL #### [facility] [address] [place] [address] Dr. Taylor Duncan HSTROP 4.1 pg/mL Normal 4.0-51.3 [facility] Comment on above: Result Comment: CUT- OFF POINTS HAVE BEEN ESTABLISHED BASED ON THE FOURTH UNIVERSAL DEFINITIONS OF MYOCARDIAL INFARCTION. THE UPPER REFERENCE LIMIT (URL) OF TROPONIN, DEFINED THE 99TH PERCENTILE OF cTnI DISTRIBUTION IN A REFERENCE POPULATION, HAS BEEN CONFIRMED THE DECISION THRESHOLD FOR LA DIAGNOSIS. Performed By: #### C XSTOOL #### [facility] [address] [place] [address] Dr. Taylor Duncan DONI 39 ng/mL Normal 9-82 [facility] Comment on above: Performed By: #### C XSTOOL #### [facility] [address] [place] [address] Dr. Taylor Duncan CBC AUTO DIFFon 07-27-2021 BASO # 0.0 103/ul Normal 0.0-0.1 [facility] Comment on above: Performed By: #### C BC #### [facility] [address] [place] [address] Dr. Taylor Duncan Basophils/100 WBC (Bld) 0.4 % Normal 0.2-2.0 [facility] Comment on above: Performed By: #### C BC #### [facility] [address] [place] [address] Dr. Taylor Duncan EO # 0.1 103/ul Normal 0.0-0.7 [facility] Comment on above: Performed By: #### C BC #### [facility] [address] [place] [address] Dr. Taylor Duncan Eosinophils/100 WBC (Bld) 1.1 % Normal 0.9-7.0 [facility] Comment on above: Performed By: #### C BC #### [facility] [address] [place] [address] Dr. Taylor Duncan Erythrocyte distribution width (RBC) [Ratio] 12.4 % Normal 11.0-15.0 [facility] [place] Comment on above: Performed By: #### C BC #### [facility] [address] [place] [address] Dr. Taylor Duncan Hematocrit (Bld) [Volume fraction] 46.4 % Normal 36.0-48.0 [facility] [place] Comment on above: Performed By: #### C BC #### [facility] [address] [place] [address] Dr. Taylor Duncan Hemoglobin (Bld) [Mass/Vol] 14.9 g/dL Normal 12.0-16.0 [facility] [place] Comment on above: Performed By: #### C BC #### [facility] [address] [place] [address] Dr. Taylor Duncan IG # 0.02 10e3/ul Normal 0.00-0.03 [facility] [place] Comment on above: Performed By: #### C BC #### [facility] [address] [place] [address] Dr. Taylor Duncan IG % 0.2 % Normal 0.0-0.5 [facility] [place] Comment on above: Performed By: #### C BC #### [facility] [address] [place] [address] Dr. Taylor Duncan LYMPH # 3.0 103/ul Normal 1.2-3.8 [facility] [place] Comment on above: Performed By: #### C BC #### [facility] [address] [place] [address] Dr. Taylor Duncan Lymphocytes/100 WBC (Bld) 30.3 % Normal 20.5-60.0 [facility] [place] Comment on above: Performed By: #### C BC #### [facility] [address] [place] [address] Dr. Taylor Duncan MANUAL DIFF REQ NO Normal [facility] Comment on above: Performed By: #### C BC #### [facility] [address] [place] [address] Dr. Taylor Duncan MCH (RBC) [Entitic mass] 29.9 pg Normal 26.7-34.0 [facility] [place] Comment on above: Performed By: #### C BC #### [facility] [address] [place] [address] Dr. Taylor Duncan MCHC (RBC) [Mass/Vol] 32.1 g/dL Normal 29.9-35.2 [facility] Comment on above: Performed By: #### C BC #### [facility] [address] [address] [address] Taylor Duncan MCV (RBC) [Entitic vol] 93.0 fL Normal 81.0-99.0 [facility] [place] Comment on above: Performed By: #### C BC #### [facility] [address] [address] [address] Taylor Duncan MONO # 0.8 103/ul Normal 0.3-0.8 [facility] [place] Comment on above: Performed By: #### C BC #### [facility] [address] [address] [address] Taylor Duncan Monocytes/100 WBC (Bld) 8.0 % Normal 1.7-12.0 [facility] [place] Comment on above: Performed By: #### C BC #### [facility] [address] [address] [address] Taylor Duncan NEUT # 5.9 103/ul Normal 1.4-6.5 [facility] [place] Comment on above: Performed By: #### C BC #### [facility] [address] [address] [address] Taylor Duncan Neutrophils/100 WBC (Bld) 60.0 % Normal 43.0-75.0 [facility] [place] Comment on above: Performed By: #### C BC #### [facility] [address] [address] [address] Taylor Duncan Platelet mean volume (Bld) [Entitic vol] 9.4 fL Critically low 9.5-13.5 [facility] [place] Comment on above: Performed By: #### C BC #### [facility] [address] [address] [address] Taylor Duncan PLT 279 103/ul Normal 150-450 [facility] Comment on above: Performed By: #### C BC #### [facility] [address] [address] [address] Taylor Duncan RBC 4.99 106/ul Normal 4.20-5.40 [facility] Comment on above: Performed By: #### C BC #### [facility] [address] [place] [address] Dr. Taylor Duncan WBC 9.8 103/ul Normal 4.0-11.0 [facility] Comment on above: Performed By: #### C BC #### [facility] [address] [place] [address] Dr. Taylor Duncan D-DIMERon 07-27-2021 D-DIMER <0.19 Normal <=0.59 [facility] [place] Comment on above: Performed By: #### C XSTOOL #### [facility] [address] [place] [address] Dr. Taylor Duncan D-DIMER COMMENTS SEE BELOW Normal [facility] Comment on above: Result Comment: Incr [...] hospitalization. Performed By: #### C XSTOOL #### [facility] [address] [place] [address] Dr. Taylor Duncan PROF CHEM 8 (BAS METB)on Anion gap [Moles/Vol] 13.0 mmol/L Normal [facility] Comment on above: Performed By: #### C XSTOOL #### [facility] [address] [place] [address] Dr. Taylor Duncan Calcium [Mass/Vol] 9.0 mg/dL Normal 8.5-10.1 [facility] Comment on above: Performed By: #### C XSTOOL #### [facility] [address] [place] [address] Dr. Taylor Duncan Chloride [Moles/Vol] 102 mmol/L Normal 98-107 [facility] Comment on above: Performed By: #### C XSTOOL #### [facility] [address] [place] [address] Dr. Taylor Duncan CO2 [Moles/Vol] 28.2 mmol/L Normal 21.0-32.0 [facility] [place] Comment on above: Performed By: #### C XSTOOL #### [facility] [address] [place] [address] Dr. Taylor Duncan Creatinine [Mass/Vol] 0.96 mg/dL Normal 0.55-1.02 [facility] [place] Comment on above: Performed By: #### C XSTOOL #### [facility] [address] [place] [address] Dr. Taylor Duncan EGFR-AF BURUNDIAN >60 Normal >=60 [facility] [place] Comment on above: Performed By: #### C XSTOOL #### [facility] [address] [place] [address] Dr. Taylor Duncan EGFR-NON AF B[place]UNDIAN >60 Normal >=60 [facility] [place] Comment on above: Performed By: #### C XSTOOL #### [facility] [address] [place] [address] Dr. Taylor Duncan Glucose [Mass/Vol] 93 mg/dL Normal 74-106 [facility] Comment on above: Performed By: #### C XSTOOL #### [facility] [address] [place] [address] Dr. Taylor Duncan Potassium [Moles/Vol] 4.2 mmol/L Normal 3.5-5.1 [facility] Comment on above: Performed By: #### C XSTOOL #### [facility] [address] [place] [address] Dr. Taylor Duncan Sodium [Moles/Vol] 139 mmol/L Normal 136-145 [facility] Comment on above: Performed By: #### C XSTOOL #### [facility] [address] [place] [address] Dr. Taylor Duncan Urea nitrogen [Mass/Vol] 15.0 mg/dL Normal 7.0-18.0 [facility] Comment on above: Performed By: #### C XSTOOL #### [facility] [address] [place] [address] Dr. Taylor Duncan Urea nitrogen/Creatinin e [Mass ratio] 15.6 mg/mg Normal [facility] [place] Comment on above: Performed By: #### C XSTOOL #### [facility] [address] [place], [place] [address] Dr. Taylor Duncan XR CHEST 1 Von [...] by: RENARD ANDRADE Date: 2021-07-27 20:42 Normal [facility] [place] MAMMO POST BIOPSY RIGHTon MAMMO POST BIOPSY RIGHT Patient: COURTNEY MARTINEZ Exam Date: 06/17/2021 : 1980 Gender:F Ordering : DR ALBINA SINGLETON . Admission #: [id number] Family : Order #: [id number] CLICK HERE TO VIEW EXAM This report [...] Gallagher M.D. on 06/21/2021 at 15:15 Normal [facility] US VAC ASST BX BRST RT W CLI All 06-17-2021 US VAC ASST BX BRST RT W CLIP Patient: COURTNEY MARTINEZ Exam Date: 06/17/2021 : 1980 Gender:F Ordering : DR ALBINA SINGLETON . Admission #: [id number] Family : Order #: [id number] CLICK HERE TO VIEW EXAM This report [...] Gallagher M.D. on 06/21/2021 at 15:13 Normal [facility] [place] ECHOCARDIO M/2D COMPLETEon 0 06-13-2021 ECHOCARDIO M/2D COMPLETE Patient: COURTNEY MARTINEZ Exam Date: 06/13/2021 : 1980 Gender:F Ordering : DR DILCIA WARNER M.D. Admission #: [id number] Family : Order #: [id number] CLICK HERE TO VIEW EXAM ECHOCARDIOGRAM REPORT [...] Area(A4C): 15.20 cm2 Left Atrium Systolic Volume(A2C): 60425 mm3 Left Atrium Systolic Volume(A4C): 97420 mm3 Mitral Valve MV E to A [...] Vallejo M.D. on 06/13/2021 at 14:42 Normal [facility] [place] MG MAMM RT DIAG FUon 022 MG MAMM RT DIAG Patient: PIETRO MARTINEZ Exam Date: 06/03/2021 : 1980 Gender:F Ordering : DR DILCIA WARNER M.D. Admission #: [id number] Family : Order #: [id number] CLICK HERE TO VIEW EXAM RADIOLOGY REPORT [...] prostate cancer at age 48. LOCATION: [facility] BREAST COMPOSITION: Heterogeneously dense,which may obscure [...] MD on 06/03/2021 at 14:46 Normal [facility] US BREAST RIGHT LIMITEDon US BREAST RIGHT LIMITED Patient: COURTNEY MARTINEZ Exam Date: 06/03/2021 : 1980 Gender:F Ordering : DR DILCIA WARNER M.D. Admission #: [id number] Family : Order #: [id number] CLICK HERE TO VIEW EXAM RADIOLOGY REPORT [...] prostate cancer at age 48. LOCATION: [facility] BREAST COMPOSITION: Heterogeneously dense,which may obscure [...] MD on 06/03/2021 at 14:46 Normal [facility] MG MAMM SCREEN 3D RIP CADon 05-27-2021 MG MAMM SCREEN 3D RIP CAD Patient: COURTNEY MARTINEZ Exam Date: 05/27/2021 : 1980 Gender:F Ordering : DR DILCIA WARNER M.D. Admission #: [id number] Family : Order #: [id number] CLICK HERE TO VIEW EXAM RADIOLOGY REPORT [...] prostate cancer at age 48. LOCATION: [facility] BREAST COMPOSITION: Heterogeneously dense,which may obscure [...] Hamilton MD on 05/27/2021 at 08:06 Normal [facility] [place] Postoperative Documentson Postoperative Documents [id number]#[id number]:127 Normal [facility] Physician Referralon 021 Physician Referral [id number]#[id number]:127 Normal [facility] IntraOperative Documentson 0 04-07-2020 IntraOperative Documents [id number]#1.00CD:127 Normal [facility] Progress Note-Physicianon Progress Note-Physician Patient: COURTNEY [...] QID, # 120 tab(s), Refills(s) 0, Pharmacy: [address], [address], cm, 03/23/20 14:04:00 EST, Height/Length Dosing, 112.2, kg, 03/23/20 14:04:00 EST, Weight Dosing Pepcid 40 mg Tab: 40 mg = 1 tab(s), Oral, Once a day (at bedtime), # 90 tab(s), Refills(s) 1, Pharmacy: [address], [address], cm, 03/23/20 14:04:00 EST, Height/Length Dosing, 112.2, kg, 03/23/20 14:04:00 EST, Weight Dosing Zofran 4 mg Tab: 4 mg = 1 tab(s), Oral, q8hr, # 20 tab(s), Refills(s) 1, Pharmacy: [address], [address], cm, 03/23/20 14:04:00 EST, Height/Length [...] Family History: Procedure history: EGD - Esophagogastroduodenoscopy ([id number]) on 03/30/2020 at 39 Years. Social History Social & Psychosocial Habits Tobacco 03/23/2020 Tobacco Use: Never (less than 100 in l . Physical Examination Respiratory: Lungs are clear to auscultation. Cardiovascular: Regular rhythm. Plan [place] [employer] (ASA) physical status classification: Class II. Anesthetic Preoperative Plan Anesthesia: General. . Anesthetic plan, risks, benefits, and alternatives discussed with the patient and/or family. Patient verbalized understanding. [facility] Comment on above: Result Comment: Elec [...] QID, # 120 tab(s), Refills(s) 0, Pharmacy: [facility] [facility], [address], cm, 03/23/20 14:04:00 EST, Height/Length Dosing, 112.2, kg, 03/23/20 14:04:00 EST, Weight Dosing Pepcid 40 mg Tab: 40 mg = 1 tab(s), Oral, Once a day (at bedtime), # 90 tab(s), Refills(s) 1, [facility]acy: [facility], cm, 03/23/20 14:04:00 EST, Height/Length Dosing, 112.2, kg, 03/23/20 14:04:00 EST, Weight Dosing Zofran 4 mg Tab: 4 mg = 1 tab(s), Oral, q8hr, # 20 tab(s), Refills(s) 1, Pharmacy: [facility], cm, 03/23/20 14:04:00 EST, Height/Length [...] clear to auscultation. Cardiovascular: Regular rhythm. Plan [place] [employer] (ASA) physical status classification: Class II. Anesthetic Preoperative Plan Anesthesia: General. . Anesthetic plan, risks, benefits, and alternatives discussed with the patient and/or family. Patient verbalized understanding. Normal [facility] Comment on above: Result Comment: Elec tronically Signed By: Ha Mitchell Jr., DO.maria ines\Date and Time Signed: 03/29/20 10:30 EST Coding Summary.on 04-02-2020 Coding Summary. CODING DATE: 021 FINAL [facility] STATUS: Home (Routine DC) PAYOR: [employer] APC DESCRIPTION 5301 Level 1 Upper GI Procedures ADMIT DX: REASON FOR VISIT DX: R13.10 Dysphagia, unspecified FINAL DX: PRINCIPAL: R13.10 Dysphagia, unspecified SECONDARY: R14.2 Eructation R12 Heartburn M94.0 Chondrocostal junction syndrome [Tietze] PYMT PROC APC STAT DESCRIPTION DOCTOR NAME DATE 31544 5301 T Paty GALLARDO MD 03/30/2020 phagogastroduodenoscopy, flexible, transoral; diagnostic, including collection of specimen(s) by brushing or washing, when performed (separate procedure) [id number] 5301 T Dilation of esophagus, Paty GALLARDO MD 03/30/2020 by unguided sound or bougie, single or multiple passes [id number] Anesthesia for upper Mitchell Jr. DO Ha 03/30/2020 gastrointestinal endoscopic procedures, endoscope introduced proximal to duodenum; not otherwise specified NOTE: The code number assigned matches the documented diagnosis and / or procedure in the patient's chart. However, the narrative phrase printed from the coding software may appear abbreviated, or result in slightly different terminology. Revised Coded By: Kelsi Ramey Revised Date Saved: 04/02/2020 03:29 pm Normal [facility] Main OR Intraoperative Recor don 04-02-2020 Main OR Intraoperative Record IntraOp Document Type FT Summary Primary Physician: Paty GALLARDO MD Finalized Date/Time: 04/02/20 11:41:12 Pt. Name: COURTNEY MARTINEZ/Sex: 1980 Female Med Rec #: [id number] Physician: Paty GALLARDO MD Financial #: [id number] Pt. Type: O Room/Bed: / Admit/Disch: 03/30/20 06:50:47 - 03/30/20 23:59:59 Institution: Case Times FT Entry 1 Patient Times In Room 03/30/20 08:08:00 Out Room 03/30/20 08:19:00 Procedure Times Start 03/30/20 08:14:00 Stop 03/30/20 08:16:00 Anesthesia Times Start 03/30/20 08:08:00 Stop 03/30/20 08:19:00 Last Modified By: Shira Lee RN 03/30/20 08:19:09 General Comments: 04/02/20 chart opened for charge review per Idania Murray RN. [place] Case Attendance FT Entry 1 Entry 2 Entry 3 Case Attendee Ileana Sandhu MD, Shira Yeager RN Role Performed Anesthesiologist Surgeon - Primary Industrial Servicer - Primary Claim Professional Time In 03/30/20 08:08:00 03/30/20 08:08:00 03/30/20 [...] Applicable) PreOp Antibiotic No Time Out Ileana Sandhu, Given Participants EJ HAYES, Jesus Newman RN, Vipin Silva CST, Molly Time Out Complete 03/30/20 08:12:00 Outcomes Met? [...] Procedure Yes Primary Surgeon Paty GALLARDO MD 03/30/20 08:14:00 Stop 03/30/20 08:16:00 Anesthesia Type [...] and tissue Entry 1 Skin Integrity Intact, [place], Warm, and Skin Abnormality No Dry Outcomes [...] Last Modified By: (more content not included)... [facility] Coding Summary.on 04-01-2020 Coding Summary. CODING DATE: 021 FINAL [facility] STATUS: Home (Routine DC) PAYOR: Commercial [...] Poon CphT Date Saved: 04/01/2020 12:58 pm [facility] Consenton 03-31-2020 Consent [id number]:127 [facility] Discharge Instructionson Discharge Instructions [id number]#[id number]:127 [facility] IntraOperative Documentson 0 03-31-2020 IntraOperative Documents [id number]:127 [facility] IntraOperative Documents [id number]#1.00CD:127 [facility] Consent for Treatmenton 03-06 Consent for Treatment [id number]#1.00CD:127 [facility] Endoscopic Procedure Report - Otheron 03-30-2020 Endoscopic Procedure Report - Other Patient: COURTNEY MARTINEZ Age: 39 years Sex: [...] esophageal dilation performed using 54 then 56 Azerbaijani Fried dilator 2. Normal gastric mucosa 3. Normal duodenal mucosa Images Procedure images: Vocal cords Antrum Duodenum Fundus . Post-Procedure Complications: none. Estimated blood loss: none. Specimens: None. Devices/ implants: none left in place. Impression and Plan Normal esophagus, empiric esophageal dilation performed using 54 then 56 Azerbaijani Fried dilator Recommendations: Follow-up in GI clinic in 2 weeks [facility] Comment on above: Result Comment: Elec tronically Signed By: Paty GALLARDO MD\.br\Date and Time Signed: 03/30/20 08:19 EST Other Comment: Dulce hanna Attachment - attachment storage system not supported [id number] Can be viewed in source systemMissing Attachment - attachment storage system not supported [id number] Can be viewed in source systemMissing Attachment - attachment storage system not supported [id number] Can be viewed in source systemMissing Attachment - attachment storage system not supported [id number] Can be viewed in source system Inpatient Patient Summaryon 03-30-2020 Inpatient Patient Summary [address] [address] [facility] Clinical Discharge Instructions PERSON INFORMATION Name: COURTNEY MARTINEZ [facility]#:[id number] PHYSICIANS Admitting Physician: Paty GALLARDO MD Attending Physician: Paty GALLARDO MD PCP: DILCIA WARNER MD Discharge Diagnosis: Dysphagia Comment: PATIENT EDUCATION INFORMATION Instructions: Medication Leaflets: Follow up: With: Address: When: [facility] [address] [place] [address] Within 2 weeks Type Location Start [facility] Follow Up [facility] 04/07/2020 10:45 AM 04/07/2020 11:00 AM Confirmed [...] once a day (at bedtime). Comment: Normal [facility] Main OR PACU I Recordon 03-06 Main OR PACU I Record PACU Phase I Document Type FT Summary Primary Physician: Paty GALLARDO MD Finalized Date/Time: 03/30/20 08:24:45 Pt. Name: COURTNEY MARTINEZ/Sex: 1980 Female Med Rec #: [id number] Physician: Paty GALLARDO MD Financial #: [id number] Pt. Type: O Room/Bed: / Admit/Disch: 03/30/20 [...] Signed By: Kenyatta Rizzo RN 03/30/20 08:24 [facility] Main OR Preoperative Recordo n 03-30-2020 Main OR Preoperative Record Holding Area Document Type FT Summary Primary Physician: Paty GALLARDO MD Finalized Date/Time: 03/30/20 07:09:37 Pt. Name: COURTNEY MARTINEZ Benjamin/Sex: 1980 Female Med Rec #: [id number] Physician: Paty GALLARDO MD Financial #: [id number] Pt. Type: O Room/Bed: / Admit/Disch: 03/30/20 [...] wilbert Complaints of Pain: Yes Pain Comment: 7-8 epigastric Operative Site n/a Marking: Availability Equipment Verified: Does Patient Smoke No Patient states Yes Comment - Adult mom Boy postop adult Supervision supervision available Case Cancelled in No Holding Area see comments below for reason Last Modified By: Mary Ann Barrientos RN 03/30/20 07:09:33 Finalized By: Mary Ann Barrientos RN Document Signatures Signed By: Mary Ann Barrientos RN 03/30/20 07:09 Normal [facility] Monitor Recordon 03-30-2020 Monitor Record [id number]:127 Normal [facility] Outpatient Surgery Discharge Instructionon 03-30-2020 Outpatient Surgery Discharge Instruction [address] [address] Patient Discharge Instructions PERSON INFORMATION Name: COURTNEY MARTINEZ Date of : 1980 Current Date: 03/30/2020 08:18:56 PHYSICIANS Admitting Physician: EJ HAYES, Paty Discharge Diagnosis: Dysphagia COURTNEY MARTINEZ has been [...] THE NEAREST EMERGENCY ROOM OR CALL 911 I, COURTNEY MARTINEZ, have received the attached patient education materials/instructions and have verbalized understanding: May we do a follow up call? Yes No I was present when discharge instructions were given __ Patient Signature Date Clinican/Nurse Signature Date Follow up: With: Address: When: [facility] [address] [place] [address] [place] [address] Within 2 weeks Type Location Start [facility] Follow Up [facility] 04/07/2020 10:45 AM 04/07/2020 11:00 AM Confirmed Pharmacy Information: Other: [facility] [place] You may receive a survey from [employer] asking you to rate your care experience. Your feedback is important and will help us understand what we do well and how we can improve the quality of care we provide to you, your loved ones and our community. It?s an honor to serve you. Thank you for choosing [facility] HERE ARE THE MEDICATION CHANGES THAT [...] day (at bedtime). PATIENT EDUCATION INFORMATION Instructions: Normal [facility] Patient Education - Texton 0 03-30-2020 Patient Education - Text [facility] Progress Note-Nurseon 2020 Progress Note-Nurse 1020: [...] prescription. 1025: Call made to pt's pharmacy ([facility]). Informed Merline that Dr. Gallardo states BMX solution is equal parts Benadryl, Lidocaine, and Maalox (1:1:1 ratio). He states volume and dosing is printed on prescription. She confirms that information is on prescription. Denies need for further information. Normal [facility] Progress Note-Physicianon Progress Note-Physician Patient: COURTNEY [...] noted. Plan Transfer/ Discharge: Condition stable. Normal [facility] Comment on above: Result Comment: Elec tronically Signed By: Ha Mitchell Jr., DO\.maria ines\Date and Time Signed: 03/30/20 12:31 EST Priority Order-Octavia 2020 Priority Order-STAT Comment Invalid Interpretation Code [facility] Comment on above: Result Comment: Rece ived Performed at: [facility] [address] [facility] [place] [id number] MD Vladimir Espinoza Performed By: #### 2 [id number], SARS-CoV-2, ROX ####[facility] [id number] [place] [address] SARS-CoV-2, NAAon 03-25-2020 SARS-CoV-2 (COVID-19) RNA ROX+probe Ql (Resp) Not detected Invalid Interpretation Code Not Detected [facility] Comment on above: Result Comment: This nucleic acid amplification test was developed and its performance characteristics determined by [facility]. Nucleic acid amplification tests include RT-PCR and [...] detected) result in this assay. Performed at: [facility] [address] [facility] [place] [id number] MD Vladimir Espinoza Performed By: #### 2 [id number], SARS-CoV-2, ROX ####[facility] [id number] [place] [address] Consent for Procedure/Surger yon 03-24-2020 Consent for Procedure/Surgery [id number]#1.00CD:127 Normal [facility] Physician Orderon 03-24-2020 Physician Order [id number]#1.00CD:127 Normal [facility] Ambulatory Clinical Summaryo n 03-23-2020 Ambulatory Clinical Summary {[id number]}CD:6143 68 Normal [facility] Gastroenterology Office/Clin ic Noteon 03-23-2020 Gastroenterology [...] bedtime), # 90 tab(s), Refills(s) 1, Pharmacy: [email or web address], 167, cm, 03/23/20 14:04:00 EST, Height/Length Dosing, 112.2, kg, 03/23/20 14:04:00 EST, Weight Dosing sucralfate, 1 gram = 1 tab(s), Oral, QID, # 120 tab(s), Refills(s) 0, Pharmacy: [facility] [facility] 167, cm, 03/23/20 14:04:00 EST, Height/Length Dosing, 112.2, kg, 03/23/20 14:04:00 EST, Weight Dosing EGD Endoscopy (Hospital Procedure) Office Visit Level 4 New [address]3753 2. Heartburn (R12: Heartburn) Ordered: famotidine, 40 mg = 1 tab(s), Oral, Once a day (at bedtime), # 90 tab(s), Refills(s) 1, Pharmacy: [facility] [place] [address] ST., 167, cm, 03/23/20 14:04:00 EST, Height/Length Dosing, 112.2, kg, 03/23/20 14:04:00 EST, Weight Dosing sucralfate, 1 gram = 1 tab(s), Oral, QID, # 120 tab(s), Refills(s) 0, Pharmacy: [facility] [place] [address]., 167, cm, 03/23/20 14:04:00 EST, Height/Length Dosing, 112.2, kg, 03/23/20 14:04:00 EST, Weight Dosing EGD Endoscopy (Hospital Procedure) Office Visit Level 4 New [address]28 3. Dysphagia (R13.10: Dysphagia, unspecified) Ordered: famotidine, 40 mg = 1 tab(s), Oral, Once a day (at bedtime), # 90 tab(s), Refills(s) 1, Pharmacy: [email or web address] 167, cm, 03/23/20 14:04:00 EST, Height/Length Dosing, 112.2, kg, 03/23/20 14:04:00 EST, Weight Dosing sucralfate, 1 gram = 1 tab(s), Oral, QID, # 120 tab(s), Refills(s) 0, Pharmacy: [email or web address] 167, cm, 03/23/20 14:04:00 EST, Height/Length Dosing, 112.2, kg, 03/23/20 14:04:00 EST, Weight Dosing EGD Endoscopy (Hospital Procedure) Office Visit Level 4 New 57564 4. Acute costochondritis (M94.0: Chondrocostal junction syndrome [Tietze]) Physical exam revealed significant tenderness at the sternal area suggestive of costochondritis, advised to take diclofenac while taking PPI and Pepcid Orders: ondansetron, 4 mg = 1 tab(s), Oral, q8hr, # 20 tab(s), Refills(s) 1, Pharmacy: [facility] [place] [address]., 167, cm, 03/23/20 14:04:00 EST, Height/Length Dosing, [...] 4 mg= 1 (more content not included)... [facility] Comment on above: Result Comment: Elec tronically Signed By: EJ HAYES, Paty\.br\Date and Time Signed: 03/23/20 15:09 EST Physician Orderon 03-23-2020 Physician Order [id number]#1.00CD:127 [facility] Historical Records Officeon 03-22-2020 Historical Records Office [id number]#[id number]:127 [facility] Vital Signs Date Time Vital Sign Value Performing Clinician Facility 11-12-2024 13:24040 Body height 167.64 cm Dilcia Warner MD Work Phone: [facility] 11-12-2024 13:24-0400 Body mass index (BMI) [Ratio] 41 kg/m2 Dilcia Warner MD Work Phone: [facility] 11-12-2024 13:24-040 Body temperature 97.9 [degF] Dilcia Warner MD Work Phone: [facility] 11-12-2024 13:24-0400 Body weight 115.21 kg Dilcia Warner MD Work Phone: [facility] 11-12-2024 13:24-0400 Diastolic blood pressure 82 mm[Hg] Dilcia Warner MD Work Phone: [facility] 11-12-2024 13:24-0400 Heart rate 67 /min Dilcia Warner MD Work Phone: [facility] 11-12-2024 13:24-0400 SaO2% (BldA) [Mass fraction] 97 % Dilcia Warner MD Work Phone: [facility] 11-12-2024 13:24-0400 Systolic blood pressure 124 mm[Hg] Dilcia Warner MD Work Phone: [facility] 09-25-2024 15:34-0400 Body height 167.64 cm Dilcia Warner MD Work Phone: [facility] 09-25-2024 15:34-0400 Body mass index (BMI) [Ratio] 40.3 kg/m2 Dilcia Warner MD Work Phone: [facility] 09-25-2024 15:34-0400 Body weight 113.39 kg Dilcia Warner MD Work Phone: [facility] 09-25-2024 15:34-0400 Diastolic blood pressure 70 mm[Hg] Dilcia Warner MD Work Phone: [facility] 09-25-2024 15:34-0400 Heart rate 95 /min Dilcia Warner MD Work Phone: [facility] 09-25-2024 15:34-0400 Systolic blood pressure 128 mm[Hg] Dilcia Warner MD Work Phone: [facility] 04-28-2024 11:27-0500 Body height 167.64 cm [facility] 04-28-2024 11:27-0500 Body mass index (BMI) [Ratio] 38.2 kg/m2 [facility] 04-28-2024 11:27-0500 Body temperature 97.1 [degF] [facility] 04-28-2024 11:27-0500 Body weight 107.5 kg [facility] 04-28-2024 11:27-0500 Diastolic blood pressure 84 mm[Hg] [facility] 04-28-2024 11:27-0500 Heart rate 112 /min [facility] 04-28-2024 11:27-0500 SaO2% (BldA) [Mass fraction] 95 % [facility] 04-28-2024 11:27-0500 Systolic blood pressure 130 mm[Hg] [facility] 02-11-2024 16:06-0500 Body height 167.64 cm [facility] 02-11-2024 16:06-0500 Body mass index (BMI) [Ratio] 38.9 kg/m2 [facility] 02-11-2024 16:06-0500 Body weight 109.31 kg [facility] 02-11-2024 16:06-0500 Diastolic blood pressure 74 mm[Hg] [facility] 02-11-2024 16:06-0500 Heart rate 80 /min [facility] 02-11-2024 16:06-0500 Systolic blood pressure 119 mm[Hg] [facility] 11-26-2023 09:41-0400 Body height 167.64 cm [facility] 10-24-2023 11:12-0400 Diastolic blood pressure 82 mm[Hg] Vee Lu MD Work Phone: [facility] 10-24-2023 11:12-0400 Heart rate 88 /min Vee Lu MD Work Phone: [facility] 10-24-2023 11:12-0400 Systolic blood pressure 110 mm[Hg] Vee Lu MD Work Phone: [facility] 10-24-2023 11:11-0400 Body height 167.6 cm Vee Lu MD Work Phone: [facility] 10-24-2023 11:11-0400 Body mass index (BMI) [Ratio] 37.45 kg/m2 Vee Lu MD Work Phone: [facility] 10-24-2023 11:11-0400 Body weight 105.23 kg Vee Lu MD Work Phone: [facility] 09-20-2023 09:16-0400 Body height 167.64 cm [facility] 09-20-2023 09:16-0400 Body mass index (BMI) [Ratio] 36.9 kg/m2 [facility] 09-20-2023 09:16-0400 Body temperature 98.6 [degF] [facility] 09-20-2023 09:16-0400 Body weight 103.87 kg [facility] 09-20-2023 09:16-0400 Diastolic blood pressure 73 mm[Hg] [facility] 09-20-2023 09:16-0400 Heart rate 103 /min [facility] 09-20-2023 09:16-0400 Systolic blood pressure 108 mm[Hg] [facility] 06-26-2023 15:01-0400 Body height 15.24 cm [facility] 06-26-2023 15:01-0400 Body mass index (BMI) [Ratio] 4510.9 kg/m2 [facility] 06-26-2023 15:01-0400 Body weight 104.77 kg [facility] 06-26-2023 15:01-0400 Diastolic blood pressure 74 mm[Hg] [facility] 06-26-2023 15:01-0400 Heart rate 75 /min [facility] 06-26-2023 15:01-0400 Systolic blood pressure 112 mm[Hg] [facility] 06-21-2023 15:23-0400 Body height 167.64 cm [facility] 06-21-2023 15:23-0400 Body mass index (BMI) [Ratio] 36.9 kg/m2 [facility] 06-21-2023 15:23-0400 Body weight 103.92 kg [facility] 06-21-2023 15:23-0400 Diastolic blood pressure 70 mm[Hg] [facility] 06-21-2023 15:23-0400 Heart rate 80 /min [facility] 06-21-2023 15:23-0400 Systolic blood pressure 104 mm[Hg] [facility] 05-17-2022 12:45-0400 Body height 165.1 cm Dilcia Warner Other [employer] Other 05-16-2022 14:45-0400 Body height 165.1 cm Dilcia Warner Other [employer] Other 05-16-2022 14:45-0400 Body mass index (BMI) [Ratio] 38.44 kg/m2 Dilcia Warner Other [employer] Other 05-16-2022 14:45-0400 Body weight 104.78 kg Dilcia Warner Other [employer] Other 05-16-2022 14:45-0400 Diastolic blood pressure 62 mm[Hg] Dilcia Warner Other [employer] Other 05-16-2022 14:45-0400 SaO2% (BldA) [Mass fraction] 97 % Dilcia Warner Other [employer] Other 05-16-2022 14:45-0400 Systolic blood pressure 108 mm[Hg] Dilcia Warner Other [employer] Other Encounters Encounter Date Encounter Type Care Provider Facility Start: 11-12-2024 End: 11-12-2024 ambulatory Dilcia Warner MD Work Phone: [facility] Work Phone: Start: 11-12-2024 End: 11-12-2024 Patient encounter procedure Catalina Valencia APRN HAUL CANE BRAKEMAN [facility] Work Phone: Start: 09-25-2024 End: 09-25-2024 ambulatory Dilcia Warner MD Work Phone: [facility] Work Phone: Start: 09-25-2024 End: 09-25-2024 Patient encounter procedure Dilcia Warner MD -[facility] Work Phone: Start: 09-18-2024 End: 09-18-2024 ambulatory DILCIA WARNER [facility] Start: 07-10-2024 End: 07-10-2024 ambulatory [facility] Work Phone: Start: 07-10-2024 End: 07-10-2024 Patient encounter procedure [facility] Work Phone: Start: 04-28-2024 End: 04-28-2024 ambulatory [facility] Work Phone: Start: 04-28-2024 End: 04-28-2024 Patient encounter procedure [facility] Work Phone: Start: 02-11-2024 End: 02-11-2024 Patient encounter procedure [facility] Work Phone: Start: 11-26-2023 End: 11-26-2023 ambulatory [facility] Work Phone: Start: 11-26-2023 End: 11-26-2023 Patient encounter procedure [facility] Work Phone: Start: 11-22-2023 End: 11-22-2023 Subsequent hospital visit by physician Julien Johnson [facility] Comment on above: Palpitations Start: 11-22-2023 End: 11-22-2023 ambulatory [facility] Start: 10-24-2023 End: 10-24-2023 ambulatory [facility] Start: 10-24-2023 End: 10-24-2023 Office outpatient new 45 minutes Vee Lu MD Work Phone: [facility] Comment on above: Palpitations (Primar y Dx); BMI 37.0-37.9, adult; Atypical chest pain; Abdominal pain, unspecified abdominal location; Anxiety disorder, unspecified type Start: 10-24-2023 End: 10-24-2023 [facility] Ambulatory Start: 09-20-2023 End: 09-20-2023 ambulatory [facility] Work Phone: Start: 09-20-2023 End: 09-20-2023 Patient encounter procedure [facility] Work Phone: Start: 09-11-2023 Non-patient / Non-visit [facility] Work Phone: Start: 09-11-2023 Non-patient / Non-visit [facility] Work Phone: Start: 08-07-2023 End: 08-07-2023 ambulatory [facility] Work Phone: Start: 08-07-2023 End: 08-07-2023 Patient encounter procedure [facility] Work Phone: Start: 07-25-2023 End: 07-25-2023 ambulatory [facility] Work Phone: Start: 07-25-2023 End: 07-25-2023 Patient encounter procedure [facility] Work Phone: Start: 06-26-2023 End: 06-26-2023 ambulatory [facility] Work Phone: Start: 06-26-2023 End: 06-26-2023 Patient encounter procedure [facility] Work Phone: Start: 06-21-2023 End: 06-21-2023 ambulatory [facility] Work Phone: Start: 06-21-2023 End: 06-21-2023 Patient encounter procedure [facility] Work Phone: Start: 04-18-2023 End: 04-18-2023 ambulatory [facility] Work Phone: Start: 04-18-2023 End: 04-18-2023 Patient encounter procedure [facility] Work Phone: Start: 04-05-2023 End: 04-05-2023 ambulatory Dilcia Warner Other [employer] Other Start: 04-05-2023 Telephone encounter Dilcia Warner [facility] Start: 03-20-2023 End: 03-20-2023 ambulatory Dilcia Timmy Other [employer] Other Start: 03-20-2023 Telephone encounter Dilcia Warner [facility] Start: 01-17-2023 End: 01-17-2023 ambulatory Dilcia Timmy Other [employer] Other Start: 01-17-2023 Telephone encounter Dilcia Warner [facility] Start: 11-16-2022 End: 11-16-2022 ambulatory Dilcia Timmy Other [employer] Other Start: 11-16-2022 Telephone encounter Dilcia Warner [facility] Start: 07-14-2022 End: 07-14-2022 ambulatory Dilcia Timmy Other [employer] Other Start: 07-14-2022 Telephone encounter Dilcia Warner [facility] Start: 07-13-2022 End: 07-13-2022 ambulatory Dilcia Timmy Other [employer] Other Start: 07-13-2022 Telephone encounter Dilcia Warner [facility] Start: 06-15-2022 End: 06-15-2022 ambulatory Dilcia Warner Other [employer] Other Start: 06-15-2022 Telephone encounter Dilcia Warner [facility] Start: 05-26-2022 (Televisit) Televisit Dilcia Warner [facility] Start: 05-26-2022 End: 05-26-2022 ambulatory Dilcia Warner Other [employer] Other Start: 05-18-2022 End: 05-20-[address] DILCIA WARNER Facility:[facility] Start: 05-18-2022 Telephone encounter Dilcia Warner [facility] Start: 05-17-2022 (Televisit) Televisit Dilcia Warner [facility] Start: 05-17-2022 End: 05-17-2022 ambulatory Dilcia Warner Other [employer] Other Start: 05-16-2022 End: 05-17-[address] DILCIA WARNER Facility:[facility] Start: 05-16-2022 Office outpatient vi sit 25 minutes Dilcia Warner [facility] Start: 05-11-2022 End: 05-11-2022 ambulatory Dilcia Wanrer Other [employer] Other Start: 05-11-2022 Telephone encounter Dilcia Warner [facility] Start: 04-10-2022 End: 04-10-2022 ambulatory Dilcia Warner Other [employer] Other Start: 04-10-2022 Telephone encounter Dilcia Warner [facility] Start: 04-05-2022 End: 04-05-[address] DILCIA WARNER Facility:[facility] Start: 03-21-2022 End: 03-21-2022 ambulatory Dilcia Warner Other [employer] Other Start: 03-21-2022 Telephone encounter Dilcia Warner [facility] Start: 03-17-2022 (Televisit) Televisit Dilcia Warner [facility] Start: 03-17-2022 End: 03-17-2022 ambulatory Dilcia Warner Other [employer] Other Start: 03-17-2022 Telephone encounter Dilcia Warner [facility] Start: 08-03-2021 End: 08-04-2021 ambulatory DILCIA WARNER [facility] Start: 08-03-2021 End: 08-03-2021 Subsequent hospital visit by physician Dilcia Warner MD Work Phone: [facility] Laboratory Comment on above: Pain syndrome, chron [...] Start: 12-29-2016 End: 12-30-2016 Ambulatory DEFAULT PHYSICIAN Facility:[facility] Procedures Date Procedure Procedure Detail Performing Clinician Start: 10-24-2023 Ecg routine ecg w/le ast 12 lds w/i&r Vee Lu MD Work Phone: Start: 07-03-2023 Mammography Vee england MD Work Phone: Start: 08-03-2021 End: 08-03-2021 Assay of free thyroxine Whitney Orourke [facility] ALIGNER TYPEWRITER - CNM Work Phone: Screening for malign ant neoplasm of breast Dilcia Warner Other Plan of Treatment Date Care Activity Detail Author Start: 2028 Zoster Vaccines (1 o f 2) Zoster Vaccines (1 of 2) [facility] Start: 07-02-2024 Screening for malign ant neoplasm of breast Mammogram [facility] Start: 02-15-2024 End: 02-15-2024 Patient encounter procedure 02/15/2024 11:00 AM EST Office Visit [facility] [address] [place] [address] Vee Lu MD [address] [facility] [address] [place] [address] [facility] Start: 11-04-2023 COVID-19 Vaccine ( season) COVID-19 Vaccine ( season) [facility] Start: 11-04-2023 Influenza vaccination Influenza Vacc ine (#1) [facility] Start: 10-24-2023 End: 10-23-2024 CT for calcium scoring WO contrast and CTA W contrast IV Heart and coronary arteries CT cardiac scoring wo IV contrast Imaging Routine Palpitations Expected: 10/24/2023 (Approximate), Expires: 10/23/2024 [facility] Work Phone: Comment on above: Expected: 10/24/2023 (Approximate), Expires: 10/23/2024 Start: 10-24-2023 End: 10-23-2024 Holter monitor study Holter Or Event Can Sterilizer Cardiac Services Routine Palpitations Expected: 10/24/2023 (Approximate), Expires: 10/23/2024 [facility] Service Area Work Phone: Comment on above: Expected: 10/24/2023 (Approximate), Expires: 10/23/2024 Start: 10-24-2023 End: 10-24-2023 Professional / ancillary services management 10/24/2023 1:15 PM EDT Ancillary Procedure [facility] [address] [place] [address] Palpitations [facility] Comment on above: Palpitations Start: 11-03-2022 COVID-19 Vaccine ( season) COVID-19 Vaccine ( season) [facility] Start: 11-03-2021 Influenza vaccination Flu vacc ine (Season Ended) [facility] Start: 08-16-2021 End: 08-16-2021 Patient encounter procedure 08/16/2021 Office Visit Obstetrics and Gynecology Whitney Quan, ALIGNER TYPEWRITER - CNM [address] [facility] [address] [place] [address] [facility] of [facility] Start: 2018 Lipid panel Lipids [facility] Start: 2013 Diabetes screen Diabetes screen [facility] Start: 2000 DTaP/Tdap/Td Vaccine s (1 - Tdap) DTaP/Tdap/Td Vaccines (1 - Tdap) [facility] Start: 10-08-1999 Screening for malign ant neoplasm of cervix [facility] Start: 1997 DTaP/Tdap/Td vaccine (1 - Tdap) DTaP/Tdap/Td vaccine (1 - Tdap) [facility] Start: 1997 Hepatitis B Vaccines (1 of 3 - 19+ 3-dose series) Hepatitis B Vaccines (1 of 3 - 19+ 3-dose series) [facility] Start: 1996 Diabetes mellitus screening Diabetes Screening [facility] Start: 1996 Hepatitis C screening [facility] Start: 1993 HIV screening HIV screen [facility] Start: 1990 Depression Screen Depression Screen [facility] Start: 1984 Pneumococcal Vaccine : Pediatrics (0 to 5 Years) and At-Risk Patients (6 to 64 Years) (1 of 2 - PCV) Pneumococcal Vaccine: Pediatrics (0 to 5 Years) and At-Risk Patients (6 to 64 Years) (1 of 2 - PCV) [facility] Start: 10-08-1983 COVID-19 Vaccine (1) COVID-19 Vaccin e (1) [facility] Start: 10-08-1979 MMR Vaccines (1 of 1 - Standard series) MMR Vaccines (1 of 1 - Standard series) [facility] Start: 1978 HIV screening HIV Screening [facility] Start: 1978 Lipid panel Lipid Panel [facility] Start: 1978 Screening for malign ant neoplasm of colon [facility] Start: 1978 Yearly Adult Physical Yearly Adult P [facility] End: 11-22-2023 CT for calcium scoring WO contrast and CTA W contrast IV Heart and coronary arteries [facility] Service Area Work Phone: Comment on above: Once for 1 Occurrenc es starting 11/22/2023 until 11/22/2023 End: 08-03-2021 Josh Felder Virus (EBV) Antibody Panel I Josh Felder Virus (EBV) Antibody Panel I Lab Routine Pain syndrome, chronic 1 Occurrences starting 08/03/2021 until 08/03/2021 [employer] Work Phone: Comment on above: 1 Occurrences starti ng 08/03/2021 until 08/03/2021 MG Breast - bilatera l Diagnostic [facility] End: 08-03-2021 Thyroid Peroxidase Antibody [employer] Phone: Comment on above: 1 Occurrences starti ng 08/03/2021 until 08/03/2021 US Breast - right limited [facility] Payers Date Payer Category Payer Unknown [id number] 2023 Unknown 2023 Unknown [id number] 1978 Unknown [id number] [id number] 1978 Unknown [id number] 2.840.1.457010.3.579.2.355 1978 Unknown [id number] 2.840.1.797615.3.579.2.173 1978 Unknown [id number] 2.840.1.952420.3.579.2.593 1978 Unknown [id number] 2.840.1.349520.3.579.2.593 1978 Unknown [id number] 2.16.840.1.045414.3.579.2.593 1978 Unknown [id number] 2.16.840.1.068857.3.579.2.593 1978 Unknown [id number] 2.16.840.1.725165.3.579.2.593 1978 Unknown [id number] 2.16.840.1.145932.3.579.2.593 1978 Unknown [id number] 2.16.840.1.630211.3.579.2.593 1978 Unknown [id number] 2.16.840.1.131780.3.579.2.593 1978 Unknown [id number] 2.16.840.1.620639.3.579.2.124 4 1978 Unknown [id number] 2.16.840.1.050233.3.579.2.124 4 1978 Unknown [id number] 2.16.840.1.728778.3.579.2.124 3 1978 Unknown [id number] 2.16.840.1.541113.3.579.2.128 6 1978 Unknown [id number] 2.16.840.1.235547.3.579.2.128 6 1959 [facility] [id number] 2.16.840.1.916432.19 1959 Private Health Insurance [id number] Self-pay Self Pay [id number] Unknown [id number] Unknown HCAP/HFA/FAP Active [id number] Social History Date Type Detail Facility Start: 03-20-2017 End: 05-08-2025 Tobacco smoking status TNIS Ex-smoker [employer] Phone: Start: 03-20-2017 End: 10-24-2023 Tobacco use and exposure Smokeless tobacco non-user [employer] Phone: Start: 08-03-2021 Alcohol intake Ex-drinker (finding) [employer] Phone: Start: 1980 Sex Assigned At Not on file B [facility] [employer] Work Phone: Start: 10-24-2023 Sex Assigned At N [facility] [employer] Other Start: 1980 Sex Assigned At Female F [facility] History of tobacco use Current smoker [facility] Work Phone: History of tobacco use Cigarette Smoker [facility] Work Phone: Start: 10-24-2023 Alcoholic beverage intake Lifetime non-drinker (finding) [facility] Work Phone: Start: 10-14-2023 End: 11-22-2023 Exposure to SARS-CoV-2 (event) Not sure [facility] Start: 10-24-2023 History of Social function [facility] Work Phone: Start: 04-28-2024 End: 07-10-2024 Sex Female (finding) [facility] Clinical Notes 03-31-2020 to 09-25-2024 Note Date & Type Note Facility 09-25-2024 Evaluation note Diagnosis Onset Date Resolution Anxiety acute September 25 3:29pm Cellulitis of foot without toes, left acute September 25 3:29pm Insomnia acute September 25 3:29pm Otitis media, right acute Septe mb2024 1:19pm [facility] Work Phone: 1([phone]) 131-872505-08-2025 Evaluation note* Diagnosis Onset Date Resolution Status Admit Date Acute seasonal allergic rhinitis acu te July 10, 2024 3:50pm [facility] Work Phone: 1(351) 503-776102-24-2025 Evaluation note* Diagnosis Onset Date Resolution Status Admit Date Influenza A acute April 11:22am [facility] Work Phone: 1([phone]) 455-328612-09-2024 Evaluation note* Diagnosis Onset Date Resolution Status Admit Date Anxiety acute February 11, 2024 3:51pm IBS (irritable bowel syndrome) acute February 10 3:51pm Insomnia acute February 11, 2024 3:51pm Influenza A acute April 11:22am [facility] Work Phone: 1(712) 427-786108-21-2024 NoteNormal sinus rhythm with poor R wave progression anterior lead subtle nonspecific ST-T changes. Unchanged from previous [id number] History of Present illness Narrative* Vee Lu MD - 10/24/2023 10:50 AM EDT Cardiology Consultation- New Consult Reason for referral: palps HPI: Courtney Martinez is a 43 y.o. female here for evaluation for symptoms of palpitation. She selfschedule this appointment following recent ER visit. Patient had been seen by our group in the pastfor similar complaint. Back in 2018 she underwent stress test echocardiogram and 30-day event monitor all of it appears to be reassuring. Patient admit to high level of anxiety. She reports she has been having some GI symptomatology apparently her abdominal pain was of an clear etiology despite GI workup. Patient reports symptoms of intermittent palpitation. She describe a bit of lightheadedness with that. There is no clear precipitating, alleviated or associated symptoms other than mentioned above. She had normal functional status. Her baseline EKG showed sinus rhythm with normal QTc interval and MD interval. Patient denies syncope. She denies chest pain. She denies any exertional symptomatology. There is family history of premature coronary artery disease. Assessment 1. Palpitation I suspect PACs or PVCs based on her description. I reviewed her workup back in 2018 including her echo stress test and event monitor which all appear reassuring 2. Obesity with BMI of 37 3. Anxiety disorder 4. Abdominal pain 5. History of premature coronary artery disease in the family 6. Borderline abnormal EKG showing nonspecific ST-T changes unchanged from previous EKG in our office back in 2018 Plan 1. I recommended the patient to have an event monitor and I advised her to have a heart rate monitoring device 2. Advised to take magnesium oxide 400 mg p.o. twice daily 3. I reassured her based on her previous cardiac workup 4. I advised her to follow-up after testing is done Past Medical History: She has no past medical history on file. Surgical History: She has a past surgical history that includes Ovary surgery; Hysterectomy; Partial hysterectomy; Total knee arthroplasty (Bilateral); Cholecystectomy; Appendectomy; Tonsillectomy; Colonoscopy w/ polypectomy; and Esophagogastroduodenoscopy. Family History: Family History Problem Relation Name Age of Onset Heart disease Mother Blood clot Father Aortic aneurysm Father Heart disease Brother Social History: Social History Tobacco Use Smoking status: Former Types: Cigarettes Smokeless tobacco: Never Substance Use Topics Alcohol use: Never Allergies: Amoxicillin, Clindamycin, Erythromycin, Latex, Penicillins, and Sulfa (sulfonamide antibiotics) Current Medications: Current Outpatient Medications: ALPRAZolam (Xanax) 1 mg tablet, take 1 tablet by mouth every day at bedtime for 30 days, Disp: , Rfl: estradiol (Estrace) 1 mg tablet, Take 1 tablet (1 mg) by mouth once daily., Disp: , Rfl: hyoscyamine (Anaspaz, Levsin) 0.125 mg tablet, Take 1 tablet (0.125 mg) by mouth every 4 hours if needed., Disp: , Rfl: metoclopramide (Reglan) 5 mg tablet, TAKE 1 TABLET FOUR TIMES DAILY, BEFORE MEALS AND IN THE EVENING, Disp: , Rfl: pantoprazole (ProtoNix) 40 mg EC tablet, Take 1 tablet (40 mg) by mouth 2 times a day., Disp: , Rfl: Vitals: Vitals: 10/24/23 1111 10/24/23 1112 BP: 118/84 110/82 BP Location: Right arm Left arm Patient Position: Sitting Sitting Pulse: 88 88 Weight: 105 kg (232 lb) Height: 1.676 m (5' 6 ) EKG done in office today Review of Systems Constitutional: Positive for malaise/fatigue. Cardiovascular: Positive for palpitations. Neurological: Positive for light-headedness. All other systems reviewed and are negative. Objective Physical Exam Constitutional: Appearance: Normal appearance. HENT: Nose: Nose normal. Neck: Vascular: No carotid bruit. Cardiovascular: Rate and Rhythm: Normal rate. Pulses: Normal pulses. Heart sounds: Normal heart sounds. Pulmonary: Effort: Pulmonary effort is normal. Abdominal: General: Bowel sounds are normal. Palpations: Abdomen is soft. Musculoskeletal: General: Normal range of motion. Cervical back: Normal range of motion. Right lower leg: No edema. Left lower leg: No edema. Skin: General: Skin is warm and dry. Neurological: General: No focal deficit present. Mental Status: She is alert. Psychiatric: Mood and Affect: Mood normal. Behavior: Behavior normal. Thought Content: Thought content normal. Judgment: Judgment normal. Assessment and Plan: 1. Abdominal pain, unspecified abdominal location 2. Palpitations Follow Up In Cardiology ECG 12 Lead Holter Or Event Can Sterilizer CT cardiac scoring wo IV contrast 3. BMI 37.0-37.9, adult 4. Atypical chest pain 5. Anxiety disorder, unspecified type Scribe Attestation By signing my name below, Shruthi Gallegos LPN, Scribe attest that this documentation has been prepared under the direction and in the presence of MD Balbina. Provider Attestation - Scribe documentation All medical record entries made by the Scribe were at my direction and personally dictated by me. Maureen reviewed the chart and agree that the record accurately reflects my personal performance of the history, physical exam, discussion and plan. [facility] Work Phone: 1(211) 493-857208-21-2024 Instructions* Patient Instructions* Emely Lei CMA - 10/24/2023 10:50 AM EDT Please bring all medicines, vitamins, and herbal supplements with you when you come to the office. Prescriptions will not be filled unless you are compliant with your follow up appointments or have a follow up appointment scheduled as per instruction of your physician. Refills should be requested at the time of your visit. [facility] Work Phone: 1(428) 372-491904-13-2023 Evaluation note* Encounter Date Diagnosis Assessment Notes Treatment Notes Treatment Clinical Notes Jun, Gastro-esophageal reflux disease without esophagitis (ICD-10 - K21.9) [employer] Other 03-24-2023 Evaluation note* Encounter Date Diagnosis Assessment Notes Treatment Notes Treatment Clinical Notes May, Left upper quadrant abdominal pain (ICD-10 - R10.12) Ongoing issue - previously saw local GIs and a group in [facility]. Requests a new opinion. Had recent scopes last fall in [place]. Pain was increased last week which prompted hospitalization. Will place referral as requested. [employer] Other 03-15-2023 Evaluation note* Encounter Date Diagnosis Assessment Notes Treatment Notes Treatment Clinical Notes May, LUQ pain (ICD-10 - R10.12) CT and [facility] appts pending. will help symptoms with meds below. May, Nausea (ICD-10 - R11.0) [employer] Other 03-14-2023 Evaluation note* Encounter Date Diagnosis Assessment Notes Treatment Notes Treatment Clinical Notes May, Acute LUQ pain (ICD-10 - R10.12) Pt has an ongoing history of GI complaints. Previously seen at several local offices and in [place]. Will refer to [facility]. Courtney requests tests today to focus on the LUQ pain. Will rule out bowel obstruction and conspation. May, Fibromyalgia (ICD-10 - M79.7) Notes generalized muscle pain and discomfort. 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 Advised she followup with her surgeon. She had her ob gyn surgery by Dr. Ayala in [place] May, Hormone replacement therapy (ICD-10 - Z79.890) Continues on estradiol May, Other obesity due to excess calories (ICD-10 - E66.09) May, Body mass index [BMI ] 38.0-38.9, adult (ICD-10 - Z68.38) States her weight is stable despite very limited diet. [employer] Other 01-13-2023 Evaluation note* Encounter Date Diagnosis [...] verbalizes understanding and agrees with tx plan. [employer] Other 10-18-2021 NoteHNO ID: [id number] Author: Mane Rosa PA-C Service: ? Author Type: Physician Claim Professional Type: Progress Notes Filed: 12/20/2020 3:54 PM Note Text: Pt can be seen first available with me. 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 No PT [facility] NoteHNO ID: [id number] Author: Eulalia Weiss Service: ? Author Type: ? Type: Progress Notes Filed: 12/20/2020 3:54 PM Note Text: Patient name: Courtney Amaral Are you being referred by a [facility] Provider or Pain Management Provider at [facility]? No If answer is YES please [...] facility where the MRI/CT/myelogram was completed: [facility] [address] [place] [address] MRI/CT/myelogram viewable in Epic: No If not, please provide [phone] to fax in imaging reports for review. [...] of where the surgery was completed: ~ 2016 Lumbar surgery [facility] [address] [place] [address] Additional Comments [phone]01-27-2021 Note [id number]:[address] [place] [address] Evaluation note* Diagnosis Pain syndrome, chronic Chronic pain syndrome Weight gain Abnormal weight gain documented in this encounter [facility] Work Phone: evaluation noteNo [employer] Other Evaluation note* Diagnosis Onset Date Resolution Status Sinusitis, acute maxillary a cute [facility] Work Phone: Evaluation note* Diagnosis Onset Date Resolution Status Anxiety acute Esophageal reflux acute Insomnia acute [facility] Work Phone: Evaluation note* Diagnosis Onset Date Resolution Status Anxiety acute Esophageal reflux acute Insomnia acute Breast mass, right acute [facility] Work Phone: Evaluation note* Diagnosis Onset Date Resolution Status Anxiety acute Esophageal reflux acute Insomnia acute Breast mass, right acute Insomnia acute [facility] Work Phone: Evaluation note* Diagnosis Onset Date Resolution Status Breast mass, right acute Anxiety acute Insomnia acute Migraine acute [facility] Work Phone: Evaluation note* Diagnosis Onset Date Resolution Status Sinusitis, acute maxillary a cute Anxiety acute Insomnia acute Sinusitis, acute maxillary a cute [facility] Work Phone: Evaluation note* Diagnosis Palpitations- Primary BMI 37.0-37.9, adult Atypical chest pain Other chest pain Abdominal pain, unspecified abdominal location Anxiety disorder, unspecified type Palpitations documented in this encounter [facility] Work Phone: Evaluation note* Diagnosis Palpitations documented in this encounter [facility] Work Phone: History general Narrative - Reported* Type Description Date Medical History fibromyalgia Medical History chronic depression Medical History Anxiety disorder Medical History Esophageal reflux Surgical History hysterectomy Surgical History right and left knee scope Surgical History 8 scopes on ovaries Surgical History appendectomy Surgical History cholecystectomy Surgical History tonsillectomy and adenoidectomy Hospitalization History see above [employer] Other Reason for referral (narrative)No reason for referral information availableThe [facility] Work Phone: Summary Purpose Family History Relationship Condition Age at Onset Recorded Date/T bernardino father Aneurysm Unknown Unknown Advance Directives Documents on File Type Date Recorded 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 ACP-Advance Directive ACP-[employer] Consultant Advance Directive Response Recorded Date/ Time Advance Directives No August 05 10:59am Advance Directive Response Recorded Date/ Time Advance Directives No August 05 11:59am Advance Directive Response Recorded Date/ Time Advance Directives No July 10, 2024 3:50pm Reason for Referral Specialty Diagnoses / Procedures Referred By Contac t Referred To Contact Radiology Diagnoses Palpitations Procedures CT cardiac scoring wo IV contrast Vee Lu MD [address] [facility] [address], [address] [address] Referral ID Status Reason Start Date Expiration Date Visits Requested Visits Authorized [id number] Pending Review Perform Procedure 10/24/2023 10/23/2024 1 1 Specialty Diagnoses / Procedures Referred By Contac t Referred To Contact Cardiology Diagnoses Palpitations Procedures Holter Or Event Can Sterilizer Vee Lu MD [address] [facility] [address], [address] [place] [address] Referral ID Status Reason Start Date Expiration Date V isits Requested Visits Authorized [id number] Pending Review 10/24/2023 10/23/2024 1 1 Specialty Diagnoses / Procedures Referred By Contac t Referred To Contact Diagnoses Palpitations Procedures ECG 12 Lead Vee Lu MD [address] [place] [address] Referral ID Status Reason Start Date Expiration Date V isits Requested Visits Authorized [id number] Authorized 10/24/2023 10/23/2024 1 1 Specialty Diagnoses / Procedures Referred By Contac t Referred To Contact Cardiology Diagnoses Palpitations Procedures Follow Up In Cardiology Vee Lu MD [address] [facility] [address], [address] [place] [address] Vee Lu MD [address] [facility] [address], [address] [place] [address] Referral ID Status Reason Start Date Expiration Date V isits Requested Visits Authorized [id number] Authorized 10/24/2023 10/23/2024 1 1 Reason *FU 06/02 Vielka laura MD in [place] - LUQ pain. Recent hospitalization. Pt insurance told her this office would take her [place]. Thanks. Diagnosis 1 Left upper quadrant abdominal pain (R10.12) Referral Organization [facility] Samy lowe Referring Provider First Name Dilcia Referring Provider Last Name Timmy Referring Provider Specialty Family [facility] cine Referred Organization Unknown Facility Referred Provider Specialty Gastroentero logy Referral Priority Routine General Notes Kelsey Rice 09:59:29 AM >RECEIVED TODAY, ATTACHMENTS MADE, NOTES LOCKED, REFERRAL FAXED Clinical Notes p: [phone] f: [phone] Reason *FU 06/[address] Gallardo in [place] [facility]. Continues to have abd pain and frequent diarrhea. Thanks Diagnosis 1 Acute LUQ pain (R10. 12) Referral Organization [facility] mynor Referring Provider First Name Dilcia Referring Provider Last Name Timmy Referring Provider Specialty Family [facility] cine Referred Organization [facility] Referred Address [address] [place], [place],[id number] Referred Provider Specialty Gastroentero logy Referral Priority [...] max illary Anxiety Insomnia Sinusitis, acute maxillary Chief Complaint Admit Date Med f/u February 11, 2024 3 :51pm URI/Chest Congestion April 28, 2024 11:22am Reason for Visit Admit Date Anxiety February 11, 2024 3 :51pm IBS (irritable bowel syndrome) February 11, 2024 3:51pm Insomnia February 11, 2024 3 :51pm Influenza A April 28, 2024 11:22am Chief Complaint Admit Date URI/Chest Congestion April 28, 2024 11:22am allergy shot July 10, 2024 3:50pm Reason for Visit Admit Date Influenza A April 28, 2024 11:22am Chief Complaint Admit Date allergy shot July 10, 2024 3:50pm L Foot Wound September 25, 2024 3:29 pm Reason for Visit Admit Date Acute seasonal allergic rhinitis July 3:50pm Chief Complaint Admit Date L Foot Wound September 25, 2024 3:29 pm R Ear Pain November 12, 2024 1:19pm Reason for Visit Admit Date Anxiety September 25, 2024 3:29 pm Cellulitis of foot without toes, left Ju ly 2024 3:29pm Insomnia September 25, 2024 3:29 pm Otitis media, right November 12, 2024 1:19pm Additional Source Comments INFORMATION SOURCE (unrecogn ized section and content) DATE CREATED AUTHOR 08/28/2017 [facility] DATE CREATED AUTHOR AUTHOR'S ORGANIZ ATION 01/31/2018 [facility] DATE CREATED AUTHOR AUTHOR'S ORGANIZ ATION 02/01/2018 [facility] DATE CREATED AUTHOR AUTHOR'S ORGANIZ ATION 06/24/2020 [facility] DATE CREATED AUTHOR AUTHOR'S ORGANIZ ATION 04/14/2021 [facility] DATE CREATED AUTHOR AUTHOR'S ORGANIZ ATION 08/08/2021 [facility] DATE CREATED AUTHOR AUTHOR'S ORGANIZ ATION 05/24/2022 [facility] DATE CREATED AUTHOR AUTHOR'S ORGANIZ ATION 11/29/2023 [facility] DATE CREATED AUTHOR AUTHOR'S ORGANIZ ATION 11/30/2023 [facility] DATE CREATED AUTHOR AUTHOR'S ORGANIZ ATION 09/22/2024 [facility] Care Teams (unrecognized sec tion and content) Team Status: Active Member Role Status Dates Dilcia Warner MD Primary Care Provider Active Team Status: Inactive Member Role Status Dates Dilcia Warner MD Primary Care Provide r, Attending Provider Active Start: February 11, 2024 End: February 11, 2024 Team Status: Inactive Member Role Status Dates Dilcia Warner MD Primary Care Provider Active Start: April 28, 2024 End: April 28, 2024 Catalina Valencia APRN CYBER FORENSICS ANALYST-C Attending Provider Active Start: April End: April 28, 2024 Team Status: Active Member Role Status Dates [...] November 26, 2023 End: November 26, 2023 Accounts Payable Specialist Relationship Specialty Start Date End Date Dilcia [...] End: July 25, 2023 Catalina Valencia APRN CYBER FORENSICS ANALYST-C Attending Provider Act uriel Start: July 25, 2023 End: July 25, 2023 Team Status: Inactive Member Role Status Dates Dilcia Warner MD Primary Care Provide r, Attending Provider Active Start: August 07, 2023 End: August 07, 2023 Accounts Payable Specialist Relationship Specialty Start Date End Date Dilcia Warner MD [address] [place] [address] PCP - General Family Medicine 10/24/23 Accounts Payable Specialist Relationship Specialty Start Date End Date Dilcia Warner MD [address] [place] [address] [address] [place] [address] PCP - General Family Medicine 10/24/23 Team Status: Active Member Role Status Dates Dilcia Warner MD Primary Care Provide r, Attending Provider Active Start: July 10, 2024 Team Status: Inactive Member Role Status Dates Dilcia Warner MD Primary Care Provide r, Attending Provider Active Start: July 10, 2024 End: July 10, 2024 Team Status: Inactive Member Role Status Dates Dilcia Warner MD Primary Care Provider Active Start: July 10, 2024 End: July 10, 2024 Dilcia Warner MD Attending Provider Active St art: July 10, 2024 End: July 10, 2024 Team Status: Inactive Member Role Status Dates Dilcia Warner MD Primary Care Provider Active Start: September 25, 2024 End: September 25, 2024 Dilcia Warner MD Attending Provider Active St art: September 25, 2024 End: September 25, 2024 Team Status: Inactive Member Role Status Dates Dilcia Warner MD Primary Care Provider Active Start: November 12, 2024 End: November 12, 2024 Catalina Valencia APRN CYBER FORENSICS ANALYST-C Attending Provider Active Start: November End: November 12, 2024 REASON FOR VISIT (unrecogniz ed section and content) Reason Comments New Patient Visit Self referral [facility] Specialty Diagnoses / Procedures Referred By Misa collins Referred To Contact Diagnoses Palpitations Procedures ECG 12 Lead Vee Lu MD [address] [place] [address] 2, Max [address] [place] [id number] Referral ID Status Reason Start Date Expiration Date V isits Requested Visits Authorized [id number] Authorized 10/24/2023 10/23/2024 1 1 Specialty Diagnoses / Procedures Referred By Misa collins Referred To Contact Radiology Diagnoses Palpitations Procedures CT cardiac scoring wo IV contrast Vee Lu MD [address] [place] [address] 2, [address] [place] [address] Referral ID Status Reason Start Date Expiration Date Visits Requested Visits Authorized [id number] Pending Review Perform Procedure 10/24/2023 10/23/2024 1 1 Goals (unrecognized section and content) Goals may [...] BE BASED ON THE PRIMARY CLINICAL RECORDS. [facility] [employer] provides no warranty or guarantee of the accuracy or completeness of information in this document.
== END 2024-11-19 17:02 | disposition home or self-care (01) ==
PROVIDERS: PCP Family Medicine; Visit Provider Family Medicine
DX: M54.12 Radiculopathy, cervical region (principal)
CPT/HCPCS: 72050

== ENCOUNTER 2024-12-25 08:08 | Outpatient (OUT) | payer BC, SELFPAY ==
--- OUTSIDE RECORDS SUMMARY | 2024-12-25 08:12 | XMS_ITS | Clinical Summary ---
Author Organization [facility] Address [address] [place] [address] Care Team Providers Care Banking Pin Adjuster Name Role Phone Mary Lujan PERSONAL BANKER Unavailable [phone] Grace Miramontes MD Primary Care Provider [phone] Grace Miramontes MD Unavailable [phone] Medications MedicationSigDispense QuantityRefillsLast FilledStart DateEnd DateStatus venlafaxine ER (EFFEXOR XR) 150 mg 24 hr capsule Take 150 mg by mouth once daily.Active gabapentin (NEURONTIN) 300 mg capsule Indications:Paresthesia of skinTake 1 capsule by mouth once daily for 90 days. 30 capsule Active Active Problems No known active problems Social History Tobacco UseTypesPacks/DayYears UsedDateSmoking Tobacco: Never AssessedArea Deprivation IndexAnswerDate RecordedNational Score (1-100), lower number is lower riskNot on file02/12/2020State Score (1-10), lower number is lower riskNot on file02/12/2020Data from: https://www.neighborhoodatlas.medicine.[facility].edu/. Last address used for calculationNot on file02/12/2020CommentsUnknownSex and Gender InformationValueDate RecordedSex Assigned at BirthNot on fileLegal YusNxjfzt32/04/2019 9:57 AM EDTGender IdentityNot on fileSexual OrientationNot on file Last Filed Vital Signs Vital SignReadingTime TakenCommentsBlood Jtalbpry159/7709 8:49 AM EDT Citwc6923 8:49 AM EDTTemperature--Respiratory Rate--Oxygen Saturation-- Inhaled Oxygen Concentration--Weight--Height--Body Mass Index-- Plan of Treatment Health MaintenanceDue DateLast DoneCommentsAnxiety Xzkmflcdd91/05/1997Depression Kvqvxamee37/05/1997HIV Ycrwpfcqb49/05/1997Hepatitis C Sunaqqfjm01/05/1997 DTaP,Tdap,Td Vaccine (1 - Tdap)1997Hepatitis B Vaccine (1 of 3 - 19+ 3- dose series)1997Cervical Cancer Hzlhrxflz76/05/2000Mammogram Screening 2018CT Gglwxfsgfrxv58/05/2024ologuard (FIT-DNA)4Colonoscopy , 03/11/2018Colorectal Cancer Cbbgjiwli44/05/2024Fecal Occult Blood10/08/20236589Okeeoufwubtub53/05/2024ovid-19 Vaccine (1 - 2024- season)2024Influenza Vaccine (#1)2024Diabetes Jcyxmsijm25/02/2025 12/04/2021, 12/02/2021, 11/21/2021, Additional history existsLipid Screening 6007/07/2020 Insurance MemberSubscriberPlan / Payer (Effective 2022-Present)Name:Courtney Martinez Relation to Subscriber:SelfName:Courtney Martinez Payer ID:[id number] (NAIC) Type:PPO Address: [facility] [id number] [place] [id number] Care Teams Team MemberRelationshipSpecialtyStart DateEnd Date Grace Miramontes MD [address] [place] [phone] PCP - GeneralFamily Suidayit16/9/22 Mary Lujan, PERSONAL BANKER [address] [place] [address] Ejrnhmrva24/8/22 Grace Miramontes MD [address] [place] [phone] ReferringFamily Medicine05/18/22
--- OUTSIDE RECORDS SUMMARY | 2024-12-25 08:12 | XMS_ITS | Clinical Summary ---
Author Organization [facility] Address [address] [place] [address] Care Team Providers Care Secretary Name Role Phone Unavailable Primary Care Provider Unavailabl e Social History Tobacco UseTypesPacks/DayYears UsedDateSmoking Tobacco: Never Assessed CommentsUnknownSex and Gender InformationValueDate RecordedSex Assigned at Not on fileLegal NxkAhliuk70/15/2023 6:51 PM EDTGender IdentityNot on fileSexual OrientationNot on file Last Filed Vital Signs Vital SignReadingTime TakenCommentsBlood Eareedpo902/8002 12:00 PM EST Pulse--Temperature--Respiratory Rate--Oxygen Saturation--Inhaled Oxygen Concentration--Xwipvs633 kg (244 lb)12/02/2019 12:00 PM CTHZymhsx728.6 cm (5' 6 )12/02/2019 12:00 PM EDTBody Mass Index39.38012/02/2019 12:00 PM EDT Plan of Treatment Not on file
--- OUTSIDE RECORDS SUMMARY | 2024-12-25 08:13 | XMS_ITS | Clinical Summary ---
Author Organization [facility] Address [address], [address] [place] [address] Care Team Providers Care Assembly Associate Name Role Phone Grace Miramontes MD Primary Care Provider [phone] Allergies Active AllergyReactionsCriticalityNoted ZaheQchezittNalwhzkhekh34/16/2018 Ujldatcpiiuncu05/16/2018Clindamycin/Ntbdckilvt96/16/2018ErythromycinSwelling 06/18/2020strogensOther (See Comments)High08/03/2021 Recommendation against use by breast surgeon DgteiCilaw96/16/5824JavoinkxwfgJqmiwdic47/16/2018Sulfa Pboegybvrwy45/16/2018 Medications MedicationSigDispense QuantityRefillsLast FilledStart DateEnd DateStatus ALPRAZolam (XANAX) 0.5 MG tablet Take 0.5 mg by mouth every 8 hours as needed.01/16/2018Active pantoprazole (PROTONIX) 40 MG tablet 07/29/2021ctive NONFORMULARY Menopause supportActive spironolactone (ALDACTONE) 25 MG tablet TAKE 1 TABLET BY MOUTH DAILY07/01/2021ctive ALPRAZolam (XANAX) 1 MG tablet TAKE 1 TABLET BY MOUTH THREE TIMES A DAY NEEDED FOR 30 DAYS07/25/2022ctive amitriptyline (ELAVIL) 25 MG tablet Take 2 tablets by mouth nightly 60 tablet 11104/13/2021ctive estradiol (ESTRACE) 1 MG tablet TAKE 1 TABLET BY MOUTH EVERY DAY FOR 90 DAYS08/17/2022ctive hyoscyamine (ANASPAZ;LEVSIN) 125 MCG tablet 09/11/2022ctive ibuprofen (ADVIL;MOTRIN) 600 MG tablet Take 1 tablet by mouth every 6 hours as qiwgur5912/04/2021ctive metoclopramide (REGLAN) 10 MG tablet Take 1 tablet by mouth in the morning and 1 tablet at noon and 1 tablet in the evening and 1 tabletbefore bedtime.11/21/2021ctive metoclopramide (REGLAN) 5 MG tablet TAKE 1 TABLET FOUR TIMES DAILY, BEFORE MEALS AND IN THE EVENING FOR 30 DAYS 09/06/2022ctive sucralfate (CARAFATE) 1 GM tablet TAKE 1 TABLET BY MOUTH THREE TIMES A DAY ON AN EMPTY QJJAIWF7907/14/2022ctive topiramate (TOPAMAX) 25 MG tablet Take 1 tablet by mouth dailyActive famotidine (PEPCID) 20 MG tablet Take 1 tablet by mouth 2 times dailyActive simethicone (MYLICON) 80 MG chewable tablet Indications:Gas bloat syndromeTake 1 tablet by mouth every 6 hours as needed for Flatulence 180 tablet 09/11/2022ctive Active Problems ProblemNoted DateDiagnosed DateGeneralized abdominal pain11/24/2021typical chest pain06/23/2020sophageal lewcefzq72/21/2021lass 2 obesity in adult 07/11/2017Pelvic pain in lqqyrx1507/04/2017Back pain03/20/2017 Family History RelationNameStatusCommentsFatherDeceasedMaternal GrandfatherDeceasedMaternal GrandmotherDeceasedMotherAlivePaternal GrandfatherDeceasedPaternal Grandmother Social History Tobacco UseTypesPacks/DayYears UsedDateSmoking Tobacco: FormerSmokeless Tobacco: Never Tobacco Cessation:Counseling Given: Not Answered Alcohol UseStandard Drinks/WeekCommentsNot Currently0 (1 standard drink = 0.6 oz pure alcohol)CommentsNoSex and Gender InformationValueDate RecordedSex Assigned at BirthNot on fileLegal UmmRbwjnl15/10/2013 1:15 PM ESTGender Identity Not on fileSexual OrientationNot on file Last Filed Vital Signs Vital SignReadingTime TakenCommentsBlood Bevamwvf121/7607 3:23 PM EDT Gfzar6807 3:23 PM CRKTbyqoxpbtgi87.7 ??C (98.1 ??F)03/27/2017 9:04 AM ESTRespiratory Jusd307809/11/2022 3:23 PM EDTOxygen Bnyqdhbtmk52%09/11/2022 3:23 PM EDTInhaled Oxygen Concentration--Nffnod127 kg (235 lb 14.4 oz)09/11/2022 3:23 PM CEPMscqvd390.6 cm (5' 6 )09/11/2022 3:23 PM EDTBody Mass Index38.0809/11/2022 3:23 PM EDT Plan of Treatment Health MaintenanceDue DateLast DoneCommentsDepression Uumsru4210/07/1990HIV screen 1993Hepatitis C mmaooa6210/07/1996DTaP/Tdap/Td vaccine (1 - Tdap)1997 Hepatitis B vaccine (1 of 3 - 19+ 3-dose series)1997Breast cancer screen 10/07/20181437Licncj41/05/9231Pvfkbzuvots55/05/2024olorectal Cancer Screen 10/08/2023FIT/FOBT: Average risk10/08/2023Fecal-DNA (Cologuard): Average risk 10/08/2023Sigmoidoscopy/CT iunojobittkw32/05/2024Flu vaccine (#1)10/03/2024 COVID-19 Vaccine ( season)2024HPV vaccine (No Doses Required) CompletedHepatitis A vaccineAged OutNo longer eligible based on patient's age to complete this topicHib vaccineAged OutNo longer eligible based on patient's age to complete this topicMeningococcal (ACWY) vaccineAged OutNo longer eligible based on patient's age to complete this topicMeningococcal B vaccineAged OutNo longer eligible based on patient's age to complete this topicPneumococcal 0-49 years VaccineAged OutNo longer eligible based on patient's age to complete this topicPolio vaccineAged OutNo longer eligible based on patient's age to complete this topic Insurance * Guarantor: Courtney Martinez EAccount TypeRelation to PatientDate of BirthPhone Billing AddressPersonal/FwpiivEcde29/05/1981 [address] [place] [id number] Care Teams Team MemberRelationshipSpecialtyStart DateEnd Date Grace Miramontes MD PCP - GeneralFamily Medicine07/04/17
--- OUTSIDE RECORDS SUMMARY | 2024-12-25 08:13 | XMS_ITS | Clinical Summary ---
Author Organization [facility] Address [address] [place] [address] Phone Care Team Providers Care Software Development Engineer Name Role Phone Grace Miramontes MD Primary Care Provider [phone] Allergies Active AllergyReactionsCriticalityNoted DateCommentsAmoxicillinSwelling 7545ErwxqnqzhiwHhqowniv26/05/4503MqpyoatvqtzdPsfpatvx91/16/2021LatexHives 03/20/20175101FkybvkqupgnTzkxclju03/16/2018Sulfa (Sulfonamide Antibiotics)Swelling 03/20/2017 Medications MedicationSigDispense QuantityRefillsLast FilledStart DateEnd DateStatus hyoscyamine (Anaspaz, Levsin) 0.125 mg tablet Take 1 tablet (0.125 mg) by mouth every 4 hours if needed.Active estradiol (Estrace) 1 mg tablet Take 1 tablet (1 mg) by mouth once daily.Active pantoprazole (ProtoNix) 40 mg EC tablet Take 1 tablet (40 mg) by mouth 2 times a day.Active ALPRAZolam (Xanax) 1 mg tablet take 1 tablet by mouth every day at bedtime for 30 daysActive metoclopramide (Reglan) 5 mg tablet TAKE 1 TABLET FOUR TIMES DAILY, BEFORE MEALS AND IN THE EVENINGActive Active Problems ProblemNoted DateDiagnosed VcdiGyxphrvzfyly10/21/2024MI 37.0-37.9, adult 10/24/2023bdominal pain10/24/2023nxiety vlhomsch80/21/2024 Resolved Problems ProblemNoted DateDiagnosed DateResolved DateAtypical chest pain06/23/2020 10/24/2023 Family History Medical HistoryRelationNameCommentsHeart diseaseBrotherAortic aneurysmFather Blood clotFatherHeart diseaseMotherRelationNameStatusCommentsBrotherFatherMother Social History Tobacco UseTypesPacks/DayYears UsedDateSmoking Tobacco: FormerCigarettes Smokeless Tobacco: Never Tobacco Cessation:Counseling Given: Not Answered Alcohol UseStandard Drinks/WeekCommentsNever0 (1 standard drink = 0.6 oz pure alcohol)CommentsUnknownSex and Gender InformationValueDate RecordedSex Assigned at BirthNot on fileLegal BnxHtqhps93/26/2022 2:38 PM ESTGender Identity Not on fileSexual OrientationNot on file Last Filed Vital Signs Vital SignReadingTime TakenCommentsBlood Gdfethzt214/8210/24/2023 11:12 AM EDT Bqusk760410/24/2023 11:12 AM EDTTemperature--Respiratory Rate--Oxygen Saturation-- Inhaled Oxygen Concentration--Ylupvr497 kg (232 lb)10/24/2023 11:11 AM EDTHeight 167.6 cm (5' 6 )10/24/2023 11:11 AM EDTBody Mass Index37.45010/24/2023 11:11 AM EDT Plan of Treatment Health MaintenanceDue DateLast DoneCommentsCT Wyynjlaqdirr61/05/1979Colonoscopy 1978Colorectal Cancer Wsbfrjbji82/05/1979FIT-DNA (Cologuard)1978FIT 1978HIV Gbakynxmf12/05/1979Lipid Panel1978 0656Lcrorjiraulse20/05/1979 Yearly Adult Vfmcmukd63/05/1979MMR Vaccines (1 of 1 - Standard series)10/08/1979 Diabetes Kebbdpnyv42/05/1997Hepatitis C Ttepbomsg32/05/1997Hepatitis B Vaccines (1 of 3 - 19+ 3-dose series)1997Pneumococcal Vaccine: Pediatrics and At- Risk Adult Patients (1 of 2 - PCV)1997Cervical Cancer Uwgexwatt54/05/2000 HPV/Fvhyyd8110/08/1999Pap Smear10/08/1999DTaP/Tdap/Td Vaccines (1 - Tdap) 10/07/20004461Zhzbzspto32/30/744793/, 05/30/2022Influenza Vaccine (#1) 2024OVID-19 Vaccine (2024- season)2024Zoster Vaccines (1 of 2)2028HIB VaccinesAged OutNo longer eligible based on patient's age to complete this topicHPV VaccinesAged OutNo longer eligible based on patient's age to complete this topicHepatitis A VaccinesAged OutNo longer eligible based on patient's age to complete this topicIPV VaccinesAged OutNo longer eligible based on patient's age to complete this topicMeningococcal VaccineAged OutNo longer eligible based on patient's age to complete this topicRotavirus VaccinesAged Out No longer eligible based on patient's age to complete this topic Insurance MemberSubscriberPlan / Payer (Effective 2023-Present)Name:Courtney Martinez Relation to Subscriber:SelfName:Courtney Martinez Payer ID:Not on file Type:Not on file Address: [place] [address] [place] [phone] Care Teams Team MemberRelationshipSpecialtyStart DateEnd Date Grace Miramontes MD [address] [place] [address] [place] [address] [facility] - [facility]
--- OUTSIDE RECORDS SUMMARY | 2024-12-25 08:14 | XMS_ITS | Clinical Summary ---
Author Organization [facility] Address [id number] [address] [place] [address] Care Team Providers Care Pta Name Role Phone Grace Miramontes MD Primary Care Provider [phone] Allergies Active AllergyReactionsCriticalityNoted DateCommentsAmoxicillinSwelling 3186Hkferafqfmwv25/16/2021efuroxime Lxpqxm586021Zgbsvuxywst98/05/2018 AlkistcsuyjmAshbhlan67/16/5978QkvhgXowdb24/05/8873BybbfkouylsLjhfevwz83/05/2018 Sulfa (Sulfonamide Antibiotics)12/07/2017 Medications MedicationSigDispense QuantityRefillsLast FilledStart DateEnd DateStatus ALPRAZolam (XANAX) 0.5 mg tablet Take 1 mg by mouth every 8 (eight) hours as needed.Active sucralfate (CARAFATE) 1 gram tablet Take 1 g by mouth in the morning and 1 g at noon and 1 g in the evening and 1 g before bedtime.09/01/2021ctive pantoprazole (PROTONIX) 40 mg EC tablet Take 40 mg by mouth in the morning and 40 mg before bedtime.Active soy isofla/blk cohosh/mag bark (ESTROVEN ORAL) Take 1 capsule by mouth daily.Active topiramate (TOPAMAX) 25 mg tablet Take 25 mg by mouth in the morning.Active estradioL (ESTRACE) 1 mg tablet Take 1 mg by mouth in the morning.Active maalox-lidocaine (GI COCKTAIL) 3:1 suspension Indications:Epigastric painTake 40 mL by mouth every 8 (eight) hours as needed (abd pain, heartburn). 60 Bottle 309/15/2022Active metoclopramide (REGLAN) 10 mg tablet Take 1 tablet (10 mg total) by mouth every 6 (six) hours. 30 tablet 11/21/2021ctive ondansetron ODT (ZOFRAN ODT) 4 mg disintegrating tablet Dissolve 1 tablet (4 mg total) on tongue every 8 (eight) hours as needed for nausea for up to 10 doses. 10 tablet 12/04/2021ctive ibuprofen (MOTRIN) 600 mg tablet Take 1 tablet (600 mg total) by mouth every 6 (six) hours as needed for pain. 30 tablet 12/04/2021ctive Active Problems ProblemNoted DateDiagnosed DateGeneralized abdominal pain2Class 2 obesity in adult06/23/2020sophageal jbqjxyps40/21/2021Atypical chest pain 06/23/2020 Family History Medical HistoryRelationNameCommentsAneurysmFatherCancerMotherlipHeart disease MotherRelationNameStatusCommentsFatherDeceasedMotherAlive Social History Tobacco UseTypesPacks/DayYears UsedDateSmoking Tobacco: FormerCigarettes0.517 12/07/2000 - 12/07/2017Smokeless Tobacco: FormerSnuffAlcohol UseStandard Drinks/WeekCommentsNot Currently0 (1 standard drink = 0.6 oz pure alcohol) ChildcareAnswerDate YtplrwfdThnyfoolaZuecozm06/10/2019EmploymentAnswerDate RcmtukpdJzrbcdazecNbkbrhy71/10/2019Purpose - LifeAnswerDate RecordedPurpose and direction in mppbMyeaehf38/13/2021CommentsNoSex and Gender Information ValueDate RecordedSex Assigned at BirthNot on fileLegal JxaAbsgnj60/04/2015 12:00 PM EDTGender IdentityNot on fileSexual OrientationNot on file Last Filed Vital Signs Vital SignReadingTime TakenCommentsBlood Jlafddvr842/6912/04/2021 11:29 PM EDT Bqjbg959812/04/2021 11:29 PM DGDShrjhwndozo09.2 ??C (97.1 ??F)12/04/2021 7:52 PM EDTRespiratory Luwk9243 11:29 PM EDTOxygen Dfehaatooq22%12/04/2021 7:52 PM EDTInhaled Oxygen Concentration--Ufvvvg175.2 kg (223 lb)09/18/2024 2:38 PM PFZMzmgbk734.6 cm (5' 6 )09/18/2024 2:38 PM EDTBody Mass Index35.9909/18/2024 2:38 PM EDT Plan of Treatment Health MaintenanceDue DateLast DoneCommentsDepression Ltkouoyvo73/05/1991Tobacco Cpctneicp06/05/1991Adult BMI Follow Up Plan1996DTaP,Tdap and Td Vaccines (1 - Tdap)1997Influenza Vwazvnn1911/03/2024dult BMI Ghiitvucp92/17/2026 09/18/20246561Wkxdqpsbesj64/07/202901/09/2018, 03/11/2018 Medical Devices Not on file Procedures Procedure NamePriorityDate/TimeAssociated DiagnosisCommentsPROVATION COLONOSCOPY Wniuypr7503/11/2018 7:27 AM EST from Last 3 Months or Most Recently Relevant to Health Maintenance Results * ES colonoscopy imaging (03/11/2018 7:27 AM EST)Specimen (Source)Anatomical Location / LateralityCollection Method / VolumeCollection TimeReceived Time Narrative SYSTEMGENERATED, DOCUMENTATION - 03/11/2018 7:27 AM EST This order has been auto-finalized for image and report archival. *See procedures tab in Epic or report included with PACS images for full interpretation.* Authorizing ProviderResult TypeResult StatusMichael E Casey DOIMG OR IMG ORDERABLESFinal Result from Last 3 Months or Most Recently Relevant to Health Maintenance Insurance * Guarantor: Courtney MartinezAccount TypeRelation to PatientDate of BirthPhoneBilling AddressPersonal/SpzkqlNpjv50/05/1981 [facility] [address] Care Teams Team MemberRelationshipSpecialtyStart DateEnd Date Grace Miramontes MD [facility] [place] [phone] PCP - Wegozvz39/5/18
--- OUTSIDE RECORDS SUMMARY | 2024-12-25 08:14 | XMS_ITS | CCD ---
Author Organization [facility] CliniSyvt Care Team Providers Care Radio Communications Superintendent Name Role Phone PHYSICIAN, DEFAULT Unavailable Unavailable PHYSICIAN, DEFAULT Unavailable Unavailable TIMMY, DILCIA Unavailable Unavailable EDIS SAWANT Unavailable Unavailable TIMMY, DILCIA Unavailable Unavailable Dilcia Warner MD Primary Care Provider [phone] DILCIA WARNER Primary Care Unavailable WHITNEY QUAN Referring UnavailDilcia Cummins Unavailable ARELI Sams, DR ALBINA Everett Consulting Unavaila ashutosh SINGLETON ., DR ALBINA Everett Attending Unavaila ashutosh SINGLETON ., DR ALBINA Everett Admitting Unavaila ble TIMMY, DR DILCIA Everett Primary Care Unavailable ELLIOTT, DR AMINA Hawkins Consulting Unavailable WARNER, DR DILCIA Everett Attending Unavailable WARNER, DR DILCIA Everett Admitting Unavailable WEST, DR MANE Thomas Consulting Unavailable WARNER, DR DILCAI Everett Primary Care Unavailable WARNER, DR DILCIA [...] Primary Care Unavailable NOE GONZALES Consulting Unavailable CHRISTIAN, NOE Attending Unavailable ONE GONZALES Admitting Unavailable RENARD ANDRADE Consulting Unavailable WARNER, DR DILCIA Everett Primary Care Unavailable GARDENIA ., LISBET Attending Unavailable GARDENIA ., LISBET Admitting Unavailable ELLIOTT, DR AMINA Hawkins Consulting Unavailable XOCHITL, DR HERNAN Rutledge Consulting Unavailable HAY ., DR MORRIS Consulting Unavailable MONICA DIA Consulting Unavailable SISTER, RADHA Consulting Unavailable GARDENIA ., LISBET Consulting Unavailable EVONN ., TREMAINE Consulting Unavailable HENRIETTA LUF Attending Unavailable DILCIA WARNER E Primary Care Unavailable TABITHA, MOURSAMANTHAF Referring Unavailable DILCIA WARNER E Primary Care Unavailable TRABVEE CLEMENT Referring Unavailable DILCIA WARNER Primary Care Unavailable Dilcia Warner MD Primary Care Provider DILCIA WARNER Referring Unavailable DILCIA WARNER Primary Care Unavailable DILCIA WARNER Referring Unavailable DILCIA WARNER Primary Care Unavailable Dilcia Warner MD Primary Care Provider Dilcia Warner MD Attending Provider Dilcia Warner MD Primary Care Provider Dilcia Warner MD Attending Provider [phone] Catalina Valencia APRN Attending Provider Allergies Allergy ClassificationReported Allergen(s)Allergy TypeDate of OnsetReaction(s) Facility (17 sources)amoxicillin; Translations: [AMOXICILLIN]Drug Nipiohe26-59-4132Wsjs [facility] Repository (2 sources)cefuroximeDrug Jllgptz31-03-5785XplMer[facility] (18 sources)Latex; Translations: [LATEX]Drug allergy (disorder)83-32-3486MxybKxxJ[facility]. [facility] (19 sources)Penicillins; Translations: [PENICILLINS]Drug allergy (disorder) 70-23-5005EqvmSsbJ.W. [facility] Repository (18 sources)Sulfonamides (Antibiotic); Translations: [SULFA (SULFONAMIDE ANTIBIOTICS)]Drug allergy (disorder)08-92-4507OhxkTmsJ.W. [facility] Repository (19 sources)AmoxicillinDrug Xhebzod45-55-9667jaauCarilion [facility] (1 source)Cephalosporins (Antibiotic)Propensity to adverse reactions to drug 11-33-1928VVH [employer] Phone: (1 source)EstrogensDrug Tfwbosz26-42-6891Dggel (See Comments)BON [employer] Phone: (19 sources)LatexPropensity to adverse reactions to jowo42-51-2704TdfkqFBR [employer] Phone: (1 source)Sulfonamides (Antibiotic)Propensity to adverse reactions to drug 01-69-5435LOP [employer] Phone: (1 source)Clindamycin/LincomycinPropensity to adverse reactions to drug 74-74-7837XGG [employer] Phone: (20 sources)CefuroximeDrug Dmrfjiy02-26-9634iqnuWykbsuxrw[address] [place] [address] (20 sources)Clindamycin; Translations: [CLINDAMYCIN]Drug Kuoifcd57-78-1136qdiaaEast [facility] (20 sources)Erythromycin; Translations: [ERYTHROMYCIN]Drug Hajxllh43-53-1938 [facility] Repository (20 sources)penicillAMINEDrug Qohkeim65-77-8669bxuvYmrhwccsa[address] [place] [address] (16 sources)Sulfacetamide / SulfurDrug AllergyAdams County Hospital Campus [employer] Other (1 source)AmoxicillinDrug Ykijfed06-04-0729BbtSelect [facility] (1 source)AzithromycinDrug Bymligf44-36-4508EggSelect Medical [facility]ty [facility]ository (1 source)ClindamycinDrug Amustha73-98-8828JpdSelect Medical Specialty [facility] Repository (14 sources)ErythromycinDrug Nqyhplo42-70-0725snbyqHbqBlanchard [facility] Rep[facility] (5 sources)Azithromycin; Translations: [AZITHROMYCIN]Drug Qxxsvod86-99-8720 [facility] Rep[facility] (4 sources)PenicillinDrug Dydwmdj14-26-9426NcljbneVgzve [employer] Other (4 sources)PseudoephedrineDrug Vitvuei28-04-6062PcbtxchEqjfb [facility] Other (4 sources)Substance with penicillin structure and antibacterial mechanism of action (substance)Drug pcuyipy19-65-5832VtylsiyBqpcw [employer] Other (4 sources)Allergies ReconciledPropensity to adverse qlepvajvw97-10-9659Eyvkerx [place] [employer] Other (6 sources)Substance with sulfonamide structure and antibacterial mechanism of action (substance)Drug erqmfdd30-85-1564KjcrmegoIrlgj [employer] Other (4 sources)patient allergy list reviewed by nurse or physiciaPropensity to adverse tfgdnqxbu53-71-5082Xiiigtj:[facility] [employer] Other (4 sources)Skelaxin *MUSCULOSKELETAL THERAPY AGENTS*Propensity to adverse omqibgrpp66-44-2395RydmqxtYqgqi [employer] Other (4 sources)Ceftin *CEPHALOSPORINS*Propensity to adverse xnizsubik81-85-[address] [facility] [employer] Other (13 sources)SulfacetamideDrug Jflloaw86-81-3415hgddqKywyosdeiOhioHealth [facility] (13 sources)SulfurDrug Iunjbtz84-36-7759wweslFoatxyzzzOhioHealth [facility] (2 sources)PenicillinsDrug Plbyhnjwzyq72-18-4129OpecwukhQcfsudfdqd [facility] Work Phone: (1 source)Cefuroxime; Translations: [CEFUROXIME AXETIL]Drug Izbnlcn85-21-5335 [facility] Repository Medications Current Medications MedicationDrug Class(es)DatesSig (Normalized)Sig (Original)NONFORMULARY (1 source)NONFORMULARY Menopause support 0 Activeondansetron 4 mg oral tablet (13 sources)Serotonin-3 Receptor AntagonistStart: 75-45-8535gxuw 1 tablet by mouth three times daily as neededOndansetron Hcl 4 mg tablet Active 4 MG PO Three times daily November 27, 2024 12:00am FreeTextSi tablet Orally tid prn; Note: Source Status: Taking; Provider: Timmy Everett Complies with drug therapyStart: 60-44-1749czaa 1 tablet by mouth three times daily as needed Ondansetron HCl 4 MG 1 tablet Orally tid prn for 30 days May, Xketpm71 hr venlafaxine 150 mg extended release oral capsule (17 sources)Serotonin and Norepinephrine Reuptake InhibitorStart: 16-76-3636odlj 1 capsule by mouth once daily at mealtimeVenlafaxine (Effexor Xr) 150 mg capsule,extended release 24hr Active 150 MG PO Daily November 27, 2024 12:00am FreeTextSi capsule with food Orally Once a day; Note: Source Status: Not-TakingundefinedPRN; Provider: Samy Pepe ( ) Complies with drug therapytake 1 capsule by mouth every twenty-four hoursEffexor XR 150 MG 1 capsule with food Orally Once a day Not-Taking/PRN Completed/Discontinued Medications MedicationDrug Class(es)DatesSig (Normalized)Sig (Original)[id number] 200 actuat albuterol 0.09 mg/actuat metered dose inhaler (11 sources)beta2-Adrenergic AgonistStart: 05-01-2024 End: 09-98-1516gkob 1 puff(s) by inhalation every four to six hours as needed for wheezingAlbuterol Sulfate 90 mcg/actuation HFA aerosol inhaler Discontinued 2 PUFF INHALATION EVERY 4-6 HOURS as needed for shortness of breath or wheezing 8.5 May 01, 2024 1:00am November 1251:29pmStart: 04-28-2024 End: 70-52-6193egtw 2.5 mg by inhalation every four to six hours as needed Albuterol Sulfate 2.5 mg /3 mL (0.083 %) solution for nebulization Discontinued 2.5 MG INHALATION EVERY 4-6 HOURS as needed for bronchospasm April 28, 2024 1:00am November 12, 2024 1:29pmALPRAZolam 1 mg oral tablet (20 sources)BenzodiazepineStart: 05-30-2024 End: 79-81-2871rvxt 1 tablet by mouth once daily as needed for anxietyAlprazolam 1 mg tablet Discontinued 1 MG PO Daily as needed for anxiety September 25, 2024 3:50pm October 27, 2024 8:39amStart: 11-26-2023 End: 09-26-6573ghbr 1 tablet by mouth twice daily as needed for anxiety Alprazolam 1 mg tablet Discontinued 1 MG PO Twice daily as needed for anxiety 40 April 21, 2024 4:22pm May 30, 2024 9:41amStart: 08-07-2023 End: 04-59-2167dfei 1 tablet by mouth once daily at bedtimeAlprazolam 1 mg tablet Discontinued 1 MG PO Daily at bedtime November 01, 2023 8:26am November 26, 2023 9:20amStart: 04-18-2023 End: 89-91-5337huuq 1 tablet by mouth three times daily as neededAlprazolam 1 mg tablet Discontinued 1 MG PO Three times daily May 23, 2023 8:34am July 25, 2023 1:06pm FreeTextSig: TAKE 1 TABLET BY MOUTH THREE TIMES A DAY NEEDED; Note: Source Status:Refill; Refills: 0; Qty: 60 Tablet; Provider: Timmy Edwards EStart: 11-31-3889yxts 1 tablet by mouth three times daily as needed ALPRAZolam 1 MG TAKE 1 TABLET BY MOUTH THREE TIMES A DAY NEEDED for Mar, ActiveStart: 32-95-8989jiha 1 tablet by mouth three times daily as neededALPRAZolam 1 MG TAKE 1 TABLET BY MOUTH THREE TIMES A DAY NEEDED for Jan, ActiveStart: 83-25-1303EOICXAygtt 1 MG TAKE 1 TABLET BY MOUTH THREE TIMES A DAY NEEDED FOR 30 DAYS for Nov, ActiveStart: 05-24-2022 take 1 tablet by mouth three times daily as neededALPRAZolam 1 MG 1 tablet Orally tid prn for 30 days May, ActiveStart: 85-58-7874knjn 2 tablets by mouth three times daily as neededALPRAZolam 0.5 MG TAKE 2 TABLETS BY MOUTH 3 TIMES A DAY NEEDED for 15 days Apr, ActiveStart: 20-00-0522lynk 1 tablet by mouth every eight hours as neededALPRAZolam (XANAX) 0.5 MG tablet Take 0.5 mg by mouth every 8 hours as needed. 0 01/16/2018 Activeazithromycin 250 mg oral tablet (20 sources)Macrolide AntimicrobialStart: 11-12-2024 End: 76-75-4004Gomujkjblzfu 250 mg tablet Discontinued 0 PO daily 08 07November 12, 2024 12:00am November 3:44pm Take 2 on day 1 and then take 1 for the next 4 days (days 2-5)Start: 05-01-2024 End: 12-27-1451Ktpeqkfoedhh 250 mg tablet Discontinued 0 PO .COMPLEX May 01, 2024 1:00am September 25, 2024 3:50pm For 250 mg dose pack: take 500 mg today (day 1), then 250 mg for 4 days (days 2-5) POStart: 09-20-2023 End: 73-45-3075Ohwqzrdopfne 250 mg tablet Discontinued 0 PO .COMPLEX September 20, 2023 12:00am November 26, 2023 9:17am For 250 mg dose pack: take 500 mg today (day 1), then 250 mg for 4 days (days 2-5) POStart: 09-20-2023 End: 69-93-7589Rmkzizfskpmu Discontinued 0 PO .COMPLEX September 20, 2023 12:00am November 26, 2023 9:17am For 250 mg dose pack: take 500 mg today (day 1), then 250 mg for 4 days (days 2-5) POStart: 83-10-8985Jgdjwsbvjnru Active 0 PO .COMPLEX September 20, 2023 12:00am For 250 mg dose pack: take 500 mg today(day 1), then 250 mg for 4 days (days 2-5) POStart: 47-40-7298Mcddfxygthhj 250 MG as directed Orally 2 tabs po today, then 1 tab daily x 4 more days for 5 Mar, Not-Taking/PRNbenzonatate 200 mg oral capsule (6 sources)Non-narcotic AntitussiveStart: 04-28-2024 End: 72-63-7954wncl 1 capsule by mouth three times daily as needed for cough Benzonatate 200 mg capsule Discontinued 200 MG PO Three times daily as needed for cough 01 01April 28, 2024 1:00am September 25, 2024 3:50pmdoxepin hydrochloride 10 mg oral capsule (12 sources)Tricyclic AntidepressantStart: 02-11-2024 End: 45-37-6872xiqc 1 capsule by mouth once daily at bedtimeDoxepin 10 mg capsule Discontinued 10 MG PO Daily at bedtime March 12, 2024 12:53pm 2024 1:28pmdoxycycline hyclate 100 mg oral tablet (20 sources)Tetracycline-class DrugStart: 09-25-2024 End: 94-50-1119jptq 1 tablet by mouth twice dailyDoxycycline Hyclate 100 mg tablet Discontinued 100 MG PO Twice daily 2024 9:47am November 12, 2024 1:28pmStart: 11-26-2023 End: 30-45-5192kzop 1 tablet by mouth twice dailyDoxycycline Hyclate 100 mg tablet Discontinued 100 MG PO Twice daily November 26, 2023 12:00am February 11, 2024 5:08pmStart: 04-18-2023 End: 03-77-0886lfkj 1 capsule by mouth every twelve hoursDoxycycline Hyclate 100 mg capsule Discontinued 100 MG PO Every 12 hours 22 12April 18, 2023 1 :00am June 21, 2023 3:27pmestradiol 1 mg oral tablet (20 sources)EstrogenStart: 08-01-2023 End: 85-08-3104jaka 1 tablet by mouth once dailyEstradiol 1 mg tablet Discontinued 0 .ROUTE .COMPLEX September 03, 2024 10:06am November 04, 2024 1 0:07am TAKE 1 TABLET BY MOUTH EVERY DAYStart: 04-18-2023 End: 28-56-4920gjpi 1 tablet by mouth once dailyEstradiol 1 mg tablet Discontinued 1 TAB PO Daily April 18, 2023 1:00am August 01, 2023 8:44am F reeTextSig: TAKE 1 TABLET BY MOUTH EVERY DAY FOR 90 DAYS; Note: Source Status: Start; Refills: 1; Qty: 90 Tablet; Provider: Timmy Edwards ( ) hyoscyamine sulfate 0.125 mg oral tablet (20 sources)Start: 07-04-2023 End: 44-77-4845pkqp 1 tablet by mouth four times daily as neededHyoscyamine Sulfate 0.125 mg tablet Discontinued 0 .ROUTE .COMPLEX 120 August 08, 2024 8:21am 2024 1:37pm TAKE 1 TABLET BY MOUTH FOUR TIMES A DAY NEEDEDStart: 07-04-2023 End: 04-09-4793vntd 1 tablet by mouth four times daily as neededHyoscyamine Sulfate Discontinued 0 .ROUTE .COMPLEX 120 July 04, 2023 10:20am October 17, 2023 10:31am TAKE 1 TABLET BY MOUTH FOUR TIMES A DAY NEEDEDStart: 07-04-2023 take 1 tablet by mouth four times daily as neededHyoscyamine Sulfate Active 0 .ROUTE .COMPLEX 120 July 04, 2023 10:20am TAKE 1 TABLET BY MOUTH FOUR TIMES A DAY NEEDEDStart: 06-04-2023 End: 03-29-8970fpvg 1 tablet by mouth twice dailyHyoscyamine Sulfate 0.125 mg tablet, sublingual Discontinued 0.125 MG PO Twice daily 180 90 July 02, 2023 12:22pm July 04, 2023 10:20amStart: 04-18-2023 End: 23-34-5010ridb 1 tablet by mouth four times dailyHyoscyamine Sulfate 0.125 mg tablet, sublingual Discontinued 0.125 MG PO Four times daily April 18, 2023 1:00am June 04, 2023 12:29pmStart: 23-43-5273rtit 1 tablet by mouth every four hoursLevsin 0.125 MG 1 tablet as needed Orally every 4 hrs for 7 days May, ActiveStart: 08-70-7273mhsl 1 tablet by mouth every six hoursLevsin 0.125 MG 1 tablet as needed Orally Four times a day for 30 days May, ActivemethylPREDNISolone 4 mg oral tablet (13 sources)CorticosteroidStart: 04-18-2023 End: 68-71-7039Lcfxfgmcqpmshkfcvr 4 mg tablets,dose pack Discontinued 0 PO per package directions April 18, 2023 1:00am June 21, 2023 3:27pm PO PER PKG DIR for 6 daysStart: 04-18-2023 End: 90-37-6321Heatdjepkawbzkrflm Discontinued 0 PO per package directions April 18, 2023 1:00am June 21, 2023 3:27pm PO PER PKG DIR for 6 days Start: 60-96-4523Nbtqxcsxadebhoecqp Active 0 PO per package directions April 18, 2023 12:00am PO PER PKG DIRfor 6 daysmetoclopramide 5 mg oral tablet (20 sources)Dopamine-2 Receptor AntagonistStart: 07-04-2023 End: 36-35-5188Jkbvxzjopmqpuy Hcl 5 mg tablet Discontinued 0 .ROUTE .COMPLEX 120 August 07, 2024 10:34am October 06, 2024 11:35am TAKE 1 TABLET FOUR TIMES DAILY, BEFORE MEALS AND IN THE EVENINGStart: 04-18-2023 End: 86-19-4236gtjw 1 tablet by mouth four times daily before mealtime Metoclopramide Hcl 5 mg tablet Discontinued 5 MG PO Four times daily April 18, 2023 1:00am 2023 10:20am FreeTextSig: TAKE 1 TABLET FOUR TIMES DAILY, BEFORE MEALS AND IN THE EVENING FOR 30 DAYS; Note: Source Status: Refill; Refills: 2; Qty: 120 Tablet; Provider: Timmy Edwards EStart: 05-26-2022 Metoclopramide HCl 5 MG 1 tablet before meals and qpm Orally Four times a day for 30 days May, Activemupirocin 0.02 mg/mg topical ointment (3 sources)RNA Synthetase Inhibitor AntibacterialStart: 09-25-2024 End: 61-00-8906Emdabxpdx 2 % ointment Discontinued 1 APPLIC TOPICAL Twice daily September 25, 2024 12:00am November 12, 2024 1:29pmpantoprazole 40 mg delayed release oral tablet (20 sources)Proton Pump InhibitorStart: 04-18-2023 End: 86-33-4324iull 1 tablet by mouth twice dailyPantoprazole 40 mg tablet,delayed release (DR/EC) Discontinued 40 MG PO Twice daily 180 May 08, 2024 9:36am October 06, 2024 2:02pmStart: 49-52-8571ytgdofifylrp (PROTONIX) 40 MG tabletsucralfate 1000 mg oral tablet (20 sources)Aluminum ComplexStart: 06-21-2023 End: 48-80-1852fihc 1 tablet by mouth twice dailySucralfate (Carafate) 1 gram tablet Discontinued 1 GM PO Twice daily June 21, 2023 12:00am September 20, 2023 9:21amStart: 57-46-7592waft 1 tablet by mouth three times dailyCarafate 1 GM 1 tablet Orally three times daily Jun, ActiveStart: 32-35-8758bgdt 1 tablet by mouth three times dailyCarafate 1 GM 1 tablet Orally three times daily Jun, ActiveStart: 83-80-7183hwek 1 tablet by mouth every twelve hours Sucralfate 1 GM 1 tablet on an empty stomach Orally Twice a day for 90 day(s) Mar, ActiveStart: 83-46-6654eqlo 1 tablet by mouth twice dailySucralfate 1 GM 1 tablet on an empty stomach Orally Twice a day for 90 day(s) Mar, ActiveSUMAtriptan 5 mg/actuat nasal spray (9 sources)Serotonin-1b and Serotonin-1d Receptor AgonistStart: 08-07-2023 End: 76-51-7183Orhgufblaat 5 mg/actuation spray,non-aerosol Discontinued 5 MG INTRANASAL EVERY 2-4 HOURS as neededfor migraine headache August 07, 2023 12:00am September 20, 2023 9:21am into one nostril; if headacheremains, may repeat dose into other nostril once after at least 2 hourstraZODone hydrochloride 50 mg oral tablet (20 sources)Serotonin Reuptake InhibitorStart: 07-25-2023 End: 82-94-1741Tpwyyafua 50 mg tablet Discontinued 75 MG PO Daily at bedtime July 25, 2023 1:06pm August 07, 2023 10:43amStart: 07-25-2023 End: 74-41-9482zrch 75 mg by mouth once daily at bedtimeTrazodone Discontinued 75 MG PO Daily at bedtime July 25, 2023 1:06pm August 07, 2023 10:43amStart: 06-21-2023 End: 69-05-5351dzzw 1 tablet by mouth once daily at bedtimeTrazodone 50 mg tablet Discontinued 50 MG PO Daily at bedtime July 17, 2023 8:40am July 25, 2023 1:06pmtriamcinolone acetonide 40 mg/ml injectable suspension (4 sources)CorticosteroidStart: 19-36-2790Yljevti-40 July, 60 mg Problems Active Problems Problem ClassificationProblemDateDocumented DateEpisodic/ChronicAcute and chronic tonsillitis (4 sources)Acute tonsillitis; Translations: [Acute tonsillitis, unspecified] EpisodicAcute bronchitis (8 sources)Acute bronchitis; Translations: [Acute bronchitis due to other specified organisms]Onset: 18-65-9194VmopusddQvstknv disorders (20 sources)Generalized anxiety disorder; Translations: [Claustrophobia]Onset: 373507-50-5122XzoebetBowfsv (4 sources)Exacerbation of intermittent asthma; Translations: [Mild intermittent asthma with (acute) exacerbation]ChronicCardiac dysrhythmias (12 sources)Tachycardia; Translations: [Tachycardia, unspecified]Onset: 74-81-6797WgbkyrmgEwypupk obstructive pulmonary disease and bronchiectasis (4 sources)Bronchitis; Translations: [Bronchitis, not specified as acute or chronic]EpisodicComplications of surgical procedures or medical care (17 sources)Postprocedural asymptomatic ovarian failure; Translations: [Asymptomatic postprocedural ovarian failure]ChronicEndometriosis (5 sources)Endometriosis (clinical); Translations: [Endometriosis, unspecified] Onset: 380038-44-5153RnzdqqtJtffcpwijt disorders (20 sources)Gastroesophageal reflux disease without esophagitis; Translations: [Gastro-esophageal reflux disease without esophagitis]ChronicEssential hypertension (4 sources)Essential hypertension; Translations: [Essential (primary) hypertension]ChronicGastritis and duodenitis (1 source)Chronic superficial gastritis without bleeding; Translations: [CHRONIC SUP GASTRITIS W/O BLEED]Onset: 24-64-1741RdcqbmzYeavawebuzysl symptoms and ill- defined conditions (4 sources)Dysuria; Translations: [Dysuria]EpisodicHeadache; including migraine (13 sources)Migraine without aura, not refractory ; Translations: [Migraine, unspecified, not intractable, without status migrainosus]66-55-5937Plgebev Influenza (13 sources)Upper respiratory tract infection due to Influenza; Translations: [Influenza due to unidentified influenza virus with other respiratory manifestations]70-43-9884ZbwgytvkQgfddonzrt disorders (1 source)Hormone replacement therapyEpisodicNausea and vomiting (7 sources)Nausea with vomiting, unspecified; Translations: [Nausea]Onset: 29-09-9341PrsglwimUdrhihlihjcl breast conditions (1 source)Diffuse cystic mastopathy of right breast; Translations: [DIFFUSE CYSTIC MASTOPATHY RT BREAST]Onset: 83-25-5206DbqzjqpDkjqmuxngjaz breast conditions (20 sources)Unspecified lump in the right breast, lower outer quadrant; Translations: [Unspecified lump in the right breast, upper outer quadrant]Onset: 24-76-8365CmptpswyLpliibgnhdj chest pain (17 sources)Chest pain, unspecified; Translations: [Chest pain]Onset: 07-17-2018 Resolved: 55-97-5858AesdqihjTuaoa aftercare (1 source)Other custodial (current) drug therapy; Translations: [OTH SKILLED NURSING CURRENT DRUG THERAPY]Onset: 39-91-2139WxevoocpYjdxa circulatory disease (4 sources)Elevated blood-pressure reading without diagnosis of hypertension; Translations: [Elevated blood-pressure reading, without diagnosis of hypertension]EpisodicOther connective tissue disease (16 sources)Fibromyalgia; Translations: [Fibromyalgia]EpisodicOther connective tissue disease (1 source)Pain in left lower leg; Translations: [PAIN IN LEFT LOWER LEG]Onset: 46-31-9307VevjjsqnWqlqo connective tissue disease (1 source)FibromyalgiaEpisodicOther ear and sense organ disorders (4 sources)Infective otitis externa; Translations: [Unspecified infective otitis externa]Onset: 44-47-1569DeulqoeFyzej gastrointestinal disorders (6 sources)Irritable bowel syndrome; Translations: [Irritable bowel syndrome without diarrhea]18-93-7770EucyxsrWuecr gastrointestinal disorders (1 source)Irritable bowel syndrome without diarrhea; Translations: [Irritable bowel syndrome]68-28-3239UbgutmwEzkcx gastrointestinal disorders (1 source)Diarrhea, unspecified; Translations: [DIARRHEA UNSPECIFIED]Onset: 46-04-2675InztnaepPndxp lower respiratory disease (4 sources)Pleuritic pain; Translations: [Pleurodynia]EpisodicOther nervous system disorders (1 source)Chronic pain syndrome; Translations: [Chronic pain syndrome]Chronic Other nervous system disorders (20 sources)Ulnar neuropathy; Translations: [Lesion of ulnar nerve, left upper limb]ChronicOther nutritional; endocrine; and metabolic disorders (16 sources)Obesity; Translations: [Other obesity due to excess calories]Chronic Other nutritional; endocrine; and metabolic disorders (15 sources)Body mass index 30+ - obesity; Translations: [Body mass index (BMI) 38.0-38.9, adult]Onset: 782575-33-5312ViiubojTzzhy nutritional; endocrine; and metabolic disorders (1 source)Other obesity due to excess caloriesChronicOther nutritional; endocrine; and metabolic disorders (1 source)Body mass index (BMI) 38.0-38.9, adultChronicOther nutritional; endocrine; and metabolic disorders (4 sources)Morbid obesity; Translations: [Morbid (severe) obesity due to excess calories]ChronicOther nutritional; endocrine; and metabolic disorders (4 sources)Body mass index 40+ - severely obese; Translations: [Body mass index (BMI) 40.0-44.9, adult]ChronicOther nutritional; endocrine; and metabolic disorders (12 sources)Obese class II; Translations: [Body mass index (BMI) 38.0-38.9, adult]ChronicOther nutritional; endocrine; and metabolic disorders (2 sources)Body mass index (BMI) 37.0-37.9, adult; Translations: [Body mass index (BMI) 37.0-37.9, adult]Onset: 56-87-3360JpcftwqFmtjb nutritional; endocrine; and metabolic disorders (1 source)Weight gain; Translations: [Abnormal weight gain]EpisodicOther nutritional; endocrine; and metabolic disorders (4 sources)Abnormal weight gain; Translations: [Abnormal weight gain]Episodic Other screening for suspected conditions (not mental disorders or infectious disease) (16 sources)Other abnormal and inconclusive findings on diagnostic imaging of breast; Translations: [Encounter for screening mammogram for malignant neoplasm of breast]Onset: 80-30-2714WudvmqilGwpgc upper respiratory disease (13 sources)Seasonal allergic rhinitis; Translations: [Other seasonal allergic rhinitis]Onset: 858842-05-9468IwmogqkVionp upper respiratory disease (4 sources)Allergic rhinitis; Translations: [Allergic rhinitis, unspecified] Onset: 08-80-0074LuxystwRywxh upper respiratory infections (4 sources)Chronic sinusitis; Translations: [Chronic sinusitis, unspecified] ChronicOther upper respiratory infections (20 sources)Acute maxillary sinusitis, unspecified; Translations: [Acute maxillary sinusitis]Onset: 70-93-2255MaaobnasZkljfj media and related conditions (12 sources)Acute secretory otitis media; Translations: [Other acute nonsuppurative otitis media, right ear]Onset: [id number] Residual codes; unclassified (1 source)Acquired absence of other specified parts of digestive tract; Translations: [ACQ ABSENCE OTH PART DIGESTV TRACT]Onset: 87-93-9317Imxmextw Residual codes; unclassified (1 source)Acquired absence of uterus with remaining cervical stump; Translations: [ACQ ABSENCE UTRUS REM CERVSTUMP]Onset: 23-22-1661LvnadqrdEggjcdhx codes; unclassified (18 sources)Insomnia; Translations: [Insomnia, unspecified]53-77-6219Xykggcny Residual codes; unclassified (4 sources)Localized edema; Translations: [Localized edema]EpisodicResidual codes; unclassified (8 sources)Insomnia, unspecified; Translations: [Insomnia, unspecified] 19-80-2284DibaaoznSwds and subcutaneous tissue infections (4 sources)Cellulitis of foot excluding toe; Translations: [Cellulitis of left lower limb]66-73-4859TrkcdtubSnbwesztcer; intervertebral disc disorders; other back problems (20 sources)Cervical spondylosis; Translations: [Spondylosis without myelopathy or radiculopathy, cervical region]ChronicSpondylosis; intervertebral disc disorders; other back problems (19 sources)Backache; Translations: [Dorsalgia, unspecified]Onset: 03-27-2016 09-38-3713PmddbfgyKvugcmf (1 source)SyncopeOnset: 94-74-7358Foanqlq disorders (4 sources)Hypothyroidism; Translations: [Hypothyroidism, unspecified]Chronic Unclassified (2 sources)Tachycardia, unspecified / R00.0(ICD-9)Onset: 48-16-2744Nllxniclgngt (1 source)Dyspnea, unspecified / R06.00(ICD-9)Onset: 21-07-8461Cnhoqjdrrmsa (1 source)Family hx of ischem heart dis and oth dis of the circ sys / Z82.49(ICD-9)Onset: 84-94-2585Rsviwysobhdd (1 source)Palpitations / R00.2(ICD-9)Onset: 87-49-1907Qpoljjjozemb (1 source)Personal history of nicotine dependence / Z87.891(ICD-9)Onset: 65-96-9247Sydfmaxujpcr (1 source)Obesity, unspecified / E66.9(ICD-9)Onset: 12-59-9641Pcamibvkgnfp (1 source)CONTACT W/AND (SUSP) EXPOS COVID-19; Translations: [CONTACT W/AND (SUSP) EXPOS COVID-19]Onset: 23-70-1574Suxnx infection (4 sources)Disease caused by 2019-nCoV; Translations: [COVID-19] Past or Other Problems Problem ClassificationProblemDateDocumented DateEpisodic/ChronicAbdominal pain (20 sources)Pain in female pelvis; Translations: [Pelvic and perineal pain] Onset: [id number] and electrolyte disorders (4 sources)Dehydration; Translations: [Dehydration]Onset: 70-19-0606Yqpkjpng Malaise and fatigue (4 sources)Fatigue; Translations: [Other fatigue]Onset: 14-30-6921MdxtarbaTtymn circulatory disease (1 source)Elevated blood-pressure reading, without diagnosis of hypertension; Translations: [ELEVATED BP READING W/O DX HTN]Onset: 26-60-8538BzsfjonbKxmiw connective tissue disease (4 sources)Pain in limb; Translations: [Pain in left hand]Onset: 08-06-2015 EpisodicOther disorders of stomach and duodenum (4 sources)Angiodysplasia of duodenum; Translations: [Angiodysplasia of stomach and duodenum without bleeding]Onset: 60-83-2595NwkyqksuGhbwh gastrointestinal disorders (4 sources)Diarrhea; Translations: [Diarrhea]Onset: 65-30-1314XfbokdvsAausz lower respiratory disease (8 sources)Dyspnea; Translations: [Other forms of dyspnea]Onset: 05-20-2013 EpisodicOther non-traumatic joint disorders (4 sources)Joint pain; Translations: [Pain in joint, site unspecified]Onset: 52-79-9485SqmwatkmYkdmw non-traumatic joint disorders (4 sources)Arthralgia of the pelvic region and thigh; Translations: [Pain in joint, pelvic region and thigh]Onset: 79-70-3317LyjsltitYjiglphc codes; unclassified (1 source)Family history of malignant neoplasm of trachea, bronchus and lung; Translations: [FAM HX MALIG NEOPLSM TRACH BRON LNG]Onset: 22-02-2137Nraqtzyl Residual codes; unclassified (1 source)Family history of malignant neoplasm of prostate; Translations: [FAMILY HX MALIG NEOPLASM PROSTATE]Onset: 60-81-7076TcxtwcrnUbozaylbp and history of mental health and substance abuse codes (1 source)Personal history of nicotine dependence; Translations: [PERSONAL HISTORY OF NICOTINE DEPEND]Onset: 14-29-2498EbpvqbjoHeqntmy (4 sources)Syncope and collapse; Translations: [Syncope and collapse]Onset: 65-95-3736ObukyqpwIodccmyjagyr (1 source)Tachycardia, unspecified; Translations: [Tachycardia, unspecified] Onset: 54-54-7865Tptib infection (4 sources)Viral disease; Translations: [Viral infection, unspecified]Onset: 16-34-3859Fbsugjip Results Test NameValueInterpretationReference RangeFacilityMAMM DIAGNOSTIC BILATERAL W CADon 33-03-8818XOUE DIAGNOSTIC BILATERAL W CADMAMM DIAGNOSTIC BILATERAL W CAD COURTNEY MARTINEZ 1980 [id number], [id number] EXAM: MAMM DIAGNOSTIC BILATERAL W CAD, US BREAST BILAT - LIMITED, 09/18/2024 2:37 PM CLINICAL INDICATIONS: Mass of breast, unspecified laterality, Patient presents for palpable lump ofthe right breast and focal pain of the [...] will be performed at this location. There aremultiple ovoid circumscribed masses elsewhere similar to prior. There is no mammographic abnormality to correspond with focal pain in the left breast. Targeted ultrasound will also performed at this location. There are no suspicious masses, calcifications, or areas of architectural distortion. Bilateral Breast Ultrasound, Limited TECHNIQUE: Multiple real-time kasper-scale images of the bilateral breasts in the 4-5 o'clock axis ofthe right breast and 1:00 axis of the [...] 09/18/2024 3:51 PM 2 b MAMM 1 YRNormalProMedica [facility] BREAST B[facility]AT - LIMITED 23-02-2036NF BREAST BILAT - LIMITEDUS BREAST BILAT - LIMITED COURTNEY MARTINEZ 1980 [id number], [id number] EXAM: MAMM DIAGNOSTIC BILATERAL W CAD, US BREAST BILAT - LIMITED, 09/18/2024 2:37 PM CLINICAL INDICATIONS: Mass of breast, unspecified laterality, Patient presents for palpable lump ofthe right breast and focal pain of the [...] will be performed at this location. There aremultiple ovoid circumscribed masses elsewhere similar to prior. There is no mammographic abnormality to correspond with focal pain in the left breast. Targeted ultrasound will also performed at this location. There are no suspicious masses, calcifications, or areas of architectural distortion. Bilateral Breast Ultrasound, Limited TECHNIQUE: Multiple real-time kasper-scale images of the bilateral breasts in the 4-5 o'clock axis ofthe right breast and 1:00 axis of the [...] 09/18/2024 3:51 PM 2 b MAMM 1 YRNormalProMedica Talbert HospitalInfluenza virus B Ag [Presence] in Upper respiratory specimen by Rapid immunoassayon 26-91-2539JVMSK Ag IA.rapid Ql (Nph)Influenza virus B Ag [Presence] in Upper respiratory specimen by Rapid immunoassayMercy Memorial HospitalNo Panel Informationon 04-28-2024 Influenza Type A (Rapid)PositiveMercy Memorial HospitalPO SARS CoV-2 AntigenNegativeMercy Memorial HospitalCT CARDIAC SCORING WO IV CONTRASTon 75-25-9080SK CARDIAC SCORING WO IV CONTRASTInterpreted By: Junaid Mayers, STUDY: CT CARDIAC SCORING WO IV CONTRAST; 11/22/2023 5:12 pm INDICATION: Signs/Symptoms:palps. ,R00.2 Palpitations COMPARISON: None. ACCESSION NUMBER(S): [id number] ORDERING CLINICIAN: VEE LU TECHNIQUE: Using prospective [...] increased Juan Luis et al. JCCT 2016 (http://dx.doi.org/10.1016/j.jcct.2016.11.003) PARKER 10-Year CHD Risk with Coronary Artery Calcification can be calculated using link below [email or web address] Tony et al. JACC 2015 (http://dx.doi.org/10.1016/j.j acc.2015.08.035) MACRO: None Signed by: Junaid Mayers 11/26/2023 3:51 PM Dictation workstation: [id number]a Toledo HospitalEC 12 Leadon 41-15-8744ZtmfgbktvtThe University of [facility] Work Phone: Basophils Auto (Bld) [#/Vol]on 97-08-2820Iltrlyvci (Bld) [#/Vol]0.0 10 3/uL0.0-0.1FMercy Health West HospitalBasophils/100 WBC Auto (Bld)on 23-96-8987Lvvcahjaq/100 WBC (Bld)0.4 %0.2-2.0[facility] HospitalEosinophils/100 WBC Auto (Bld)on 83-92-5751Eiqovsiwqeo/100 WBC (Bld)1.2 %0.9-7.0[facility] HospitalErythrocyte distribution width Auto (RBC) [Ratio]on 31-30-5832Dgvqyxyzszo distribution width (RBC) [Ratio]12.6 %11.0-15.0[facility] HospitalEstimated glomerular filtration rate (GFR) non- Americanon 37-45-0800EUA/1.73 sq M.predicted among non-blacks MDRD (S/P/Bld) [Vol rate/Area]60 mL/min/{1.73_m2}>=60Mer[facility] Memorial HospitalGlobulin Calc (S) [Mass/Vol]on 50-01-7918Wdqncqea (S) [Mass/Vol]4.4 g/dL [facility] HospitalHematocrit Auto (Bld) [Volume fraction]on 47-37-6237Xvhoabeikg (Bld) [Volume fraction]42.4 %36.0-48.0[facility] HospitalHemoglobin [Mass/volume] in Bloodon 82-67-8292Wmfxsdvrhg (Bld) [Mass/Vol]13.5 g/dL12.0-16.0[facility] HospitalLaboratory - Chemistry and Chemistry - challengeon 92-86-4655Axqifrw [Mass/Vol]3.0 g/dLLow 3.4-5.0[facility] HospitalALP [Catalytic activity/Vol]85 U/L46-116 [facility] HospitalALT [Catalytic activity/Vol]31 U/L14-59 [facility] HospitalAST [Catalytic activity/Vol]22 U/L15-37 [facility] HospitalBilirubin [Mass/Vol]0.4 mg/dL0.2-1.0[facility] HospitalCalcium [Mass/Vol]8.6 mg/dL8.5-10.1FMercy Health West HospitalChloride [Moles/Vol]106 mmol/U74-630YxzzggzwwMercy Memorial HospitalCO2 [Moles/Vol]27.7 mmol/L21.0-32.0[facility] Creatinine [Mass/Vol]1.01 mg/dL0.55-1.02[facility] GFR/1.73 sq M.predicted MDRD (S/P/Bld) [Vol rate/Area]mL/min/{1.73_m2}>=60 [facility] HospitalGlucose [Mass/Vol]89 mg/qU23-743KcmeegzrbMercy Memorial HospitalPotassium [Moles/Vol]4.0 mmol/L3.5-5.1FMercy Health West HospitalProtein [Mass/Vol]7.4 g/dL6.4-8.2FMercy Health West Hospital Sodium [Moles/Vol]139 mmol/N173-226XidnualufMercy Memorial HospitalTSH Qn2.310 m[IU]/L0.358-3.740Mer[facility] Memorial HospitalUrea nitrogen [Mass/Vol]18.0 mg/dL7.0-18.0[facility] HospitalUrea nitrogen/Creatinine [Mass ratio]17.8 mg/mgMercy Memorial HospitalLaboratory - Hematology and Cell countson 03-99-1583Wslwhlor granulocytes/100 WBC (Bld)0.1 %0.0-0.5FMercy Health West HospitalLeukocytes [#/volume] corrected for nucleated erythrocytes in Blood by Automated counon 53-55-1293QEX corrected for nucl RBC Auto (Bld) [#/Vol]8.4 10 3/uL4.0-11.0[facility] Lymphocytes Auto (Bld) [#/Vol]on 27-94-1666Crrlsouxbnm (Bld) [#/Vol]1.9 10 3/uL 1.2-3.8[facility] HospitalLymphocytes/100 WBC Auto (Bld)on 96-98-0652Yicgrpippno/100 WBC (Bld)22.6 %20.5-60.0The [facility] HospitalH Auto (RBC) [Entitic mass]on 31-40-9102NCW (RBC) [Entitic mass]29.7 pg 26.7-34.0[facility] HospitalHC Auto (RBC) [Mass/Vol]on 37-25-7897VSON (RBC) [Mass/Vol]31.8 g/dL29.9-35.2FMercy Health West HospitalMCV Auto (RBC) [Entitic vol]on 02-37-3491AWR (RBC) [Entitic vol]93.4 fL 81.0-99.0[facility] HospitalMonocytes Auto (Bld) [#/Vol]on 45-19-2002Rvaabdwmr (Bld) [#/Vol]0.5 10 3/uL0.3-0.8[facility] HospitalMonocytes/100 WBC Auto (Bld)on 70-57-5994Hymsfsynb/100 WBC (Bld)6.4 % 1.7-12.0[facility] HospitalNeutrophils Auto (Bld) [#/Vol]on 84-83-1718Oynhixqrapo (Bld) [#/Vol]5.9 10 3/uL1.4-6.5FMercy Health West HospitalNeutrophils/100 WBC Auto (Bld)on 54-20-0139Jsqibsolmgf/100 WBC (Bld)69.3 % 43.0-75.0[facility] HospitalNo Panel Informationon 09-11-2023 Eosinophils # (Auto)0.1 10 3/uL0.0-0.7FMercy Health West HospitalImmature Granulocyte # (Auto)0.01 10 3/uL0.00-0.03[facility] Troponin I High Sensitivity<4.0 pg/mLLow4.0-51.3FMercy Health West HospitalComment on above:CUT-OFF POINTS HAVE BEEN ESTABLISHED BASED ON THE FOURTHUNIVERSAL DEFINITION OF MYOCARDIAL INFARCTION. THE UPPERREFERENCE LIMIT (URL) OF TROPONIN, DEFINED THE 99THPERCENTILE OF cTnI DISTRIBUTION IN A REFERENCE POPULATION,HAS BEEN CONFIRMED THE DECISION THRESHOLD FOR MIDIAGNOSIS.99TH PERCENTILE = 51.4 PG/MLNOTE: HIGH-SENSITIVITY TROPONIN ASSAY IS NOT INTENDED TO BEUSED IN ISOLATION BUT SHOULD BE INTERPRETED IN CONJUNCTIONWITH OTHER DIAGNOSTIC AND CLINICAL INFORMATION.Platelet mean volume Auto (Bld) [Entitic vol]on 09-22-3138Fdfyhbcj mean volume (Bld) [Entitic vol]9.6 fL9.5-13.5FMercy Health West HospitalPlatelets Auto (Bld) [#/Vol]on 96-98-8154Gyphlklpt (Bld) [#/Vol]244 10 3/rN836-595GbrzfjudmMercy Memorial HospitalRBC Auto (Bld) [#/Vol]on 36-96-1500XHH (Bld) [#/Vol]4.54 10 6/uL4.20-5.40 [facility] Hospitalerum or plasma albumin/globulin mass ratioon 60-96-6949Adhptvr/Globulin [Mass ratio]0.7 {ratio}German Hospitalerum or plasma anion gap determinationon 19-58-2877Nkjui gap [Moles/Vol] 9.3 mmol/LFDayton Osteopathic HospitalTOOL CULTUREon 05-23-2022 Campylobacter CultureFinal reportNoCleveland Clinic Mentor HospitalComment on above: Performed By: #### CXSTOOL #### [facility] [address] [place] [address] Dr. Taylor baltazar Shiga Toxin EIANegativeNormalNegativeSelect Medical [facility]ty [facility] Comment on above:Performed By: #### CXSTOOL #### [facility] [address] [place] [address] Dr. Taylor Granados 1ComOhioHealth Van Wert HospitalComment on above:Result Comment: No Salmonella or Shigella recovered.Performed By: #### CXSTOOL #### [facility] [address] [place] [address] Dr. Taylor Granados Comment: No Campylobacter species isolated. Salmonella/Shigella ScreenFinal reportLima Memorial HospitalComment on above:Performed By: #### CXSTOOL #### [facility] [address] [place] [address] Dr. Taylor Devries GASTRIC EMPTYon 57-28-8380NB GASTRIC EMPTYEXAMINATION: NM GASTRIC EMPTY HISTORY: Upper abdominal pain , chronic [...] Electronically authenticated by: AMINA GALLAGHER Date: 2022-05-22 07:43NoOur [facility] of [facility] AUTO DIFFon 14-21-2504NDIR #0.0 103/ulNormal0.0-0.1[facility] Hospital - AkronComment on above:Performed By: #### BRYANNA, CMP #### [facility] [address] [place] [address] Dr. Taylor DuncanBasophils/100 WBC (Bld)0.4 %Normal0.2-2.0[facility] Comment on above:Performed By: #### BRYANNA, CMP #### [facility] [address] [place] [address] Dr. Taylor Remy #0.1 103/ulNormal0.0-0.7ThOhio State Harding HospitalComment on above: Performed By: #### BRYANNA, CMP #### [facility] [address] [place] [address] Dr. Tyalor Barnhartosinophils/100 WBC (Bld)1.6 %Normal0.9-7.0[facility] Comment on above:Performed By: #### BRYANNA, CMP #### [facility] [address] [place] [address] Dr. Taylor Barnhartrythrocyte distribution width (RBC) [Ratio]12.2 %Wzouuj98.0-15.0 [facility] Hospital - AkronComment on above:Performed By: #### BRYANNA, CMP #### [facility] [address] [place] [address] Dr. Taylor DuncanHematocrit (Bld) [Volume fraction]40.1 %Kxcmbd62.0-48.0The [facility] SystemComment on above:Performed By: #### LIPA, CMP #### [facility] [address] [place] [address] Dr. Taylor DuncanHemoglobin (Bld) [Mass/Vol]12.7 g/vZTqwuej57.0-16.0The [facility] SystemComment on above:Performed By: #### LIPA, CMP #### [facility] [address] [place] [address] Dr. Taylor Jha #0.01 10e3/ulNormal0.00-0.03The [facility] SystemComment on above:Performed By: #### LIPA, CMP #### [facility] [address] [place] [address] Dr. Taylor Jha %0.2 %Normal0.0-0.5The [facility] SystemComment on above: Performed By: #### LIPA, CMP #### [facility] [address] [place] [address] Dr. Taylor Magana #2.0 103/ulNormal1.2-3.8The [facility] SystemComment on above:Performed By: #### LIPA, CMP #### [facility] [address] [place] [address] Dr. Taylor Paulmphocytes/100 WBC (Bld)35.1 %Rhyimm52.5-60.0The [facility] SystemComment on above:Performed By: #### LIPA, CMP #### [facility] [address] [place] [address] Dr. Taylor AugustinUAL DIFF REQNONormalThe [facility] SystemComment on above: Performed By: #### LIPA, CMP #### [facility] [address] [place] [address] Dr. Taylor Valencia (RBC) [Entitic mass]29.1 owBnxvqh03.7-34.0The [facility] SystemComment on above:Performed By: #### LIPA, CMP #### [facility] [address] [place] [address] Dr. Taylor Henao (RBC) [Mass/Vol]31.7 g/kAVclvpc38.9-35.2The [facility] SystemComment on above:Performed By: #### LIPA, CMP #### [facility] [address] [place] [address] Dr. Taylor Henao (RBC) [Entitic vol]92.0 bUXvcopz82.0-99.0The [facility] SystemComment on above:Performed By: #### LIPA, CMP #### [facility] [address] [place] [address] Dr. Taylor Harper #0.5 103/ulNormal0.3-0.8The [facility] SystemComment on above:Performed By: #### LIPA, CMP #### [facility] [address] [place] [address] Dr. Taylor Nicoleocytes/100 WBC (Bld)9.1 %Normal1.7-12.0The [facility] Comment on above:Performed By: #### LIPA, CMP #### [facility] [address] [place] [address] Dr. Taylor Foreman #3.0 103/ulNormal1.4-6.5The [facility] SystemComment on above:Performed By: #### LIPA, CMP #### [facility] [address] [place] [address] Dr. Taylor Persaudophils/100 WBC (Bld)53.6 %Oyzhak39.0-75.0The [facility] SystemComment on above:Performed By: #### LIPA, CMP #### [facility] [address] [place] [address] Dr. Taylor Caballero mean volume (Bld) [Entitic vol]9.9 fLNormal9.5-13.5The [facility] SystemComment on above:Performed By: #### LIPA, CMP #### [facility] [address] [address] [address] Taylor DuncanPLT206 103/eiGhsbkp170-025Hgb [facility] SystemComment on above: Performed By: #### LIPA, CMP #### [facility] [address] [place] [address] Dr. Taylor DuncanRBC4.36 106/ulNormal4.20-5.40The [facility] SystemComment on above:Performed By: #### LIPA, CMP #### [facility] [address] [place] [address] Dr. Taylor DnucanWBC5.6 103/ulNormal4.0-11.0The [facility] SystemComment on above: Performed By: #### LIPA, CMP #### [facility] [address] [place] [address] Dr. Taylor BradfordF 14(COMP METB)on 62-39-1307Dexqqje [Mass/Vol]2.6 g/dL Critically low3.4-5.0The [facility] SystemComment on above:Performed By: #### CXSTOOL #### [facility] [address] [place] [address] Dr. Taylor DuncanAlbumin/Globulin [Mass ratio]0.8 {ratio}NormalThe [facility] SystemComment on above:Performed By: #### CXSTOOL #### [facility] [address] [place] [address] Dr. Taylor Najera [Catalytic activity/Vol]102 U/JBohjci43-721Miv [facility] SystemComment on above:Performed By: #### CXSTOOL #### [facility] [address] [place] [address] Dr. Taylor Bradshaw [Catalytic activity/Vol]50 U/QMjastc99-38Ujo [facility] SystemComment on above:Performed By: #### CXSTOOL #### [facility] [address] [place] [address] Dr. Taylor Bucio gap [Moles/Vol]11.1 mmol/LNormalThe [facility] on above:Performed By: #### CXSTOOL #### [facility] [address] [address] [address] Taylor DuncanAST [Catalytic activity/Vol]41 U/LCritically lthr35-77Naz [facility] SystemComment on above:Performed By: #### CXSTOOL #### [facility] [address] [address] [address] Taylor DuncanBilirubin [Mass/Vol]0.3 mg/dLNormal0.2-1.0The [facility] Comment on above:Performed By: #### CXSTOOL #### [facility] [address] [address] [address] Taylor DuncanCalcium [Mass/Vol]8.1 mg/dLCritically low8.5-10.1The [facility] SystemComment on above:Performed By: #### CXSTOOL #### [facility] [address] [place] [address] Dr. Taylor DuncanChloride [Moles/Vol]109 mmol/LCritically ysun82-824Qti [facility] SystemComment on above:Performed By: #### CXSTOOL #### [facility] [address] [address] [address] Taylor DuncanCO2 [Moles/Vol]25.9 mmol/OTqrllt60.0-32.0[facility] Comment on above:Performed By: #### CXSTOOL #### [facility] [address] [address] [address] Taylor DuncanCreatinine [Mass/Vol]0.89 mg/dLNormal0.55-1.02The [facility] SystemComment on above:Performed By: #### CXSTOOL #### [facility] [address] [address] [address] Vazquez ChangEGFR-AF ERITREAN>60Normal>=60The [facility] SystemComment on above:Performed By: #### CXSTOOL #### [facility] [address] [place] [address] Dr. Taylor BarnhartGFR-NON AF ERITREAN>60Normal>=60The [facility] SystemComment on above:Performed By: #### CXSTOOL #### [facility] [address] [address] [address] Taylor DuncanGlobulin (S) [Mass/Vol]3.3 g/dLNoCleveland Clinic Mentor HospitalComment on above:Performed By: #### CXSTOOL #### [facility] [address] [address] [address] Taylor DuncanGlucose [Mass/Vol]85 mg/dYJqdaoi25-398Ljt [facility] Comment on above:Performed By: #### CXSTOOL #### [facility] [address] [address] [address] Taylor DuncanPotassium [Moles/Vol]4.0 mmol/LNormal3.5-5.1The [facility] Comment on above:Performed By: #### CXSTOOL #### [facility] [address] [address] [address] Taylor DuncanProtein [Mass/Vol]5.9 g/dLCritically low6.4-8.2[facility] - AkronComment on above:Performed By: #### CXSTOOL #### [facility] [address] [address] [address] Taylor DuncanSodium [Moles/Vol]142 mmol/XMrpcfc775-443NglSelect Medical Specialty Hospital - [place] Comment on above:Performed By: #### CXSTOOL #### [facility] [address] [address] [address] Taylor DuncanUrea nitrogen [Mass/Vol]10.0 mg/dLNormal7.0-18.0The [facility] SystemComment on above:Performed By: #### CXSTOOL #### [facility] [address] [address] [address] Taylor Tirado nitrogen/Creatinine [Mass ratio]11.2 mg/mgNoCleveland Clinic Mentor HospitalCombronson south haven hospital on above:Performed By: #### CXSTOOL #### [facility] [address] [address] [address] Taylor LynC AUTO DIFFon 49-64-8730OLWC #0.0 103/ulNormal0.0-0.1The [facility] SystemComment on above:Performed By: #### CXSTOOL #### [facility] [address] [place] [address] Dr. Taylor DuncanBasophils/100 WBC (Bld)0.4 %Normal0.2-2.0The [facility] Comment on above:Performed By: #### CXSTOOL #### [facility] [address] [place] [address] Dr. Taylor Remy #0.1 103/ulNormal0.0-0.7The [facility] SystemComment on above: Performed By: #### CXSTOOL #### [facility] [address] [place] [address] Dr. Taylor Branhartosinophils/100 WBC (Bld)0.7 %Critically low0.9-7.0The [facility] SystemComment on above:Performed By: #### CXSTOOL #### [facility] [address] [place] [address] Dr. Taylor Barnhartrythrocyte distribution width (RBC) [Ratio]12.3 %Jtwyfz23.0-15.0 The [facility] SystemComment on above:Performed By: #### CXSTOOL #### [facility] [address] [place] [address] Dr. Taylor DuncanHematocrit (Bld) [Volume fraction]39.4 %Dtczpm04.0-48.0The [facility] SystemComment on above:Performed By: #### CXSTOOL #### [facility] [address] [place] [address] Dr. Taylor DuncanHemoglobin (Bld) [Mass/Vol]13.0 g/sLBnyjfd17.0-16.0The [facility] Hospitalment on above:Performed By: #### CXSTOOL #### [facility] [address] [place] [address] Dr. Taylor Jha #0.01 10e3/ulNormal0.00-0.03The [facility]ita Health SystemComment on above:Performed By: #### CXSTOOL #### [facility] [address] [place] [address] Dr. Taylor Jha %0.1 %Normal0.0-0.5The [facility] Health SystemComment on above: Performed By: #### CXSTOOL #### [facility] [address] [address] [address] Taylor Magana #1.5 103/ulNormal1.2-3.8The [facility] Health SystemComment on above:Performed By: #### CXSTOOL #### [facility] [address] [place] [address] Dr. Taylor Garciahocytes/100 WBC (Bld)20.3 %Critically low20.5-60.0The [facility] Health SystemComment on above:Performed By: #### CXSTOOL #### [facility] [address] [place] [address] Dr. Taylor AugustinUAL DIFF REQNONormalThe [facility] Health SystemComment on above: Performed By: #### CXSTOOL #### [facility] [address] [place] [address] Dr. Taylor Henao (RBC) [Entitic mass]30.0 lfRzrmrj93.7-34.0The [facility] SystemCombronson [facility] on above:Performed By: #### CXSTOOL #### [facility] [address] [place] [address] Dr. Taylor Henao (RBC) [Mass/Vol]33.0 g/fGLpwekp02.9-35.2The [facility]ment on above:Performed By: #### CXSTOOL #### [facility] [address] [place] [address] Dr. Taylor Henao (RBC) [Entitic vol]91.0 yQVcsbrz54.0-99.0The [facility] SystemComment on above:Performed By: #### CXSTOOL #### [facility] [address] [place] [address] Dr. Taylor Harper #0.6 103/ulNormal0.3-0.8The [facility] SystemComment on above:Performed By: #### CXSTOOL #### [facility] [address] [place] [address] Dr. Taylor Nicoleocytes/100 WBC (Bld)8.4 %Normal1.7-12.0The [facility] Comment on above:Performed By: #### CXSTOOL #### [facility] [address] [place] [address] Dr. Taylor Foreman #5.2 103/ulNormal1.4-6.5The [facility] SystemComment on above:Performed By: #### CXSTOOL #### [facility] [address] [place] [address] Dr. Taylor Trevinoutrophils/100 WBC (Bld)70.1 %Uhckov02.0-75.0The [facility] SystemComment on above:Performed By: #### CXSTOOL #### [facility] [address] [place] [address] Dr. Taylor Colelet mean volume (Bld) [Entitic vol]10.0 fLNormal9.5-13.5The [facility] SystemComment on above:Performed By: #### CXSTOOL #### [facility] [address] [place] [address] Dr. Taylor DelongT220 103/ynIgrxzx133-206Cce [facility] SystemComment on above: Performed By: #### CXSTOOL #### [facility] [address] [place] [address] Dr. Taylor DuncanRBC4.33 106/ulNormal4.20-5.40The [facility] SystemComment on above:Performed By: #### CXSTOOL #### [facility] [address] [place] [address] Dr. Taylor DuncanWBC7.5 103/ulNormal4.0-11.0The [facility] SystemComment on above: Performed By: #### CXSTOOL #### [facility] [address] [place] [address] Dr. Yilan ChangPROF 14(COMP METB)on 27-84-5988Sjjtrkq [Mass/Vol]2.9 g/dL Critically low3.4-5.0The [facility] SystemComment on above:Performed By: #### LIPA, CMP #### [facility] [address] [address] [address] Taylor DuncanAlbumin/Globulin [Mass ratio]0.8 {ratio}NormalThe [facility] Health SystemComment on above:Performed By: #### LIPA, CMP #### [facility] [address] [address] [address] Taylor BorreroP [Catalytic activity/Vol]98 U/WInjfzv51-771Lfy [facility] SystemComment on above:Performed By: #### LIPA, CMP #### [facility] [address] [address] [address] Taylor BorreroT [Catalytic activity/Vol]44 U/DAofiee80-25Hvr [facility] SystemComment on above:Performed By: #### LIPA, CMP #### [facility] [address] [address] [address] Taylor Bucio gap [Moles/Vol]9.3 mmol/LNormalThe [facility] Health SystemComment on above:Performed By: #### LIPA, CMP #### [facility] [address] [address] [address] Taylor DuncanAST [Catalytic activity/Vol]49 U/LCritically xxig59-60Kyn [facility] SystemComment on above:Performed By: #### LIPA, CMP #### [facility] [address] [address] [address] Taylor DuncanBilirubin [Mass/Vol]0.4 mg/dLNormal0.2-1.0The [facility] Comment on above:Performed By: #### LIPA, CMP #### [facility] [address] [address] [address] Taylor DuncanCalcium [Mass/Vol]8.2 mg/dLCritically low8.5-10.1The [facility] SystemComment on above:Performed By: #### LIPA, CMP #### [facility] [address] [address] [address] Taylor DuncanChloride [Moles/Vol]108 mmol/LCritically nqta81-877Sdl [facility] Hospitalment on above:Performed By: #### LIPA, CMP #### [facility] [address] [address] [address] Taylor DuncanCO2 [Moles/Vol]27.5 mmol/GYcijvu91.0-32.0The [facility] Comment on above:Performed By: #### LIPA, CMP #### [facility] [address] [address] [address] Taylor DuncanCreatinine [Mass/Vol]0.97 mg/dLNormal0.55-1.02The [facility] SystemComment on above:Performed By: #### LIPA, CMP #### [facility] [address] [address] [address] Taylor BarnhartGFR-AF ERITREAN>60Normal>=60The [facility] SystemComment on above:Performed By: #### LIPA, CMP #### [facility] [address] [address] [address] Taylor BarnhartGFR-NON AF ERITREAN>60Normal>=60The [facility] SystemComment on above:Performed By: #### LIPA, CMP #### [facility] [address] [address] [address] Taylor DuncanGlobulin (S) [Mass/Vol]3.5 g/dLNormalThe [facility] SystemComment on above:Performed By: #### LIPA, CMP #### [facility] [address] [address] [address] Taylor DuncanGlucose [Mass/Vol]104 mg/mJOhajlq64-914Fia [facility] Comment on above:Performed By: #### LIPA, CMP #### [facility] [address] [address] [address] Taylor DuncanPotassium [Moles/Vol]3.8 mmol/LNormal3.5-5.1The [facility] Comment on above:Performed By: #### LIPA, CMP #### [facility] [address] [place] [address] Dr. Taylor DuncanProtein [Mass/Vol]6.4 g/dLNormal6.4-8.2The [facility] Comment on above:Performed By: #### LIPA, CMP #### [facility] [address] [place] [address] Dr. Taylor DuncanSodium [Moles/Vol]141 mmol/OJqqsqv509-590Aju [facility] Comment on above:Performed By: #### LIPA, CMP #### [facility] [address] [place] [address] Dr. Taylor DuncanUrea nitrogen [Mass/Vol]11.0 mg/dLNormal7.0-18.0The [facility] SystemComment on above:Performed By: #### LIPA, CMP #### [facility] [address] [place] [address] Dr. Taylor Tirado nitrogen/Creatinine [Mass ratio]11.3 mg/mgNormalThe [facility] SystemComment on above:Performed By: #### LIPA, CMP #### [facility] [address] [place] [address] Dr. Taylor DuncanAMYLASEon 94-01-4895Mmdmdrp [Catalytic activity/Vol]60 U/LNormal 25-115The [facility] SystemComment on above:Performed By: #### CMP, LIPA, SHRUTHI #### [facility] [address] [place] [address] Dr. Taylor Valentino AUTO DIFFon [id number] #0.0 103/ulNormal0.0-0.1The [facility] SystemComment on above:Performed By: #### CXSTOOL #### [facility] [address] [place] [address] Dr. Taylor DuncanBasophils/100 WBC (Bld)0.4 %Normal0.2-2.0[facility] Comment on above:Performed By: #### CXSTOOL #### [facility] [address] [place] [address] Dr. Taylor Remy #0.1 103/ulNormal0.0-0.7The [facility] SystemComment on above: Performed By: #### CXSTOOL #### [facility] [address] [place] [address] Dr. Taylor Barnhartosinophils/100 WBC (Bld)1.2 %Normal0.9-7.0The [facility] Comment on above:Performed By: #### CXSTOOL #### [facility] [address] [place] [address] Dr. Taylor Barnhartrythrocyte distribution width (RBC) [Ratio]12.3 %Lrwzqu51.0-15.0 The [facility] SystemComment on above:Performed By: #### CXSTOOL #### [facility] [address] [place] [address] Dr. Taylor DuncanHematocrit (Bld) [Volume fraction]46.3 %Qeblyg97.0-48.0The [facility] SystemComment on above:Performed By: #### CXSTOOL #### [facility] [address] [place] [address] Dr. Taylor DuncanHemoglobin (Bld) [Mass/Vol]15.3 g/bZOabsyt69.0-16.0The [facility] SystemComment on above:Performed By: #### CXSTOOL #### [facility] [address] [place] [address] Dr. Taylor Jha #0.02 10e3/ulNormal0.00-0.03The [facility] SystemComment on above:Performed By: #### CXSTOOL #### [facility] [address] [place] [address] Dr. Taylor Jha %0.2 %Normal0.0-0.5The [facility] SystemComment on above: Performed By: #### CXSTOOL #### [facility] [address] [place] [address] Dr. Taylor Magana #2.4 103/ulNormal1.2-3.8The [facility] SystemComment on above:Performed By: #### CXSTOOL #### [facility] [address] [place] [address] Dr. Taylor Paulmphocytes/100 WBC (Bld)28.6 %Ipfcyp64.5-60.0The [facility] SystemComment on above:Performed By: #### CXSTOOL #### [facility] [address] [place] [address] Dr. Taylor AugustinUAL DIFF REQNONormalThe [facility] SystemComment on above: Performed By: #### CXSTOOL #### [facility] [address] [place] [address] Dr. Taylor Henao (RBC) [Entitic mass]29.7 ddDkwepc15.7-34.0The [facility] SystemComment on above:Performed By: #### CXSTOOL #### [facility] [address] [place] [address] Dr. Taylor Henao (RBC) [Mass/Vol]33.0 g/oBBqeawr74.9-35.2The [facility] SystemComment on above:Performed By: #### CXSTOOL #### [facility] [address] [place] [address] Dr. Taylor Clement (RBC) [Entitic vol]89.9 fCWyvclp45.0-99.0The [facility] SystemComment on above:Performed By: #### CXSTOOL #### [facility] [address] [place] [address] Dr. Taylor Harper #0.6 103/ulNormal0.3-0.8The [facility] SystemComment on above:Performed By: #### CXSTOOL #### [facility] [address] [place] [address] Dr. Taylor Nicoleocytes/100 WBC (Bld)7.0 %Normal1.7-12.0The [facility] on above:Performed By: #### CXSTOOL #### [facility] [address] [place] [address] Dr. Yilan ChangNEUT #5.2 103/ulNormal1.4-6.5The [facility] SystemComment on above:Performed By: #### CXSTOOL #### [facility] [address] [place] [address] Dr. Taylor Trevinoutrophils/100 WBC (Bld)62.6 %Hqyunw22.0-75.0The [facility] SystemComment on above:Performed By: #### CXSTOOL #### [facility] [address] [place] [address] Dr. Taylor DuncanPlatelet mean volume (Bld) [Entitic vol]9.7 fLNormal9.5-13.5The [facility] SystemComment on above:Performed By: #### CXSTOOL #### [facility] [address] [place] [address] Dr. Taylor DuncanPLT271 103/dzSdvzic971-143Njo [facility] SystemComment on above: Performed By: #### CXSTOOL #### [facility] [address] [place] [address] Dr. Taylor DuncanRBC5.15 106/ulNormal4.20-5.40The [facility] SystemComment on above:Performed By: #### CXSTOOL #### [facility] [address] [place] [address] Dr. Taylor DuncanWBC8.4 103/ulNormal4.0-11.0The [facility] SystemComment on above: Performed By: #### CXSTOOL #### [facility] [address] [place] [address] Dr. Taylor DuncanCT ABD/PELVIS WO CONon [id number] ABD/PELVIS WO CONEXAMINATION: CT ABD/PELVIS WO CON, 05/18/2022 8:23 PM [...] Electronically authenticated by: MONICA DIA Date: 2022-05-18 21:37NormOhioHealth Hardin Memorial HospitalCovid-19 PCR (CVDTBH)on [id number]-CoV-2 (COVID-19) RNA ROX+probe Ql (Unsp spec)Not detectedNormalNOT DETECTEDThe [facility] Comment on above:Result Comment: When diagnostic testing is negative, the [...] for this test is supported by the [employer] Inspector of Health and Human Service's declaration that circumstances exist to justify the emergency use of in vitro diagnostics for the detection and/or diagnosis of the virus that causes COVID-19. This EUA will remain in effect for the duration of the COVID-19 declaration justifying emergency of IVDs, unless it is terminated or revoked by the FDA (after which the test may no longer be used).Performed By: #### CXSTOOL #### [facility] [address] [place] [id number] Taylor Traylor URINE PROFILEon [id number] Ql (U)NegativeNormal NEGATIVEThe [facility] Health SystemComment on above:Performed By: #### LIPA, CMP #### [facility] [address] [address] [address] Taylor Pricearity (U)CLEARNormalCLEARSelect Medical Specialty Hospital - AkronComment on above: Performed By: #### LIPA, CMP #### [facility] [address] [address] [address] Taylor Koch (U)YELLOWNormalYELLOWSelect Medical Specialty Hospital - AkronComment on above: Performed By: #### LIPA, CMP #### [facility] [address] [address] [address] Taylor Mckeon micrscopic examination will be performed if indicated. NormalThe [facility] Health SystemComment on above:Performed By: #### LIPA, CMP #### [facility] [address] [place] [address] Dr. Taylor DuncanGlucose Ql (U)NegativeNormalNEGATIVESelect Medical Specialty Hospital - AkronComment on above:Performed By: #### LIPA, CMP #### [facility] [address] [address] [address] Taylor DuncanHemoglobin Ql (U)NegativeNormalNEGATIVERiverside Methodist Hospital on above:Performed By: #### LIPA, CMP #### [facility] [address] [place] [address] Dr. Taylor DuncanKetones Ql (U)NegativeNormalNEGATIVESelect Medical Specialty Hospital - AkronComment on above:Performed By: #### LIPA, CMP #### [facility] [address] [address] [address] Taylor DuncanLEUKOCYTESNegativeNormalNEGATIVESelect Medical Specialty Hospital - AkronComment on above:Performed By: #### LIPA, CMP #### [facility] [address] [address] [address] Taylor DuncanNitrite Ql (U)NegativeNormalNEGATIVESelect Medical Specialty Hospital - AkronComment on above:Performed By: #### LIPA, CMP #### [facility] [address] [place] [address] Dr. Taylor DuncanpH (U)6.0 [pH]Normal5-9[facility] - AkronComment on above: Performed By: #### LIPA, CMP #### [facility] [address] [address] [address] Taylor DuncanProtein (U) [Mass/Vol]30 mg/dLAbnormalNEGATIVE/ TRACEThe [facility] SystemComment on above:Performed By: #### LIPA, CMP #### [facility] [address] [place] [address] Dr. Taylor Lipscomb GRAVITY>=1.005Nfllynbw2.005-<=1.025The [facility] Comment on above:Performed By: #### LIPA, CMP #### [facility] [address] [place] [address] Dr. Taylor Braswell MICRO INDINDICATEDNormalThe [facility] SystemComment on above: Performed By: #### LIPA, CMP #### [facility] [address] [place] [address] Dr. Taylor Beebe Qn (U)0.2 {Qian'U}/dLNormal0.2 - 1.0The [facility] SystemComment on above:Performed By: #### LIPA, CMP #### [facility] [address] [place] [address] Dr. Taylor Kim PANEL (PCR)on [id number] F 40/41Not detectedNormal NOT DETECTEDThe [facility] SystemComment on above:Performed By: #### LIPA, CMP #### [facility] [address] [place] [address] Dr. Taylor DuncanAstrovirusNot detectedNormalNOT DETECTEDThe [facility] Comment on above:Performed By: #### LIPA, CMP #### [facility] [address] [place] [address] Dr. Taylor Marmolejo. Diff toxin A/BNot detectedNormalNOT DETECTEDThe [facility] SystemComment on above:Performed By: #### LIPA, CMP #### [facility] [address] [place] [address] Dr. Taylor JuanpylobacterNot detectedNormalNOT DETECTEDThe [facility] Comment on above:Performed By: #### LIPA, CMP #### [facility] [address] [address] [address] Taylor LoredoyptosporidiumNot detectedNormalNOT DETECTEDThe [facility] SystemComment on above:Performed By: #### LIPA, CMP #### [facility] [address] [address] [address] Taylor Perkins. CayetanensisNot detectedNormalNOT DETECTEDThe [facility] SystemComment on above:Performed By: #### LIPA, CMP #### [facility] [address] [address] [address] Taylor Mathur Coli E325Laa ApplicableNormalNot ApplicableThe [facility] SystemComment on above:Performed By: #### LIPA, CMP #### [facility] [address] [address] [address] Taylor Mathur histolyticaNot detectedNormalNOT DETECTEDThe [facility] Comment on above:Performed By: #### LIPA, CMP #### [facility] [address] [address] [address] Taylor BarnhartAECNot detectedNormalNOT DETECTEDThe [facility] SystemCombronson south [facility] hospital on above:Performed By: #### LIPA, CMP #### [facility] [address] [address] [address] Taylor BarnhartIECNot detectedNormalNOT DETECTEDThe [facility] SystemComment on above:Performed By: #### LIPA, CMP #### [facility] [address] [address] [address] Taylor BarnhartPECNot detectedNormalNOT DETECTEDThe [facility] SystemComment on above:Performed By: #### LIPA, CMP #### [facility] [address] [address] [address] Taylor BarnhartTECNot detectedNormalNOT DETECTEDThe [facility] SystemComment on above:Performed By: #### LIPA, CMP #### [facility] [address] [address] [address] Taylor Lindquist LambliaNot detectedNormalNOT DETECTEDThe [facility] Comment on above:Performed By: #### LIPA, CMP #### [facility] [address] [address] [address] Taylor Johnson CONTROLSMercy Health St. Elizabeth Youngstown HospitalComment on above:Performed By: #### LIPA, CMP #### [facility] [address] [address] [address] Taylor GOLDSTEIN HEADERGI PANEL [facility] Comment on above:Performed By: #### LIPA, CMP #### [facility] [address] [address] [address] Taylor Cyr ECOLIGI PANEL DIARRHEAGENIC E.COLI / SHIGELLALima Memorial HospitalComment on above:Performed By: #### LIPA, CMP #### [facility] [address] [place] [address] Dr. Taylor Cyr INFOSEE [facility]leness HospitalComment on above: Result Comment: EAEC- Enteroaggregative E. Coli EPEC- Enteropathogenic E. Coli ETEC- Enterotoxigenic E. Coli lt/st STEC- Shigella-like toxin-producing E. Coli stx1/stx2 EIEC- Shigella/Enteroinvasive E. ColiPerformed By: #### LIPA, CMP #### [facility] [address] [address] [address] Taylor Cyr PARASITESGI PANEL PARASITESLima Memorial Hospital Comment on above:Performed By: #### LIPA, CMP #### [facility] [address] [address] [address] Taylor Cyr VIRUSGI PANEL VIRUSESLima Memorial HospitalComment on above:Performed By: #### LIPA, CMP #### [facility] [address] [address] [address] Taylor Hooperrovirus GI/GIINot detectedNormalNOT DETECTEDSelect Medical Specialty Hospital - AkronComment on above:Performed By: #### LIPA, CMP #### [facility] [address] [address] [address] Taylor George ShigelloidesNot detectedNormalNOT DETECTEDThe [facility] SystemComment on above:Performed By: #### LIPA, CMP #### [facility] [address] [address] [address] Taylor DuncanRotavirus ANot detectedNormalNOT DETECTEDThe [facility] Comment on above:Performed By: #### LIPA, CMP #### [facility] [address] [address] [address] Taylor DuncanSalmonellaNot detectedNormalNOT DETECTEDThe [facility] Comment on above:Performed By: #### LIPA, CMP #### [facility] [address] [address] [address] Taylor DuncanSapovirusNot detectedNormalNOT DETECTEDThe [facility] Comment on above:Performed By: #### LIPA, CMP #### [facility] [address] [address] [address] Taylor DuncanSTECNot detectedNormalNOT DETECTEDThe [facility] SystemComment on above:Performed By: #### LIPA, CMP #### [facility] [address] [address] [address] Taylor JorgensenioNot detectedNormalNOT DETECTEDThe [facility] SystemComment on above:Performed By: #### LIPA, CMP #### [facility] [address] [address] [address] Taylor Jorgensenio CholeraNot detectedNormalNOT DETECTEDThe [facility] Comment on above:Performed By: #### LIPA, CMP #### [facility] [address] [address] [address] Taylor Sheridan. EnterocoliticaNot detectedNormalNOT DETECTEDThe [facility] SystemComment on above:Performed By: #### LIPA, CMP #### [facility] [address] [place] [address] Dr. Taylor Alvareson [id number] [Catalytic activity/Vol]71.0 U/L Critically low73.0-393.0The [facility] SystemComment on above:Performed By: #### CMP, LIPA, SHRUTHI #### [facility] [address] [place] [address] Dr. Taylor Begum 14(COMP METB)on 69-01-2450Xdbqlrh [Mass/Vol]3.5 g/dLNormal 3.4-5.0The [facility] SystemComment on above:Performed By: #### CMP, LIPA, SHRUTHI #### [facility] [address] [place] [address] Dr. Taylor DuncanAlbumin/Globulin [Mass ratio]0.8 {ratio}NormalThe [facility] SystemComment on above:Performed By: #### CMP, LIPA, SHRUTHI #### [facility] [address] [place] [address] Dr. Taylor Najera [Catalytic activity/Vol]108 U/YRgspsv51-661Pqw [facility] SystemComment on above:Performed By: #### CMP, LIPA, SHRUTHI #### [facility] [address] [place] [address] Dr. Taylor Bradshaw [Catalytic activity/Vol]38 U/YAnmyhy71-58Nvf [facility] SystemComment on above:Performed By: #### CMP, LIPA, SHRUTHI #### [facility] [address] [place] [address] Dr. Taylor Bucio gap [Moles/Vol]12.3 mmol/LNormalThe [facility] Comment on above:Performed By: #### CMP, LIPA, SHRUTHI #### [facility] [address] [place] [address] Dr. Taylor Dyer [Catalytic activity/Vol]29 U/XElwfdk30-29Xat [facility] Hospitalment on above:Performed By: #### CMP, LIPA, SHRUTHI #### [facility] [address] [place] [address] Dr. Taylor DuncanBilirubin [Mass/Vol]0.3 mg/dLNormal0.2-1.0The [facility] Comment on above:Performed By: #### CMP, LIPA, SHRUTHI #### [facility] [address] [address] [address] Taylor DuncanCalcium [Mass/Vol]8.8 mg/dLNormal8.5-10.1The [facility] Comment on above:Performed By: #### CMP, LIPA, SHRUTHI #### [facility] [address] [address] [address] Taylor DuncanChloride [Moles/Vol]106 mmol/BQwfcjw94-997BdlSelect Medical Specialty Hospital [facility] [place] Comment on above:Performed By: #### CMP, LIPA, SHRUTHI #### [facility] [address] [place] [address] Dr. Taylor DuncanCO2 [Moles/Vol]29.4 mmol/BSfabwg04.0-32.0The [facility] Comment on above:Performed By: #### CMP, LIPA, SHRUTHI #### [facility] [address] [place] [address] Dr. Taylor DuncanCreatinine [Mass/Vol]1.09 mg/dLCritically high0.55-1.02[facility] - AkronComment on above:Performed By: #### CMP, LIPA, SHRUTHI #### [facility] [address] [place] [address] Dr. Vazquez ChangEGFR-AF ERITREAN>60Normal>=60The [facility] SystemComment on above:Performed By: #### CMP, LIPA, SHRUTHI #### [facility] [address] [place] [address] Dr. Taylor BarnhartGFR-NON AF [id number] mL/min/1.77q9Cwovauobic low>=60The [facility] Health SystemComment on above:Performed By: #### CMP, LIPA, SHRUTHI #### [facility] [address] [place] [address] Dr. Taylor DuncanGlobulin (S) [Mass/Vol]4.2 g/dLNormalThe [facility] SystemComment on above:Performed By: #### CMP, LIPA, SHRUTHI #### [facility] [address] [place] [address] Dr. Taylor DuncanGlucose [Mass/Vol]91 mg/hOLomlqe37-013AbjSelect Medical Specialty Hospital - [facility] Comment on above:Performed By: #### CMP, LIPA, SHRUTHI #### [facility] [address] [address] [address] Taylor DuncanPotassium [Moles/Vol]3.7 mmol/LNormal3.5-5.1The [facility] Comment on above:Performed By: #### CMP, LIPA, SHRUTHI #### [facility] [address] [address] [address] Taylor DuncanProtein [Mass/Vol]7.7 g/dLNormal6.4-8.2The [facility] Comment on above:Performed By: #### CMP, LIPA, SHRUTHI #### [facility] [address] [place] [address] Dr. Taylor DuncanSodium [Moles/Vol]144 mmol/IDoxxrq267-024JthSelect Medical Specialty Hospital [facility] [place] Comment on above:Performed By: #### CMP, LIPA, SHRUTHI #### [facility] [address] [place] [address] Dr. Taylor DuncanUrea nitrogen [Mass/Vol]12.0 mg/dLNormal7.0-18.0[facility] - AkronComment on above:Performed By: #### CMP, LIPA, SHRUTHI #### [facility] [address] [place] [address] Dr. Taylor Tirado nitrogen/Creatinine [Mass ratio]11.0 mg/mgNormalThe [facility] SystemComment on above:Performed By: #### CMP, LIPA, SHRUTHI #### [facility] [address] [place] [address] Dr. Taylor Torres, HIGH SENSITIVITYon 61-64-3887HUWDTD0.0 pg/mLNormal 4.0-51.3The [facility] SystemComment on above:Result Comment: CUT-OFF POINTS HAVE BEEN ESTABLISHED BASED ON THE FOURTH UNIVERSAL DEFINITIONS OF MYOCARDIAL INFARCTION. THE UPPER REFERENCE LIMIT (URL) OF TROPONIN, DEFINED THE 99TH PERCENTILE OF cTnI DISTRIBUTION IN A REFERENCE POPULATION, HAS BEEN CONFIRMED THE DECISION THRESHOLD FOR [place] DIAGNOSIS.Performed By: #### CXSTOOL #### [facility] [address] [address] [address] Taylor Dudley MICROSCOPIC ONLYon [id number]T SEEN The [facility] SystemCombr[facility] on above:Performed By: #### LIPA, CMP #### [facility] [address] [address] [address] Taylor Bearden identified Cx Nom (U)NOT INDICATEDNormalThe [facility] SystemCombronson south haven hospital on above:Performed By: #### LIPA, CMP #### [facility] [address] [address] [address] Taylor Sarkar SEENNormalNONE SEENSumma Health on above:Performed By: #### LIPA, CMP #### [facility] [address] [address] [address] Taylor Loredoystals LM Nom (Urine sed)NONE SEENNormalNONE SEENSumma Health on above:Performed By: #### LIPA, CMP #### [facility] [address] [place] [address] Dr. Taylor Moralesthelial cells LM Ql (Urine sed)RARENormalNONE SEEN /RAREThe [facility] SystemCombronson south [facility] hospital on above:Performed By: #### LIPA, CMP #### [facility] [address] [place] [address] Dr. Taylor TrujilloCOUSSMALLAbnormalNONE SEENSumma Health on above:Performed By: #### LIPA, CMP #### [facility] [address] [address] [address] Taylor Hightower SEENAbnormal0-2The [facility] SystemCombronson [facility] on above: Performed By: #### LIPA, CMP #### [facility] [address] [place] [address] Dr. Taylor GasparBCNONE SEENNormalNONE SEENSumma Health on above: Performed By: #### LIPA, CMP #### [facility] [address] [place] [address] Dr. Taylor Valentino AUTO DIFFon [id number] #0.0 103/ulNormal0.0-0.1The [facility] SystemComment on above:Performed By: #### LIPA, CMP #### [facility] [address] [place] [address] Dr. Taylor DuncanBasophils/100 WBC (Bld)0.3 %Normal0.2-2.0The [facility] Comment on above:Performed By: #### LIPA, CMP #### [facility] [address] [place] [address] Dr. Taylor Remy #0.1 103/ulNormal0.0-0.7The [facility] SystemComment on above: Performed By: #### LIPA, CMP #### [facility] [address] [place] [address] Dr. Taylor Barnhartosinophils/100 WBC (Bld)1.9 %Normal0.9-7.0The [facility] Comment on above:Performed By: #### LIPA, CMP #### [facility] [address] [place] [address] Dr. Taylor Barnhartrythrocyte distribution width (RBC) [Ratio]12.4 %Menvkm64.0-15.0 The [facility] SystemComment on above:Performed By: #### LIPA, CMP #### [facility] [address] [place] [address] Dr. Taylor DuncanHematocrit (Bld) [Volume fraction]45.5 %Nwcevm28.0-48.0The [facility] SystemComment on above:Performed By: #### LIPA, CMP #### [facility] [address] [place] [address] Dr. Taylor uDncanHemoglobin (Bld) [Mass/Vol]14.7 g/uHSzvddi47.0-16.0The [facility] SystemComment on above:Performed By: #### LIPA, CMP #### [facility] [address] [place] [address] Dr. Taylor Jha #0.01 10e3/ulNormal0.00-0.03The [facility]ario HospitalComment on above:Performed By: #### LIPA, CMP #### [facility] [address] [place] [address] Dr. Taylor Duncan %0.2 %Normal0.0-0.5The [facility] SystemComment on above: Performed By: #### LIPA, CMP #### [facility] [address] [place] [address] Dr. Taylor Magana #2.1 103/ulNormal1.2-3.8The [facility] SystemComment on above:Performed By: #### LIPA, CMP #### [facility] [address] [place] [address] Dr. Taylor Garciahocytes/100 WBC (Bld)33.9 %Tcmeeo22.5-60.0The [facility] SystemComment on above:Performed By: #### LIPA, CMP #### [facility] [address] [place] [address] Dr. Taylor AugustinMERCY [facility] DIFF REQNONormalThe [facility] Health SystemComment on above: Performed By: #### LIPA, CMP #### [facility] [address] [place] [address] Dr. Taylor Valencia (RBC) [Entitic mass]29.2 riSuswvl97.7-34.0The [facility] Health SystemComment on above:Performed By: #### LIPA, CMP #### [facility] [address] [place] [address] Dr. Taylor Henao (RBC) [Mass/Vol]32.3 g/aAAdvxlu02.9-35.2The [facility] SystemComment on above:Performed By: #### LIPA, CMP #### [facility] [address] [place] [address] Dr. Taylor Henao (RBC) [Entitic vol]90.5 lGExwjyr15.0-99.0[facility] - AkronComment on above:Performed By: #### LIPA, CMP #### [facility] [address] [place] [address] Dr. Taylor Harper #0.5 103/ulNormal0.3-0.8The [facility] SystemComment on above:Performed By: #### LIPA, CMP #### [facility] [address] [place] [address] Dr. Taylor Nicoleocytes/100 WBC (Bld)7.7 %Normal1.7-12.0The [facility] Comment on above:Performed By: #### LIPA, CMP #### [facility] [address] [place] [address] Dr. Taylor Foreman #3.5 103/ulNormal1.4-6.5The [facility] Health SystemComment on above:Performed By: #### LIPA, CMP #### [facility] [address] [place] [address] Dr. Taylor Trevinoutrophils/100 WBC (Bld)56.0 %Yzofge09.0-75.0The [facility] Health SystemComment on above:Performed By: #### LIPA, CMP #### [facility] [address] [place] [address] Dr. Taylor Caballero mean volume (Bld) [Entitic vol]9.9 fLNormal9.5-13.5The [facility] SystemComment on above:Performed By: #### LIPA, CMP #### [facility] [address] [place] [address] Dr. Taylor DuncanPLT276 103/aoZnpfob173-233Jtj [facility] SystemComment on above: Performed By: #### LIPA, CMP #### [facility] [address] [place] [address] Dr. Taylor DuncanRBC5.03 106/ulNormal4.20-5.40The [facility] SystemComment on above:Performed By: #### LIPA, CMP #### [facility] [address] [place] [address] Dr. Taylor DuncanWBC6.2 103/ulNormal4.0-11.0The [facility] SystemComment on above: Performed By: #### LIPA, CMP #### [facility] [address] [place] [address] Dr. Taylor DuncanLIPASEon 40-68-4911Snifeh [Catalytic activity/Vol]87.0 U/LNormal 73.0-393.0The [facility] SystemComment on above:Performed By: #### LIPA, CMP #### [facility] [address] [place] [address] Dr. Taylor DuncanPROF 14(COMP METB)on [id number] [Mass/Vol]3.4 g/dLNormal 3.4-5.0The [facility] SystemComment on above:Performed By: #### LIPA, CMP #### [facility] [address] [place] [address] Dr. Taylor DuncanAlbumin/Globulin [Mass ratio]0.8 {ratio}NormalThe [facility] Health SystemComment on above:Performed By: #### LIPA, CMP #### [facility] [address] [place] [address] Dr. Taylor Najera [Catalytic activity/Vol]110 U/NIjbeza81-494Fkw [facility] SystemComment on above:Performed By: #### LIPA, CMP #### [facility] [address] [place] [address] Dr. Taylor Bradshaw [Catalytic activity/Vol]31 U/LUzxdwi02-08Cej [facility] SystemComment on above:Performed By: #### LIPA, CMP #### [facility] [address] [place] [address] Dr. Taylor Bucio gap [Moles/Vol]10.1 mmol/LNormalThe [facility] Comment on above:Performed By: #### LIPA, CMP #### [facility] [address] [place] [address] Dr. Taylor Dyer [Catalytic activity/Vol]21 U/DYdpbtt03-87Zol [facility] SystemComment on above:Performed By: #### LIPA, CMP #### [facility] [address] [place] [address] Dr. Taylor DucnanBilirubin [Mass/Vol]0.2 mg/dLNormal0.2-1.0The [facility] Comment on above:Performed By: #### LIPA, CMP #### [facility] [address] [place] [address] Dr. Taylor DuncanCalcium [Mass/Vol]8.9 mg/dLNormal8.5-10.1The [facility] Comment on above:Performed By: #### LIPA, CMP #### [facility] [address] [address] [address] Taylor DuncanChloride [Moles/Vol]104 mmol/TTrpqab27-542Cgf [facility] Comment on above:Performed By: #### LIPA, CMP #### [facility] [address] [place] [address] Dr. Taylor DuncanCO2 [Moles/Vol]27.8 mmol/VTdnkyu21.0-32.0[facility] Comment on above:Performed By: #### LIPA, CMP #### [facility] [address] [place] [address] Dr. Taylor DuncanCreatinine [Mass/Vol]0.94 mg/dLNormal0.55-1.02[facility] - AkronComment on above:Performed By: #### LIPA, CMP #### [facility] [address] [place] [address] Dr. Taylor BarnhartGFR-AF ERITREAN>60Normal>=60The [facility] SystemComment on above:Performed By: #### LIPA, CMP #### [facility] [address] [place] [address] Dr. Taylor BarnhartGFR-NON AF ERITREAN>60Normal>=60The [facility] SystemComment on above:Performed By: #### LIPA, CMP #### [facility] [address] [place] [address] Dr. Taylor DuncanGlobulin (S) [Mass/Vol]4.2 g/dLNormalThe [facility] SystemComment on above:Performed By: #### LIPA, CMP #### [facility] [address] [place] [address] Dr. Taylor DuncanGlucose [Mass/Vol]87 mg/pNUvenbx96-020Abu [facility] Comment on above:Performed By: #### LIPA, CMP #### [facility] [address] [address] [address] Taylor DuncanPotassium [Moles/Vol]3.9 mmol/LNormal3.5-5.1The [facility] Comment on above:Performed By: #### LIPA, CMP #### [facility] [address] [address] [address] Taylor DuncanProtein [Mass/Vol]7.6 g/dLNormal6.4-8.2The [facility] Comment on above:Performed By: #### LIPA, CMP #### [facility] [address] [place] [address] Dr. Taylor DuncanSodium [Moles/Vol]138 mmol/OJxupzn062-245Ynp [facility] Comment on above:Performed By: #### LIPA, CMP #### [facility] [address] [place] [address] Dr. Taylor DuncanUrea nitrogen [Mass/Vol]12.0 mg/dLNormal7.0-18.0The [facility] SystemComment on above:Performed By: #### LIPA, CMP #### [facility] [address] [place] [address] Dr. Taylor Tirado nitrogen/Creatinine [Mass ratio]12.8 mg/mgNormalThe [facility] SystemComment on above:Performed By: #### LIPA, CMP #### [facility] [address] [place] [address] Dr. Taylor DuncanXR KUB 1 VIEWon [id number] KUB 1 VIEWEXAMINATION: XR KUB 1 VIEW HISTORY: Left upper quadrant pain for 3 days COMPARISON: No relevant comparison available. FINDINGS: BOWEL GAS PATTERN: No abnormal dilation or deviation. CALCIFICATIONS: None significant. OTHER: Negative. No abnormal gaseous collections. IMPRESSION: 1. Normal bowel gas pattern. No significant stool burden or suspicious findings. Electronically authenticated by: AMINA GALLAGHER Date: 2022-05-16 17:42NormOhioHealth Hardin Memorial HospitalCB AUTO DIFFon [id number] #0.0 103/ulNormal0.0-0.1The [facility] SystemComment on above:Performed By: #### CXSTOOL #### [facility] [address] [address] [address] Taylor DuncanBasophils/100 WBC (Bld)0.2 %Normal0.2-2.0The [facility] Comment on above:Performed By: #### CXSTOOL #### [facility] [address] [address] [address] Taylor Remy #0.1 103/ulNormal0.0-0.7The [facility] SystemComment on above: Performed By: #### CXSTOOL #### [facility] [address] [place] [address] Dr. Taylor Barnhartosinophils/100 WBC (Bld)1.0 %Normal0.9-7.0The [facility] Comment on above:Performed By: #### CXSTOOL #### [facility] [address] [place] [address] Dr. Taylor Barnhartrythrocyte distribution width (RBC) [Ratio]12.5 %Mxnfww57.0-15.0 The [facility] SystemComment on above:Performed By: #### CXSTOOL #### [facility] [address] [place] [address] Dr. Taylor DuncanHematocrit (Bld) [Volume fraction]46.0 %Qbntci47.0-48.0[facility] - AkronComment on above:Performed By: #### CXSTOOL #### [facility] [address] [place] [address] Dr. Taylor DuncanHemoglobin (Bld) [Mass/Vol]15.0 g/pRJucuea70.0-16.0The [facility] SystemComment on above:Performed By: #### CXSTOOL #### [facility] [address] [place] [address] Dr. Taylor Jha #0.01 10e3/ulNormal0.00-0.03The [facility] SystemComment on above:Performed By: #### CXSTOOL #### [facility] [address] [place] [address] Dr. Taylor Jha %0.1 %Normal0.0-0.5The [facility] SystemComment on above: Performed By: #### CXSTOOL #### [facility] [address] [place] [address] Dr. Taylor Magana #2.2 103/ulNormal1.2-3.8The [facility] SystemComment on above:Performed By: #### CXSTOOL #### [facility] [address] [place] [address] Dr. Taylor Garciahocytes/100 WBC (Bld)27.5 %Zawama55.5-60.0The [facility] SystemComment on above:Performed By: #### CXSTOOL #### [facility] [address] [place] [address] Dr. Taylor AugustinUAL DIFF REQNONormalThe [facility] SystemComment on above: Performed By: #### CXSTOOL #### [facility] [address] [place] [address] Dr. Taylor Valencia (RBC) [Entitic mass]30.4 noUmcysd83.7-34.0The [facility] SystemComment on above:Performed By: #### CXSTOOL #### [facility] [address] [place] [address] Dr. Taylor Henao (RBC) [Mass/Vol]32.6 g/vTUzaucn60.9-35.2The [facility] SystemComment on above:Performed By: #### CXSTOOL #### [facility] [address] [place] [address] Dr. Taylor Clement (RBC) [Entitic vol]93.1 bLWysvth91.0-99.0The [facility] SystemComment on above:Performed By: #### CXSTOOL #### [facility] [address] [place] [address] Dr. Taylor Harper #0.6 103/ulNormal0.3-0.8The [facility] SystemComment on above:Performed By: #### CXSTOOL #### [facility] [address] [place] [address] Dr. Taylor Nicoleocytes/100 WBC (Bld)7.2 %Normal1.7-12.0The [facility] Comment on above:Performed By: #### CXSTOOL #### [facility] [address] [place] [address] Dr. Taylor Foreman #5.1 103/ulNormal1.4-6.5The [facility] SystemComment on above:Performed By: #### CXSTOOL #### [facility] [address] [place] [address] Dr. Taylor Trevinoutrophils/100 WBC (Bld)64.0 %Iakrpy59.0-75.0The [facility] SystemComment on above:Performed By: #### CXSTOOL #### [facility] [address] [place] [address] Dr. Taylor Colelet mean volume (Bld) [Entitic vol]10.2 fLNormal9.5-13.5The [facility] SystemComment on above:Performed By: #### CXSTOOL #### [facility] [address] [place] [address] Dr. Taylor DuncanPLT244 103/hsQveubq086-045Tjj [facility] SystemComment on above: Performed By: #### CXSTOOL #### [facility] [address] [place] [address] Dr. Taylor DuncanRBC4.94 106/ulNormal4.20-5.40The [facility] SystemComment on above:Performed By: #### CXSTOOL #### [facility] [address] [place] [address] Dr. Taylor DuncanWBC8.0 103/ulNormal4.0-11.0The [facility] SystemComment on above: Performed By: #### CXSTOOL #### [facility] [address] [place] [address] Dr. Taylor Vargas-DIMERon 38-31-8370E-DIMER0.27 mg/L FEUNormal<=0.59The [facility] on above:Performed By: #### DDIM #### [facility] [address] [place] [address] Dr. Taylor Vargas-DIMER COMMENTSSEE BELOWNoCleveland Clinic Mentor HospitalCombronson south [facility] hospital on above:Result Comment: Increases in D-Dimer concentration observed with thromboembolic events [...] stress, and generalized hospitalization. Performed By: #### DDIM #### [facility] [address] [place] [address] Dr. Taylor DuncanPROF 14(COMP METB)on 62-60-6923Iwbvbfx [Mass/Vol]3.2 g/dL Critically low3.4-5.0The [facility] on above:Performed By: #### LIPA, CMP #### [facility] [address] [place] [address] Dr. Taylor DuncanAlbumin/Globulin [Mass ratio]0.8 {ratio}NormalThe [facility] on above:Performed By: #### LIPA, CMP #### [facility] [address] [place] [address] Dr. Taylor Najera [Catalytic activity/Vol]102 U/BVeqzfh25-448Xag [facility] on above:Performed By: #### LIPA, CMP #### [facility] [address] [place] [address] Dr. Taylor Bradshaw [Catalytic activity/Vol]31 U/KTzfoaw56-76Tod [facility] on above:Performed By: #### LIPA, CMP #### [facility] [address] [address] [address] Taylor Bucio gap [Moles/Vol]14.4 mmol/LNormalThe [facility] Comment on above:Performed By: #### LIPA, CMP #### [facility] [address] [address] [address] Taylor DuncanAST [Catalytic activity/Vol]30 U/MHwtxzk91-79Xis [facility] SystemComment on above:Performed By: #### LIPA, CMP #### [facility] [address] [address] [address] Taylor DuncanBilirubin [Mass/Vol]0.2 mg/dLNormal0.2-1.0The [facility] Comment on above:Performed By: #### LIPA, CMP #### [facility] [address] [place] [address] Dr. Taylor DuncanCalcium [Mass/Vol]9.1 mg/dLNormal8.5-10.1[facility] Comment on above:Performed By: #### LIPA, CMP #### [facility] [address] [address] [address] Taylor DuncanChloride [Moles/Vol]112 mmol/LCritically cbph58-853Mxz [facility] SystemComment on above:Performed By: #### LIPA, CMP #### [facility] [address] [address] [address] Taylor DuncanCO2 [Moles/Vol]30.0 mmol/FXbmiac75.0-32.0The [facility] Comment on above:Performed By: #### LIPA, CMP #### [facility] [address] [place] [address] Dr. Taylor DuncanCreatinine [Mass/Vol]0.96 mg/dLNormal0.55-1.02The [facility] SystemComment on above:Performed By: #### LIPA, CMP #### [facility] [address] [place] [address] Dr. Vazquez ChangEGFR-AF ERITREAN>60Normal>=60The [facility] SystemComment on above:Performed By: #### LIPA, CMP #### [facility] [address] [address] [address] Taylor BarnhartGFR-NON AF ERITREAN>60Normal>=60The [facility] SystemComment on above:Performed By: #### LIPA, CMP #### [facility] [address] [address] [address] Taylor DuncanGlobulin (S) [Mass/Vol]4.2 g/dLNormElyria Memorial Hospitale [facility] SystemComment on above:Performed By: #### LIPA, CMP #### [facility] [address] [address] [address] Taylor DuncanGlucose [Mass/Vol]88 mg/xJKnvfpk68-182Ysa [facility] Comment on above:Performed By: #### LIPA, CMP #### [facility] [address] [place] [address] Dr. Taylor DuncanPotassium [Moles/Vol]4.4 mmol/LNormal3.5-5.1The [facility] Comment on above:Performed By: #### LIPA, CMP #### [facility] [address] [address] [address] Taylor DuncanProtein [Mass/Vol]7.4 g/dLNormal6.4-8.2The [facility] Comment on above:Performed By: #### LIPA, CMP #### [facility] [address] [address] [address] Taylor DuncanSodium [Moles/Vol]152 mmol/LCritically yttj846-291Uez [facility] SystemComment on above:Performed By: #### LIPA, CMP #### [facility] [address] [address] [address] Taylor DuncanUrea nitrogen [Mass/Vol]11.0 mg/dLNormal7.0-18.0The [facility] SystemComment on above:Performed By: #### LIPA, CMP #### [facility] [address] [address] [address] Taylor DuncanUrea nitrogen/Creatinine [Mass ratio]11.5 mg/mgNormFisher-Titus Medical Centerue HospitalComment on above:Performed By: #### LIPA, CMP #### [facility] [address] [address] [address] Taylor Torres, HIGH SENSITIVITYon 32-48-4413VMKOLH6.3 pg/mLNormal 4.0-51.3TOhio State East HospitalCombronson south haven hospital on above:Result Comment: CUT-OFF POINTS HAVE BEEN ESTABLISHED BASED ON THE FOURTH UNIVERSAL DEFINITIONS OF MYOCARDIAL INFARCTION. THE UPPER REFERENCE LIMIT (URL) OF TROPONIN, DEFINED THE 99TH PERCENTILE OF cTnI DISTRIBUTION IN A REFERENCE POPULATION, HAS BEEN CONFIRMED THE DECISION THRESHOLD FOR [place] DIAGNOSIS.Performed By: #### HSTROPN #### [facility] [address] [place] [address] Dr. Taylor CrawfordTROP<4.5Vuizec9.0-51.3TOhio State East HospitalCombronson south haven hospital on above: Result Comment: CUT-OFF POINTS HAVE BEEN ESTABLISHED BASED ON THE FOURTH UNIVERSAL DEFINITIONS OF MYOCARDIAL INFARCTION. THE UPPER REFERENCE LIMIT (URL) OF TROPONIN, DEFINED THE 99TH PERCENTILE OF cTnI DISTRIBUTION IN A REFERENCE POPULATION, HAS BEEN CONFIRMED THE DECISION THRESHOLD FOR [place] DIAGNOSIS.Performed By: #### LIPA, CMP #### [facility] [address] [place] [address] Dr. Taylor Del Toro BRIANA DOP LEG LTon [id number] BRIANA DOP LEG LTEXAMINATION: US BRIANA DOP LEG LT HISTORY: CHEST PAIN, UNSPECIFIED , chronic left leg pain COMPARISON: No relevant comparison available. FINDINGS: REGION: Left lower extremity THROMBI: None. COMPRESSIBILITY: Normal compressibility. FLOW: Normal waveform and antegrade flow between 5 and 20 cm/s. OTHER: None. IMPRESSION: 1. No deep vein thrombus within the left lower extremity. Electronically authenticated by: AMINA GALLAGHER Date: 2022-04-05 13:05[facility] HospitalXR [facility] 1 Von [id number] CHEST 1 VEXAMINATION: XR CHEST 1 V HISTORY: CHEST PAIN, UNSPECIFIED COMPARISON: XR chest 07/27/2021 FINDINGS: LUNGS: No significant pulmonary parenchymal abnormalities. VASCULATURE: No increased pulmonary vasculature. PLEURA: No pneumothorax, effusion, or pleural thickening. CARDIAC: No cardiomegaly or cardiac silhouette abnormality. MEDIASTINUM: No visible mass or adenopathy. BONES: No fracture or visible bone lesion. OTHER: Negative. IMPRESSION: 1. Normal examination. Electronically authenticated by: AMINA GALLAGHER Date: 2022-04-05 12:[address] [place] [address] Felder Panelon [id number] (VCA) Ab, [id number] U/mLHigh <100[facility] [place] HospitalComment on above:Performed By: #### EBVPRO #### [facility] [address] [address] Manager Of Creative Services: EMELIA FelixV (VCA) Ab, QoH951 U/mLHigh<100[facility] [place] HospitalCombronson south haven hospital on above:Performed By: #### EBVPRO #### [facility] HospitalThe [facility] [address] [address] Manager Of Creative Services: RENE Felix Early Ab, OvM450 U/mLHigh<100[facility] HospitalCombronson south haven hospital on above:Performed By: #### EBVPRO #### [facility] HospitalThe [facility] [address] [place] [address] Manager Of Creative Services: RENE Felix Interpretation(NOTE)NormalMercy [place] HospitalComment on above:Result Comment: Reference Range: Negative <100 U/mL Positive [...] by Laboratory Methods; 17th Edition, Charlie Naqvi M.D.Performed By: #### EBVPRO #### [address] [address] Manager Of Creative Services: Terry Nguyen MDEBV Nuclear Ab, LxX815 U/mLHigh<100[facility] Samaritan HospitalComment on above:Performed By: #### EBVPRO #### [address] [address] Manager Of Creative Services: Terry Nguyen MDAnti-Thy Peroxidaseon [id number]-Thy Peroxidase7.3 IU/mLNormal0.0-25.0MerConnecticut Valley HospitalComment on above:Result Comment: Reference Range: <25.0 Negative 25.0-35.0 Equivocal >35.0 Positive When results are Equivocal, it is recommended to retest after 8-12 weeks. Performed By: #### AMSOM #### [address] [address] Manager Of Creative Services: Terry Nguyen MD #### CDP #### [address] [place] [address] Manager Of Creative Services: Mane Lay MDThyroxine, Freeon 57-58-7891Ncjtgtfna, Free1.13 ng/dLNormal0.93-1.70[facility] Samaritan HospitalComment on above:Performed By: #### TSH #### [address] [place] [id number] Manager Of Creative Services: Mane Lay MD #### FT4 #### [address] [address] Manager Of Creative Services: Terry Nguyen MDCBC with Auto Differentialon [id number] Eos #0.15[facility] HEALTHAbsolute Immature Granulocyte<0.03[facility] HEALTHAbsolute Lymph #2.55[facility] HEALTHAbsolute Jessamine #0.69[facility] HEALTHBasophils (Bld) [#/Vol]0.03 10*3/uLBON SECOURS MERCY [facility]ALTH Basophils/100 WBC (Bld)0 %0 - 2 %[facility] HEALTHEosinophils/100 WBC (Bld)2 %1 - 4 %[facility] HEALTHHematocrit (Bld) [Volume fraction]45.8 % 36.3 - 47.1 %[facility] HEALTHHemoglobin.gastrointestinal spec 1 Ql (Stl) 14.4 g/dL11.9 - 15.1 g/dLBON SECOURS ADENA HEALTH SYSTEMImmature granulocytes/100 WBC (Bld)0 %0[facility]ALTH SYSTEMLymphocytes/100 WBC (Bld)26 %24 - 43 %[facility]OSPITALH (RBC) [Entitic mass]30.1 pg25.2 - 33.5 pgBON SECOURS OHIOHEALTH VAN WERT HOSPITALHC (RBC) [Mass/Vol]31.4 g/dL28.4 - 34.8 g/dLBON SECOURS OHIOHEALTH VAN WERT HOSPITALV (RBC) [Entitic vol]95.6 fL82.6 - 102.9 fLARIZONA [facility] SECMAGR[facility] Monocytes/100 WBC (Bld)7 %3 - 12 %[facility] HEALTHNRBC Automated0.00.0 per 100 WBCBON SECOURS [facility] HEALTHPlatelet distribution width (Bld) [Ratio]12.3 %11.8 - 14.4 %[facility] HEALTHPlatelet mean volume (Bld) [Entitic vol] 9.7 fL8.1 - 13.5 fLBON SECOURS OUR [facility]ADY OF [facility]ERSONY HEALTHPlatelets (Bld) [#/Vol]277 10*3/uLBON SECOURS ADENA HEALTH SYSTEMRBC (Bld) [#/Vol]4.79 10*6/uL3.95 - 5.11 m/uLBON SECOURS ADENA HEALTH SYSTEMSegmented neutrophils/100 WBC (Bld)65 %36 - 65 %[facility] HEALTHSegs Absolute6.57[facility] HEALTHWBC (Bld) [#/Vol]10.0 10*3/uLBON SECOURS [facility] CENTERBON SEC[facility]RS [facility] HEALTHCBC with Diffon [id number]. Basophil0.03 k/uLNormal0.00-0.20[facility] [place] HospitalComment on above:Performed By: #### AMSOM #### [address] [address] Manager Of Creative Services: Terry Nguyen MD #### CDP #### [address] [place], [place] [phone] Manager Of Creative Services: Gabriel Sy.Imm.Granulocyte<0.11Xbjkud5.00-0.30[facility] HospitalComment on above:Performed By: #### AMSOM #### [address] [address] Manager Of Creative Services: Terry Nguyen MD #### CDP #### [address] [place] [phone] Manager Of Creative Services: Gabriel Sy.Neutrophil (Seg)6.57 k/uLNormal1.50-8.10[facility]aritan HospitalComment on above:Performed By: #### AMSOM #### [address] [address] Manager Of Creative Services: Terry Nguyen MD #### CDP #### [address] [place] [address] Manager Of Creative Services: Mane Lay MDBasophils/100 WBC (Bld)0 %Normal0-2[facility] HospitalComment on above:Performed By: #### AMSOM #### [address] [address] Manager Of Creative Services: Terry Nguyen MD #### CDP #### [address] [place] [address] Manager Of Creative Services: Mane Lay MDEosinophils (Bld) [#/Vol]0.15 10*3/uLNormal 0.00-0.44[facility]itan HospitalComment on above:Performed By: #### AMSOM #### [address] [address] Manager Of Creative Services: Terry Nguyen MD #### CDP #### [address] [place] [address] Manager Of Creative Services: Mane Lay MDEosinophils/100 WBC (Bld)2 %Normal1-4MerConnecticut Valley HospitalComment on above:Performed By: #### AMSOM #### [address] [address] Manager Of Creative Services: Terry Nguyen MD #### CDP #### [address] [place] [phone] Manager Of Creative Services: Mane Lay MDErythrocyte distribution width (RBC) [Ratio]12.3 % Ultdek75.8-14.4[facility]itan HospitalComment on above:Performed By: #### AMSOM #### [address] [address] Manager Of Creative Services: Terry Nguyen MD #### CDP #### [address] [place] [phone] Manager Of Creative Services: Mane Lay MDHematocrit (Bld) [Volume fraction]45.8 %Normal 36.3-47.1MercBristol HospitalComment on above:Performed By: #### AMSOM #### [address] [address] Manager Of Creative Services: Terry Nguyen MD #### CDP #### [address] [place] [address] Manager Of Creative Services: Mane Lay MDHemoglobin (Bld) [Mass/Vol]14.4 g/dLNormal 11.9-15.1MercAv[facility] Hospital HospitalComment on above:Performed By: #### AMSOM #### [address] [address] Manager Of Creative Services: Terry Nguyen MD #### CDP #### [address] [place], [place] 1538483 Manager Of Creative Services: Mane Lay MDImjeture granulocytes/100 WBC (Bld)0 %Onpvie6MnmjxTrihealth Good Samaritan HospitalComment on above:Performed By: #### AMSOM #### [address] [address] Manager Of Creative Services: Terry Nguyen MD #### CDP #### [facility] [address] [place] [id number] Manager Of Creative Services: Mane Lay MDLymphocytes (Bld) [#/Vol]2.55 10*3/uLNormal 1.10-3.70[facility] HospitalComment on above:Performed By: #### AMSOM #### [address] [address] Manager Of Creative Services: Terry Nguyen MD #### CDP #### [address] [place] [address] Manager Of Creative Services: Mane Lay MDLymphocytes/100 WBC (Bld)26 %Bwynbo22-10KnzzmTrihealth Good Samaritan HospitalComment on above:Performed By: #### AMSOM #### [address] [address] Manager Of Creative Services: Terry Nguyen MD #### CDP #### [address] [place] [address] Manager Of Creative Services: KATIE SyCH (RBC) [Entitic mass]30.1 ynLljzwc19.2-33.5 [facility] HospitalComment on above:Performed By: #### AMSOM #### [address] [address] Manager Of Creative Services: Terry Nguyen MD #### CDP #### [address] [place], [place] [address]83 Manager Of Creative Services: KATIE SyCHC (RBC) [Mass/Vol]31.4 g/hGRtilgz45.4-34.8[facility] HospitalComment on above:Performed By: #### AMSOM #### [address] [address] Manager Of Creative Services: Terry Nguyen MD #### CDP #### [address] [place], [place] [id number] Manager Of Creative Services: KATIE SyCV (RBC) [Entitic vol]95.6 kDHbzgsi34.6-102.9 [facility] HospitalComment on above:Performed By: #### AMSOM #### [address] [address] Manager Of Creative Services: Terry Nguyen MD #### CDP #### [address] [place], [place] [id number] Manager Of Creative Services: KATIE Syonocytes (Bld) [#/Vol]0.69 10*3/uLNormal0.10-1.20 [facility] HospitalComment on above:Performed By: #### AMSOM #### [address] [address] Manager Of Creative Services: Terry Nguyen MD #### CDP #### [address] [place], [place] 0[address] Manager Of Creative Services: KATIE Syonocytes/100 WBC (Bld)7 %Normal3-12[facility] HospitalComment on above:Performed By: #### AMSOM #### [address] [address] Manager Of Creative Services: Terry Nguyen MD #### CDP #### [address] [place] [address] Manager Of Creative Services: Mane Lay MDNeutrophil (Seg)65 %Bgxiem18-47JhxhqTrihealth Good Samaritan HospitalComment on above:Performed By: #### AMSOM #### [address] [address] Manager Of Creative Services: Terry Nguyen MD #### CDP #### [address] [place] [address] Manager Of Creative Services: Mane Lay MDNRBC Automated0.0 per 100 WBCNormal0.0[facility]aritan HospitalComment on above:Performed By: #### AMSOM #### [address] [address] Manager Of Creative Services: Terry Nguyen MD #### CDP #### [address] [place] [phone] Manager Of Creative Services: Dale Sy mean volume (Bld) [Entitic vol]9.7 fL Normal8.1-13.5[facility] HospitalComment on above:Performed By: #### AMSOM #### [address] [address] Manager Of Creative Services: Terry Nguyen MD #### CDP #### [address] [place] [address] Manager Of Creative Services: Lourdes Sy (Bld) [#/Vol]277 10*3/iLByygsb019-313 [facility] HospitalCombronson south haven hospital on above:Performed By: #### AMSOM #### [address] [address] Manager Of Creative Services: Terry Nguyen MD #### CDP #### [address] [place], [place] [id number] Manager Of Creative Services: AIYANA SyBC (d) [#/Vol]4.79 10*6/uLNormal3.95-5.11[facility] HospitalComment on above:Performed By: #### AMSOM #### [address] [address] Manager Of Creative Services: Terry Nguyen MD #### CDP #### [address] [place], [place] [phone] Manager Of Creative Services: Mane Lay MDW (d) [#/Vol]10.0 10*3/uLNormal3.5-11.3MCentervilleComment on above:Performed By: #### AMSOM #### [address] [address] Manager Of Creative Services: Terry Nguyen MD #### CDP #### [address] [place] [id number] ( Manager Of Creative Services: Mane Lay MDT4, Freeon 85-88-5911Lciskfypq, Free1.13 ng/dL0.93 - 1.70 ng/dLBON BOWDLE HOSPITALTSHon 12-07-7147LXQ Qn3.90 m[IU]/LBON BOWDLE HOSPITALThyroid Stim. Horm.on 56-75-1393Kvkcigm Stim. Horm.3.90 uIU/mLNormal0.30-5.00[facility]aritan HospitalComment on above:Performed By: #### TSH #### [address] [place], [place] [id number] Manager Of Creative Services: Mane Lay MD #### FT4 #### [address] [address] Manager Of Creative Services: QUINCY FelixARDIAC ANGELITO 3-6on 10-89-8050UW [Catalytic activity/Vol]48 U/MDhwrkc35-493LggRegional Medical Centerment on above:Performed By: #### CMREP #### [facility] [address] [place] [address] Dr. Taylor Lozada.MB [Mass/Vol]0.35 ng/mLNormal<=3.60[facility] Comment on above:Performed By: #### CMREP #### [facility] [address] [place] [address] Dr. Taylor TaOP3.6 pg/mLCritically low4.0-51.3TMercy Hospital on above:Result Comment: CUT-OFF POINTS HAVE BEEN ESTABLISHED BASED ON THE FOURTH UNIVERSAL DEFINITIONS OF MYOCARDIAL INFARCTION. THE UPPER REFERENCE LIMIT (URL) OF TROPONIN, DEFINED THE 99TH PERCENTILE OF cTnI DISTRIBUTION IN A REFERENCE POPULATION, HAS BEEN CONFIRMED THE DECISION THRESHOLD FOR [place] DIAGNOSIS.Performed By: #### CMREP #### [facility] [address] [place] [address] Dr. Taylor EATON ADMITon 52-49-3341YH [Catalytic activity/Vol]69 U/L Cngbru15-760WenSumma Health on above:Performed By: #### CXSTOOL #### [facility] [address] [place] [address] Dr. Taylor Lozada.MB [Mass/Vol]0.28 ng/mLNormal<=3.60[facility] Comment on above:Performed By: #### CXSTOOL #### [facility] [address] [place] [address] Dr. Taylor Wu4.1 pg/mLNormal4.0-51.3TMercy Hospital on above:Result Comment: CUT-OFF POINTS HAVE BEEN ESTABLISHED BASED ON THE FOURTH UNIVERSAL DEFINITIONS OF MYOCARDIAL INFARCTION. THE UPPER REFERENCE LIMIT (URL) OF TROPONIN, DEFINED THE 99TH PERCENTILE OF cTnI DISTRIBUTION IN A REFERENCE POPULATION, HAS BEEN CONFIRMED THE DECISION THRESHOLD FOR AK DIAGNOSIS.Performed By: #### CXSTOOL #### [facility] [address] [place] [address] Dr. Taylor NolanO39 ng/mLNormal9-82[facility] - AkronComment on above: Performed By: #### CXSTOOL #### [facility] [address] [place] [address] Dr. Taylor Valentino AUTO DIFFon [id number] #0.0 103/ulNormal0.0-0.1The [facility] Health SystemComment on above:Performed By: #### CBC #### [facility] [address] [place] [address] Dr. Taylor DuncanBasophils/100 WBC (Bld)0.4 %Normal0.2-2.0[facility] Comment on above:Performed By: #### CBC #### [facility] [address] [place] [address] Dr. Taylor Remy #0.1 103/ulNormal0.0-0.7The [facility] Health SystemComment on above: Performed By: #### CBC #### [facility] [address] [place] [address] Dr. Taylor Barnhartosinophils/100 WBC (Bld)1.1 %Normal0.9-7.0[facility] Comment on above:Performed By: #### CBC #### [facility] [address] [place] [address] Dr. Taylor Barnhartrythrocyte distribution width (RBC) [Ratio]12.4 %Zsqrgj95.0-15.0 The [facility] SystemComment on above:Performed By: #### CBC #### [facility] [address] [place] [address] Dr. Taylor DuncanHematocrit (Bld) [Volume fraction]46.4 %Bjlokb34.0-48.0The [facility] SystemComment on above:Performed By: #### CBC #### [facility] [address] [place] [address] Dr. Taylor DuncanHemoglobin (Bld) [Mass/Vol]14.9 g/oYXwfnfz92.0-16.0The [facility] SystemComment on above:Performed By: #### CBC #### [facility] [address] [place] [address] Dr. Taylor Jha #0.02 10e3/ulNormal0.00-0.03The [facility] SystemComment on above:Performed By: #### CBC #### [facility] [address] [place] [address] Dr. Taylor Jha %0.2 %Normal0.0-0.5The [facility] Health SystemComment on above: Performed By: #### CBC #### [facility] [address] [place] [address] Dr. Tayolr Magana #3.0 103/ulNormal1.2-3.8The [facility] SystemComment on above:Performed By: #### CBC #### [facility] [address] [place] [address] Dr. Taylor Garciahocytes/100 WBC (Bld)30.3 %Dvcpjz93.5-60.0The [facility] SystemComment on above:Performed By: #### CBC #### [facility] [address] [place] [address] Dr. Taylor AugustinMERCY [facility]ALTH [facility] DIFF REQNONormalThe [facility] Health SystemComment on above: Performed By: #### CBC #### [facility] [address] [place] [address] Dr. Taylor Valencia (RBC) [Entitic mass]29.9 uaSvugbp56.7-34.0The [facility] SystemComment on above:Performed By: #### CBC #### [facility] [address] [place] [address] Dr. Taylor Henao (RBC) [Mass/Vol]32.1 g/mSJuvfuu43.9-35.2The [facility] SystemComment on above:Performed By: #### CBC #### [facility] [address] [place] [address] Dr. Taylor Henao (RBC) [Entitic vol]93.0 bJSzwdgn96.0-99.0The [facility] SystemComment on above:Performed By: #### CBC #### [facility] [address] [place] [address] Dr. Taylor Harper #0.8 103/ulNormal0.3-0.8The [facility] SystemComment on above:Performed By: #### CBC #### [facility] [address] [place] [address] Dr. Taylor Nicoleocytes/100 WBC (Bld)8.0 %Normal1.7-12.0[facility] Comment on above:Performed By: #### CBC #### [facility] [address] [place] [address] Dr. Taylor Foreman #5.9 103/ulNormal1.4-6.5The [facility] SystemComment on above:Performed By: #### CBC #### [facility] [address] [place] [address] Dr. Taylor Trevinoutrophils/100 WBC (Bld)60.0 %Qcsbjn75.0-75.0The [facility] SystemComment on above:Performed By: #### CBC #### [facility] [address] [place] [address] Dr. Taylor Caballero mean volume (Bld) [Entitic vol]9.4 fLCritically low 9.5-13.5The [facility] SystemComment on above:Performed By: #### CBC #### [facility] [address] [place] [address] Dr. Taylor DuncanPLT279 103/vcXxqesl052-307Tlj [facility] Health SystemComment on above: Performed By: #### CBC #### [facility] [address] [place] [address] Dr. Taylor LucasC4.99 106/ulNormal4.20-5.40The [facility] SystemComment on above:Performed By: #### CBC #### [facility] [address] [place] [address] Dr. Taylor DuncanWBC9.8 103/ulNormal4.0-11.0The [facility] SystemComment on above: Performed By: #### CBC #### [facility] [address] [place] [address] Dr. Taylor Vargas-DIMERon 38-19-3511O-DIMER<0.19Normal<=0.59[facility] Comment on above:Performed By: #### CXSTOOL #### [facility] [address] [place] [address] Dr. Taylor Vargas-DIMER COMMENTSSEE BELOWLima Memorial HospitalComment on above:Result Comment: Increases in D-Dimer concentration observed with thromboembolic events [...] stress, and generalized hospitalization. Performed By: #### CXSTOOL #### [facility] [address] [place] [address] Dr. Taylro DuncanPROF CHEM 8 (BAS METB)on 22-94-0941Zjtgh gap [Moles/Vol]13.0 mmol/LNormalSelect Medical Specialty Hospital - AkronComment on above:Performed By: #### CXSTOOL #### [facility] [address] [place] [address] Dr. Taylor DuncanCalcium [Mass/Vol]9.0 mg/dLNormal8.5-10.1[facility] Comment on above:Performed By: #### CXSTOOL #### [facility] [address] [place] [address] Dr. Taylor DuncanChloride [Moles/Vol]102 mmol/UEllfkh73-910OgnSelect Medical Specialty Hospital - [place] Comment on above:Performed By: #### CXSTOOL #### [facility] [address] [place] [address] Dr. Taylor DuncanCO2 [Moles/Vol]28.2 mmol/DXutroo90.0-32.0[facility] Comment on above:Performed By: #### CXSTOOL #### [facility] [address] [place] [address] Dr. Taylor DuncanCreatinine [Mass/Vol]0.96 mg/dLNormal0.55-1.02The [facility] SystemComment on above:Performed By: #### CXSTOOL #### [facility] [address] [place] [address] Dr. Taylor BarnhartGFR-AF ERITREAN>60Normal>=60The [facility] SystemComment on above:Performed By: #### CXSTOOL #### [facility] [address] [place] [address] Dr. Taylor BarnhartGFR-NON AF ERITREAN>60Normal>=60The [facility] SystemComment on above:Performed By: #### CXSTOOL #### [facility] [address] [place] [address] Dr. Taylor DuncanGlucose [Mass/Vol]93 mg/nUOhdfez98-567VujSelect Medical Specialty Hospital - [place] Comment on above:Performed By: #### CXSTOOL #### [facility] [address] [place] [address] Dr. Taylor DuncanPotassium [Moles/Vol]4.2 mmol/LNormal3.5-5.1[facility] Comment on above:Performed By: #### CXSTOOL #### [facility] [address] [place] [address] Dr. Taylor Mcclellandium [Moles/Vol]139 mmol/SXkeswi150-730WsjSelect Medical Specialty Hospital - [place] Comment on above:Performed By: #### CXSTOOL #### [facility] [address] [place] [address] Dr. Taylor DuncanUrea nitrogen [Mass/Vol]15.0 mg/dLNormal7.0-18.0The [facility] SystemComment on above:Performed By: #### CXSTOOL #### [facility] [address] [place] [address] Dr. Taylor Tirado nitrogen/Creatinine [Mass ratio]15.6 mg/mgNormalThe [facility] SystemComment on above:Performed By: #### CXSTOOL #### [facility] [address] [place] [address] Dr. Yilan ChangXR CHEST 1 Von 07-83-5499KQ CHEST 1 VEXAMINATION: XR CHEST 1 V, 07/27/2021 7:45 PM EDT HISTORY: CHEST PAIN, UNSPECIFIED COMPARISON: June 30, 2019 TECHNIQUE: AP portable view of the chest performed. FINDINGS: Medical devices: None. Cardiomediastinal silhouette is within normal limits. The lungs are clear. No large pleural effusion, or pneumothorax. IMPRESSION: 1. No acute cardiopulmonary abnormality. Electronically authenticated by: RENARD ANDRAED Date: 2021-07-27 20:42[facility] HospitalMAMMO POST BIOPSY RIGHTon [id number] POST BIOPSY RIGHT Patient: COURTNEY MARTINEZ Exam Date: 06/17/2021 : 1980 Gender:F Ordering : DR ALBINA SINGLETON . Admission #: [id number] Family : Order #: [id number] CLICK HERE TO VIEW EXAM This report [...] by: Amina Gallagher M.D. on 06/21/2021 at 15:15NProMedica [facility] VAC ASST BX BRST RT W CLIPon [id number] VAC ASST BX BRST RT W CLIP Patient: COURTNEY MARTINEZ Exam Date: 06/17/2021 : 1980 Gender:F Ordering : DR ALBINA SINGLETON . Admission #: [id number] Family : Order #: [id number] CLICK HERE TO VIEW EXAM This report [...] by: Amina Gallagher M.D. on 06/21/2021 at 15:13[facility] HospitalECHOCARDIO M/2D COMPLETEon 77-89-0723QMIREGXUPY M/2D COMPLETEPatient: COURTNEY MARTINEZ Exam Date: 06/13/2021 : 1980 Gender:F Ordering : DR DILCIA WARNER M.D. Admission #: [id number] Family : Order #: [id number] CLICK HERE TO VIEW EXAM ECHOCARDIOGRAM REPORT [...] Area(A4C): 15.20 cm2 Left Atrium Systolic Volume(A2C): 58775 mm3 Left Atrium Systolic Volume(A4C): 92781 mm3 Mitral Valve MV E to A [...] by: Lamont Vallejo M.D. on 06/13/2021 at 14:42[facility] HospitalMG MAMM RT DIAG FUon [id number] MAMM RT DIAG FUPatient: COURTNEY MARTINEZ Exam Date: 06/03/2021 : 1980 Gender:F Ordering : DR DILCIA WARNER M.D. Admission #: [id number] Family : Order #: [id number] CLICK HERE TO VIEW EXAM RADIOLOGY REPORT [...] prostate cancer at age 48. LOCATION: [facility] BREAST COMPOSITION: Heterogeneously dense,which may obscure small [...] by: Mane Hamilton MD on 06/03/2021 at 14:46NoCleveland Clinic Mentor HospitalUS BREAST RIGHT LIMITEDon [id number] BREAST RIGHT LIMITEDPatient: COURTNEY MARTINEZ Exam Date: 06/03/2021 : 1980 Gender:F Ordering : DR DILCIA WARNER M.D. Admission #: [id number] Family : Order #: [id number] CLICK HERE TO VIEW EXAM RADIOLOGY REPORT [...] prostate cancer at age 48. LOCATION: [facility] BREAST COMPOSITION: Heterogeneously dense,which may obscure small [...] by: Mane Hamilton MD on 06/03/2021 at 14:46[facility] HospitalMG [facility] SCRE[facility] 3D RIP CADon 65-86-9976SM MAMM SCREEN 3D RIP CADPatient: COURTNEY MARTINEZ Exam Date: 05/27/2021 : 1980 Gender:F Ordering : DR DILCIA WARNER M.D. Admission #: [id number] Family : Order #: [id number] CLICK HERE TO VIEW EXAM RADIOLOGY REPORT [...] prostate cancer at age 48. LOCATION: [facility] BREAST COMPOSITION: Heterogeneously dense,which may obscure small [...] by: Mane Hamilton MD on 05/27/2021 at 08:06[facility] Postoperative Documentson 11-62-1042Cyarnuwkoqibq Documents [id number]#1.00CD:127[facility] HospitalPhysician Referralon 25-13-0307Emrczchwu Referral [id number]#1.00CD:127[facility] HospitalIntraOperative Documentson 68-54-1221EvyecKsahqvzjp Documents [id number]#1.00CD:[address] [place], [place] [address]Progress Note-Physicianon 94-88-6720Kefmfddb Note-PhysicianPatient: COURTNEY MARTINEZ Age: 39 years Sex: Female [...] QID, # 120 tab(s), Refills(s) 0, Pharmacy: [facility], [address], cm, 03/23/20 14:04:00 EST, Height/Length Dosing, 112.2, kg, 03/23/20 14:04:00 EST, Weight Dosing Pepcid 40 mg Tab: 40 mg = 1 tab(s), Oral, Once a day (at bedtime), # 90 tab(s), Refills(s) 1, Pharmacy: [facility], 167, cm, 03/23/20 14:04:00 EST, Height/Length Dosing, 112.2, kg, 03/23/20 14:04:00 EST, Weight Dosing Zofran 4 mg Tab: 4 mg = 1 tab(s), Oral, q8hr, # 20 tab(s), Refills(s) 1, Pharmacy: [facility], 167, cm, 03/23/20 14:04:00 EST, Height/Length [...] Family History: Procedure history: EGD - Esophagogastroduodenoscopy ([id number]) on 03/30/2020 at 39 Years. Social History Social & Psychosocial Habits Tobacco 03/23/2020 Tobacco Use: Never (less than 100 in l . Physical Examination Respiratory: Lungs are clear to auscultation. Cardiovascular: Regular rhythm. Plan [place] [employer] Anesthesiologists (ASA) physical status classification: Class II. Anesthetic Preoperative Plan Anesthesia: General. . Anesthetic plan, risks, benefits, and alternatives discussed with the patient and/or family. Patient verbalized understanding.[facility] HospitalComment on above:Result Comment: Electronically Signed By: Ha Mitchell Jr., DO\.br\Date and Time Signed: 04/07/20 09:16 ESTProgress Note-Physician Patient: COURTNEY MARTINEZ Age: 39 years [...] QID, # 120 tab(s), Refills(s) 0, Pharmacy: [facility] [facility], 167, cm, 03/23/20 14:04:00 EST, Height/Length Dosing, 112.2, kg, 03/23/20 14:04:00 EST, Weight Dosing Pepcid 40 mg Tab: 40 mg = 1 tab(s), Oral, Once a day (at bedtime), # 90 tab(s), Refills(s) 1, [facility]acy: [facility] [facility] [address] 167, cm, 03/23/20 14:04:00 EST, Height/Length Dosing, 112.2, kg, 03/23/20 14:04:00 EST, Weight Dosing Zofran 4 mg Tab: 4 mg = 1 tab(s), Oral, q8hr, # 20 tab(s), Refills(s) 1, [facility]: [facility] 167, cm, 03/23/20 14:04:00 EST, Height/Length [...] clear to auscultation. Cardiovascular: Regular rhythm. Plan [place] [employer] Anesthesiologists (ASA) physical status classification: Class II. Anesthetic Preoperative Plan Anesthesia: General. . Anesthetic plan, risks, benefits, and alternatives discussed with the patient and/or family. Patient verbalized understanding.[facility] HospitalComment on above:Result Comment: Electronically Signed By: Ha Mitchell Jr., DO.maria ines\Date and Time Signed: 03/29/20 10:30 ESTCoding Summary.on 44-83-2075Biwxyq Summary.CODING DATE: 04/02/2020 [facility] STATUS: Home (Routine DC) PAYOR: Commercial Insurance APC DESCRIPTION 5301 Level 1 Upper GI Procedures ADMIT DX: REASON FOR VISIT DX: R13.10 Dysphagia, unspecified FINAL DX: PRINCIPAL: R13.10 Dysphagia, unspecified SECONDARY: R14.2 Eructation R12 Heartburn M94.0 Chondrocostal junction syndrome [Tietze] PYMT PROC APC STAT DESCRIPTION DOCTOR NAME DATE 43447 5301 T Paty GALLARDO MD 03/30/2020 phagogastroduodenoscopy, flexible, transoral; diagnostic, including collection of specimen(s) by brushing or washing, when performed (separate procedure) 01175 5348 T Dilation of esophagus, Paty GALLARDO MD 03/30/2020 by unguided sound or bougie, single or multiple passes 63897 Anesthesia for upper Mitchell Jr. DO, Ha 03/30/2020 gastrointestinal endoscopic procedures, endoscope introduced proximal to duodenum; not otherwise specified NOTE: The code number assigned matches the documented diagnosis and / or procedure in the patient's chart. However, the narrative phrase printed from the coding software may appear abbreviated, or result in slightly different terminology. Revised Coded By: Kelsi Ramey Revised Date Saved: 04/02/2020 03:29 pmNHolmes County Joel Pomerene Memorial HospitalMain OR Intraoperative Recordon 42-97-4456Qiyj OR Intraoperative RecordIntraOp Document Type FT Summary Primary Physician: Paty GALLARDO MD Finalized Date/Time: 04/02/20 11:41:12 Pt. Name: COURTNEY MARTINEZ/Sex: 1980 Female Med Rec #: [id number] Physician: Paty GALLARDO MD Financial #: [id number] Pt. Type: O Room/Bed: / Admit/Disch: 03/30/20 [...] RN Role Performed Anesthesiologist Surgeon - Primary Welfare Supervisor - Primary Waiter/Waitress Cabin Class Time In 03/30/20 08:08:00 03/30/20 08:08:00 03/30/20 [...] and tissue Entry 1 Skin Integrity Intact, Keno, Warm, and Skin Abnormality No Dry Outcomes [...] Yes Last Modified By: (more content not included)...[facility] HospitalCoding Summary.on 89-35-1432Qokmko Summary.CODING DATE: 04/01/2020 FINAL [facility] STATUS: Home (Routine DC) PAYOR: Commercial Insurance [...] Aurelia Poon CphT Date Saved: 04/01/2020 12:58 pmNHolmes County Joel Pomerene Memorial HospitalConsenton [id number]#1.00CD:127Normal [facility] HospitalDischarge Instructionson 37-93-1508Gjrtlkkkv [id number]#1.00CD:127[facility] HospitalIntraOperative Documentson 19-83-9725DblguSxwxgqajv [id number]#1.00CD:127[facility] HospitalIntraOperative Documents [id number]#1.00CD:127[facility] HospitalConsent for Treatmenton 07-40-1230Otlojfe for Treatment [id number]#1.00CD:127[facility] HospitalEndoscopic Procedure Report - Otheron 36-08-7428Lwudmzvnrk Procedure Report - OtherPatient: COURTNEY MARTINEZ Age: 39 years Sex: Female [...] safety measures. Endoscope type used was an adult- size, introduced orally, advanced to the 2nd portion of the duodenum. No difficulty was encountered during the procedure. Views were excellent. The patient tolerated the procedure well. Findings 1. Normal esophagus, empiric esophageal dilation performed using 54 then 56 Fijian Fried dilator 2. Normal gastric mucosa 3. Normal duodenal mucosa Images Procedure images: Vocal cords Antrum Duodenum Fundus . Post-Procedure Complications: none. Estimated blood loss: none. Specimens: None. Devices/ implants: none left in place. Impression and Plan Normal esophagus, empiric esophageal dilation performed using 54 then 56 Fijian Fried dilator Recommendations: Follow-up in GI clinic in 2 weeksPremier Health Miami Valley HospitalComment on above:Result Comment: Electronically Signed By: Paty GALLARDO MD\.br\Date and Time Signed: 03/30/20 08:19 ESTOther Comment: Missing Attachment - attachment storage system not supported [id number] Can be viewed in source systemMissing Attachment - attachment storage system not supported [id number] Can be viewed in source systemMissing Attachment - attachment storage system not supported [id number] Can be viewed in source systemMissing Attachment - attachment storage system not supported [id number] Can be viewed in source systemInpatient Patient Summaryon 87-96-0448Aogalccfm Patient Summary [place] [id number] [facility] Clinical Discharge Instructions PERSON INFORMATION Name: COURTNEY MARTINEZ PHYSICIANS Admitting Physician: Paty GALLARDO MD Attending Physician: Paty GALLARDO MD PCP: DILCIA WARNER MD Discharge Diagnosis: Dysphagia Comment: PATIENT EDUCATION INFORMATION Instructions: Medication Leaflets: Follow up: With: Address: When: [facility] [address] [place] [address] Within 2 weeks Type Location Start [facility] Follow Up [facility] 04/07/2020 10:45 AM 04/07/2020 11:00 AM Confirmed [...] By Mouth once a day (at bedtime). Comment:[facility] HospitalMain OR PACU I Recordon 85-97-0318Azdb OR PACU I RecordPACU Phase I Document Type FT Summary Primary Physician: Paty GALLARDO MD Finalized Date/Time: 03/30/20 08:24:45 Pt. Name: COURTNEY MARTINEZ Karlos /Sex: 1980 Female Med Rec #: [id number] Physician: Paty GALLARDO MD Financial #: [id number] Pt. Type: O Room/Bed: / Admit/Disch: 03/30/20 [...] individualized perioperative plan of care The patient's rightto privacy is maintained The patient's value system, [...] with or improved from baseline levels established preoperativelyThe patient's cardiovascular status is consistent with or improved from baseline levels established preoperatively The patient's cardiovascular status is consistent with or improved from baseline levels established preoperatively The patient demonstrates and/or reports adequate pain control throughout the perioperative period The patient received appropriate medication(s), safely administered during the perioperativeperiod Acuity Level PACU I FT Entry 1 Start Time 03/30/20 08:18:00 Stop Time 03/30/20 08:58:00 Acuity Level Acuity Level I Last Modified By: Kenyatta Rizzo RN 03/30/20 08:24:43 Finalized By: Kenyatta Rizzo RN Document Signatures Signed By: Kenyatta Rizzo RN 03/30/20 08:24[facility] Preoperative Recordon 10-65-2385Ohor OR Preoperative RecordHolding Area Document Type FT Summary Primary Physician: Paty GALLARDO MD Finalized Date/Time: 03/30/20 07:09:37 Pt. Name: COURTNEY MARTINEZ Benjamin/Sex: 1980 Female Med Rec #: [id number] Physician: Paty GALLARDO MD Financial #: [id number] Pt. Type: O Room/Bed: / Admit/Disch: 03/30/20 [...] or her perioperative plan of care The patient'sright to privacy is maintained Surgery Checklist FT [...] Signed By: Mary Ann Barrientos RN 03/30/20 07:09[facility] HospitalMonitor Recordon 40-21-6187Rthxrgb [id number]#1.00CD:127 [facility] HospitalOutpatient Surgery Discharge Instructionon 14-29-3702Qsykpgdmtw Surgery Discharge Instruction [address] [address] Patient Discharge Instructions PERSON INFORMATION Name: COURTNEY [...] THE NEAREST EMERGENCY ROOM OR CALL 911 I COURTNEY MARTINEZ, have received the attached patient education materials/instructions and have verbalized understanding: May we do a follow up call? Yes No I was present when discharge instructions were given Patient Signature Date Clinican/Nurse Signature Date Follow up: With: Address: When: [facility] [address] [place] [address] [place] [address] Within 2 weeks Type Location Start [facility] Follow Up [facility] 04/07/2020 10:45 AM 04/07/2020 11:00 AM Confirmed Pharmacy Information: Other: [facility] [place] You may receive a survey from [employer] asking you to rate your care experience. Your feedback is important and will help us understand what we do well and how we can improve the quality of care we provide to you, your loved ones and our community. It?s an honor to serve you. Thank you for choosing [facility] HERE ARE THE MEDICATION CHANGES THAT [...] a day (at bedtime). PATIENT EDUCATION INFORMATION Instructions:[facility] HospitalPatient Education - Texton 41-45-3160Jlalwhr Education - TextNormThe Surgical Hospital at SouthwoodsProgress Note-Nurseon 72-19-4497[place]umpa Note-Oxsrs7258: Call received from pt, stating her pharmacy [...] 1025: Call made to pt's [facility] ([facility] Informed [facility] that Dr. Gallardo states BMX solution is equal parts Benadryl, Lidocaine, and Maalox (1:1:1 ratio). He states volume and dosing is printed on prescription. She confirms that information is on prescription. Denies need for further information.Normal [facility] HospitalProgress Note-Physicianon 05-69-8159Tomxzxwa Note-PhysicianPatient: COURTNEY MARTINEZ Age: 39 years Sex: Female [...] anesthetic complications noted. Plan Transfer/ Discharge: Condition stable.[facility] HospitalComment on above:Result Comment: Electronically Signed By: Ha Mitchell Jr., DO.br\Date and Time Signed: 03/30/20 12:31 ESTPriority Order-Octavia 03-25-2020 Priority Order-STATCommentInvalid Interpretation [facility] Comment on above:Result Comment: Received Performed at: [facility] [address] [facility] [place] [id number] MD Gilbert AnaghPerformed By: #### [id number], SARS-CoV-2, ROX ####[facility] [address] [place] [address] SARS-CoV-2, NAAon 40-74-6039UQRI-CoV-2 (COVID-19) RNA ROX+probe Ql (Resp)Not detectedInvalid Interpretation CodeNot [facility] Comment on above:Result Comment: This nucleic acid amplification test was developed and its performance characteristics determined by [employer]. Nucleic acid amplification tests include RT-PCR and [...] detected) result in this assay. Performed at: [facility] [address] [facility] [place] [id number] MD Gilbert AnaghPerformed By: #### [id number], SARS-CoV-2, ROX ####[facility] [address] [place] [address] Consent for Procedure/Surgeryon 92-52-5828Nkuendm for Procedure/Surgery [id number]#1.00CD:[address] [place], [place] [address]Physician Orderon 72-07-2387Hmcawqneu Order [id number]#1.00CD:[address] [place], [place] [address]Ambulatory Clinical Summaryon 95-41-9560Licuboffmn Clinical Summary {[id number]-d8-7u-7z-[id number]-8b-lf-[id number]-[id number]-e9-80-33}CD:[id number]. Anthony's HospitalGastroenterology Office/Clinic Noteon 99-42-7403Hifapcqxyfuhyysh Office/Clinic NoteChief Complaint abdominal pain HPI Staff This is [...] associated with epigastric and sternal discomfort. She isalready on PPI daily, no melena, occasional rectal [...] no Constipation noGI bleeding no abd pain nodysphagia yes bloating no heartburn Genitourinary: no dysuria, [...] bedtime), # 90 tab(s), Refills(s) 1, Pharmacy: [facility] 167, cm, 03/23/20 14:04:00 EST, Height/Length Dosing, 112.2, kg, 03/23/20 14:04:00 EST, Weight Dosing sucralfate, 1 gram = 1 tab(s), Oral, QID, # 120 tab(s), Refills(s) 0, Pharmacy: [facility], 167, cm, 03/23/20 14:04:00 EST, Height/Length Dosing, 112.2, kg, 03/23/20 14:04:00 EST, WeightDosing EGD Endoscopy (Hospital Procedure) Office Visit Level 4 [place] [address] 2. Heartburn (R12: Heartburn) Ordered: famotidine, 40 mg = 1 tab(s), Oral, Once a day (at bedtime), # 90 tab(s), Refills(s) 1, Pharmacy: [facility] [address] [facility] [facility] [facility] [address] 167, cm, 03/23/20 14:04:00 EST, Height/Length Dosing, 112.2, kg, 03/23/20 14:04:00 EST, Weight Dosing sucralfate, 1 gram = 1 tab(s), Oral, QID, # 120 tab(s), Refills(s) 0, [facility]: [facility], cm, 03/23/20 14:04:00 EST, Height/Length Dosing, 112.2, kg, 03/23/20 14:04:00 EST, WeightDosing EGD Endoscopy (Hospital Procedure) Office Visit Level 4 [place] [address] 3. Dysphagia (R13.10: Dysphagia, unspecified) Ordered: famotidine, 40 mg = 1 tab(s), Oral, Once a day (at bedtime), # 90 tab(s), Refills(s) 1, Pharmacy: [facility] [address] [facility] [address] 167, cm, 03/23/20 14:04:00 EST, Height/Length Dosing, 112.2, kg, 03/23/20 14:04:00 EST, Weight Dosing sucralfate, 1 gram = 1 tab(s), Oral, QID, # 120 tab(s), Refills(s) 0, Pharmacy: [facility] 167, cm, 03/23/20 14:04:00 EST, Height/Length Dosing, 112.2, kg, 03/23/20 14:04:00 EST, WeightDosing EGD Endoscopy (Hospital Procedure) Office Visit Level 4 New [address] 4. Acute costochondritis (M94.0: Chondrocostal junction syndrome [Tietze]) Physical exam revealed significant tenderness at the sternal area suggestive of costochondritis, advised to take diclofenac while taking PPI and Pepcid Orders: ondansetron, 4 mg = 1 tab(s), Oral, q8hr, # 20 tab(s), Refills(s) 1, Pharmacy: [facility], [address], cm, 03/23/20 14:04:00 EST, Height/Length [...] Tab, 4 mg= 1 (more content not included)...[facility] HospitalComment on above:Result Comment: Electronically Signed By: EJ HAYES, Paty\.br\Date and Time Signed: 03/23/20 15:09 ESTPhysician Orderon 80-08-3204Cwnkaqarz [id number]#1.00CD:127 [facility] HospitalHistorical Records Officeon 03-22-2020 Historical Records [id number]#1.00CD:127 [facility] Vital Signs Date TimeVital SignValuePerforming NmoskelizYucsichs63-71-7910 15:040Body gssokq704.64 cmDilcia Warner MD Work Phone: [facility]09-25-2025 15:-040 Body mass index (BMI) [Ratio]41 kg/n0EpbscnDilcia Warner MD Work Phone: [facility]09-25-2025 15:26-0400 Body mybdyp040.21 kgDilcia Warner MD Work Phone: [phone])[address]09-25-2025 15:26-0400 Diastolic blood drordfqm26 mm[Hg]Dilcia Warner MD Work Phone: 1(663)[address] [place], [place] [address]64209-25-2025 15:26-0400 Heart rate88 /Samira Warner MD Work Phone: 1(884)[address] [place], [place] 5764209-25-2025 15:26-0400 Systolic blood yqdnlsqq508 mm[Hg]Dilcia Warner MD Work Phone: 1(929)[address] [place], [place] 5764209-10-2025 13:24-0400 Body .64 cmDilcia Warner MD Work Phone: 1(102)[address] [place], [place] [address]209-10-2025 13:24-0400 Body mass index (BMI) [Ratio]41 kg/m1ZlgeopDilcia Warner MD Work Phone: 1(766)[address] [place], [place] 5764209-10-2025 13:24-0400 Body twebjyldixs39.9 [degF]Dilcia Warner MD Work Phone: 1(786)[address] [place], [place] 5764209-10-2025 13:24-0400 Body dzzixx052.21 kgDilcia Warner MD Work Phone: 1(450)[address] [place], [place] 5764209-10-2025 13:24-0400 Diastolic blood mm[Hg]Dilcia Warner MD Work Phone: 1(342)[address] [place], [place] [address]209-10-2025 13:24-0400 Heart rate67 /Samira Warner MD Work Phone: 1(342)[address] [place], [place] 5764209-10-2025 13:24-0400 SaO2% (BldA) [Mass fraction]97 %Dilcia Warner MD Work Phone: 1(325)[address] [place], [place] [address]64209-10-2025 13:24-0400 Systolic blood dnoxwasm730 mm[Hg]Dilcia Warner MD Work Phone: 1(623)[address] [place], [place] 5764207-24-2025 15:34-0400 Body wympkw614.64 cmDilcia Warner MD Work Phone: [facility]07-24-2025 15:34-0400 Body mass index (BMI) [Ratio]40.3 kg/r3WithzmDilcia Warner MD Work Phone: [facility]07-24-2025 15:34-0400 Body .39 kgDilcia Warner MD Work Phone: [facility]07-24-2025 15:34-0400 Diastolic blood ewgrllua56 mm[Hg]Dilcia Warner MD Work Phone: [facility]07-24-2025 15:34-0400 Heart rate95 /Samira Warner MD Work Phone: [facility]07-24-2025 15:34-0400 Systolic blood osefnuem277 mm[Hg]Dilcia Warner MD Work Phone: [facility]02-24-2025 11:27-0500 Body skirin999.64 cmMercy Memorial Hospital02-24-2025 11:27-0500Body mass index (BMI) [Ratio]38.2 kg/e8CbidnfofkMercy Memorial Hospital02-24-2025 11:27-0500Body qwchjjvhebc87.1 [degF][facility]02-24-2025 11:27-0500Body suyrhn345.5 kgMercy Memorial Hospital02-24-2025 11:27-0500Diastolic blood comeblop40 mm[Hg][facility] 04-28-2024 11:27-0500Heart bgwo318 /minMercy Memorial Hospital 04-28-2024 11:27-7150YdE4% (BldA) [Mass fraction]95 %[facility]02-24-2025 11:27-0500Systolic blood mlxqgiyp502 mm[Hg][facility]12-09-2024 16:06-0500Body zhgzaz474.64 cmMercy Memorial Hospital12-09-2024 16:06-0500Body mass index (BMI) [Ratio]38.9 kg/m2 [facility]12-09-2024 16:06-0500Body .31 kg [facility]12-09-2024 16:06-0500Diastolic blood dxyiwvxs70 mm[Hg][facility]12-09-2024 16:06-0500Heart rate80 /min [facility]12-09-2024 16:06-0500Systolic blood mm[Hg][facility]09-23-2024 09:41-0400Body mupkyc230.64 cmMercy Memorial Hospital08-21-2024 11:12-0400Diastolic blood pressure 82 mm[Hg]Vee Lu MD Work Phone: 1(220)[address]08-21-2024 11:12-0400 Heart rate88 /minVee Lu MD Work Phone: 1(049)[address] [place], [place] 6043108-21-2024 11:12-0400 Systolic blood aesvltpy350 mm[Hg]Vee Lu MD Work Phone: 1(891)[address]08-21-2024 11:11-0400 Body ibzydy542.6 cmVee Lu MD Work Phone: 1(430)[address]08-21-2024 11:11-0400 Body mass index (BMI) [Ratio]37.45 kg/i7NxjvopkVee Lu MD Work Phone: 1(425)[address]08-21-2024 11:11-0400 Body .23 kgVee Lu MD Work Phone: 1(056)[address]07-18-2024 09:16-0400 Body somrix675.64 cmMercy Memorial Hospital07-18-2024 09:16-0400Body mass index (BMI) [Ratio]36.9 kg/f6GvrhhvhflMercy Memorial Hospital07-18-2024 09:16-0400Body imfdzaqanyj19.6 [degF][facility]07-18-2024 09:16-0400Body fizmzq895.87 kgMercy Memorial Hospital07-18-2024 09:16-0400Diastolic blood ggaqurti99 mm[Hg][facility] 09-20-2023 09:16-0400Heart gtus081 /minMercy Memorial Hospital 09-20-2023 09:16-0400Systolic blood lzavquzd532 mm[Hg][facility]04-23-2024 15:01-0400Body zkxlea93.24 cmMercy Memorial Hospital 06-26-2023 15:01-0400Body mass index (BMI) [Ratio]4510.9 kg/w4VvtxbitjxMercy Memorial Hospital04-23-2024 15:-0400Body pujzfp207.77 kgMercy Memorial Hospital04-23-2024 15:-0400Diastolic blood hatqyllw15 mm[Hg][facility]04-23-2024 15:-0400Heart rate75 /minMercy Memorial Hospital04-23-2024 15:01-0400Systolic blood vfbxuvno976 mm[Hg][facility]04-18-2024 15:23-0400Body cfktim266.64 cmMercy Memorial Hospital04-18-2024 15:23-0400Body mass index (BMI) [Ratio]36.9 kg/s0SbfejqjgfMercy Memorial Hospital04-18-2024 15:23-0400Body irsgdo773.92 kg [facility]04-18-2024 15:23-0400Diastolic blood quimcfuw86 mm[Hg][facility]04-18-2024 15:23-0400Heart rate80 /min [facility]04-18-2024 15:23-0400Systolic blood udnsecxn699 mm[Hg][facility]03-15-2023 12:45-0400Body zazrep690.1 cm Dilcia Warner Other [facility] Other 03-14-2023 14:45-0400Body .1 cmDilcia Warner Other [facility] Other 03-14-2023 14:45-0400Body mass index (BMI) [Ratio] 38.44 kg/t9EepetpDilcia Warner Other [facility] Other 03-14-2023 14:45-0400Body rinxzy878.78 kgDilcia Warner Other [facility] Other 03-14-2023 14:45-0400Diastolic blood xaxlgzyc27 mm[Hg] Dilcia Warner Other [facility] Other 03-14-2023 14:45-9654JtI6% (BldA) [Mass fraction]97 % Dilcia Warner Other [facility] Other 03-14-2023 14:45-0400Systolic blood redmsptg660 mm[Hg] Dilcia Warner Other [facility] Other Encounters Encounter DateEncounter TypeCare ProviderFacilityStart: 11-27-2024 End: 79-21-3801tqdoztrhtcLnagzg E Braun MD Work Phone: [facility] Work Phone: Start: 11-27-2024 End: 41-48-7565Knwwaly encounter procedureDilcia Warner MD-[facility] Work Phone: Start: 11-12-2024 End: 97-70-7336tizbesnlzoZxnkpz E Braun MD Work Phone: [facility] Work Phone: Start: 11-12-2024 End: 21-30-0635Lffisbl encounter procedureCatalina Valencia APRN, CNP-[facility] Work Phone: Start: 09-25-2024 End: 83-35-8774tgmfrwrtgfZzmuhv E Braun MD Work Phone: [facility] Work Phone: Start: 09-25-2024 End: 89-13-1451Gufldst encounter procedureDilcia Warner MD-[facility] Work Phone: Start: 09-18-2024 End: 31-30-8845kqnmvxqihbHFKOIO E BRAUNWood County Hospitaltart: 07-10-2024 End: 98-79-8058jvkxzdhfmqHboqswkmqMer[facility] Work Phone: Start: 07-10-2024 End: 21-69-3649Elvmylg encounter procedureZe Physician Group-[facility] Work Phone: Start: 04-28-2024 End: 19-31-1898zvkdkmnxexZmdpwlomyMercy Health [facility] Work Phone: Start: 04-28-2024 End: 07-35-8645Msxkhkt encounter procedureGilmar Physician Group-[facility] Work Phone: Start: 02-11-2024 End: 96-39-7431Nfyhfud encounter procedureGilmar Physician Group-[facility] Work Phone: Start: 11-26-2023 End: 00-50-6154pdnlqhrdxkZhmykjpiiMercy Health [facility] Work Phone: Start: 11-26-2023 End: 18-21-1785Shaligm encounter procedureJudsonhospital corporation of america Physician GroupUC Health Work Phone: Start: 11-22-2023 End: 01-21-0395Upbiowxjrx hospital visit by Rodolfo [address]Comment on above:PalpitationsStart: 11-22-2023 End: 37-73-7358wduscvyuotKAVGTNMOhio State Health Systemtart: 10-24-2023 End: 54-69-0302jpalfmymrvQISDYJPSUNY [facility] AmbulatoryStart: 10-24-2023 End: 58-91-3998Lxvyrd outpatient new 45 Emilie Lu MD Work Phone: [facility] HospitalComment on above:Palpitations (Primary Dx); BMI 37.0-37.9, adult; Atypical chest pain; Abdominal pain, unspecified abdominal location; Anxiety disorder, unspecified typeStart: 10-24-2023 End: 23-98-8688aosblroqjmUIQLXRZWellstar [facility] AmbulatoryStart: 09-20-2023 End: 65-13-7573dmxthwiuvhWuyjojdgpMercy Health [facility] Work Phone: Start: 09-20-2023 End: 09-74-7441Wancafg encounter procedureFirhi hats Physician Group-[facility] Work Phone: Start: 09-32-7073Oat-patient / Non-visitBlue Ridge Regional Hospitals [facility] Work Phone: Start: 60-85-1726Ccq-patient / Non-visitBlue Ridge Regional Hospital Physician GroupVirginia Mason Health [facility] Professional [facility] Work Phone: Start: 08-07-2023 End: 36-06-3598pxweyejbsgBskqvfuvtMercy Health [facility] Work Phone: Start: 08-07-2023 End: 24-78-4349Mpnuret encounter procedureFirhospital corporation of america Physician Group-[facility] Work Phone: Start: 07-25-2023 End: 46-97-5153novhqcjttvXwvpimjtbMercy Health [facility] Work Phone: Start: 07-25-2023 End: 73-89-9592Mskuwmd encounter procedureFirhi hats Physician Group-[facility] Work Phone: Start: 06-26-2023 End: 80-85-0352riptxwwahmYmlwzrjnjMercy Health [facility] Work Phone: Start: 06-26-2023 End: 95-46-3779Nblpter encounter procedureFirhospital corporation of america Physician Group-[facility] Work Phone: Start: 06-21-2023 End: 69-91-3245ensfvtvtetYmydagbtrUniversity Hospitals [facility] Work Phone: Start: 06-21-2023 End: 20-81-2871Womttcd encounter procedureBlue Ridge Regional Hospital Physician GroupUC Health Work Phone: Start: 04-18-2023 End: 02-71-5959uvzmffsmezHdheurkqdUniversity Hospitals [facility] Work Phone: Start: 04-18-2023 End: 85-69-4981Scabmrd encounter procedureBlue Ridge Regional Hospital Physician [facility] Work Phone: Start: 04-05-2023 End: 26-41-4782vwiathrlbsCtusnr Warner Other [employer] Other Start: 09-28-8777Kjuhrqhkj encounterMarcia Petersburg Medical Centertart: 03-20-2023 End: 67-41-9127uizmfaovjkVnkxfx Warner Other [employer] Other Start: 54-62-4382Cuarwrnhj encounterMarcia Petersburg Medical Centertart: 01-17-2023 End: 77-71-5517sceitmngszGxcuea Warner Other [employer] Other Start: 39-73-7298Jdtbjqqhi encounterMarcia [facility] ClinicStart: 11-16-2022 End: 03-78-5886ygokidspoeFordzg Warnre Other [employer] Other Start: 35-90-2345Bgsmxywqv encounterMarcia [facility] Medical Centertart: 07-14-2022 End: 99-11-3786tefsphlfpgIrzjzj Warner Other [employer] Other Start: 07-41-2002Yrebuzfcv encounterMarcia Nathalie [facility] ClinicStart: 07-13-2022 End: 00-74-5347xjztgjjcmaSnrcjo Warner Other [employer] Other Start: 83-65-3168Ttvekvoho encounterMarcia Nathalie [facility] Medical ClinicStart: 06-15-2022 End: 70-83-3298arccqixnxzFrwkpt Warner Other [facility] [employer] Other Start: 64-00-0978Znbcyctwa encounterMarcia TimmyLITTLE COLORADO [facility] Samy Medical ClinicStart: 05-26-2022(Televisit) TelevisitMarcia TimmyLITTLE COLORADO MEDICAL CENTER [facility] Medical ClinicStart: 05-26-2022 End: 60-03-2235keiruqvlixKugkvx Warner Other [employer] Other Start: 05-18-2022 End: 49-06-9380baeueglzfhKF DILCIA WARNERFacility:O6Nqonf: 86-10-2043Nbtjmpxvo encounterMarcia TimmyLITTLE COLORADO [facility]ICAL [facility] Samy Medical ClinicStart: 05-17-2022(Televisit) TelevisitMarcia iTmmyAudi Pablo Medical ClinicStart: 05-17-2022 End: 95-84-7422xjzdaevcufKywmmj Warner Other [employer] Other Start: 05-16-2022 End: 30-29-5550dpmckddtpgDE DILCIA WARNERFacility:H5Ixqvy: 86-35-0382Udjdds outpatient visit 25 minutesMarcia TimmyAudi Pablo Medical ClinicStart: 05-11-2022 End: 42-91-0470wkvsflvjxtRliccg Warner Other [employer] Other Start: 58-73-4724Tepfunctr encounterMarcia TimmyLITTLE COLORADO [facility]ICAL [facility] Sam[facility] Medical ClinicStart: 04-10-2022 End: 70-44-6482zpkeeyedjzQcnsqg Warner Other [employer] Other Start: 75-54-4852Ivffuggmr encounterMarcininoska Pablo [facility] ClinicStart: 04-05-2022 End: 88-04-4270mzkglgxpjhBN DILCIA WARNERFacility:O4Ffuvt: 03-21-2022 End: 47-97-9077jnfttsyrsxEmsutj Warner Other [employer] Other Start: 12-41-8106Lmxldqtxt encounterMarcininoska WarnerLITTLE COLOR[facility] Samy [facility] ClinicStart: 03-17-2022(Televisit) TelevisitDilcia WarnerAudi Pablo [facility] ClinicStart: 03-17-2022 End: 13-73-6329bwdbygdahmPzfdac Warner Other [employer] Other Start: 24-46-5626Iasdwfxgm encounterDilcia Pablo [facility] ClinicStart: 08-03-2021 End: 18-07-7347pmrxnbmszkNHMXSW TIMMYParkview Health Bryan Hospitaltart: 08-03-2021 End: 29-88-3540Kcmxpoxmlc hospital visit by physicianDilcia Warner MD Work Phone: mthz LaboratoryComment on above:Pain syndrome, chronic; Weight gainStart: 07-27-2021 End: 06-37-6298yslgzxoeljBB DILCIA WARNERFacility:U5Hiezt: 06-17-2021 End: 46-34-9745jsejmdsddiNZ ALBINA SINGLETON .Facility:O8Fbmms: 06-13-2021 End: 53-66-8729gdklcsssxzOQ DILCIA WARNERFacility:F6Sqkee: 06-03-2021 End: 61-01-8834gzqqduztrdRK DILCIA WARNERFacility:O9Gyebd: 05-27-2021 End: 42-66-4598seqbnbuapdZH DILCIA WARNERFacility:R9Ymunn: 73-17-0494Xbbhuke encounter Barbara SAWANTFacility:1532Start: 01-27-1441Qnjaqpp encounter Facility:9507Start: 12-29-2016 End: 33-07-6870DuekooqzoaIHIGKBE PHYSICIANFacility:[facility] Procedures DateProcedureProcedure DetailPerforming ClinicianStart: 36-56-8025Pde routine ecg w/least 12 lds w/i&Froylan Lu MD Work Phone: Start: 86-09-9148MgzybxzkivuNjhllbe Traboulssi MD Work Phone: Start: 08-03-2021 End: 46-94-8802Uvfhi of free thyroxineSusan Cally Quan WEATHERIZATION FIELD TECHNICIAN - CNM Work Phone: Screening for malignant neoplasm of breastMarcia Timmy Other Plan of Treatment DateCare ActivityDetailAuthorStart: 69-56-8585Lcwzko Vaccines (1 of 2)Zoster Vaccines (1 of 2)[facility]: 56-81-2640Xiuhfdhvv for malignant neoplasm of breastMammogramUnOhio State University [facility]: 02-15-2024 End: 41-79-6454Udplrnm encounter /13/2024 11:00 AM EST Office Visit [address] [place] [address] Vee Lu MD [facility] [facility], [address] [place] [address] [facility]: 56-39-9203XVWUQ-19 Vaccine ( season)COVID-19 Vaccine ( season)[facility]: 99-89-8568Hfhfwzapm vaccination Influenza Vaccine (#1)[facility]: 10-24-2023 End: 62-64-1217IZ for calcium scoring WO contrast and CTA W contrast IV Heart and coronary arteriesCT cardiac scoring wo IV contrast Imaging Routine Palpitations Expected: 10/24/2023 (Approximate), Expires: 10/23/2024[facility] Work Phone: Comment on above:Expected: 10/24/2023 (Approximate), Expires: 10/23/2024Start: 10-24-2023 End: 53-73-3070Agsnmw monitor studyHolter Or Event Sketch Artist Cardiac Services Routine Palpitations Expected: 10/24/2023 (Approximate), Expires: 10/23/2024[facility] Work Phone: Comment on above:Expected: 10/24/2023 (Approximate), Expires: 10/23/2024Start: 10-24-2023 End: 70-94-0064Ffxxhxuklria / ancillary services mwhfnmjqoh16/21/2024 1:15 PM EDT Ancillary Procedure [address] [place] [address] PalpitationsCleveland Clinic Union HospitalComment on above: PalpitationsStart: 51-36-3763OTFVY-19 Vaccine ( season)COVID-19 Vaccine ( season)[facility]: 11-03-2021 Influenza vaccinationFlu vaccine (Season Ended)[facility]: 08-16-2021 End: 74-65-6578Nordhcf encounter ojggskblx80/14/2022 Office Visit Obstetrics and Gynecology Whitney Quan, WEATHERIZATION FIELD TECHNICIAN - CNM [address] [facility] [address] [place] [address] [facility] Hospitaltart: 55-87-7546Iucow panelLipidsBON [facility]: 89-65-0669Iqslwwby screenDiabetes screenBON [facility]: 17-11-0690BBaQ/Tdap/Td Vaccines (1 - Tdap)DTaP/Tdap/Td Vaccines (1 - Tdap)[facility]: 64-49-1670Atieczsyu for malignant neoplasm of cervixElyria Memorial Hospital: 1997 DTaP/Tdap/Td vaccine (1 - Tdap)DTaP/Tdap/Td vaccine (1 - Tdap)[facility]: 12-10-3608Jzcoasfly B Vaccines (1 of 3 - 19+ 3-dose series) Hepatitis B Vaccines (1 of 3 - 19+ 3-dose series)[facility]: 37-21-3554Dpluhqdz mellitus screeningDiabetes Screening [facility]: 49-34-0174Gmbucoghm C screeningBON [facility]: 53-57-8350LBW screeningHIV screenBON [facility]: 64-76-0879Uhafmntegn ScreenDepression ScreenCar[facility]an[facility]: 83-26-7550Uatfythusfpl Vaccine: Pediatrics (0 to 5 Years) and At- Risk Patients (6 to 64 Years) (1 of 2 - PCV)Pneumococcal Vaccine: Pediatrics (0 to 5 Years) and At-Risk Patients (6 to 64 Years) (1 of 2 - PCV)[facility]: 85-85-1073IGACC-19 Vaccine (1)COVID-19 Vaccine (1) [facility]: 89-11-3732RRJ Vaccines (1 of 1 - Standard series) MMR Vaccines (1 of 1 - Standard series)[facility]: 94-44-2546RIP screeningHIV ScreeningElyria Memorial Hospital: 19-45-7499Nzrtj panelLipid PanelElyria Memorial Hospital: 94-39-5238Duuhijojl for malignant neoplasm of colonElyria Memorial Hospital: 76-79-3506Xoubme Adult PhysicalYearly Adult PhysicalUnKindred Hospital Dayton End: 84-46-5010VA for calcium scoring WO contrast and CTA W contrast IV Heart and coronary arteriesM[facility]CALERO [facility] Service Area Work Phone: Comment on above:Once for 1 Occurrences starting 11/22/2023 until 11/22/2023 End: 57-70-0170Vheohlo Felder Virus (EBV) Antibody Panel IEpstein Felder Virus (EBV) Antibody Panel I Lab Routine Pain syndrome, chronic 1 Occurrences starting 08/03/2021 until 08/03/2021[facility] Work Phone: comment on above:1 Occurrences starting 08/03/2021 until 08/03/2021MG Breast - bilateral [facility] End: 65-47-0072Srsnkij Peroxidase AntibodyBON KATYA [employer] Work Phone: comment on above:1 Occurrences starting 08/03/2021 until 08/03/2021US Breast - right [facility] Payers DatePayer CategoryPayerPolicy [id number] [id number] 2..1.585135.3.57[id number] 2..1.413411.3.57[id number] 2..1.133823.3.57[id number] 2..1.420137.3.57[id number] 2..1.487055.3.57[id number] 2..1.637447.3.57[id number] 2..1.950897.3.57[id number] 2..1.126725.3.57[id number] 2..1.181354.3.57[id number] 2.16.840.1.653644.3.57[id number] 2.16.840.1.648493.3.57[id number] 2.16.840.1.084496.3.57[id number] 2.16.840.1.315675.3.57[id number] 2.16.840.1.063579.3.57[id number] 2.16.840.1.825873.3.57[id number] 2.16.840.1.449255.3.579.2.385834-73-8602Veau [place] [employer] [id number] 2.16.840.5.552585.16855527-11-3822Btmdzrl Health [id number] 1.2.840.063277.1.13.239.2.7.3.434089.315Self-paySelf Pay [id number]/HFA/FAP [id number] Social History DateTypeDetailFacilityStart: 03-20-2017 End: 94-94-4835Xnshiqk smoking status NHISEx-smokerARIZONA SP[facility] [employer] Phone: start: 03-20-2017 End: 33-00-3993Gqhfzrr use and exposureSmokeless tobacco non-userBON [employer] Phone: start: 16-03-8569Cyixlis intakeEx-drinker (finding)BON [employer] Phone: start: 79-08-0282Dhz Assigned At BirthNot on Broderick [facility] [employer] Work Phone: start: 23-76-4569Tlo Assigned At [facility] [employer] Other Start: 83-89-7044Dwz Assigned At [facility] Medical CenterHistory of tobacco useCurrent smokerUnKindred Hospital Dayton Work Phone: History of tobacco useCigarette SmokerUnKindred Hospital Dayton Work Phone: Start: 02-80-3269Cyaztcaxh beverage intakeLifetime non-drinker (finding)[facility] Work Phone: Start: 10-14-2023 End: 73-76-6978Rxuboqie to SARS-CoV-2 (event)Not sureUnKindred Hospital DaytonStart: 92-36-5485Uobzlcb of Social functionUnKindred Hospital Dayton Work Phone: Start: 04-28-2024 End: 10-77-9891XryCbyfhx (finding)[facility] Clinical Notes 03-31-2020 to 09-25-2024 Note Date & IotgMalaUqdfuxre49-73-7598 Evaluation note* Diagnosis Onset Date Resolution Status Admit Date Anxiety acuteJuly 2024 3:29pmCellulitis of foot without toes, leftacuteJuly 2024 3:29pmInsomniaacuteJuly 2024 3:29pmOtitis media, rightacuteSeptember 2024 1:19pm [facility] Work Phone: 1(377) 827-446107-24-2025 Evaluation note* Diagnosis Onset Date Resolution Status Admit Date Anxiety acuteJuly 2024 3:29pmCellulitis of foot without toes, leftacuteJuly 2024 3:29pmInsomniaacuteJuly 2024 3:29pmOtitis media, rightacuteSeptember 2024 1:19pmRadiculopathy, cervical regionacuteSeptember 2024 3:25pm [facility] Work Phone: 1(737) 501-672105-08-2025 Evaluation note* Diagnosis Onset Date Resolution Status Admit Date Acute seasonal allergic rhinitis acuteMay 2024 3:50pm [facility] Work Phone: 1(502) 303-489202-24-2025 Evaluation note* Diagnosis Onset Date Resolution Status Admit Date Influenza A acuteFebruary 2024 11:22am [facility] Work Phone: 1(745) 413-424612-09-2024 Evaluation note* Diagnosis Onset Date Resolution Status Admit Date Anxiety acuteDecember 2023 3:51pmIBS (irritable bowel syndrome)acuteDecember 2023 3:51pmInsomniaacuteDecember 2023 3:51pmInfluenza AacuteFebruary 2024 11:22am [facility] Work Phone: 1(676) 919-504108-21-2024 NoteNormal sinus rhythm with poor R wave progression anterior lead subtle nonspecific ST-T changes. Unchanged from previous PZOHEHWA40-28-6065 History of Present illness Narrative* Vee Lu [...] sinus rhythm with normal QTc interval and CA interval. Patient denies syncope. She denies chest [...] Cardiology ECG 12 Lead Holter Or Event Sketch Artist CT cardiac scoring wo IV contrast 3. [...] exam, discussion and plan. documented in this encounterThe University of [facility] Work Phone: 1(931) 261-118908-21-2024 Instructions* Patient Instructions* Emely Lei CMA - [...] time of your visit. documented in this encounterThe University of [facility] Work Phone: 1(372) 761-833904-13-2023 Evaluation note* Encounter Date Diagnosis Assessment Notes Treatment Notes Treatment Clinical Notes Jun, Gastro-esophageal re flux disease without esophagitis (ICD-10 - K21.9) [employer] Other 03-24-2023 Evaluation note* Encounter Date Diagnosis Assessment Notes Treatment Notes Treatment Clinical Notes May, Left upper quadrant abdominal pa in (ICD-10 - R10.12) Ongoing issue - [facility] Requests a new opinion. Had recent scopes last fall in [place]. Pain was increased last week which prompted hospitalization. Will place referral as requested. Zapproved Other 03-15-2023 Evaluation note* Encounter Date Diagnosis Assessment Notes Treatment Notes Treatment Clinical Notes May, LUQ pain (ICD-10 - R10.12) CT and [facility] appts pending. will help symptoms with meds below. May,Nausea (ICD-10 - R11.0) Zapproved Other 03-14-2023 Evaluation note* Encounter Date Diagnosis Assessment Notes Treatment Notes Treatment Clinical Notes May, Acute LUQ pain (ICD-10 - R10.12) Pt has an ongoing history of GI complaints. Previously seen at several local offices and in [place].Will refer to [facility]. Courtney requests tests today to focus on the LUQ pain. Will rule out bowel obstruction and conspation. May,Fibromyalgia (ICD-10 - M79.7)Notes generalized muscle pain and discomfort. 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 Advised she followup with her surgeon. She had hergyn surgery by Dr. Ayala in [place] May,Hormone replacement therapy (ICD-10 - Z79.890)Continues on estradiol May,Other obesity due to excess calories (ICD-10 - E66.09) May,ody mass index [BMI] 38.0-38.9, adult (ICD-10 - Z68.38)States her weight is stable despite very limited diet. Zapproved Other 01-13-2023 Evaluation note* Encounter Date Diagnosis Assessment Notes Treatment Notes Treatment Clinical Notes Mar, Acute non-recurrent maxillary si nusitis (ICD-10 - J01.00) Discussed diagnosis with patient. Instructed to take ATB as directed and complete entire course even if asymptomatic. OTC Tylenol or ibuprofen for discomfort. Saline nasal spray prn congestion. Flonase nasal spray prn congestion. OTC cough medication prn cough. Push fluids and rest. Cool mist humidier. Immediate evaluation if worsening symptoms. Patient to notify office should symptoms persist ornot improve. Pt verbalizes understanding and agrees with tx plan. Zapproved Other 10-18-2021 NoteHNO ID: [id number] Author: Mane Rosa PA-C Service: ? Author Type: Physician Waiter/Waitress Cabin Class Type: Progress Notes Filed: 12/20/2020 3:54 PM Note Text: Pt can be seen first available with me. 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 No PT no injections triedOhiohealth Pickerington [facility]10-11-2021 NoteHNO ID: [id number] Author: Eulalia Weiss Service: ? Author Type: ? Type: Progress Notes Filed: 12/20/2020 3:54 PM Note Text: Patient name: Courtney Amaral Are you being referred by a [facility] Provider or Pain Management Provider at [facility]? No If answer is YES please [...] facility where the MRI/CT/myelogram was completed: [facility] [address] [place] [address] MRI/CT/myelogram viewable in Epic: No If not, please provide [phone] to fax in imaging reports for review. [...] surgery was completed: ~ 2016 Lumbar surgery [facility] [address] [place] [address] Additional Comments [phone]01-27-2021 Note [id number]:127[facility] Evaluation note* Diagnosis Pain syndrome, chronic Chronic pain syndrome Weight gain Abnormal weight gain documented in this encounter B[employer] Phone: evaluation noteNo InformationNort [employer] Other Evaluation note* Diagnosis Onset Date Resolution Status Sinusitis, acute maxillary acute [facility] Work Phone: Evaluation note* Diagnosis Onset Date Resolution Status Anxiety acuteEsophageal refluxacuteInsomniaacute [facility] Work Phone: Evaluation note* Diagnosis Onset Date Resolution Status Anxiety acuteEsophageal refluxacuteInsomniaacuteBreast mass, rightacute [facility] Work Phone: Evaluation note* Diagnosis Onset Date Resolution Status Anxiety acuteEsophageal refluxacuteInsomniaacuteBreast mass, rightacuteInsomniaacute [facility] Work Phone: Evaluation note* Diagnosis Onset Date Resolution Status Breast mass, right acuteAnxietyacuteInsomniaacuteMigraineacute [facility] Work Phone: Evaluation note* Diagnosis Onset Date Resolution Status Sinusitis, acute maxillary acuteAnxietyacuteInsomniaacuteSinusitis, acute maxillaryacute [facility] Work Phone: Evaluation note* Diagnosis Palpitations- Primary BMI 37.0-37.9, adult Atypical chest pain Other chest pain Abdominal pain, unspecified abdominal location Anxiety disorder, unspecified type Palpitations documented in this encounter [facility] Work Phone: Evaluation note* Diagnosis Palpitations documented in this encounter [facility] Work Phone: History general Narrative - Reported* Type Description Date Medical History fibromyalgia Medical Historychronic depressionMedical HistoryAnxiety disorderMedical History Esophageal refluxSurgical HistoryhysterectomySurgical Historyright and left knee scopeSurgical History8 scopes on ovariesSurgical HistoryappendectomySurgical HistorycholecystectomySurgical Historytonsillectomy and adenoidectomy Hospitalization Historysee above Zapproved Other Reason for referral (narrative)No reason for referral information availableLancaster Municipal Hospital Work Phone: Summary Purpose Family History Relationship Condition Age at Onset Recorded Date/T bernardino father Aneurysm Unknown DeceasedUnknown Advance Directives TypeDate RecordedPatient RepresentativeExplanationACP-Advance DirectiveACP-Power of Tank Car Inspector Advance Directive Response Recorded Date/ Time Advance Directives No August 05 10:59am Advance Directive Response Recorded Date/ Time Advance Directives No August 05 11:59am Advance Directive Response Recorded Date/ Time Advance Directives No July 10, 2024 3:50pm Reason for Referral SpecialtyDiagnoses / ProceduresReferred By ContactReferred To ContactRadiology Diagnoses Palpitations Procedures CT cardiac scoring wo IV contrast Vee Lu MD [facility] [facility] [address], [address] [address] Referral IDStatusReasonStart DateExpiration DateVisits RequestedVisits [id number] Review Perform Procedure [id number] / ProceduresReferred By ContactReferred To ContactCardiology Diagnoses Palpitations Procedures Holter Or Event Sketch Artist Vee Lu MD [facility] [facility] [address], [address] [address] Referral IDStatusReasonart DateExpiration DateVisits RequestedVisits [id number] [id number] / ProceduresReferred By ContactReferred To Contact Diagnoses Palpitations Procedures ECG 12 Lead Vee Lu MD [facility] [facility] [address], [address] [address] Referral IDStatusReasonStevens Point DateExpiration DateVisits RequestedVisits [id number]/21/20248/[id number] / Procedures Referred By ContactReferred To ContactCardiology Diagnoses Palpitations Procedures Follow Up In Cardiology Vee Lu MD [address] [facility] [address], [address] [address] Vee Lu MD [facility] [facility] [address], [address] [address] Referral IDStatusReasonStart DateExpiration DateVisits RequestedVisits [id number]/21/20248/21/202511 Reason *06/02 Vielka laura MD in [place] - LUQ pain. Recent hospitalization. Pt insurance told her this office would take her [place]. Thanks. Diagnosis 1 Left upper quadrant abdominal pain (R10.12) Referral Organization [facility] [employer] [facility] mynor Referring Provider First Name Dilcia Referring Provider Last Name Timmy Referring Provider Specialty [facility] Referred Organization Unknown Facility Referred Provider Specialty Gastroentero logy Referral Priority Routine General Notes Kelsey Rice 09:59:29 AM >RECEIVED TODAY, ATTACHMENTS MADE, NOTES LOCKED, REFERRAL FAXED Clinical Notes p: [phone] f: [phone] Reason *06/[address] Gallardo in [facility]. Continues to have abd pain and frequent diarrhea. Thanks Diagnosis 1 Acute LUQ pain (R10. 12) Referral Organization [facility] mynor Referring Provider First Name Dilcia Referring Provider Last Name Timmy Referring Provider Specialty [facility] Referred Organization [facility] Referred Address [address] [place], [place] [address]Karine [place], [place],[address] Referred Provider Specialty Gastroentero logy Referral Priority Routine General Notes Kelsey Rice 01:55:32 PM > RECEIVED TODAY, FORM FILLED OUT, ATTACHMENTS MADE, REFERRAL FAXED Kelsey Rice 05/25/2022 10:49:13 AM >faxed first attempt letter Chief Complaint and Reason for Visit Chief Complaint congestion, cough, N o COVID Test Reason for Visit Sinusitis, acute max illary Chief Complaint congestion, cough, N o COVID Test medication reviewReason for VisitAnxiety Esophageal reflux Insomnia Chief Complaint congestion, cough, N o COVID Test medication review lump in breastReason for VisitAnxiety Esophageal reflux Insomnia Breast mass, right Chief Complaint medication review lump in breast ALLERGY SHOTReason for VisitAnxiety Esophageal reflux Insomnia Breast mass, right Chief Complaint medication review lump in breast ALLERGY SHOT med concernsReason for VisitAnxiety Esophageal reflux Insomnia Breast mass, right Insomnia Chief Complaint lump in breast ALLERGY SHOT med concerns sore throat, ear painReason for VisitBreast mass, right Anxiety Insomnia Migraine Chief Complaint sore throat, ear ney n sinus pressureReason for VisitSinusitis, acute maxillary Anxiety Insomnia Sinusitis, acute maxillary Chief Complaint [...] Otitis media, right November 12, 2024 1:19pm Chief Complaint Admit Date L Foot Wound September 25, 2024 3:29 pm R Ear Pain November 12, 2024 1:19pm Go over results November 27, 2024 3:25pm Reason for Visit Admit Date Anxiety September 25, 2024 3:29 pm Cellulitis of foot without toes, left Ju ly 2024 3:29pm Insomnia September 25, 2024 3:29 pm Otitis media, right November 12, 2024 1:19pm Radiculopathy, cervical region November 27, 2024 3:25pm Additional Source Comments INFORMATION SOURCE (unrecogn ized section and content) DATE CREATED AUTHOR 08/28/2017 [facility] DATE CREATED AUTHOR AUTHOR'S MARGRETIZ ATJOSHUA 01/31/2018 [facility] DATE CREATED AUTHOR AUTHOR'S ORGANIZ ATION 02/01/2018 [facility] DATE CREATED AUTHOR AUTHOR'S ORGANIZ ATION 06/24/2020 [facility] DATE CREATED AUTHOR AUTHOR'S ORGANIZ ATION 04/14/2021 [facility] DATE CREATED AUTHOR AUTHOR'S ORGANIZ ATION 08/08/2021 [facility] DATE CREATED AUTHOR AUTHOR'S ORGANIZ ATION 05/24/2022 [facility] DATE CREATED AUTHOR AUTHOR'S ORGANIZ ATION 11/29/2023 [facility] DATE CREATED AUTHOR AUTHOR'S ORGANIZ ATION 11/30/2023 [facility] DATE CREATED AUTHOR AUTHOR'S ORGANIZ ATION 09/22/2024 [facility] Care Teams (unrecognized sec tion and [...] Start: April 28, 2024 End: April 28, 2024Catalina Valencia APRN [employer]-CAttending ProviderActive Start: April 28, 2024 End: April 28, 2024 Team Status: Active Member Role Status Dates Dilcia Warner MD Primary Care Provider Active Start: September 11, 2023 Natividad Lew DOAttending ProviderActiveStart: September 11, 2023 Team Status: Active Member Role Status Dates Dilcia Warner MD Primary Care Provider Active Start: September 11, 2023 Afshin Pablo DOAttdori ProviderActiveStart: September 11, 2023 Team Status: Inactive Member Role Status Dates Dilcia Warner MD Primary Care Provide r, Attending Provider Active Start: September 20, 2023 End: September 20, 2023 Team Status: Inactive Member Role Status Dates Dilcia Warner MD Primary Care Provide r, Attending Provider Active Start: November 26, 2023 End: November 26, 2023Team MemberRelationshipSpecialtyStart DateEnd Date Dilcia Warner MD [facility]07/04/17 Team Status: Inactive Member Role Status Dates [...] Start: July 25, 2023 End: July 25, 2023Catalina Valencia APRN [employer]-CAttending ProviderActiveStart: July 25, 2023 End: July 25, 2023 Team Status: Inactive Member Role Status Dates Dilcia Warner MD Primary Care Provide r, Attending Provider Active Start: August 07, 2023 End: August 07, 2023Team MemberRelationshipSpecialtyStart DateEnd Date Dilcia Warner MD [address] [place] [address] [facility]10/24/23Team MemberRelationshipSpecialtyStart [place] [address] [place] [address] [facility]10/24/23 Team Status: Active Member Role Status Dates [...] Start: July 10, 2024 End: July 10, 2024Jelani Torres ProviderActiveStart: July 10, 2024 End: July 10, 2024 Team Status: Inactive Member Role Status Dates Dilcia Warner MD Primary Care Provider Active Start: September 25, 2024 End: September 25, 2024Jelani Torres ProviderActiveStart: September 25, 2024 End: September 25, 2024 Team Status: Inactive Member Role Status Dates Dilcia Warner MD Primary Care Provider Active Start: November 12, 2024 End: November 12, 2024Catalina Valencia APRN [employer]-CAttending ProviderActive Start: November 12, 2024 End: November 12, 2024 Team Status: Inactive Member Role Status Dates Dilcia Warner MD Primary Care Provider Active Start: November 27, 2024 End: November 27, 2024Jelani Torres ProviderActiveStart: November 27, 2024 End: November 27, 2024 REASON FOR VISIT (unrecogniz ed section and content) ReasonCommentsNew Patient VisitSelf referral [facility], [facility] SpecialtyDiagnoses / ProceduresReferred By ContactReferred To Contact Diagnoses Palpitations Procedures ECG 12 Lead Vee Lu MD [address] [place] [address] [address], [address] [address] Referral IDStatusReasonStevens [place] DateExpiration DateVisits RequestedVisits [id number]/21/20248/21/271222OlksyfozrYvituxcof / Procedures Referred By ContactReferred To ContactRadiology Diagnoses Palpitations Procedures CT cardiac scoring wo IV contrast Vee Lu MD [address] [place] [address] [address], [address] [address] [facility] DateExpiration DateVisits RequestedVisits [id number] Review Perform Procedure Goals (unrecognized section and content) Goals may [...] BE BASED ON THE PRIMARY CLINICAL RECORDS. [employer] [facility]. provides no warranty or guarantee of the accuracy or completeness of information in this document.
--- OUTSIDE RECORDS SUMMARY | 2024-12-25 08:14 | XMS_ITS | Clinical Summary ---
Author Organization [facility] Address [address] [address] Care Team Providers Care Regulatory Compliance Specialist Name Role Phone Unavailable Primary Care Provider Unavailabl e Social History Tobacco UseTypesPacks/DayYears UsedDateSmoking Tobacco: Never AssessedUT Safety & EnvironmentAnswerDate RecordedFear of Current or Ex-PartnerNot on file 04/26/2023Emotionally AbusedNot on file04/26/2023hysically AbusedNot on file 04/26/2023Sexually AbusedNot on file04/26/2023hysically or Sexually AbusedNot on file04/26/2023CommentsUnknownSex and Gender InformationValueDate RecordedSex Assigned at BirthNot on fileLegal DbiSklhwl02/29/2022 11:14 PM EDT Gender IdentityNot on fileSexual OrientationNot on file Last Filed Vital Signs Vital SignReadingTime TakenCommentsBlood Dywnojzh228/8404 10:39 AM EDT Dfraf2318 10:39 AM EDTTemperature--Respiratory Rate--Oxygen Saturation-- Inhaled Oxygen Concentration--Xivuql373 kg (251 lb)07/02/2020 10:39 AM EDTHeight 167.6 cm (5' 6 )07/02/2020 10:40 AM EDTBody Mass Index40.5104 10:39 AM EDT Plan of Treatment Not on file
--- NOTE | 2024-12-25 08:16 | MR_ITS ---
The [address] [address] Patient Name: IRINA GALAN MRN: [facility]:[id number] date: 1980 Sex: F Assigned Patient Location: MRI Current Patient Location: MRI Accession/Order Number: [id number] Exam Date: 12/25/2024 08:35 Report Date: 12/25/2024 16:46 At the request of: NON-STAFF PHYSICIAN Procedure: MR cervical spine wo con EXAMINATION: MRI OF THE CERVICAL SPINE WITHOUT CONTRAST CLINICAL DATA: cervical radiculopathy TECHNIQUE: Multiecho imaging was performed in the sagittal and axial plane without contrast administration. COMPARISON: X-rays 09/18/2024 FINDINGS: Asymmetry junction maintained. There is minimal reversal normal cervical lordosis. There are Modic type II changes at C4-C5 and Modic type I changes at C5-C6. Otherwise klpm-fu-[id number] intervertebral space narrowing C4-6 cervical cord demonstrates normal signal and morphology. Prevertebral and paraspinal soft tissues unremarkable. C2-C3: Mild left-sided facet arthropathy causing mild left-sided foraminal narrowing. Right foramen and canal patent. C3-C4: Mild left-sided uncovertebral spurring. This causes mild left-sided neural from narrowing. No definite disc disease. Canal and right foramen are patent. C4-C5: Bilateral uncovertebral and facet arthropathy predominantly left-sided this causes wjol-uv-sosdykut right-sided and moderate left-sided neural from narrowing. Canal is patent. C5-C6: Broad-based bulge with uncovertebral and facet arthropathy causing moderate right-sided moderate severe left-sided neural from narrowing. Canal is grossly patent. C6-C7: Minimal uncovertebral spurring. No focal disc protrusion central canal or neural foramen identified. C7-T1: Mild facet arthropathy. No significant disease central canal or neural foraminal narrowing identified. MR/MR cervical spine wo con IMPRESSION: IMPRESSION: Overall moderate neural foraminal C4-6, predominantly left-sided. No high-grade canal or neural foraminal narrowing identified. Impression dictated by: Barrington Sapp M.D. 12/25/2024 4:46 PM Dictation Location: [place] [address] Electronically authenticated by: [id number] Y Date: 12/25/2024 16:46
== END 2024-12-25 08:09 | disposition home or self-care (01) ==
LOC: MRI 08:09
PROVIDERS: PCP Family Medicine
DX: M54.12 Radiculopathy, cervical region (principal)
CPT/HCPCS: 72141